=== PATIENT | female | born 1940 | race Caucasian/White ===

== ENCOUNTER 2024-06-07 14:40 | Emergency (ER) | payer MEDICARE, SELFPAY ==
[2024-06-07 14:51] VITALS: BP 113/72; PULSE 66; TEMP 36.8; O2SAT 98; BMI 25.2
--- NOTE | 2024-06-07 14:56 | CT_ITS ---
The [address] [address] Patient Name: DEMARCUS FINN MRN: [id number] date: 1940 Sex: F Assigned Patient Location: ER Current Patient Location: Accession/Order Number: [id number] Exam Date: 06/07/2024 16:32 Report Date: 06/07/2024 18:15 At the request of: CHINA MATTA Procedure: CT pelvis wo con EXAM: CT pelvis wo con REASON FOR EXAM: Female, 83 years, Fall. TECHNIQUE: Computed tomography of the pelvis is performed in the axial projection from the iliac crests to the pubic symphysis. Sagittal and coronal reconstructed images are performed. Dose reduction techniques were achieved by using automated exposure control and/or adjustment of mA and/or KVP according to patient size and/or use of iterative reconstruction technique. Study was performed without IV contrast. Study was performed without oral contrast. COMPARISON: Plain film, same date FINDINGS: Small bowel: The visualized small bowel is normal. Large bowel: There is extensive diverticulosis within the visualized colon. Appendix: The appendix is not visualized. No right lower quadrant inflammatory changes are seen to suggest acute appendicitis. Aorta: Extensive calcifications are seen within the distal abdominal aorta and iliac arteries. IVC: The IVC is normal. Retroperitoneum: Normal retroperitoneum. Bladder: The bladder is normal. Pelvic organs: The uterus is absent, consistent with hysterectomy. Abdominal wall: There are postoperative changes to the anterior abdominal wall. Osseous structures: There are degenerative changes within the visualized spine. The bones are demineralized. The SI joints are symmetric. No acute fracture is seen. CT/CT pelvis wo con IMPRESSION: Osteopenia, without acute fracture. Diverticulosis. Additional findings, as described above. Electronically authenticated by: OLEGARIO FREED Date: 06/07/2024 18:15
--- NOTE | 2024-06-07 14:56 | XR_ITS ---
The [address] [address] Patient Name: DEMARCUS FINN MRN: [id number] date: 1940 Sex: F Assigned Patient Location: ER Current Patient Location: ER Accession/Order Number: [id number] Exam Date: 06/07/2024 16:45 Report Date: 06/07/2024 18:07 At the request of: CHINA MATTA Procedure: XR tibia fibula LT 2V EXAM: XR tibia fibula LT 2V, XR femur LT 2V HISTORY: Pain in leg COMPARISON: CT pelvis, same date TECHNIQUE: Frontal and lateral views of the left femur, frontal and lateral views of the left tibia and fibula are performed. FINDINGS: The bones are demineralized. There is no acute fracture. There is chondrocalcinosis at the knee. Atherosclerotic vascular calcifications are seen. XR/XR tibia fibula LT 2V IMPRESSION: Osteopenia, no acute bony abnormality. Electronically authenticated by: OLEGARIO FREED Date: 06/07/2024 18:07
--- NOTE | 2024-06-07 14:56 | XR_ITS ---
The [address] [address] Patient Name: DEMARCUS FINN MRN: [id number] date: 1940 Sex: F Assigned Patient Location: ER Current Patient Location: ER Accession/Order Number: [id number] Exam Date: 06/07/2024 16:45 Report Date: 06/07/2024 18:07 At the request of: CHINA MATTA Procedure: XR femur LT 2V EXAM: XR tibia fibula LT 2V, XR femur LT 2V HISTORY: Pain in leg COMPARISON: CT pelvis, same date TECHNIQUE: Frontal and lateral views of the left femur, frontal and lateral views of the left tibia and fibula are performed. FINDINGS: The bones are demineralized. There is no acute fracture. There is chondrocalcinosis at the knee. Atherosclerotic vascular calcifications are seen. XR/XR femur LT 2V IMPRESSION: Osteopenia, no acute bony abnormality. Electronically authenticated by: OLEGARIO FREED Date: 06/07/2024 18:07
--- NOTE | 2024-06-07 14:57 | ED_ITS ---
HPI HPI - General Adult General Chief complaint: Extremity Problem, Nontraumatic Stated complaint: LOWER EXTREMITY INJURY Time Seen by Provider: 06/07/24 14:49 Source: patient and family Mode of arrival: Wheelchair Limitations: no limitations History of Present Illness HPI narrative: Patient is an 83-year-old female with a history of stroke and chronic weakness to the left lower extremity who presents to the ER for pain in the left hip that began today. She complains of severe pain over the left lateral hip, she was able to ambulate with her cane and walker around the home today, she states she cannot put any pressure on the left leg. She is adamant she has not had any falls or injuries. No medications taken prior to arrival. She is anticoagulated for her previous history of CVA. She denies any numbness of the left leg but has pain down the entire left leg, worst in the left hip. She has a history of degenerative disc disease of the lumbar spine. She states she canceled her massage appointment today due to an increase in pain and difficulty with ambulating, her massage therapist evaluated her and believes she has a hip dislocation. Related Data Home Medications ?Medication ?Instructions ?Recorded ?Confirmed allopurinol 100 mg tablet 100 mg PO DAILY 06/07/24 06/07/24 atorvastatin 80 mg tablet 80 mg PO DAILY 06/07/24 06/07/24 carvedilol 6.25 mg tablet 6.25 mg PO BID 06/07/24 06/07/24 dapagliflozin propanediol 10 mg 10 mg PO DAILY 06/07/24 06/07/24 tablet ezetimibe 10 mg tablet 10 mg PO DAILY 06/07/24 06/07/24 furosemide 40 mg tablet 40 mg PO DAILY 06/07/24 06/07/24 gabapentin 100 mg capsule 200 mg PO BEDTIME 06/07/24 06/07/24 isosorbide mononitrate 60 mg 60 mg PO DAILY 06/07/24 06/07/24 tablet,extended release 24 hr lisinopril 20 mg tablet 20 mg PO DAILY 06/07/24 06/07/24 pantoprazole 40 mg tablet,delayed 40 mg PO DAILY 06/07/24 06/07/24 release rivaroxaban 15 mg tablet (Xarelto) 15 mg PO Q24H 06/07/24 06/07/24 Previous Rx's ?Medication ?Instructions ?Recorded hydrocodone 5 mg-acetaminophen 325 1 tab PO Q6H PRN pain 2 days #8 06/07/24 mg tablet tabs prednisone 20 mg tablet See Rx Instructions .Route 06/07/24 .COMPLEX #6 tabs Allergies Allergy/AdvReac Type Severity Reaction Status Date / Time No Known Drug Allergies Allergy Verified 06/07/24 14:51 Opioid HPI Opioid Management Most Recent Opioid Data: Last Pain Scale 1 06/07/24 15:57 Last MAR Pain Assessment 06/07/24 15:57 Review of Systems ROS Constitutional Denies: fever or chills Ears, nose, mouth, and throat Denies: throat pain or nasal congestion Respiratory Denies: shortness of breath Gastrointestinal Denies: abdominal pain, nausea or vomiting Musculoskeletal Reports: back pain and extremity pain; Denies: neck pain Integumentary/Breast Denies: rash Neurological Denies: headache Hematologic/Lymphatic Denies: easy bruising or easy bleeding Exam Narrative Exam Narrative: Gen.: Awake, alert, in no distress Head: Normocephalic, atraumatic ENT: Moist mucous membranes Respiratory: No respiratory distress Extremities: Normal dorsiflexion, painful plantarflexion of the left foot. Diffuse mild tenderness of the left tibia, left knee and left thigh. Healing abrasion noted to the left lateral thigh. Moderate tenderness of the left lateral hip with no obvious deformity. No shortening or rotation noted of the left lower extremity. 2+ left DP pulse. Psych: Normal mood and affect Neuro: No focal neuro deficit Skin: Warm, dry, intact Constitutional Vital Signs, click to edit/add: Last Vital Signs Temp 98.2 F 06/07/24 14:51 Pulse 66 06/07/24 14:51 Resp 18 06/07/24 14:51 BP 113/72 06/07/24 14:51 Pulse Ox 98 06/07/24 14:51 O2 Del Method Room Air 06/07/24 14:51 Course Vital Signs Vital signs: Vital Signs Temperature 98.2 F 06/07/24 14:51 Pulse Rate 66 06/07/24 14:51 Respiratory Rate 18 06/07/24 14:51 Blood Pressure 113/72 06/07/24 14:51 Pulse Oximetry 98 06/07/24 14:51 Oxygen Delivery Method Room Air 06/07/24 14:51 Temperature 98.2 F 06/07/24 14:51 Pulse Rate 66 06/07/24 14:51 Respiratory Rate 18 06/07/24 14:51 Blood Pressure 113/72 06/07/24 14:51 Pulse Oximetry 98 06/07/24 14:51 Oxygen Delivery Method Room Air 06/07/24 14:51 Medical Decision Making MDM Narrative Medical decision making narrative: Medicated with Percocet and Solu-Medrol with improvement, vital signs are stable and she has no focal neurodeficits. CT of the pelvis as well as x-rays of the femur and tib-fib are unremarkable. Patient tolerated ambulating in the ER with a walker with no difficulty and prefers to be discharged home. She is given a course of analgesics and steroid taper for home. She is anticoagulated so we will avoid NSAIDs. Follow-up PCP and return to the ER if symptoms change or worsen SUPERVISED APC VISIT, PHYSICIAN ATTESTATION: Based on the medical record the care appears appropriate. ? Medical Records Medical records reviewed: Yes I reviewed the patient's medical records Lab Data Lab results reviewed: Yes I reviewed the patient's lab results Labs: Lab Results 06/07/24 06/07/24 Range/Units 15:20 15:54 WBC 7.5 (4.0-11.0) 10^3/uL RBC 4.25 (4.20-5.40) 10^6/uL Hgb 11.9 L (12.0-16.0) g/dL Hct 39.1 (36.0-48.0) % MCV 92.0 (81.0-99.0) fL MCH 28.0 (26.7-34.0) pg MCHC 30.4 (29.9-35.2) g/dL RDW 15.4 H (11.0-15.0) % Plt Count 293 (150-450) 10^3/uL MPV 10.8 (9.5-13.5) fL Neut % (Auto) 66.9 (43.0-75.0) % Lymph % (Auto) 18.6 L (20.5-60.0) % [place] % (Auto) 9.6 (1.7-12.0) % Eos % (Auto) 3.9 (0.9-7.0) % Baso % (Auto) 0.9 (0.2-2.0) % Neut # (Auto) 5.0 (1.4-6.5) 10^3/uL Lymph # (Auto) 1.4 (1.2-3.8) 10^3/uL [place] # (Auto) 0.7 (0.3-0.8) 10^3/uL Eos # (Auto) 0.3 (0.0-0.7) 10^3/uL Baso # (Auto) 0.1 (0.0-0.1) 10^3/uL Abs Immat Gran (auto) 0.01 (0.00-0.03) 10^3/uL Imm/Tot Granulo (auto) 0.1 (0.0-0.5) % ESR 64 H (<=30) mm/hr Sodium 137 (136-145) mmol/L Potassium 4.5 (3.5-5.1) mmol/L Chloride 102 (98-107) mmol/L Carbon Dioxide 28.3 (21.0-32.0) mmol/L Anion Gap 11.2 BUN 45.0 H (7.0-18.0) mg/dL Creatinine 1.57 H (0.55-1.02) mg/dL Est GFR ( Amer) 38 L (>=60) Est GFR (Non-Af Amer) 31 L (>=60) BUN/Creatinine Ratio 28.7 Glucose 107 H (74-106) mg/dL Calcium 9.6 (8.5-10.1) mg/dL C-Reactive Protein <0.50 (<=0.50) mg/dL Imaging Data CT scan - pelvis: Attestation: I have reviewed the pertinent imaging results. Radiologist's impression: ITS Impressions Femur X-Ray 06/07/24 14:56 IMPRESSION: Osteopenia, no acute bony abnormality. Electronically authenticated by: OLEGARIO FREED Date: 06/07/2024 18:[address] 06/07/24 14:56 IMPRESSION: Osteopenia, without acute fracture. Diverticulosis. Additional findings, as described above. Electronically authenticated by: OLEGARIO FREED Date: 06/07/2024 18:15 Tibia/Fibula X-Ray 06/07/24 14:56 IMPRESSION: Osteopenia, no acute bony abnormality. Electronically authenticated by: OLEGARIO FREED Date: 06/07/2024 18:07 Discharge Plan Discharge Stand Alone Forms: Portal Instructions Chief Complaint: Extremity Problem, Nontraumatic Clinical Impression: Acute pain of left hip Patient Disposition: Home, Self-Care Time of Disposition Decision: 18:34 Condition: Good Prescriptions / Home Meds: New hydrocodone-acetaminophen 5-325 mg tablet 1 tab PO Q6H PRN (Reason: pain) 2 Days Qty: 8 0RF Rx Instructions: DX: M25.552 prednisone 20 mg tablet See Rx Instructions .ROUTE .COMPLEX Qty: 6 0RF Rx Instructions: 40 mg orally daily for 2 days, then 20 mg orally daily for 2 days No Action allopurinol 100 mg tablet 100 mg PO DAILY atorvastatin 80 mg tablet 80 mg PO DAILY carvedilol 6.25 mg tablet 6.25 mg PO BID dapagliflozin propanediol 10 mg tablet 10 mg PO DAILY ezetimibe 10 mg tablet 10 mg PO DAILY furosemide 40 mg tablet 40 mg PO DAILY isosorbide mononitrate 60 mg tablet extended release 24 hr 60 mg PO DAILY lisinopril 20 mg tablet 20 mg PO DAILY pantoprazole 40 mg tablet,delayed release (DR/EC) 40 mg PO DAILY Xarelto 15 mg tablet 15 mg PO Q24H gabapentin 100 mg capsule 200 mg PO BEDTIME Print Language: Khmer Instructions: Hip Pain (ED) Referrals: RADHIKA LOVETT [Primary Care Provider] - 1 week
[2024-06-07 15:29] LABS: Basophils Absolute Auto 0.1 10^3/uL (0.0-0.1); Basophils Percent Auto 0.9 % (0.2-2.0); Eosinophils Absolute Auto 0.3 10^3/uL (0.0-0.7); Eosinophils Percent Auto 3.9 % (0.9-7.0); Hematocrit 39.1 % (36.0-48.0); Hemoglobin 11.9 g/dL (12.0-16.0); Immature Granulocytes Abs Auto 0.01 10^3/uL (0.00-0.03); Immature Granulocytes Pct Auto 0.1 % (0.0-0.5); Lymphocytes Absolute Auto 1.4 10^3/uL (1.2-3.8); Lymphocytes Percent Auto 18.6 % (20.5-60.0); Mean Corpuscular HGB Conc 30.4 g/dL (29.9-35.2); Mean Platelet Volume 10.8 fL (9.5-13.5); Monocytes Absolute Auto 0.7 10^3/uL (0.3-0.8); Monocytes Percent Auto 9.6 % (1.7-12.0); Neutrophils Percent Auto 66.9 % (43.0-75.0); Platelet Count 293 10^3/uL (150-450); Red Blood Count 4.25 10^6/uL (4.20-5.40); Red Cell Distribution Width 15.4 % (11.0-15.0); White Blood Count 7.5 10^3/uL (4.0-11.0)
[2024-06-07 15:55] LABS: Erythrocyte Sedimentation Rate 64 mm/hr (<=30)
[2024-06-07] MEDS: OXYCODONE HCL/ACETAMINOPHEN 5MG/325MG 1 TAB PO (15:57)
[2024-06-07] MEDS: METHYLPREDNISOLONE SOD SUCC PF 125 MG/2 ML VIAL IVP (15:57)
[2024-06-07 16:30] LABS: Anion Gap 11.2; BUN Creatinine Ratio 28.7; C Reactive Protein <0.50 mg/dL (<=0.50); Calcium 9.6 mg/dL (8.5-10.1); Carbon Dioxide 28.3 mmol/L (21.0-32.0); Chloride 102 mmol/L (98-107); Estimated GFR (African America 38 (>=60); Estimated GFR (Non-African Ame 31 (>=60); Glucose 107 mg/dL (74-106); Potassium 4.5 mmol/L (3.5-5.1); Sodium 137 mmol/L (136-145)
[2024-06-07 18:52] VITALS: BP 132/72; PULSE 61; O2SAT 94
== END 2024-06-07 18:55 | disposition home or self-care (01) ==
PROVIDERS: Physician Assistant; Emergency Provider Emergency Medicine; PCP Internal Medicine
DX: M25.552 Pain in left hip (principal); M51.36 Other intervertebral disc degeneration, lumbar region; Z86.73 Personal history of transient ischemic attack (TIA), and cerebral infarction without residual deficits; Z79.01 Long term (current) use of anticoagulants
CPT/HCPCS: 36415; 72192; 73552; 73590; 80048; 85025; 85652; 86140; 96374; 99285; J2919

== ENCOUNTER 2025-07-23 14:40 | Inpatient (IN) | payer MEDICARE, SELFPAY ==
[2025-07-23] VITALS (25 sets, daily range): BP systolic 89–120; BP diastolic 44–80; PULSE 66–99; TEMP 36.9; O2SAT 90–100; BMI 25.2; BMI 26.8
--- OUTSIDE RECORDS SUMMARY | 2025-07-23 14:45 | XMS_ITS | Encounter Summary ---
Author Organization [employer] [facility] Address [id number] [address] [place] [address] Care Team Providers Care Mechanic/Welder Name Role Phone Bakari Tovar DO Primary Care Provider [phone] Reason for Visit * Reason Comments Med Refill Encounter Details Date Type Department Care Team (Late Contact Info) Description 10/05/2022 Refill [facility] - Family Medicine [address] [place] [address] Bakari Tovar DO [address] [place] [address] Post herpetic neuralgia Social History Tobacco Use Types Packs/Day Years Used Date Smoking Tobacco: Never Smokeless Tobacco: Never Alcohol Use Standard Drinks/Week Comments No 0 (1 standard drink = 0.6 oz pur e alcohol) PHQ-2 Answer Date Recorded PHQ-2 Score 3 11/30/2018 Childcare Answer Date Recorded Childcare Unknown 05/11/2019 Employment Answer Date Recorded Employment Unknown 05/11/2019 Purpose - Life Answer Date Recorded Purpose and direction in life Unknown Comments No Sex and Gender Information Value Date Recorded Sex Assigned at Not on file Legal Sex Female 11:54 AM EDT Gender Identity Not on file Sexual Orientation Not on file COVID-19 Exposure Response Date Recorded In the last month, have you been in contact with someone who was confirmed or suspected to have Coronavirus / COVID-19? No / Unsure 10/06/2022 12:27 PM EST documented as of this encounter Plan of Treatment Upcoming Encounters Date Type Department Care Team (Late st Contact Info) Description 09/18/2025 11:00 AM EDT Office Visit [facility] Card[facility] [address] [place] [address] Brook Thao, SKIVER HAND-TICKET SALES SUPERVISOR [address] [place] [phone] Emani Davison, PA-C [address] [place] [address] 10/30/2025 10:00 AM EST Office Visit [facility] - Heart Failure Clinic [address] [place] [address] Boyd Beck MD [address] [place] [address] 04/03/2026 1:30 PM EDT Appointment [facility] - Vascular [address] [place] [address] Ciarra Colon, DO [address] [place] [address] 04/09/2026 2:00 PM EDT Office Visit [facility] [place] [address] Ciarra Colon, DO [address] [place] [address] documented as of this encounter Goals Goal Patient Goal Type Associated Problems Recent Progress Patient-Stated? Author safe discharge to home General Yes Alexandria Solis, RN Note: Evaluation of progress towards goal: safe transition from hospital to home with family/friend support. documented as of this encounter Visit Diagnoses Diagnosis Post herpetic neuralgia Herpes zoster with other nervous system complications documented in this encounter Additional Health Concerns Assessment Noted Time PHQ-9 Depression Total Score: 3 01/06/20 18 1:00 PM EST documented as of this encounter Care Teams Mechanic/Welder Relationship Specialty Start Date End Date Bakari Tovar DO [address] [place] [address] PCP - General Internal Medicine 12/01/24 documented as of this encounter
--- OUTSIDE RECORDS SUMMARY | 2025-07-23 14:45 | XMS_ITS | Encounter Summary ---
Author Organization [place] [facility] Address [id number] [address] [place] [address] Care Team Providers Care Dural Mechanic Name Role Phone CarmenBakari archer Elia MALAGON Primary Care Provider [phone] Reason for Visit * Reason Onset Date Comments Med Refill 10/06/2022 Encounter Details Date Type Department Care Team (Late st Contact Info) Description 10/06/2022 Refill [facility] Internal Medicine - Family Medicine [address] [place] [phone] Kiki Fernandez MA Hyperuricemia (Primary Dx); Acute on chronic diastolic congestive heart failure (CMS-HCC); Atherosclerosis of [place] coronary artery of [place] heart with stable angina pectoris ([facility]-HCC); Mixed hyperlipidemia; Gastroesophageal reflux disease, unspecified whether esophagitis present Social History Tobacco Use Types Packs/Day Years [...] PM EST documented as of this encounter Miscellaneous Notes * Telephone Encounter - Kiki Fernandez MA - 10/06/2022 11:55 AM EST Patient states she has been out of all of these since Thursday. documented in this encounter Plan of Treatment Upcoming Encounters Date Type Department Care Team (Late st Contact Info) Description 09/18/2025 11:00 AM EDT Office Visit [facility] Cardiology [address] [place] [address] Brook Thao, HEEL CURVER-ELECTRONIC WARFARE TECHNICIAN [address] [place] [phone] Emani Davison, PA-C [address] [place] [address] 10/30/2025 10:00 AM EST Office Visit [facility] - Heart Failure Clinic [address] [place] [address] Boyd Beck MD [address] [place] [address] 04/03/2026 1:30 PM EDT Appointment [facility] - Vascular [address] [place] [address] Ciarra Colon, DO [address] [place] [address] 04/09/2026 2:00 PM EDT Office Visit [facility] [address] [place] [address] Ciarra Colon, DO [address] [place] [address] documented as of this encounter Goals Goal Patient Goal Type Associated Problems Recent Progress Patient-Stated? Author safe discharge to home General Yes Alexandria Solis, RN Note: Evaluation of progress towards goal: safe transition from hospital to home with family/friend support. documented as of this encounter Visit Diagnoses Diagnosis Hyperuricemia- Primary Other abnormal blood chemistry Acute on chronic diastolic congestive heart failure ([facility]) Atherosclerosis of [place] coronary artery of [place] heart with stable angina pectoris Mixed hyperlipidemia Gastroesophageal reflux disease, unspecified whether esophagitis present documented in this encounter Additional Health Concerns Assessment Noted Time PHQ-9 Depression Total Score: 3 01/06/20 18 1:00 PM EST documented as of this encounter Care Teams Dural Mechanic Relationship Specialty Start Date End Date Bakari Tovar DO [address] [place] [id number] PCP - General Internal Medicine 12/01/24 documented as of this encounter
--- OUTSIDE RECORDS SUMMARY | 2025-07-23 14:45 | XMS_ITS | Encounter Summary ---
Author Organization [facility] Sys [facility] Address [id number] [address] [place] [address] Care Team Providers Care Psychology Physician Name Role Phone Bakari Tovar Primary Care Provider [phone] Encounter Details Date Type Department Care Team (Late st Contact Info) Description 05/04/2025 Orders Only [facility] Heart Failure Clinic [address] [phone] Boyd Beck MD [address] [place], [place] [id number] Social History Tobacco Use Types Packs/Day Years Used Date Smoking Tobacco: Never Smokeless Tobacco: Never Alcohol Use Standard Drinks/Week Comments No 0 (1 standard drink = 0.6 oz pur e alcohol) PHQ-2 Answer Date Recorded Total Score 0 04/17/2025 Childcare Answer Date Recorded Childcare Unknown 05/11/2019 Employment Answer Date Recorded Employment Unknown 05/11/2019 Hunger Screening Answer Date Recorded Within the past 12 months we worried whether our food would run out before we got money to buy more. Never True 04/17/2025 Within the past 12 months th e food we bought just didn't last and we didn't have money to get more. Never True 04/17/2025 Purpose - Life Answer Date Recorded Purpose and direction in life Unknown Comments No Sex and Gender Information Value Date Recorded Sex Assigned at Not on file Legal Sex Female 11:54 AM EDT Gender Identity Not on file Sexual Orientation Not on file documented as of this encounter Plan of Treatment Upcoming Encounters Date Type Department Care Team (Late st Contact Info) Description 09/18/2025 11:00 AM EDT Office Visit [facility] Cardiology [address] [place] [address] Brook Thao, COUNTY SUPERVISOR-CLOTH DYEING RANGE TENDER [address] [place] [address] Emani Davison, PA-C [address] [place] [address] 10/30/2025 10:00 AM EST Office Visit [facility] - Heart Failure Clinic [address] [facility] [place] [address] Boyd Beck MD [address] [place], [place] [phone] 04/03/2026 1:30 PM EDT Appointment [facility] - Vascular [address] [place] [phone] Ciarra Colon, DO [address] [place] [address] 04/09/2026 2:00 PM EDT Office Visit [facility] [address] [place] [address] Ciarra Colon, DO [address] [place] [address] documented as of this encounter Goals Goal Patient Goal Type Associated Problems Recent Progress Patient-Stated? Author safe discharge to home General Yes Alexandria Solis, RN Note: Evaluation of progress towards goal: safe transition from hospital to home with family/friend support. documented as of this encounter Procedures Procedure Name Priority Date/Time Associated Diagnosis Comments UNLISTED GENETIC TEST Routine 04/29/2025 documented in this encounter Results * Unlisted Genetic Test (04/29/2025) us Boyd Beck MD LAB BLOOD ORDERABLES Edited Res ult - Final MANUALLY TRANSCRIBED RESULTS documented in this encounter Visit Diagnoses Not on filedocumented in this encounter Additional Health Concerns Assessment Noted Time PHQ-9 Depression Total Score: 0 04/17/20 1:52 PM EDT A Body Mass Index follow-up plan has been documented for the patient 04/25/2025 2:57 PM EDT documented as of this encounter Care Teams Psychology Physician Relationship Specialty Start Date End Date Bakari Tovar DO [address] [place] [address] PCP - General Internal Medicine 12/01/24 documented as of this encounter
--- OUTSIDE RECORDS SUMMARY | 2025-07-23 14:45 | XMS_ITS | Encounter Summary ---
Author Organization [employer] [facility] tem Address [facility]-[id number] [address] [place] [address] Care Team Providers Care Harbor Engineer Name Role Phone Bakari Tovar DO Primary Care Provider [phone] Encounter Details Date Type Department Care Team (Late st Contact Info) Description 01/01/2023 Telephone [facility] - Family Medicine [address] [place] [address] Bakari Tovar DO [address] [place] [address] Social History Tobacco Use Types Packs/Day Years Used Date Smoking Tobacco: Never Smokeless Tobacco: Never Alcohol Use Standard Drinks/Week Comments No 0 (1 standard drink = 0.6 oz pur e alcohol) PHQ-2 Answer Date Recorded Total Score 0 12/29/2022 Childcare Answer Date Recorded Childcare Unknown 05/11/2019 [...] have Coronavirus / COVID-19? No / Unsure 12/29/2022 1:14 PM EST documented as of this encounter Miscellaneous Notes * Telephone Encounter - Bethany Piña - 01/01/2023 10:10 AM EST Moncho from home health called and was wondering if it would be okay to start ascencion with home health starting on Thursday? They just wanted to make sure it was okay with you first. Moncho can be reached at [phone] * Telephone Encounter - Ivonne Cantor MA - 01/01/2023 10:10 AM EST Moncho called back and ssaid they are actually going out tomorrow, they had some cancellations. * Telephone Encounter - Mary Sebastian CMA - 01/01/2023 10:10 AM EST Moncho Called today and Patient refused Home Health told him she does not qualify for Home Health due to she is not home bound because she drives everywhere and is going to pay for the tens unit documented in this encounter Plan of Treatment Upcoming Encounters Date Type Department Care Team (Late st Contact Info) Description 09/18/2025 11:00 AM EDT Office Visit [facility] Cardiology [address] [place] [address] Brook Thao, OFFSET PRESS OPERATOR HELPER-TENNIS BALL COVER CEMENTER [address] [place] [address] Emani Davison, PA-C [address] [place] [address] 10/30/2025 10:00 AM EST Office Visit [facility] [address] [place] [address] Boyd Beck MD [address] [place] [address] 04/03/2026 1:30 PM EDT Appointment [facility] - Vascular [address] [place] [address] Ciarra Colon, DO [address] [place] [address] 04/09/2026 2:00 PM EDT Office Visit [facility] [place] [address] [place] [address] Ciarra Colon, DO [address] [place] [address] documented as of this encounter Goals Goal Patient Goal Type Associated Problems Recent Progress Patient-Stated? Author safe discharge to home General Yes Alexandria Solis, RN Note: Evaluation of progress towards goal: safe transition from hospital to home with family/friend support. documented as of this encounter Visit Diagnoses Not on filedocumented in this encounter Additional Health Concerns Assessment Noted Time PHQ-9 Depression Total Score: 0 12/29/19 23 1:45 PM EST documented as of this encounter Care Teams Harbor Engineer Relationship Specialty Start Date End Date Bakari Tovar DO [address] [place] [address] PCP - General Internal Medicine 12/01/24 documented as of this encounter
--- OUTSIDE RECORDS SUMMARY | 2025-07-23 14:45 | XMS_ITS | Encounter Summary ---
Author Organization [employer] tem Address [facility][id number] [address] [place] [address] Care Team Providers Care Edge Baster Name Role Phone Bakari Tovar DO Primary Care Provider [phone] Reason for Visit * Reason Comments Med Refill Encounter Details Date Type Department Care Team (Late st Contact Info) Description 02/26/2023 Refill [facility] Internal Medicine - Family Medicine [address] [place] [address] Bakari Tovar DO [address] [place] [address] Post herpetic neuralgia Social History Tobacco Use [...] have Coronavirus / COVID-19? No / Unsure 02/20/2023 9:01 AM EDT documented as of this encounter Plan of Treatment Upcoming Encounters Date Type Department Care Team (Late st Contact Info) Description 09/18/2025 11:00 AM EDT Office Visit [facility] Cardiology [address] [place] [address] Brook Thao, FLOORING HELPER-CIRCLE SAW OPERATOR [address] [place] [address] Emani Davison, PA-C [address] [place] [address] 10/30/2025 10:00 AM EST Office Visit [facility] [address] [place] [address] Boyd Beck MD [address] [place], [place] [address] 04/03/2026 1:30 PM EDT Appointment [facility] - Vascular [address] [place] [address] Ciarra Colon, DO [address] [place] [address] 04/09/2026 2:00 PM EDT Office Visit [facility] [place] [address] Ciarra Colon, DO [address] [place] [address] documented as of this encounter Goals Goal [...] documented as of this encounter Care Teams Edge Baster Relationship Specialty Start Date End Date Bakari Tovar DO [address] [place] [address] PCP - General Internal Medicine 12/01/24 documented as of this encounter
--- OUTSIDE RECORDS SUMMARY | 2025-07-23 14:45 | XMS_ITS | Encounter Summary ---
Author Organization [facility] Address [facility][id number] [address] [place] [address] Care Team Providers Care Pet Trainer Name Role Phone Bakari Tovar DO Primary Care Provider [phone] Encounter Details Date Type Department Care Team (Late st Contact Info) Description 12/22/2022 Orders Only [facility] Internal Medicine - Family Medicine [address] [place] [address] Bakari Tovar DO [address] [place] [address] Type 2 diabetes mellitus without complication, without long-term current use of insulin ([facility]) (Primary Dx); Mixed hyperlipidemia; Hyperuricemia Social History Tobacco Use Types Packs/Day Years [...] have Coronavirus / COVID-19? No / Unsure 12/24/2022 11:56 AM EST documented as of this encounter Plan of Treatment Upcoming Encounters Date Type Department Care Team (Late st Contact Info) Description 09/18/2025 11:00 AM EDT Office Visit [facility] Cardiology [address] [place] [address] Brook Thao, IT SECURITY ARCHITECT-GRAND JURY DEPUTY SHERIFF [address] [place] [address] Emani Davison, PA-C [address] [place], [place] [address] 10/30/2025 10:00 AM EST Office Visit [facility] - Heart Failure Clinic [address] [place] [address] Boyd Beck MD [address] [place] [address] 04/03/2026 1:30 PM EDT Appointment [facility] - Vascular [address] [place] [address] Ciarra Colon, DO [address] [place] [address] 04/09/2026 2:00 PM EDT Office Visit [address] [address] Ciarra Colon, DO [address] [place] [address] documented as of this encounter Goals Goal Patient Goal Type Associated Problems Recent Progress Patient-Stated? Author safe discharge to home General Yes Alexandria Solis, RN Note: Evaluation of progress towards goal: safe transition from hospital to home with family/friend support. documented as of this encounter Results * Uric acid (12/24/2022 12:02 PM EST) Uric Acid 6.2 2.6 - 7.2 mg/dL 12/24/2022 3:15 PM [facility] Blood (PLASMA) 12/24/2022 12 :02 PM EST 12/24/2022 12:03 PM EST Bakari Tovar DO LAB BLOOD ORDERABLES Final Resul t [facility] [address] [facility] [place] [address] * (ABNORMAL) Lipid profile (12/24/2022 12:02 PM EST) Cholesterol 109(L) 150 - 200 mg/dL 12/24/2022 3:15 PM [facility] Triglycerides 110 27 - 150 mg/dL 12/24/2022 3:15 PM [facility] HDL Cholesterol 40 >39 mg/dL 3:15 PM [facility] Comment: HDL <40 mg/dL - High Risk HDL > or = 40mg/dL- Desirable HDL >60 mg/dL - Negative Risk VLDL 22 0 - 30 mg/dL 12/24/2022 3:15 PM [facility] LDL (calc) 47 <130 mg/dL 12/24/2022 3:15 PM [facility] Comment: LDL <100 mg/dL - Desirable LDL >160 mg/dL - High Risk Cholesterol:HDL Ratio 2.7 1.0 - 5.0 12/24/2022 3:15 PM [facility] PLASMA 12/24/2022 12:0 2 PM EST 12/24/2022 12:03 PM EST Bakari Tovar DO LAB BLOOD ORDERABLES Final Resul t [facility] [address] [facility] [place] [address] * (ABNORMAL) Comprehensive metabolic panel (12/24/2022 12:02 PM EST) Sodium 139 134 - 146 mmol/L 12/24/2022 3:15 PM [facility] Potassium, Bld 4.3 3.5 - 5.0 mmol/L 12/24/2022 3:15 PM [facility] Chloride 103 98 - 109 mmol/L 12/24/2022 3:15 PM [facility] CO2 25 22 - 32 mmol/L 12/24/2022 3:15 PM [facility] Anion gap 11 5 - 15 mmol/L 12/24/2022 3:15 PM [facility] BUN 63(H) 5 - 27 mg/dL 12/24/2022 3:15 PM [facility] Creatinine 1.68(H) 0.40 - 1.00 mg/dL 12/24/2022 3:15 PM [facility] Comment:METHOD TRACEABLE TO IDMS STANDARD Glucose 105(H) 65 - 99 mg/dL 12/24/2022 3:15 PM [facility] Calcium 9.6 8.5 - 10.5 mg/dL 12/24/2022 3:15 PM [facility] Total Protein 7.1 6.0 - 8.0 g/dL 12/24/2022 3:15 PM [facility] Albumin 4.3 3.2 - 5.3 g/dL 12/24/2022 3:15 PM [facility] Alkaline Phosphatase 79 39 - 130 U/L 12/24/2022 3:15 PM [facility] AST 12 0 - 41 U/L 12/24/2022 3:15 PM EST [facility] ALT 15 0 - 31 U/L 12/24/2022 3:15 PM EST [facility] Total bilirubin 0.4 0.3 - 1.2 mg/dL 12/24/2022 3:15 PM EST [facility] eGFR (CKD-EPI)non-rac e dependent 30(L) >59 ml/min/1.7 3sq.m 12/24/2022 3:15 PM EST [facility] Comment: Reported eGFR is based on the CKD-EPI 2020 equation that does not use a race coefficient. PLASMA 12/24/2022 12:0 2 PM EST 12/24/2022 12:03 PM EST Bakari Tovar DO LAB BLOOD ORDERABLES Final Resul t Performing Organization Address City/[facility]/ZIP Co de Phone Number [facility] [address] [facility] [place] [address] * Hemoglobin A1c (12/24/2022 12:02 PM EST) Hemoglobin A1C 6.1 4.4 - 6.4 % 12/24/2022 3:21 PM EST [facility] Average glucose 128 mg/dL 3:21 PM EST [facility] PLASMA 12/24/2022 12:0 2 PM EST 12/24/2022 12:03 PM EST Bakari Tovar DO LAB BLOOD ORDERABLES Final Resul t [facility] documented in this encounter Visit Diagnoses Diagnosis Type 2 diabetes mellitus without complication, without long-term current use of insulin ([facility])- Primary Mixed hyperlipidemia Hyperuricemia Other abnormal blood chemistry documented in this encounter Additional Health Concerns Assessment Noted Time PHQ-9 Depression Total Score: 3 01/06/20 18 1:00 PM EST documented as of this encounter Care Teams Pet Trainer Relationship Specialty Start Date End Date Bakari Tovar DO [address] [place] [address] PCP - General Internal Medicine 12/01/24 documented as of this encounter
--- OUTSIDE RECORDS SUMMARY | 2025-07-23 14:45 | XMS_ITS | Encounter Summary ---
Author Organization [employer] tem Address [facility]-[id number] [address] [place] [address] Care Team Providers Care Steam Pan Sponger Name Role Phone Bakari Tovar DO Primary Care Provider [phone] Reason for Visit * Reason Onset Date Comments Med Refill 09/15/2023 Encounter Details Date Type Department Care Team (Late st Contact Info) Description 09/15/2023 Refill [facility] Internal Medicine - Family Medicine [address] [place] [address] Bakari Tovar DO [address] [place] [address] Acute on chronic diastolic congestive heart failure ([facility]) Social History Tobacco Use Types Packs/Day Years Used Date Smoking Tobacco: Never Smokeless Tobacco: Never Alcohol Use Standard Drinks/Week Comments No 0 (1 standard drink = 0.6 oz pur e alcohol) PHQ-2 Answer Date Recorded Total Score 0 09/08/2023 Childcare Answer Date Recorded Childcare Unknown 05/11/2019 Employment Answer Date Recorded Employment Unknown 05/11/2019 Purpose - Life Answer Date Recorded Purpose and direction in life Unknown Comments No Sex and Gender Information Value Date Recorded Sex Assigned at Not on file Legal Sex Female 11:54 AM EDT Gender Identity Not on file Sexual Orientation Not on file documented as of this encounter Miscellaneous Notes * Telephone Encounter - Bakari Tovar DO - 09/15/2023 3:48 PM EDT Duplicate request documented in this encounter Plan of Treatment Upcoming Encounters Date Type Department Care Team (Late st Contact Info) Description 09/18/2025 11:00 AM EDT Office Visit [facility] Cardiology [address] [facility] [address] [place] [address] Brook Thao, [place] CUSTOMS AND BORDER OFFICER-DIRECTOR OF MUSIC [address] [place] [address] Emani Davison, PA-C [address] [place], [place] [address] 10/30/2025 10:00 AM EST [facility] [address] [place] [address] Boyd Beck MD [address] [place] [address] 04/03/2026 1:30 PM EDT Appointment [facility] - Vascular [address] [place] [address] Ciarra Colon, DO [address] [place] [address] 04/09/2026 2:00 PM EDT Office Visit [address] [address] Ciarra Colon DO [address] [place] [address] documented as of this encounter Goals Goal Patient Goal Type Associated Problems Recent Progress Patient-Stated? Author safe discharge to home General Yes Alexandria Solis, RN Note: Evaluation of progress towards goal: safe transition from hospital to home with family/friend support. documented as of this encounter Visit Diagnoses Diagnosis Acute on chronic diastolic congestive heart failure (CMS-HCC) documented in this encounter Additional Health Concerns Assessment Noted Time PHQ-9 Depression Total Score: 0 09/08/20 23 2:08 PM EDT documented as of this encounter Care Teams Steam Pan Sponger Relationship Specialty Start Date End Date Bakari Tovar DO [address] [place] [address] PCP - General Internal Medicine 12/01/24 documented as of this encounter
--- OUTSIDE RECORDS SUMMARY | 2025-07-23 14:45 | XMS_ITS | Encounter Summary ---
Author Organization [facility] tem Address [facility]-[id number] [address] [place] [address] Care Team Providers Care Residence Hall Director Name Role Phone Bakari Tovar Primary Care Provider [phone] Encounter Details Date Type Department Care Team (Late st Contact Info) Description 04/08/2023 Telephone [facility] Internal Medicine - Family Medicine [address] [place] [address] Christal Douglas CMA Social History Tobacco Use Types Packs/Day Years Used Date Smoking Tobacco: Never Smokeless Tobacco: Never Alcohol Use Standard Drinks/Week Comments No 0 (1 standard drink = 0.6 oz pur e alcohol) PHQ-2 Answer Date Recorded Total Score 0 03/31/2023 Childcare Answer Date Recorded Childcare Unknown 05/11/2019 [...] encounter Miscellaneous Notes * Telephone Encounter - Christal Douglas CMA - 04/08/2023 2:16 PM EDT Patient needs an order put in for her FIT test. She picked up the kit but there was no order to go with it. documented in this encounter Plan of Treatment Upcoming Encounters Date Type Department Care Team (Late st Contact Info) Description 09/18/2025 11:00 AM EDT Office Visit [facility] Physicians Cardiology [address] [place] [address] Brook Thao, CONSULAR OFFICER-PRODUCTION SUPPORT SUPERVISOR [address] [place] [address] Emani Davison, PA-C [address] [place] [address] 10/30/2025 10:00 AM EST Office Visit [facility] - Heart Failure Clinic [address] [place] [address] Boyd Beck MD [address] [place], [place] [address] 04/03/2026 1:30 PM EDT Appointment [facility] - Vascular [address] [place] [address] Ciarra Colon, DO [address] [place] [address] 04/09/2026 2:00 PM EDT Office Visit [facility] [place] [address] [facility] [place] [address] Ciarra Colon, DO [address] [place] [address] documented as of this encounter Goals Goal [...] Noted Time PHQ-9 Depression Total Score: 0 03/31/20 10:01 AM EDT documented as of this encounter Care Teams Residence Hall Director Relationship Specialty Start Date End Date Bakari oTvar DO [address] [place] [id number] PCP - General Internal Medicine 12/01/24 documented as of this encounter
--- OUTSIDE RECORDS SUMMARY | 2025-07-23 14:45 | XMS_ITS | Encounter Summary ---
Author Organization [facility] [employer] [facility] tem Address [facility][id number] [address] [place] [address] Care Team Providers Care Kaiako Kohanga Reo Name Role Phone Bakari Tovar DO Primary Care Provider [phone] Encounter Details Date Type Department Care Team (Late st Contact Info) Description 10/05/2022 Orders Only [facility] Internal Medicine - Family Medicine [address] [place] [address] Bakari Tovar DO [address] [place] [address] Social History Tobacco Use Types Packs/Day Years [...] Description 09/18/2025 11:00 AM EDT Office Visit [facility] Cardiology [address] [place] [address] Brook Thao, STRAW HAT BRIM CUTTER OPERATOR-MEDICAL CLAIMS ASSISTANT [address] [place] [address] Emani Davison, PA-C [address] [place] [address] 10/30/2025 10:00 AM EST Office Visit [facility] - Heart Failure Clinic [address] [place] [address] Boyd Beck MD [address] [place], [place] [address] 04/03/2026 1:30 PM EDT Appointment [facility] - Vascular [address] [place] [address] Ciarra Colon, DO [address] [place] [address] 04/09/2026 2:00 PM EDT Office Visit [facility] [place] [address] [place] [address] Ciarra Colon, DO [address] [place] [address] documented as of this encounter Goals Goal [...] documented as of this encounter Care Teams Kaiako Kohanga Reo Relationship Specialty Start Date End Date Bakari Tovar DO [address] [place] [address] PCP - General Internal Medicine 12/01/24 documented as of this encounter
--- OUTSIDE RECORDS SUMMARY | 2025-07-23 14:45 | XMS_ITS | Encounter Summary ---
Author Organization [employer] Address [facility]-[id number] [address] [place] [address] Care Team Providers Care Aircraft Restorer Name Role Phone Bakari Tovar DO Primary Care Provider [phone] Reason for Visit * Reason Comments Med Refill Encounter Details Date Type Department Care Team (Late st Contact Info) Description 08/29/2022 Refill [facility] - Family Medicine [address] [place] [address] Bakari Tovar DO [address] [place] [address] Post herpetic neuralgia Social History Tobacco Use [...] have Coronavirus / COVID-19? No / Unsure 08/06/2022 12:32 PM EDT documented as of this encounter Plan of Treatment Upcoming Encounters Date Type Department Care Team (Late st Contact Info) Description 09/18/2025 11:00 AM EDT Office Visit [facility]icians Cardiology [address] [place] [address] Brook Thao, DIRECTOR CHEMISTRY-PRESS SET UP PERSON [address] [place] [address] Emani Davison, PA-C [address] [place] [address] 10/30/2025 10:00 AM EST Office Visit [facility] - Heart Failure Clinic [address] [place] [address] Boyd Beck MD [address] [place], [place] [address] 04/03/2026 1:30 PM EDT Appointment [facility] - Vascular [address] [place] [address] Ciarra Colon, DO [address] [place] [address] 04/09/2026 2:00 PM EDT Office Visit [facility] [place] [address] Ciarra Colon, DO [address] [place] [address] documented as of this encounter Goals Goal [...] documented as of this encounter Care Teams Aircraft Restorer Relationship Specialty Start Date End Date Bakari Tovar DO [address] [place] [address] PCP - General Internal Medicine 12/01/24 documented as of this encounter
--- OUTSIDE RECORDS SUMMARY | 2025-07-23 14:45 | XMS_ITS | Encounter Summary ---
Author Organization [employer] Address [facility]-[id number] [address] [place] [address] Care Team Providers Care Typesetter Apprentice Name Role Phone Bakari Tovar DO Primary Care Provider [phone] Reason for Visit * Reason Onset Date Comments Med Refill 03/23/2023 Encounter Details Date Type Department Care Team (Late Contact Info) Description 03/23/2023 Refill [facility] - Family Medicine [address] [place] [address] Bakari Tovar DO [address] [place] [address] COPD, moderate (CMS-HCC) (Primary Dx) Social History Tobacco Use Types Packs/Day Years [...] Description 09/18/2025 11:00 AM EDT Office Visit [facility] [address] [place] [address] Brook Thao, LENS COATER-AIR BRAKE OPERATOR [address] [place] [address] Emani Davison, PA-C [address] [place] [address] 10/30/2025 10:00 AM EST Office Visit [facility] - Heart Failure Clinic [address] [facility] [place] [address] Boyd Beck MD [address] [place], [place] [phone] 04/03/2026 1:30 PM EDT Appointment [facility] - Vascular [address] [place] [address] Ciarra Colon, DO [address] [place] [address] 04/09/2026 2:00 PM EDT Office Visit [facility] [place] [address] [place] [address] Ciarra Colon, DO [address] [place] [address] documented as of this encounter Goals Goal Patient Goal Type Associated Problems Recent Progress Patient-Stated? Author safe discharge to home General Yes Alexandria Solis, RN Note: Evaluation of progress towards goal: safe transition from hospital to home with family/friend support. documented as of this encounter Visit Diagnoses Diagnosis COPD, moderate (CMS-HCC)- Primary documented in this encounter Additional Health Concerns Assessment Noted Time PHQ-9 Depression Total Score: 0 12/29/19 23 1:45 PM EST documented as of this encounter Care Teams Typesetter Apprentice Relationship Specialty Start Date End Date Bakari Tovar DO [address] [place] [address] PCP - General Internal Medicine 12/01/24 documented as of this encounter
--- OUTSIDE RECORDS SUMMARY | 2025-07-23 14:45 | XMS_ITS | Encounter Summary ---
Author Organization [employer] Sys tem Address [id number] [address] [place] [address] Care Team Providers Care Automatic Cigar Wrapper Tender Name Role Phone Bakari Tovar Primary Care Provider [phone] Reason for Visit * Reason Comments Med Refill Encounter Details Date Type Department Care Team (Late Contact Info) Description 02/16/2023 Refill [facility] - Family Medicine [address] [place] [address] Juanita Brown, FINISHED YARN EXAMINER-ELECTRONIC INTEGRATED SYSTEMS MECHANIC [address] [place], [place] [phone] Social History Tobacco Use Types Packs/Day Years [...] Encounters Date Type Department Care Team (Late Contact Info) Description 09/18/2025 11:00 AM EDT Office Visit [facility] Cardiology [address] [place] [address] [place] Hina, FINISHED YARN EXAMINER-CHURN OPERATOR [address] [place] [address] Emani Davison, PA-C [address] [place] [address] 10/30/2025 10:00 AM EST Office Visit [facility] - Heart Failure Clinic [address] [place] [address] Boyd Beck MD [address] [place], [place] [address] 04/03/2026 1:30 PM EDT Appointment [facility] - Vascular [address] [place] [address] Ciarra Colon, DO [address] [place] [address], [place] [address] 04/09/2026 2:00 PM EDT Office Visit [facility] [address] [place] [address] Ciarra Colon, DO [address] [place] [address] documented as of this encounter Goals Goal [...] documented as of this encounter Care Teams Automatic Cigar Wrapper Tender Relationship Specialty Start Date End Date Bakari Tovar DO [address] [place] [address] PCP - General Internal Medicine 12/01/24 documented as of this encounter
--- OUTSIDE RECORDS SUMMARY | 2025-07-23 14:45 | XMS_ITS | Encounter Summary ---
Author Organization [employer] s tem Address [facility] [id number] [address] [place] [address] Care Team Providers Care Rubber Moulding Machine Operator Name Role Phone Bakari Tovar DO Primary Care Provider [phone] Reason for Visit * Reason Comments Med Refill Encounter Details Date Type Department Care Team (Late Contact Info) Description 11/12/2022 Refill [facility] Internal Medicine - Family Medicine [address] [place] [address] Bakari Tovar DO [address] [place] [address] Social History Tobacco Use Types Packs/Day Years [...] Cardiology [address] [place] [address] Brook Thao Hina, BEADING SAWYER-TELEPHONIC CASE MANAGER [address] [place] [address] Emani Davison, PA-C [address] [place] [address] 10/30/2025 10:00 AM EST Office Visit [facility] - Heart [facility] [address] [place] [address] Boyd Beck MD [address] [place], [place] [address] 04/03/2026 1:30 PM EDT Appointment [facility] - Vascular [address] [place] [address] Ciarra Colon, DO [address] [place] [address] 04/09/2026 2:00 PM EDT Office Visit [address] [place] [address] Ciarra Colon, DO [address] [place] [address] documented as of this encounter Goals Goal [...] documented as of this encounter Care Teams Rubber Moulding Machine Operator Relationship Specialty Start Date End Date Bakari Tovar DO [address] [place] [address] PCP - General Internal Medicine 12/01/24 documented as of this encounter
--- OUTSIDE RECORDS SUMMARY | 2025-07-23 14:45 | XMS_ITS | Encounter Summary ---
Author Organization [facility] tem Address [id number] [address] [place] [address] Care Team Providers Care Database Architect Name Role Phone Bakari Tovar DO Primary Care Provider [phone] Encounter Details Date Type Department Care Team (Late Contact Info) Description 09/13/2023 Orders Only [facility] Internal Medicine - Family Medicine [address] [place] [address] Bakari Tovar DO [address] [place] [address] Social History Tobacco Use Types Packs/Day Years [...] Cardiology [address] [place] [address] [place] Hina, BANK MANAGER-PRODUCE MANAGER [address] [place] [address] Emani Davison, PA-C [address] [place] [address] 10/30/2025 10:00 AM EST Office Visit [facility] - Heart Failure Clinic [address] [place] [address] Boyd Beck MD [address] [place], [place] [address] 04/03/2026 1:30 PM EDT Appointment [facility] - Vascular [address] [place] [address] Ciarra Colon, DO [address] [employer] [address] [place] [address] 04/09/2026 2:00 PM EDT Office Visit [facility] [address] [place] [address] Ciarra Colon, DO [address] [employer] [address] [place] [address] documented as of this encounter Goals Goal Patient Goal Type Associated Problems Recent Progress Patient-Stated? Author safe discharge to home General Yes Alexandria Solis, CAPRICE Note: Evaluation of progress towards goal: safe transition from hospital to home with family/friend support. documented as of this encounter Visit Diagnoses Not on filedocumented in this encounter Additional Health Concerns Assessment Noted Time PHQ-9 Depression Total Score: 0 09/08/20 23 2:08 PM EDT documented as of this encounter Care Teams Database Architect Relationship Specialty Start Date End Date Bakari Tovar DO [address] [place] [address] PCP - General Internal Medicine 12/01/24 documented as of this encounter
--- OUTSIDE RECORDS SUMMARY | 2025-07-23 14:45 | XMS_ITS | Encounter Summary ---
Author Organization [facility] tem Address [facility]-[id number] [address] [place] [address] Care Team Providers Care Insurance Agents Supervisor Name Role Phone Bakari Tovar DO Primary Care Provider [phone] Encounter Details Date Type Department Care Team (Late st Contact Info) Description 10/24/2022 Orders Only [facility] Internal Medicine - Family Medicine [address] [place] [address] Bakari Tovar DO [address] [place] [address] Social History Tobacco Use Types Packs/Day Years [...] 11:00 AM EDT Office Visit [facility] Cardiology [address] [place] [address] Brook Thao, RUBBER STAMP ASSEMBLER-WOOLING MACHINE OPERATOR [address] [place] [address] Emani Davison, PA-C [address] [place] [address] 10/30/2025 10:00 AM EST Office Visit [facility] - Heart Failure Clinic [address] [place] [address] Boyd Beck MD [address] [place], [place] [address] 04/03/2026 1:30 PM EDT Appointment [facility] - Vascular [address] [place] [address] Ciarra Colon, DO [address] [employer] [address] [place] [address] 04/09/2026 2:00 PM EDT Office Visit [facility] Vascular [place] [address] [facility] [place] [address] Ciarra Colon, DO [address] [employer] [address] [place] [address] documented as of this encounter Goals Goal [...] documented as of this encounter Care Teams Insurance Agents Supervisor Relationship Specialty Start Date End Date Bakari Tovar DO [address] [place] [address] PCP - General Internal Medicine 12/01/24 documented as of this encounter
--- OUTSIDE RECORDS SUMMARY | 2025-07-23 14:45 | XMS_ITS | Encounter Summary ---
Author Organization [employer] tem Address [facility]-[id number] [address] [place] [address] Care Team Providers Care Lockstitch Waistband Setter Name Role Phone Bakari Tovar DO Primary Care Provider [phone] Reason for Visit * Reason Comments Med Refill Encounter Details Date Type Department Care Team (Late Contact Info) Description 10/24/2022 Refill [facility] Internal Medicine - Family Medicine [address] [place] [address] Bakari Tovar DO [address] [place] [address] Post herpetic neuralgia Social History Tobacco Use [...] 09/18/2025 11:00 AM EDT Office Visit [facility] Cardiology [address] [place] [address] Brook Thao, NEW PATIENT ESCORT-HEAT TREATING OPERATOR [address] [place] [address] Emani Davison, PA-C [address] [place] [address] 10/30/2025 10:00 AM EST Office Visit [facility] - Heart Failure Clinic [address] [place] [address] Boyd Beck MD [address] [place] [address] 04/03/2026 1:30 PM EDT Appointment [facility] - Vascular [address] [place] [address] Ciarra Colon, DO [address] [employer] [address] [place] [address] 04/09/2026 2:00 PM EDT Office Visit [facility] [place] [address] Ciarra Colon, DO [address] [employer] [address] [place] [address] documented as of this encounter Goals Goal [...] documented as of this encounter Care Teams Lockstitch Waistband Setter Relationship Specialty Start Date End Date Bakari Tovar DO [address] [place] [address] PCP - General Internal Medicine 12/01/24 documented as of this encounter
--- OUTSIDE RECORDS SUMMARY | 2025-07-23 14:45 | XMS_ITS | Encounter Summary ---
Author Organization [employer] tem Address [facility] [id number] [address] 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 I verified with pt that this is true. documented in this encounter Plan of Treatment Upcoming Encounters Date Type Department Care Team (Late st Contact Info) Description 09/18/2025 11:00 AM EDT Office Visit [facility] Cardiology [address] [facility] [address] [place] [address] Brook Thao, DATA MANAGEMENT ANALYST-TECHNICIAN SUBM[employer]INE CABLE EQUIPMENT [address] [place] [address] Emani Davison, PA-C [address] [place] [address] 10/30/2025 10:00 AM EST Office Visit [facility] - Heart Failure Clinic [address] [place] [address] Boyd Beck MD [address] [place] [address] 04/03/2026 1:30 PM EDT Appointment [facility] - Vascular [address] [place] [address] Ciarra Colon DO [address] [facility] [address] [place] [address] 04/09/2026 2:00 PM EDT Office Visit [facility] Vascular [place] [address] [place] [address] Ciarra Colon DO [address] [facility] [address] [place] [address] documented as of this encounter Goals Goal Patient Goal Type Associated Problems Recent Progress Patient-Stated? Author safe discharge to home General Yes Alexandria Solis, RN Note: Evaluation of progress towards goal: safe transition from hospital to home with family/friend support. 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 Acute on chronic diastolic congestive heart failure ([facility]-HCC) Mixed hyperlipidemia COPD, moderate ([facility]) Post herpetic neuralgia Herpes zoster with other nervous system complications Gastroesophageal reflux disease, unspecified whether esophagitis present Paroxysmal atrial fibrillation ([facility]) Atrial fibrillation Other chest pain documented in this encounter Additional Health Concerns Assessment Noted Time PHQ-9 Depression Total Score: 0 04/17/20 1:52 PM EDT A Body Mass Index follow-up plan has been documented for the patient 04/25/2025 2:57 PM EDT documented as of this encounter Care Teams Speeder Operator Relationship Specialty Start Date End Date Bakari Tovar DO [address] [place] [address] PCP - General Internal Medicine 12/01/24 documented as of this encounter
--- OUTSIDE RECORDS SUMMARY | 2025-07-23 14:45 | XMS_ITS | Encounter Summary ---
Author Organization [facility] tem Address [facility]-[id number] [address] [place] [address] Care Team Providers Care Remelt Worker Name Role Phone Bakari Tovar DO Primary Care Provider [phone] Encounter Details Date Type Department Care Team (Late Contact Info) Description 04/08/2023 Orders Only [facility] Internal Medicine - Family Medicine [address] [place] [address] Bakari Tovar DO [address] [place] [address] Special screening for malignant neoplasm of colon (Primary Dx) Social History Tobacco Use Types [...] Cardiology [address] [place] [address] Brook Thao Hina, QUANTITATIVE CONSULTANT-VEHICLE DETAILER [address] [place] [address] Emani Davison, PADeborahC [address] [place] [address] 10/30/2025 10:00 AM EST Office Visit [facility] - Heart Failure Clinic [address] [place] [address] Boyd Beck MD [address] [place] [address] 04/03/2026 1:30 PM EDT Appointment [facility] - Vascular [address] [place] [address] Ciarra Colno, DO [address] [employer] [address] [place] [address] 04/09/2026 2:00 PM EDT Office Visit [place] [address] [place] [address] Ciarra Colon, DO [address] [employer] [address] [place] [address] documented as of this encounter Goals Goal Patient Goal Type Associated Problems Recent Progress Patient-Stated? Author safe discharge to home General Yes Alexandria Solis, RN Note: Evaluation of progress towards goal: safe transition from hospital to home with family/friend support. documented as of this encounter Visit Diagnoses Diagnosis Special screening for malignant neoplasm of colon- Primary Special screening for malignant neoplasms, colon documented in this encounter Additional Health Concerns Assessment Noted Time PHQ-9 Depression Total Score: 0 03/31/20 23 10:01 AM EDT documented as of this encounter Care Teams Remelt Worker Relationship Specialty Start Date End Date Bakari Tovra DO [address] [place] [address] PCP - General Internal Medicine 12/01/24 documented as of this encounter
--- OUTSIDE RECORDS SUMMARY | 2025-07-23 14:45 | XMS_ITS | Encounter Summary ---
Author Organization [facility] tem Address [facility] [place]-[id number] [address] [place] [address] Care Team Providers Care Under Trimmer Name Role Phone Bakari Tovar DO Primary Care Provider [phone] Encounter Details Date Type Department Care Team (Late st Contact Info) Description 02/26/2023 Orders Only [facility] Internal Medicine - Family Medicine [address] [place] [address] Bakari Tovar DO [address] [place] [address] Social History Tobacco Use Types Packs/Day Years [...] 09/18/2025 11:00 AM EDT Office Visit [facility]icians Cardiology [address] [place] [address] Brook Thao, FLIGHT ENGINEER MANAGER-BUSINESS SERVICES SALES AGENT [address] [place] [address] Emani Davison, PA-C [address] [place] [address] 10/30/2025 10:00 AM EST Office Visit [facility] - Heart Failure Clinic [address] [place] [address] Boyd Beck MD [address] [place], [place] [address] 04/03/2026 1:30 PM EDT Appointment [facility] - Vascular [address] [place] [address] Ciarra Colon, DO [address] [employer] [address] [place] [address] 04/09/2026 2:00 PM EDT Office Visit [facility] [place] [address] [facility] [place] [address] Ciarra Colon, DO [address] [employer] [address] [place] [address] documented as of this encounter Goals Goal [...] documented as of this encounter Care Teams Under Trimmer Relationship Specialty Start Date End Date Bakari Tovar DO [address] [place] [phone] PCP - General Internal Medicine 12/01/24 documented as of this encounter
--- OUTSIDE RECORDS SUMMARY | 2025-07-23 14:45 | XMS_ITS | Encounter Summary ---
Author Organization [facility] tem Address [facility][id number] [address] [place] [address] Care Team Providers Care Medical Records Administrator Name Role Phone Bakari Tovar DO Primary Care Provider [phone] Encounter Details Date Type Department Care Team (Late Contact Info) Description 06/19/2023 Orders Only [facility] Internal Medicine - Family Medicine [address] [place] [address] Bakari Tovar DO [address] [place] [address] Social History Tobacco Use Types Packs/Day Years [...] Cardiology [address] [place] [address] [place] Hina, ACADEMIC DEPARTMENT CHAIR-BASE DRAW OPERATOR [address] [place] [address] Emani Davison, PA-C [address] [place] [address] 10/30/2025 10:00 AM EST Office Visit [facility] - Heart Failure Clinic [address] [place] [address] Boyd Beck MD [address] [place], [place] [address] 04/03/2026 1:30 PM EDT Appointment [facility] - Vascular [address] [place] [address] Ciarra Colon, DO [address] [employer] [address] [place] [address] 04/09/2026 2:00 PM EDT Office Visit [facility] [address] [place] [address] Ciarra Colon, DO [address] [employer] [address] [place] [address] documented as of this encounter Goals Goal [...] documented as of this encounter Care Teams Medical Records Administrator Relationship Specialty Start Date End Date Bakari Tovar DO [address] [place] [address] PCP - General Internal Medicine 12/01/24 documented as of this encounter
--- OUTSIDE RECORDS SUMMARY | 2025-07-23 14:45 | XMS_ITS | Encounter Summary ---
Author Organization [employer] s tem Address [facility] [place][id number] [address] [place] [address] Care Team Providers Care Date Night Caregiver Name Role Phone Bakari Tovar DO Primary Care Provider [phone] Reason for Visit * Reason Onset Date Comments Labs Only 12/22/2022 Encounter Details Date Type Department Care Team (Late st Contact Info) Description 12/22/2022 Telephone [facility] Internal [facility] - Family Medicine [address] [place] [address] Bakari Tovar DO [address] [place] [address] Labs Only Social History Tobacco Use Types Packs/Day Years [...] AM EST documented as of this encounter Miscellaneous Notes * Telephone Encounter - Bethany Piña - 12/22/2022 3:02 PM EST Patient is coming in for a DM recheck and would like orders sent [facility] * Telephone Encounter - Bakari Tovar DO - 12/22/2022 3:02 PM EST Orders sent documented in this encounter Plan of Treatment Upcoming Encounters Date Type Department Care Team (Late st Contact Info) Description 09/18/2025 11:00 AM EDT Office Visit [facility] Physicians Cardiology [address] [place] [address] Brook Thao, AGENCY OPERATOR-BUCKET HOOKER [address] [place] [address] Emani Davison, PA-C [address] [place] [address] 10/30/2025 10:00 AM EST Office Visit [facility] - Heart Failure Clinic [address] [place] [address] Boyd Beck MD [address] [place] [address] 04/03/2026 1:30 PM EDT Appointment [facility] - Vascular [address] [place] [address] Ciarra Colon DO [address] [facility] [address] [place] [address] 04/09/2026 2:00 PM EDT Office Visit [facility] Vascular [place] [address] [place] [address] Ciarra Colon DO [address] [facility] [address] [place] [address] documented as of this encounter Goals Goal [...] documented as of this encounter Care Teams Date Night Caregiver Relationship Specialty Start Date End Date Bakari Tovar DO [address] [place] [address] PCP - General Internal Medicine 12/01/24 documented as of this encounter
--- OUTSIDE RECORDS SUMMARY | 2025-07-23 14:46 | XMS_ITS | Encounter Summary ---
Author Organization [employer] tem Address [facility] [place]-[id number] [address] [place] [address] Care Team Providers Care Embedded Hardware Engineer Name Role Phone Bakari Tovar DO Primary Care Provider Reason for Visit * Reason Comments Med Refill Encounter Details Date Type Department Care Team (Late Contact Info) Description 2023 Refill [facility] Medicine - Family Medicine [address] [place] [address] Bakari Tovar DO [address] [place] [address] Social History Tobacco Use Types Packs/Day Years [...] Cardiology [address] [place] [address] Brook Thao Hina, LOKIE ENGINEER-WREATH INSPECTOR [address] [place] [address] Emani Davison, PA-C [address] [place] [address] 10/30/2025 10:00 AM EST Office Visit [facility] - Heart Failure Clinic [address] [place] [address] Boyd Beck MD [address] [place], [place] [address] 04/03/2026 1:30 PM EDT Appointment [facility] - Vascular [address] [place] [address] Ciarra Colon, DO [address] [employer] [address] [place] [address] 04/09/2026 2:00 PM EDT Office Visit [place] [address] [place] [address] Ciarra Colon, DO [address] [employer] [address] [place] [address] documented as of this encounter Goals Goal [...] documented as of this encounter Care Teams Embedded Hardware Engineer Relationship Specialty Start Date End Date Bakari Tovar DO [address] [place] [address] PCP - General Internal Medicine 12/01/24 documented as of this encounter
--- OUTSIDE RECORDS SUMMARY | 2025-07-23 14:46 | XMS_ITS | Encounter Summary ---
Author Organization [employer] tem Address [id number] [address] [place] [address] Care Team Providers Care Wallet Assembler Name Role Phone Bakari Tovar DO Primary Care Provider [phone] Reason for Visit * Reason Comments Med Refill Encounter Details Date Type Department Care Team (Late Contact Info) Description 11/06/2023 Refill [facility] Internal [facility] - Family Medicine [address] [place] [address] Bakari Tovar DO [address] [place] [address] Social History Tobacco Use Types Packs/Day Years Used Date Smoking Tobacco: Never Smokeless Tobacco: Never Alcohol Use Standard Drinks/Week Comments No 0 (1 standard drink = 0.6 oz pur e alcohol) PHQ-2 Answer Date Recorded Total Score 0 10/09/2023 Childcare Answer Date Recorded Childcare Unknown 05/11/2019 Employment Answer Date Recorded Employment Unknown 05/11/2019 Hunger Screening Answer Date Recorded Within the past 12 months we worried whether our food would run out before we got money to buy more. Never True 10/09/2023 Within the past 12 months th e food we bought just didn't last and we didn't have money to get more. Never True 10/09/2023 Purpose - Life Answer Date Recorded Purpose and direction in life Unknown Comments No Sex and Gender Information Value Date Recorded Sex Assigned at Not on file Legal Sex Female 11:54 AM EDT Gender Identity Not on file Sexual Orientation Not on file documented as of this encounter Miscellaneous Notes * Telephone Encounter - Bethany Piña - 11/06/2023 12:20 AM EST Needs appt * Telephone Encounter - Bethany Piña - 11/06/2023 12:20 AM EST Called patient and she was just here and also does not take this medication documented in this encounter Plan of Treatment Upcoming Encounters Date Type Department Care Team (Late st Contact Info) Description 09/18/2025 11:00 AM EDT Office Visit [facility] Card[facility] [address] [facility] [address] [place] [address] Brook Thao, DIRECTOR OF ASSISTED LIVING-NURSE'S AIDES TEACHER [address] [place] [address] Emani Davison, PA-C [address] [place] [address] 10/30/2025 10:00 AM EST Office Visit [facility] [address] [place] [address] Boyd Beck MD [address] [place] [address] 04/03/2026 1:30 PM EDT Appointment [facility] - Vascular [address] [place] [address] Ciarra Colon, [address] [facility] [address] [place] [address] 04/09/2026 2:00 PM EDT [facility] [place] [address] [place] [address] Ciarra Colon DO [address] [facility] [address] [place] [address] documented as of this encounter Goals Goal [...] Noted Time PHQ-9 Depression Total Score: 0 10/09/20 23 10:43 AM EST documented as of this encounter Care Teams Wallet Assembler Relationship Specialty Start Date End Date Bakari Tovar DO [address] [place] [address] PCP - General Internal Medicine 12/01/24 documented as of this encounter
--- OUTSIDE RECORDS SUMMARY | 2025-07-23 14:46 | XMS_ITS | Encounter Summary ---
Author Organization [facility] tem Address [facility][id number] [address] [place] [address] Care Team Providers Care Wwe Wrestler Name Role Phone Bakari Tovar DO Primary Care Provider [phone] Encounter Details Date Type Department Care Team (Late st Contact Info) Description 08/08/2022 Orders Only [facility] Internal [facility] - Family Medicine [address] [place] [address] Bakari Tovar DO [address] [place] [address] Acute on chronic diastolic congestive heart failure ([facility]) (Primary Dx) Social History Tobacco Use Types [...] Description 09/18/2025 11:00 AM EDT Office Visit [facility] Cardiology [address] [place] [address] Brook Thao, GRINDING MACHINE OPERATOR-BAR EXAMINER [address] [place] [address] Emani Davison, PA-C [address] [place] [address] 10/30/2025 10:00 AM EST [facility] [address] [place] [address] Boyd Beck MD [address] [place], [place] [id number] 04/03/2026 1:30 PM EDT Appointment [facility] [address] [place] [address] Ciarra Colon, DO [address] [place] [address] 04/09/2026 2:00 PM EDT Office Visit [facility] [address] [place] [address] Ciarra Colon, DO [address] [place] [address] documented as of this encounter Goals Goal Patient Goal Type Associated Problems Recent Progress Patient-Stated? Author safe discharge to home General Yes Alexandria Solis, RN Note: Evaluation of progress towards goal: safe transition from hospital to home with family/friend support. documented as of this encounter Visit Diagnoses Diagnosis Acute on chronic diastolic congestive heart failure (CMS-HCC)- Primary documented in this encounter Additional Health Concerns Assessment Noted Time PHQ-9 Depression Total Score: 3 01/06/20 18 1:00 PM EST documented as of this encounter Care Teams Wwe Wrestler Relationship Specialty Start Date End Date Bakari Tovar DO [address] [place] [address] PCP - General Internal Medicine 12/01/24 documented as of this encounter
--- OUTSIDE RECORDS SUMMARY | 2025-07-23 14:46 | XMS_ITS | Encounter Summary ---
Author Organization [facility] tem Address [facility]-[id number] [address] [place] [address] Care Team Providers Care Escrow Secretary Name Role Phone Bakari Tovar Primary Care Provider [phone] Encounter Details Date Type Department Care Team (Late Contact Info) Description 06/10/2024 Orders Only [facility] Internal [facility] - Family Medicine [address] [place] [address] External, Scanning Provider Social History Tobacco Use Types Packs/Day Years Used Date Smoking Tobacco: Never Smokeless Tobacco: Never Alcohol Use Standard Drinks/Week Comments No 0 (1 standard drink = 0.6 oz pur e alcohol) PHQ-2 Answer Date Recorded Total Score 0 06/14/2024 Childcare Answer Date Recorded Childcare Unknown 05/11/2019 Employment Answer Date Recorded Employment Unknown 05/11/2019 Hunger Screening Answer Date Recorded Within the past 12 months we worried whether our food would run out before we got money to buy more. Never True 06/14/2024 Within the past 12 months th e food we bought just didn't last and we didn't have money to get more. Never True 06/14/2024 Purpose - Life Answer Date Recorded Purpose [...] Description 09/18/2025 11:00 AM EDT Office Visit [facility] Card[facility] [address] [place] [address] Brook Thao, MACERATOR OPERATOR-WATERSHED COORDINATOR [address] [place] [address] Emani Davison, PA-C [address] [place] [address] 10/30/2025 10:00 AM EST Office Visit [facility] [address] [place] [address] Boyd Beck MD [address] [place] [address] 04/03/2026 1:30 PM EDT Appointment [facility] - Vascular [address] [place] [address] Ciarra Colon, DO [address] [place] [address] 04/09/2026 2:00 PM EDT Office Visit [facility] [address] [place] [address] Ciarra Colon, DO [address] [place] [address] documented as of this encounter Goals Goal Patient Goal Type Associated Problems Recent Progress Patient-Stated? Author safe discharge to home General Yes Alexandria Solis, RN Note: Evaluation of progress towards goal: safe transition from hospital to home with family/friend support. documented as of this encounter Procedures Procedure Name Priority Date/Time Associated Diagnosis Comments CT PELVIS WO CONT Routine 06/07/2024 11: 17 AM EDT XR TIBIA FIBULA LT MIN 2 VWS Routine 06/07/2024 11:11 AM EDT XR FEMUR LT 2+ VIEWS Routine 06/07/2024 11:09 AM EDT documented in this encounter Results * CT pelvis without contrast (06/07/2024 11:17 AM EDT) Anatomical Region Laterality Modality MSK, Pelvis, Body Covera, MSK Covera N/A Computed Tomography us Scanning Provider External IMG CT ORDERABLES Fin al Result * X-ray tibia fibula left minimum 2 views (06/07/2024 11:11 AM EDT) Anatomical Region Laterality Modality Lower Extremities, MSK, Lower Leg Left Computed Radiography us Scanning Provider External IMG DIAGNOSTIC IMAGIN G ORDERABLES Final Result * X-ray femur left 2+ views (06/07/2024 11:09 AM EDT) Anatomical Region Laterality Modality Lower Extremities, MSK, Femur Left Co mputed Radiography us Scanning Provider External IMG DIAGNOSTIC IMAGIN G ORDERABLES Final Result documented in this encounter Visit Diagnoses Not on filedocumented in this encounter Additional Health Concerns Assessment Noted Time PHQ-9 Depression Total Score: 0 01/18/20 24 1:07 PM EST A Body Mass Index follow-up plan has been documented for the patient 01/18/2024 5:40 PM EST documented as of this encounter Care Teams Escrow Secretary Relationship Specialty Start Date End Date Bakari Tovar DO [address] [place] [address] PCP - General Internal Medicine 12/01/24 documented as of this encounter
--- OUTSIDE RECORDS SUMMARY | 2025-07-23 14:46 | XMS_ITS | Encounter Summary ---
Author Organization [employer] [facility] tem Address [id number] [address] [place] [address] Care Team Providers Care Building Mechanic Name Role Phone CarmenBakari archer Primary Care Provider [phone] Encounter Details Date Type Department Care Team (Late st Contact Info) Description 11/28/2024 Telephone [facility] - Family Medicine [address] [place] [address] Mary Bingham CMA Social History Tobacco Use Types Packs/Day Years Used Date Smoking Tobacco: Never Smokeless Tobacco: Never Alcohol Use Standard Drinks/Week Comments No 0 (1 standard drink = 0.6 oz pur e alcohol) PHQ-2 Answer Date Recorded Total Score 0 11/24/2024 Childcare Answer Date Recorded Childcare Unknown 05/11/2019 Employment Answer Date Recorded Employment Unknown 05/11/2019 Hunger Screening Answer Date Recorded Within the past 12 months we worried whether our food would run out before we got money to buy more. Never True 11/24/2024 Within the past 12 months th e food we bought just didn't last and we didn't have money to get more. Never True 11/24/2024 Purpose - Life Answer Date Recorded Purpose and direction in life Unknown Comments No Sex and Gender Information Value Date Recorded Sex Assigned at Not on file Legal Sex Female 11:54 AM EDT Gender Identity Not on file Sexual Orientation Not on file documented as of this encounter Miscellaneous Notes * Telephone Encounter - Mary Bingham CMA - 11/28/2024 9:38 AM EST ----- Message from GISSELLE Rowe sent at 11/28/2024 9:08 AM EST ----- Reviewed. Inform patient uric acid (gout lab) is normal ranges. documented in this encounter Plan of Treatment Upcoming Encounters Date Type Department Care Team (Late st Contact Info) Description 09/18/2025 11:00 AM EDT Office Visit [facility] Card[facility] [address] [facility] [address] [place] [address] Brook Thao, HANNAH-SAFE AND VAULT MECHANIC [address] [place] [address] Emani Davison, PA-C [address] [place] [address] 10/30/2025 10:00 AM EST Office Visit [facility] [address] [place] [address] Boyd Beck MD [address] [place] [address] 04/03/2026 1:30 PM EDT Appointment [facility] - V[facility] [address] [place] [address] Ciarra Colon, DO [address] [place] [address] 04/09/2026 2:00 PM EDT Office Visit [facility] [address] [place] [address] Ciarra Colon, DO [address] [place] [address] documented as of this encounter Goals Goal [...] Noted Time PHQ-9 Depression Total Score: 0 11/24/20 12:58 PM EST A Body Mass Index follow-up plan has been documented for the patient 11/28/2024 4:56 PM EST documented as of this encounter Care Teams Building Mechanic Relationship Specialty Start Date End Date Bakari Tovar DO [address] [place] [address] PCP - General Internal Medicine 12/01/24 documented as of this encounter
--- OUTSIDE RECORDS SUMMARY | 2025-07-23 14:46 | XMS_ITS | Clinical Summary ---
Author Organization [employer] tem Address [id number] [address] [place] [address] Care Team Providers Care Manager Data Center Name Role Phone CarmenBakari archer Primary Care Provider [phone] Allergies Active Allergy Reactions Criticality Noted Date Comments Amlodipine Swelling 07/08/2018 Medications ONE DAILY MULTIVITAMIN ORAL Take by mouth in the morning. Active acetaminophen (TYLENOL) 500 mg tablet Take 1 tablet (500 mg total) by mouth every 6 (six) hours as needed for pain or headaches. Takes 1-2 tabs PRN Active allopurinoL (ZYLOPRIM) 100 mg tabletIndications: Hyperuricemia Take 1 tablet (100 mg total) by mouth in the morning. 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 90 tablet 1 04/26/20 25 Active carvediloL (COREG) 6.25 mg tabletIndications: Acute on chronic diastolic congestive heart failure (CMS-HCC) Take 1 tablet (6.25 mg total) by mouth in the morning and 1 tablet (6.25 mg total) in the evening. Take with meals. 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 90 tablet 3 04/26/20 25 Active dapagliflozin propanediol (FARXIGA) 10 mg tabletIndications: Acute on chronic diastolic congestive heart failure ([facility]) Take 1 tablet (10 mg total) by mouth in the morning. 90 tablet 1 04/26/20 25 Active ezetimibe (ZETIA) 10 mg tabletIndications: Mixed hyperlipidemia Take 1 tablet (10 mg total) by mouth in the morning. 90 tablet 1 04/26/20 25 Active fluticasone-umecli din-vilanter (TRELEGY ELLIPTA) 100-62.5-25 mcg blister with deviceIndications: COPD, moderate ([facility]) Inhale 1 puff in the morning. 180 each 1 04/26/20 25 Active furosemide (LASIX) 40 mg tabletIndications: Acute on chronic diastolic congestive heart failure ([facility]) Take 1 tablet (40 mg total) by mouth daily. 90 tablet 1 04/26/20 25 Active gabapentin (NEURONTIN) 100 mg capsuleIndications :Post herpetic neuralgia Take 1 capsule (100 mg total) by mouth in the morning and 1 capsule (100 mg total) before bedtime. 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 90 tablet 1 04/26/20 25 Active pantoprazole (PROTONIX) 40 mg EC tabletIndications: Gastroesophageal reflux disease, unspecified whether esophagitis present Take 1 tablet (40 mg total) by mouth in the morning. 90 tablet 1 04/26/20 25 Active rivaroxaban (XARELTO) 15 mg tabletIndications: Paroxysmal atrial fibrillation ([facility]) Take 1 tablet (15 mg total) by mouth in the morning. TAKE 1 TABLET (15 MG TOTAL) BY MOUTH IN THE MORNING. 90 tablet 1 04/26/20 25 Active lisinopriL (PRINIVIL,ZESTRIL) 10 mg tabletIndications: Acute on chronic diastolic congestive heart failure ([facility]) Take 1 tablet (10 mg total) by mouth in the morning. 90 tablet 3 05/30/20 25 Active nitroglycerin (NITROSTAT) 0.4 MG SL tabletIndications: Other chest pain Take 1 tablet (0.4 mg total) by mouth every 5 (five) minutes as needed for chest pain. PLACE 1 TABLET UNDER THE TONGUE EVERY 5 MINUTES NEEDED FOR CHEST PAIN 25 tablet 1 06/30/20 25 Active nitroglycerin (NITROSTAT) 0.4 MG SL tabletIndications: Other chest pain PLACE 1 TABLET UNDER THE TONGUE EVERY 5 MINUTES NEEDED FOR CHEST PAIN. 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 03/25/2018 GERD (gastroesophageal reflux disease) 8 Occipital stroke 01/06/2018 Left subclavian artery occlusion 01/06/2018 Stenosis of right vertebral artery 01/06/2018 Essential hypertension 01/06/2018 Mixed hyperlipidemia 01/06/2018 Obstructive sleep apnea syndrome 02/08/2016 Resolved Problems Problem Noted Date Diagnosed Date Resolved Date Chronic renal disease, stage IV 01/18/2024 04/17/2025 Embolism and thrombosis of other arteries 03/31/2023 06/14/2024 Acute renal failure superimp osed on stage 3b chronic kidney disease 07/11/2022 08/29/2022 Obesity (BMI 30-39.9) 03/18/20212021 Stage 3 chronic kidney disease 03/15/2019 01/18/2024 Atherosclerosis of shawnee co ronary artery of shawnee heart with unstable angina pectoris 03/25/2018 10/12/2018 Unstable angina 03/25/2018 04/23/2018 Overview (03/25/2018): Added automatically from request for surgery [id number] Brain mass 11/06/2017 08/29/2022 Encounters Date Type Department Care Team Description 06/28/2025 Refill [facility] - Family Medicine [address] [place] [phone] Kay Echevarria, DICTAPHONE MECHANIC-MINE PROMOTOR Other chest pain 05/30/2025 Refill [facility] [address] [place] [phone] Misty Good, CAPRICE Med Refill 05/04/2025 Orders Only [facility] [address] [address] Boyd Beck MD 05/02/2025 Telephone [facility] [address] [place] [address] Annmarie Parks CMA 04/27/2025 2:41 PM EDT - 04/27/2025 11:59 PM EDT Hospital Encounter [facility] [address] [facility] [place] [address] Boyd Beck MD Discharge Disposition: Still a Patient 04/27/2025 2:30 PM EDT - 04/27/2025 2:40 PM EDT Hospital Encounter [facility] [address] [place] [address] Boyd Beck MD Discharge Disposition: Still a Patient 04/27/2025 11:01 AM EDT - 04/27/2025 2:29 PM EDT Hospital Encounter [facility] [address] [facility] [place] [address] Boyd Beck MD Chronic diastolic congestive heart failure (CMS-HCC); Persistent atrial fibrillation (CMS-HCC); Nonrheumatic tricuspid valve regurgitation; Pulmonary hypertension (CMS-HCC) Discharge Disposition: Still a Patient 04/27/2025 Travel 04/25/2025 Refill [facility] [address] [place] [address] Mary Bingham CMA Hyperuricemia; 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); Post herpetic neuralgia; Gastroesophageal reflux disease, unspecified whether esophagitis present; Paroxysmal atrial fibrillation ([facility] Other chest pain from Last 3 Months Immunizations Immunization Administration Dates Next Due COVID-19, mRNA, LNP-S, PF, 3 0mcg/0.3mL Dose 09/13/2021,01/22/2021,01/16/2021,01/01,12/24/2020 Influenza High Dose Preserva tive Free IM 09/04/2019,10/02/2015 Influenza Vaccine, Quadrival ent, Adjuvanted 10/09/2023,10/21/2021 Influenza, High-dose, Quadrivalent 09/04/2022, Influenza, Injectable, Mdck, Preservative Free, Quad 12/15/2018 Influenza, Injectable, Quadrivalent 09/13/2021 Influenza, Injectable, quadr ivalent (PF) 11/09/2017 Influenza, Intradermal (Pf) 09/13/2020 Influenza, Trivalent, Adjuvanted 11/24/2024 Pneumococcal Conjugate 13-Valent 11/09/2017,08/31 Pneumococcal Polysaccharide 02/12/2016 RSV, recombinant, protein thorne bunit RSVpreF, adjuvant reconstituted, 0.5 mL, PF 10/20/2023 Tdap 02/11/2016 Zoster Vaccine Recombinant 09/04/2019 Family History Medical History Relation Name Comments Stroke Brother Heart disease Father No Known Problems Mother Heart disease Sister Heart attack Son Heart disease Son Stroke Son Relation Name Status Comments Brother Alive Father Mother Sister Alive Son Social History Tobacco Use Types Packs/Day Years Used Date Smoking Tobacco: Never Smokeless Tobacco: Never Tobacco Cessation:Counseling Given: Not Answered Alcohol Use Standard Drinks/Week Comments No 0 [...] on file Sexual Orientation Not on file Last Filed Vital Signs Vital Sign Reading Time Taken Comments Blood Pressure 102/50 04/17/2025 1:53 PM EDT Pulse 56 04/10/2025 10:27 AM EDT Temperature 36.2 C (97.1 F) 04/17/2025 1:53 PM EDT Respiratory Rate 20 04/17/2025 1:53 PM EDT Oxygen Saturation 98% 04/10/2025 10:27 AM EDT Inhaled Oxygen Concentration - - Weight 64.2 kg (141 lb 9.6 oz) 04/17/2025 1:53 P M EDT Height 157.5 cm (5' 2.01 ) 04/17/2025 1:53 PM ED T Body Mass Index 25.89 04/17/2025 1:53 PM EDT Plan of Treatment Upcoming Encounters Date Type Department Care Team (Late st Contact Info) Description 09/18/2025 11:00 AM EDT Office Visit [facility] [address] [place] [phone] Brook Thao, DICTAPHONE MECHANIC-MINE PROMOTOR [address] [place] [address] Emani Davison, PADeborahC [address] [place] [address] 10/30/2025 10:00 AM EST Office Visit [facility] - [facility] Failure Clinic [address] [place] [phone] Boyd Beck MD [address] [place], [place] [phone] 04/03/2026 1:[address] [facility] - Vascular [address] [place] [address] Ciarra Colon, DO [address] [place] [address] 04/09/2026 2:00 PM EDT Office Visit [facility] [address] [place] [address] Ciarra Colon, DO [address] [place] [address] Health Maintenance Due Date Last Done Comments Medicare Annual Wellness Visit 1940 Zoster (Shingles) Vaccine (2 of 2) 10/30/2019 09/04/2019 Fall Risk Screening 11/24/2025 11/24/2024 DTaP,Tdap and Td Vaccines (2 - Td or Tdap) 02/10/2026 02/11/2016 Depression Screening 04/17/2026 04/17/2025 Tobacco Screening 04/17/2026 04/17/2025 COVID-19 Vaccine Discontinued 09/04/2022, , 09/13/2021, Additional history exists Influenza Vaccine Discontinued 11/24/2024, , 09/04/2022, Additional history exists Goals Goal Patient Goal Type Associated Problems Recent Progress Patient-Stated? Author safe discharge to home General Yes Alexandria Solis, RN Note: Evaluation of progress towards goal: safe transition from hospital to home with family/friend support. Medical Devices Implanted Type Area Event Mgr Device Identifier Shelf Expiration Date Model / Serial / Lot Declan 23.5 Christ Rpl [id number] - [id number] - [id number] Implanted:Qty : 1 on 07/08/2018 by Lisa Bliss MD at [facility] Lens Left: Eye [employer] 11/07/2022 [id number]. [id number] / [id number] / NA Lens Iol Ultrasert 24.0d - [id number] - [id number] Implanted:Qty : 1 on 08/05/2018 [facility] Right: Eye [employer] 02/27/2021 [id number] 24.0 / [id number] / NA Guillermo Xience Alpine 3.00x18 Rx Rpl [id number] - [id number] Implanted:Qty : 1 on 03/31/2018 by Austin Vyas MD at [facility] Stent N/A: Heart [employer]ER[employer] [id number] 01/11/2021 [id number] / / [id number] Guill[employer] Alpine 3.00x12 Rx Rpl [id number] - [id number] Implanted:Qty : 1 on 03/31/2018 by Austin Vyas MD at [facility] Stent N/A: Heart [employer] [id number] 06/23/2020 [id number] / / [id number] Guillermo [employer] Alpine 3.50x12 Rx Rpl [id number] - [id number] Implanted:Qty : 1 on 03/31/2018 by Austin Vyas MD at [facility] Stent N/A: Heart [employer] [id number] 10/28/2020 [id number] 2 / / [id number] Procedures Procedure Name Priority Date/Time Associated Diagnosis Comments UNLISTED GENETIC TEST Routine 04/29/2025 NM AMYLOIDOSIS CARDIAC PLANAR SPECT/CT Routine 04/27/2025 3:32 PM EDT Chronic diastolic congestive heart failure (CMS-HCC) Persistent atrial fibrillation (CMS-HCC) Nonrheumatic tricuspid valve regurgitation Pulmonary hypertension (CMS-HCC) from Last 3 Months Results * Unlisted Genetic Test (04/29/2025) us Boyd Beck MD LAB BLOOD ORDERABLES Edited Res ult - Final MANUALLY TRANSCRIBED RESULTS * NM amyloidosis cardiac planar spect/CT (04/27/2025 3:32 PM EDT) Anatomical Region Laterality Modality Nuc Med N/A Nuclear Medicine 04/28/2025 8:56 AM EDT Narrative 04/28/2025 9:37 AM EDT NM AMYLOIDOSIS CARDIAC PLANAR SPECT/CT HISTORY: Chronic diastolic congestive heart failure, persistent atrial fibrillation, nontraumatic tricuspid valve regurgitation, pulmonary hypertension COMPARISON: None. TECHNIQUE: TECHNIQUE: Tc-99m PYP imaging with SPECT for cardiac amyloidosis. Static and SPECT images obtained 3 hours after the uneventful intravenous administration of 22.5 mCi Tc-99m HDP. CT was performed for attenuation correction. All CT scans at this facility use dose modulation, iterative reconstruction, and/or weight based dosing when appropriate to reduce radiation dose to as low as reasonably achievable. Maximum intensity projection and/or 3D reformatted images were constructed under concurrent physician supervision on an independent workstation for better characterization of findings. FINDINGS: Physiologic activity is noted within the cardiac chambers, osseous structures, and urinary tract. At three hours, the semiquantitative visual comparison to rib uptake is 1 (myocardial uptake less than rib uptake). Other: * Moderate sized hiatal hernia. * Multivessel heavy coronary calcification, mostly in the LAD and RCA. * Juxtafissural nodularity in the right upper lobe appears unchanged since 2021, favor pleural/parenchymal scar (series 1 image 26). * Cholelithiasis within a nondistended gallbladder, no pericholecystic fluid or gallbladder wall thickening. * Hypoattenuating left renal lesion likely reflects renal cyst requires no additional imaging follow-up. * Partially imaged large bowel diverticular disease without visualized inflammation. IMPRESSION: * Scintigraphic findings not suggestive of ATTR amyloidosis. * Moderate-sized hiatal hernia. Approved by Resident: Jayson Case MD on 04/28/2025 8:56 AM Kiki Royal MD have personally reviewed the image(s) and agree with and/or edited the report Finalized by Kiki Lizama MD on 04/28/2025 9:37 AM Procedure Note Kiki Lizama MD - 04/28/2025 NM AMYLOIDOSIS CARDIAC PLANAR SPECT/CT HISTORY: Chronic diastolic congestive heart failure, persistent atrialfibrillation, nontraumatic tricuspid valve regurgitation, pulmonaryhypertension COMPARISON: None. TECHNIQUE: TECHNIQUE: Tc-99m PYP imaging with SPECT for cardiacamyloidosis. Static and SPECT images obtained 3 hours after theuneventful intravenous administration of 22.5 mCi Tc-99m HDP. CT wasperformed for attenuation correction. All CT scans at this facility usedose modulation, iterative reconstruction, and/or weight based dosing when appropriate to reduceradiation dose to as low as reasonably achievable. Maximum intensityprojection and/or 3D reformatted images were constructed under concurrentphysician supervision on an independent workstation for bettercharacterization of findings. FINDINGS: Physiologic activity is noted within the cardiac chambers, osseousstructures, and urinary tract. At three hours, the semiquantitative visual comparison to rib uptake is 1(myocardial uptake less than rib uptake). Other: * Moderate sized hiatal hernia. * Multivessel heavy coronary calcification, mostly in the LAD and RCA. * Juxtafissural nodularity in the right upper lobe appears unchangedsince 2021, favor pleural/parenchymal scar (series 1 image 26). * Cholelithiasis within a nondistended gallbladder, no pericholecysticfluid or gallbladder wall thickening. * Hypoattenuating left renal lesion likely reflects renal cyst requiresno additional imaging follow-up. * Partially imaged large bowel diverticular disease without visualizedinflammation. IMPRESSION: * Scintigraphic findings not suggestive of ATTR amyloidosis. * Moderate-sized hiatal hernia. Approved by Resident: Jayson Case MD on 04/28/2025 8:56AM I, Kiki Lizama MD have personally reviewed the image(s) and agree withand/or edited the report Finalized by Kiki Lizama MD on 04/28/2025 9:37 AM Boyd Beck MD [facility] ORDERABLES Final Result from Last 3 Months Insurance ANTHEM MEDICARE Advance Directives Documents on File Type Date Recorded Patient Program Engagement Director Expl anation Durable Power of Estate And Trust Tax Principal * Full Code (Latest Code Status on File) Date Activated Date Inactivated Comments 07/11/2022 5:21 PM 07/14/2022 5:54 PM * Full Code Date Activated Date Inactivated Comments 11/06/2017 8:29 PM 11/11/2017 11:09 PM Care Teams Manager Data Center Relationship Specialty Start Date End Date Bakari Tovar DO [address] [place] [address] PCP - General Internal Medicine 12/01/24
--- OUTSIDE RECORDS SUMMARY | 2025-07-23 14:46 | XMS_ITS | Encounter Summary ---
Author Organization [employer] [facility] tem Address [id number] [address] [place] [address] Care Team Providers Care Online Merchant Name Role Phone Bakari Tovar Primary Care Provider [phone] Encounter Details Date Type Department Care Team (Late st Contact Info) Description 01/05/2024 Telephone [facility] - Family Medicine [address] [place] [address] Mary Sebastian CMA Social History Tobacco Use Types Packs/Day [...] Miscellaneous Notes * Telephone Encounter - Mary Sebastian CMA - 01/05/2024 1:16 PM EST Patient would like to have her lab work sent to [facility] * Telephone Encounter - EUGENE Bey - 01/05/2024 1:16 PM EST I sent them in, just be sure she doesn't get them done before the of the month or it will be too soon for the A1c - Juanita * Telephone Encounter - Mary Sebastian CMA - 01/05/2024 1:16 PM EST Patient informed documented in this encounter Plan of Treatment Upcoming Encounters Date Type Department Care Team (Late st Contact Info) Description 09/18/2025 11:00 AM EDT Office Visit [facility] Cardiology [address] [place] [address] Brook Thao, CARDIOLOGY NURSE PRACTITIONER-METHODS ENGINEER [address] [place] [address] Emani Davison, PA-C [address] [place] [address] 10/30/2025 10:00 AM EST Office Visit [facility] - [facility] [address] [place] [address] Boyd Beck MD [address] [place], [place] [address] 04/03/2026 1:30 PM EDT Appointment [facility] - Vascular [address] [place] [address] Ciarra Colon, DO [address] [facility] [address] [place] [address] 04/09/2026 2:00 PM EDT Office Visit [facility] [place] [address] [place] [address] Ciarra Colon, DO [address] [facility] [address] [place] [address] documented as of this encounter Goals Goal [...] documented as of this encounter Care Teams Online Merchant Relationship Specialty Start Date End Date Bakari Tovar DO [address] [place] [address] PCP - General Internal Medicine 12/01/24 documented as of this encounter
--- OUTSIDE RECORDS SUMMARY | 2025-07-23 14:46 | XMS_ITS | Encounter Summary ---
Author Organization [employer] tem Address [id number] [address] [place] [address] Care Team Providers Care Chip Bin Conveyor Tender Name Role Phone Bakari Tovar DO Primary Care Provider [phone] Reason for Visit * Reason Comments Med Refill Encounter Details Date Type Department Care Team (Late Contact Info) Description 09/17/2022 Refill [facility] - Family Medicine [address] [place] [address] Bakari Tovar DO [address] [place] [address] Social History Tobacco Use Types Packs/Day Years [...] Cardiology [address] [place] [address] Brook Thao Hina, BLASTER HELPER-BELT TENDER [address] [place] [phone] Emani Davison, PA-C [address] [place] [address] 10/30/2025 10:00 AM EST Office Visit [facility] Failure [facility] [address] [place] [address] Boyd Beck MD [address] [place], [place] [phone] 04/03/2026 1:30 PM EDT Appointment [facility] - Vascular [address] [place] [address] Ciarra Colon, DO [email or web address] [place] [address] 04/09/2026 2:00 PM EDT Office Visit [address] [place] [address] Ciarra Colon, DO [email or web address] [place] [address] documented as of this encounter Goals Goal [...] documented as of this encounter Care Teams Chip Bin Conveyor Tender Relationship Specialty Start Date End Date Bakari Tovar DO [address] [place] [address] PCP - General Internal Medicine 12/01/24 documented as of this encounter
--- OUTSIDE RECORDS SUMMARY | 2025-07-23 14:46 | XMS_ITS | Encounter Summary ---
Author Organization [facility] [employer] [facility] tem Address [id number] [address] [place] [address] Care Team Providers Care Muck Miner Blasting Name Role Phone Bakari Tovar DO Primary Care Provider [phone] Encounter Details Date Type Department Care Team (Late st Contact Info) Description 08/18/2022 Orders Only [facility] - Family Medicine [address] [place] [address] Bakari Tovar DO [address] [place] [address] Social History Tobacco Use Types Packs/Day Years [...] Description 09/18/2025 11:00 AM EDT Office Visit [facility] Cardiology [address] [place] [address] Brook Thao, HEEL SANDER RUBBER-CHEF BROILER OR FRY [address] [place] [address] Emani Davison, PA-C [address] [place] [address] 10/30/2025 10:00 AM EST Office Visit [facility] [address] [facility] [place] [address] Boyd Beck MD [address] [place], [place] [address] 04/03/2026 1:30 PM EDT Appointment [facility] - Vascular [address] [place] [address] Ciarra Colon, DO [address] [place] [address] 04/09/2026 2:00 PM EDT Office Visit [facility] [place] [address] [facility] [place] [address] Ciarra Colon, DO [address] [place] [address] documented as of this encounter Goals Goal [...] documented as of this encounter Care Teams Muck Miner Blasting Relationship Specialty Start Date End Date Bakari Tovar DO [address] [place] [place] [phone] PCP - General Internal Medicine 12/01/24 documented as of this encounter
--- OUTSIDE RECORDS SUMMARY | 2025-07-23 14:46 | XMS_ITS | Encounter Summary ---
Author Organization [employer] Sys tem Address [facility]-[id number] [address] [place] [address] Care Team Providers Care Employment Agency Manager Name Role Phone Bakari Tovar Primary Care Provider [phone] Reason for Visit * Reason Onset Date Comments Med Refill 03/30/2018 Encounter Details Date Type Department Care Team (Late Contact Info) Description 03/30/2018 Refill [facility] [address] [place] [address] Misty Good RN Med Refill Social History Tobacco Use Types Packs/Day Years Used Date Smoking Tobacco: Never Smokeless Tobacco: Never Alcohol Use Standard Drinks/Week Comments No 0 (1 standard drink = 0.6 oz pur e alcohol) Comments Unknown Sex and Gender Information Value Date Recorded Sex Assigned at Not on file Legal Sex Female 11:54 AM EDT Gender Identity Not on file Sexual Orientation Not on file documented as of this encounter Plan of Treatment Upcoming Encounters Date Type Department Care Team (Late Contact Info) Description 09/18/2025 11:00 AM EDT Office Visit [facility] [address] [place] [address] Brook Thao, PANTRY GOODS MAKER-[employer] [address] [place] [address] Emani Davison, PA-C [address] [place] [address] 10/30/2025 10:00 AM EST Office Visit [facility] [address] [place] [address] Boyd Beck MD [address] [place] [address] 04/03/2026 1:30 PM EDT Appointment [facility] - Vascular [address] [place] [place] [address] Ciarra Colon, DO [address] [employer] [address] [place] [address] 04/09/2026 2:00 PM EDT Office Visit [facility] [place] [address] Ciarra Colon, DO [address] [place] [address] documented as of this encounter Visit Diagnoses Not on filedocumented in this encounter Additional Health Concerns Infection Onset Date Last Indicated Resolved Time Enteric Rule-Out 06/04/2022 06/07/2022 06/07/2022 7:15 PM EDT Assessment Noted Time PHQ-9 Depression Total Score: 3 01/06/20 18 1:00 PM EST documented as of this encounter Care Teams Employment Agency Manager Relationship Specialty Start Date End Date Bakari Tovar DO [address] [place] [address] PCP - General Internal Medicine 12/01/24 documented as of this encounter
--- OUTSIDE RECORDS SUMMARY | 2025-07-23 14:46 | XMS_ITS | Encounter Summary ---
Author Organization [facility] [facility] tem Address [facility]-[id number] [address] [place] [address] Care Team Providers Care Can Inspector Name Role Phone Bakari Tovar DO Primary Care Provider [phone] Encounter Details Date Type Department Care Team (Late st Contact Info) Description 08/12/2022 [facility]phone [facility] - Family Medicine [address] [place] [address] Bakari Tovar DO [address] [place] [address] Social History Tobacco Use Types Packs/Day Years [...] PM EDT documented as of this encounter Miscellaneous Notes * Telephone Encounter - Jennifer Chin - 08/12/2022 2:33 PM EDT Patient called requesting pharmacy change to [facility], request completed documented in this encounter Plan of Treatment Upcoming Encounters Date Type Department Care Team (Late st Contact Info) Description 09/18/2025 11:00 AM EDT Office Visit [facility] Cardiology [address] [facility] 1 [place] [address] Brook Thao, BUSINESS RISK CONSULTANT-SQUIRREL MAN [address] [place] [phone] Emani Davison, PA-C [address] [place], [place] [address] 10/30/2025 10:00 AM EST Office Visit [facility] - Heart Failure Clinic [address] [place] [address] Boyd Beck MD [address] [place] [address] 04/03/2026 1:[address] [facility] - Vascular [address] [place] [address] Ciarra Colon, DO [address] [email or web address] [address] [place] [address] 04/09/2026 2:00 PM EDT Office Visit [facility] [place] [address] Ciarra Colon, DO [address] [email or web address] [address] [place] [address] documented as of this encounter Goals Goal Patient Goal Type Associated Problems Recent Progress Patient-Stated? Author safe discharge to home General Yes [place], [place], RN Note: Evaluation of progress towards goal: safe transition from hospital to home with family/friend support. documented as of this encounter Visit Diagnoses Not on filedocumented in this encounter Additional Health Concerns Assessment Noted Time PHQ-9 Depression Total Score: 3 01/06/20 18 1:00 PM EST documented as of this encounter Care Teams Can Inspector Relationship Specialty Start Date End Date Bakari Tovar DO [address] [place] [address] PCP - General Internal Medicine 12/01/24 documented as of this encounter
--- OUTSIDE RECORDS SUMMARY | 2025-07-23 14:46 | XMS_ITS | Encounter Summary ---
Author Organization [facility] Address [id number] [address] [place] [address] Care Team Providers Care Oil Filters Inspector Name Role Phone Bakari Tovar Primary Care Provider [phone] Encounter Details Date Type Department Care Team (Late st Contact Info) Description 06/23/2018 Refill [facility] [address] [place] [address] Larisa Aviles, CAPRICE Social History Tobacco Use Types Packs/Day Years Used Date Smoking Tobacco: Never Smokeless Tobacco: Never Alcohol Use Standard Drinks/Week Comments No 0 (1 standard drink = 0.6 oz pur e alcohol) Comments No Sex and Gender Information Value Date Recorded Sex Assigned at Not on file Legal Sex Female 11:54 AM EDT Gender Identity Not on file Sexual Orientation Not on file documented as of this encounter Miscellaneous Notes * Telephone Encounter - Larisa Aviles RN - 06/23/2018 10:35 AM EDT Pt called in and states her SBP 150-160's she was at Dr Lion's office and her SBP 160.He wanted her to call and see if we need to make any changes in her meds? thx slm Larisa Aviles RN 06/23/18 1046 * Telephone Encounter - Sherwin Sanchez DO - 06/23/2018 10:35 AM EDT Add lisinopril 10 mgs and check bmp and bp in 1 week * Telephone Encounter - Misty Good RN - 06/23/2018 10:35 AM EDT Pt notified to start Lisinopril and get labs in one week. She states she has transportation issues and checks her bp daily at home. Pt will call with bp readings in about one week. Misty Good RN 06/29/18 1139 documented in this encounter Plan of Treatment Upcoming Encounters Date Type Department Care Team (Late st Contact Info) Description 09/18/2025 11:00 AM EDT Office Visit [facility] Cardiology [address] [place] [address] Brook Thao, SLITTER SERVICE AND SETTER-SCHOOL HEALTH AIDE [address] [place] [address] Emani Davison, PA-C [address] [place] [address] 10/30/2025 10:00 AM EST Office Visit [facility] - Heart Failure Clinic [address] [place] [address] Boyd Beck MD [address] [place] [address] 04/03/2026 1:30 PM EDT Appointment [facility] - Vascular [address] [place] [address] Ciarra Colon DO [address] [facility] [address] [place] [address] 04/09/2026 2:00 PM EDT Office Visit [facility] [place] [address] Ciarra Colon, [address] [facility] [address] [place] [address] documented as of this encounter Results * (ABNORMAL) BMP (07/13/2018 10:49 AM EDT) Sodium 142 134 - 146 mmol/L 07/13/2018 4:19 PM EDT [facility] Potassium, Bld 4.3 3.5 - 5.0 mmol/L 07/13/2018 4:19 PM EDT [facility] Chloride 103 98 - 109 mmol/L 07/13/2018 4:19 PM EDT [facility] CO2 28 22 - 32 mmol/L 07/13/2018 4:19 PM EDT [facility] Anion gap 11 4 - 12 mmol/L 07/13/2018 4:19 PM EDT [facility] Comment: ANION GAP CALCULATION DOES NOT INCLUDE K, NORMAL RANGES REFLECT THIS CHANGE BUN 31(H) 5 - 27 mg/dL 07/13/2018 4:19 PM EDT [facility] Creatinine 1.40(H) 0.40 - 1.00 mg/dL 07/13/2018 4:19 PM EDT [facility] Comment:METHOD TRACEABLE TO IDMS STANDARD Glucose 108(H) 65 - 99 mg/dL 07/13/2018 4:19 PM EDT [facility] Calcium 9.8 8.5 - 10.5 mg/dL 07/13/2018 4:19 PM EDT [facility] GFR MDRD Non Af Amer 36(L) >59 ml/min/1.7 3sq.m 07/13/2018 4:19 PM EDT [facility] GFR MDRD Af Amer 44(L) >59 ml/min/1.7 3sq.m 07/13/2018 4:19 PM EDT [facility] 07/13/2018 10:4 9 AM EDT 07/13/2018 10:50 AM EDT us Cecilia Purcell PATTERNATOR BLOOD ORDERABLES Final Res ult [facility] [address] [place] [address], documented in this encounter Visit Diagnoses Diagnosis Essential hypertension, benign- Primary documented in this encounter Additional Health Concerns Infection Onset Date Last Indicated Resolved Time Enteric Rule-Out 06/04/2022 06/07/2022 06/07/2022 7:15 PM EDT Assessment Noted Time PHQ-9 Depression Total Score: 3 01/06/20 18 1:00 PM EST documented as of this encounter Care Teams Oil Filters Inspector Relationship Specialty Start Date End Date Bakari Tovar DO [address] [place] [address] PCP - General Internal Medicine 12/01/24 documented as of this encounter
--- OUTSIDE RECORDS SUMMARY | 2025-07-23 14:46 | XMS_ITS | Encounter Summary ---
Author Organization [employer] Sys tem Address [facility]-[id number] [address] [place] [address] Care Team Providers Care Bellman Driver Name Role Phone Carmengianni Bakari Elia MALAGON Primary Care Provider [phone] Reason for Visit * Reason Onset Date Comments Med Refill 08/18/2022 Encounter Details Date Type Department Care Team (Late st Contact Info) Description 08/18/2022 Refill [facility] Internal Medicine - Family Medicine [address] [facility] [place] [address] Christal Douglas CMA Post herpetic neuralgia (Primary Dx) Social History Tobacco Use Types [...] Telephone Encounter - Christal Douglas CMA - 08/18/2022 10:41 AM EDT Patient said you told her that she could increase the Gabapentin so she is out. documented in this encounter Plan of Treatment Upcoming Encounters Date Type Department Care Team (Late st Contact Info) Description 09/18/2025 11:00 AM EDT Office Visit [facility] Card[facility] [address] [facility] 1 [place] [address] Brook Thao, TOWN CLERK-TANNERY WORKER [address] [place] [address] Emani Davison, PA-C [address] [place] [address] 10/30/2025 10:00 AM EST Office Visit [facility] - Heart Failure Clinic [address] [place] [address] Boyd Beck MD [address] [place] [address] 04/03/2026 1:30 PM EDT Appointment [facility] - Vascular [address] [place] [address] Ciarra Colon, DO [address] [employer] [address] [place] [address] 04/09/2026 2:00 PM EDT Office Visit [facility] [place] [address] Ciarra Colon, DO [address] [employer] [address] [place] [address] documented as of this encounter Goals Goal Patient Goal Type Associated Problems Recent Progress Patient-Stated? Author safe discharge to home General Yes [place] Solis, RN Note: Evaluation of progress towards goal: safe transition from hospital to home with family/friend support. documented as of this encounter Visit Diagnoses Diagnosis Post herpetic neuralgia- Primary Herpes zoster with other nervous system complications documented in this encounter Additional Health Concerns Assessment Noted Time PHQ-9 Depression Total Score: 3 01/06/20 18 1:00 PM EST documented as of this encounter Care Teams Bellman Driver Relationship Specialty Start Date End Date Bakari Tovar DO [address] [place] [address] PCP - General Internal Medicine 12/01/24 documented as of this encounter
--- OUTSIDE RECORDS SUMMARY | 2025-07-23 14:46 | XMS_ITS | Encounter Summary ---
Author Organization [facility] Sys tem Address [id number] [address] [place] [address] Care Team Providers Care Relay Man Name Role Phone Bakari Tovar Primary Care Provider [phone] Encounter Details Date Type Department Care Team (Late st Contact Info) Description 05/02/2024 Orders Only [facility] Internal Medicine - Family Medicine [address] [place] [address] Juanita Brown, AUTO ACCESSORIES INSTALLER-FOOD PRODUCTION SUPERVISOR [address] [facility] [address] [place], [place] [address] Social History Tobacco Use Types Packs/Day Years Used Date Smoking Tobacco: Never Smokeless Tobacco: Never Alcohol Use Standard Drinks/Week Comments No 0 (1 standard drink = 0.6 oz pur e alcohol) PHQ-2 Answer Date Recorded Total Score 0 01/18/2024 Childcare Answer Date Recorded Childcare Unknown 05/11/2019 Employment Answer Date Recorded Employment Unknown 05/11/2019 Hunger Screening Answer Date Recorded Within the past 12 months we worried whether our food would run out before we got money to buy more. Never True 03/28/2024 Within the past 12 months th e food we bought just didn't last and we didn't have money to get more. Never True 03/28/2024 Purpose - Life Answer Date Recorded Purpose [...] Description 09/18/2025 11:00 AM EDT Office Visit [facility] Cardiology [address] [place] [address] Brook Thao, AUTO ACCESSORIES INSTALLER-GARMENT SEWER HAND [address] [place] [address] Emani Davison, PA-C [address] [place] [address] 10/30/2025 10:00 AM EST Office Visit [facility] - Heart Failure Clinic [address] [place] [address] Boyd Beck MD [address] [place], [place] [address] 04/03/2026 1:30 PM EDT Appointment [facility] - Vascular [address] [place] [address] Ciarra Colon, DO [address] [employer] [address] [place] [address] 04/09/2026 2:00 PM EDT Office Visit [facility] [place] [address] Ciarra Colon, DO [address] [employer] [address] [place] [address] documented as of this encounter Goals Goal [...] documented as of this encounter Care Teams Relay Man Relationship Specialty Start Date End Date Bakari Tovar DO [address] [place] [address] PCP - General Internal Medicine 12/01/24 documented as of this encounter
--- OUTSIDE RECORDS SUMMARY | 2025-07-23 14:46 | XMS_ITS | Encounter Summary ---
Author Organization [employer] Sys tem Address [facility]-[id number] [address] [place] [address] Care Team Providers Care Equine Vet Name Role Phone Bakari Tovar DO Primary Care Provider [phone] Reason for Visit * Reason Comments Med Refill Encounter Details Date Type Department Care Team (Late Contact Info) Description 11/06/2023 Refill [facility] Internal Medicine - Family Medicine [address] [place] [address] Bakari Tovar DO [address] [place] [address] Social History Tobacco Use Types Packs/Day Years [...] Telephone Encounter - Bethany Piña - 11/06/2023 12:51 PM EST Patient was just here please send in documented in this encounter Plan of Treatment Upcoming Encounters Date Type Department Care Team (Late st Contact Info) Description 09/18/2025 11:00 AM EDT Office Visit [facility] Card[facility] [address] [place] [address] Brook Thao, HOOP DRIVING MACHINE OPERATOR HELPER-BROACHING MACHINE SET UP OPERATOR [address] [place] [address] Emani Davison, PA-C [address] [place] [address] 10/30/2025 10:00 AM EST Office Visit [facility] - Heart Failure Clinic [address] [place] [address] Boyd Beck MD [address] [place] [address] 04/03/2026 1:30 PM EDT Appointment [facility] - Vascular [address] [place] [address] Ciarra Colon, DO [address] [employer] [address] [place] [address] 04/09/2026 2:00 PM EDT Office Visit [place] [address] [place] [address] Ciarra Colon, DO [address] [employer] [address] [place] [address] documented as of this encounter Goals Goal [...] documented as of this encounter Care Teams Equine Vet Relationship Specialty Start Date End Date Bakari Tovar DO [address] [place] [address] PCP - General Internal Medicine 12/01/24 documented as of this encounter
--- OUTSIDE RECORDS SUMMARY | 2025-07-23 14:46 | XMS_ITS | Encounter Summary ---
Author Organization [employer] [facility] tem Address [id number] [address] [place] [address] Care Team Providers Care Commissioned Police Officer Name Role Phone CarmenBakari archer Elia MALAGON Primary Care Provider [phone] Encounter Details Date Type Department Care Team (Late st Contact Info) Description 09/08/2022 [facility]phone [facility] - Family Medicine [address] [place] [address] Kiki Fernandez MA Social History Tobacco Use Types Packs/Day Years [...] Telephone Encounter - Kiki Fernandez MA - 09/08/2022 4:22 PM EDT Patient called wanting to know about getting portable oxygen, as the tank she has now she says she's unable to carry. Do we need to schedule an appt for her? * Telephone Encounter - Bakari Tovar DO - 09/08/2022 4:22 PM EDT She needs to call her Oxygen supplier, and they will get the correct paperwork to me to sign * Telephone Encounter - Kiki Fernandez MA - 09/08/2022 4:22 PM EDT Patient notified and understands. She will be calling her oxygen supplier. documented in this encounter Plan of Treatment Upcoming Encounters Date Type Department Care Team (Late st Contact Info) Description 09/18/2025 11:00 AM EDT Office Visit [facility] Cardiology [address] [place] [address] Brook Thao, PENETRATION TESTER-MANAGER DATA WAREHOUSE [address] [place] [address] Emani Davison, PA-C [address] [place] [address] 10/30/2025 10:00 AM EST Office Visit [facility] - Heart Failure Clinic [address] [facility] [place] [address] Boyd Beck MD [address] [place], [place] [address] 04/03/2026 1:30 PM EDT Appointment [facility] - Vascular [address] [facility] [place] [address] Ciarra Colon, DO [address] [facility] [address] [place] [address] 04/09/2026 2:00 PM EDT Office Visit [facility] [place] [address] [place] [address] Ciarra Colon DO [address] [place] [address] [place] [address] documented as of this encounter Goals Goal [...] documented as of this encounter Care Teams Commissioned Police Officer Relationship Specialty Start Date End Date Bakari Tovar DO [address] [place] [address] PCP - General Internal Medicine 12/01/24 documented as of this encounter
--- OUTSIDE RECORDS SUMMARY | 2025-07-23 14:46 | XMS_ITS | Encounter Summary ---
Author Organization [employer] Sys tem Address [id number] [address] [place] [address] Care Team Providers Care Aeronautical Products Sales Engineer Name Role Phone CarmenBakari archer Elia MALAGON Primary Care Provider [phone] Reason for Visit * Reason Comments Med Refill Encounter Details Date Type Department Care Team (Late st Contact Info) Description 12/12/2023 Refill [facility] Internal Medicine - Family Medicine [address] [place] [address] Tal Chin DO [address] [facility] [place] [address] Post herpetic neuralgia Social History Tobacco Use [...] Description 09/18/2025 11:00 AM EDT Office Visit [facility] Cardiology [address] [place] [address] Brook Thao, THREE KNIFE TRIMMER-A P SUPERVISOR [address] [place] [address] Emani Davison, PA-C [address] [place] [address] 10/30/2025 10:00 AM EST Office Visit [facility] - Heart Failure Clinic [address] [place] [address] Boyd Beck MD [address] [place] [address] 04/03/2026 1:30 PM EDT Appointment [facility] - Vascular [address] [place] [address] Ciarra Colon, DO [address] [employer] [address] [place] [address] 04/09/2026 2:00 PM EDT Office Visit [facility] [address] [place] [address] Ciarra Colon, DO [address] [place] [address] documented as of this encounter Goals Goal [...] documented as of this encounter Care Teams Aeronautical Products Sales Engineer Relationship Specialty Start Date End Date Bakari Tovar DO [address] [place] [phone] PCP - General Internal Medicine 12/01/24 documented as of this encounter
--- OUTSIDE RECORDS SUMMARY | 2025-07-23 14:46 | XMS_ITS | Encounter Summary ---
Author Organization [employer] Sys tem Address [id number] [address] [place] [address] Care Team Providers Care Community Health Director Name Role Phone Bakari Tovar DO Primary Care Provider [phone] Reason for Visit * Reason Comments Med Refill Encounter Details Date Type Department Care Team (Late st Contact Info) Description 12/14/2023 Refill [facility] Internal Medicine - Family Medicine [address] [place] [address] Bakari Tovar DO [address] [place] [address] Acute on chronic diastolic congestive heart failure ([facility]) Social History Tobacco Use Types Packs/Day Years [...] Telephone Encounter - Bakari Tovar DO - 12/14/2023 12:04 PM EST Duplicate documented in this encounter Plan of Treatment Upcoming Encounters Date Type Department Care Team (Late st Contact Info) Description 09/18/2025 11:00 AM EDT Office Visit [facility] Cardiology [address] [facility] 1 [place] [address] Brook Thao, ARTS ADMINISTRATOR OR MANAGER-YARD CALLER [address] [place] [address] Emani Davison, PA-C [address] [place] [address] 10/30/2025 10:00 AM EST Office Visit [facility] - Heart Failure Clinic [address] [place] [address] Boyd Beck MD [address] [place] [address] 04/03/2026 1:30 PM EDT Appointment [facility] - Vascular [address] [place] [address] Ciarra Colon, DO [address] [employer] [address] [place] [address] 04/09/2026 2:00 PM EDT Office Visit [facility] [address] Ciarra Colon, DO [address] [employer] [address] [place] [address] documented as of this encounter Goals Goal [...] documented as of this encounter Care Teams Community Health Director Relationship Specialty Start Date End Date Bakari Tovar DO [address] [place] [address] PCP - General Internal Medicine 12/01/24 documented as of this encounter
--- OUTSIDE RECORDS SUMMARY | 2025-07-23 14:46 | XMS_ITS | Encounter Summary ---
Author Organization [facility] tem Address [id number] [address] [place] [address] Care Team Providers Care Catalyst Plant Supervisor Name Role Phone Bakari Tovar DO Primary Care Provider [phone] Encounter Details Date Type Department Care Team (Late st Contact Info) Description 12/13/2023 Orders Only [facility] Internal Medicine - Family Medicine [address] [place] [address] Bakari Tovar DO [address] [place] [address] Social History Tobacco Use Types Packs/Day Years [...] Description 09/18/2025 11:00 AM EDT Office Visit [facility] [address] [place] [address] Brook Thao, RF MICROWAVE ENGINEER-PASTEURIZER [address] [place] [id number] Emani Davison, PA-C [address] [place] [address] 10/30/2025 10:00 AM EST Office Visit [facility] - Heart Failure Clinic [address] [place] [address] Boyd Beck MD [address] [place] [address] 04/03/2026 1:30 PM EDT Appointment [facility] - Vascular [address] [place] [phone] Ciarra Colon, DO [address] [place] [address] 04/09/2026 2:00 PM EDT Office Visit [facility] [address] [place] [address] Ciarra Colon, DO [address] [place] [address] documented as of this encounter Goals Goal [...] documented as of this encounter Care Teams Catalyst Plant Supervisor Relationship Specialty Start Date End Date Bakari Tovar DO [address] [place] [address] PCP - General Internal Medicine 12/01/24 documented as of this encounter
--- NOTE | 2025-07-23 15:00 | XR_ITS ---
The [address] [address] Patient Name: DEMARCUS FINN MRN: [id number] date: 1940 Sex: F Assigned Patient Location: ER Current Patient Location: ER Accession/Order Number: [id number] Exam Date: 07/23/2025 16:32 Report Date: 07/23/2025 16:46 At the request of: ELIECER SARABIA DO Procedure: XR chest 1V XR chest 1V 07/23/2025 4:39 PM SIGNS AND SYMPTOMS: Nausea, vomiting, diarrhea, weakness PROTOCOL: Frontal radiograph of the chest COMPARISON: None FINDINGS: The trachea is midline. Atherosclerotic changes are present in the thoracic aorta. There is cardiomegaly. Hazy airspace opacities are present in the left mid and lower chest suspicious for pneumonia. The bony thorax is intact. XR/XR chest 1V IMPRESSION: Hazy airspace opacities are present in the left mid and lower chest suspicious for pneumonia. There is cardiomegaly. Impression dictated by: Sherwin Jones M.D. 07/23/2025 4:46 PM Dictation Location: [place] [address] Electronically authenticated by: [id number] Y Date: 07/23/2025 16:46
--- NOTE | 2025-07-23 15:01 | ECG_ITS ---
The [facility] Test Date: 2025-07-23 Pat Name: DEMARCUS FINN Department: Room: - Gender: Female Product Development Intern: : 1940 Requested By: [id number] Order Number: [id number] Reading MD: VLAD MCGOVERN Measurements Intervals [place] Rate: 91 P: -01351 AR: -15079 QRS: 201 QRSD: 142 T: 49 QT: 412 QTc: 461 Interpretive Statements 06312 Atrial fibrillation with aberrant conduction, or ventricular premature complexes 2450 Right bundle branch block 3114 Cannot rule out anterior myocardial infarction, age undetermined 7300 Indeterminate axis 9150 abnormal ECG No previous ECG available for comparison Electronically Signed On 07-24-2025 12:24:15 EDT by VLAD MCGOVERN
--- NOTE | 2025-07-23 15:02 | CT_ITS ---
The [address] [address] Patient Name: DEMARCUS FINN MRN: [id number] date: 1940 Sex: F Assigned Patient Location: ER Current Patient Location: ER Accession/Order Number: [id number] Exam Date: 07/23/2025 16:35 Report Date: 07/23/2025 17:23 At the request of: ELIECER SARABIA DO Procedure: CT abdomen pelvis w con CT abdomen pelvis w con 07/23/2025 4:45 PM SIGNS AND SYMPTOMS: Nausea, vomiting, diarrhea, weakness TECHNIQUE: Multidetector ct axial images of the abdomen and pelvis were obtained with IV contrast. Multiplanar reformats were performed and reviewed to further define anatomy and possible pathology. CT was performed with one or more of the following dose reduction techniques: Automated exposure control, adjustment of the mA and/or kV according to patient size, or use of iterative reconstruction technique. COMPARISON: None. FINDINGS: Lower Chest: There is cardiomegaly. Atherosclerotic changes are present in the thoracic aorta and coronary arteries. Airspace opacities are noted in the left lower lobe concerning for pneumonia. There is a hiatal hernia with gastric fundus in the lower mediastinum. ABDOMEN: Liver: Within normal limits. Bile Ducts: Normal caliber. Gallbladder: Stones layer dependently in the gallbladder lumen. Pancreas: Within normal limits. Spleen: Calcified granulomas are present in the spleen. Adrenals: There is a 2.3 cm left adrenal nodule which is of uncertain etiology. Kidneys: Simple cysts are noted in the renal cortices. There is renal cortical atrophy right greater than left. Pelvis: Reproductive Organs: No pelvic masses. Ureters: Within normal limits. Bladder: Within normal limits. Bowel: Uncomplicated colonic diverticula are noted. There is no evidence of bowel obstruction. Mesenteric Lymph Nodes: No enlarged mesenteric lymph nodes. Peritoneum: No ascites or free air, no fluid collection. Vessels: Atherosclerotic changes are noted in the abdominal aorta and its branches. Retroperitoneum: Within normal limits. Abdominal Wall: Within normal limits. Bones: Degenerative changes are noted in the thoracolumbar spine, hips, and sacroiliac joints. CT/CT abdomen pelvis w con IMPRESSION: Airspace opacities are present in the left lower lobe suspicious for pneumonia. No bowel obstruction or obstructive uropathy. Uncomplicated colonic diverticula are noted. Tiny stones dependently layering within the gallbladder lumen. There is a hiatal hernia with gastric fundus in the lower mediastinum. Additional chronic appearing findings are noted as above. Impression dictated by: Sherwin Jones M.D. 07/23/2025 5:23 PM Dictation Location: [place] [address] Electronically authenticated by: [id number] Y Date: 07/23/2025 17:23
[2025-07-23] MEDS: 0.9 % SODIUM CHLORIDE 1,000 ML 1000 ML IV (15:32)
[2025-07-23] MEDS: FAMOTIDINE/PF 20 MG/2 ML VIAL IV (15:32)
[2025-07-23 15:52] LABS: Hematocrit 33.7 % (36.0-48.0); Hemoglobin 10.2 g/dL (12.0-16.0); Mean Corpuscular HGB Conc 30.3 g/dL (29.9-35.2); Mean Corpuscular Hemoglobin 25.8 pg (26.7-34.0); Mean Corpuscular Volume 85.3 fL (81.0-99.0); Platelet Count 260 10^3/uL (150-450); Red Blood Count 3.95 10^6/uL (4.20-5.40); White Blood Count 13.2 10^3/uL (4.0-11.0)
[2025-07-23 15:53] LABS: Glucose Urine UA >=1000 mg/dL (NEGATIVE)
[2025-07-23 16:11] LABS: Band Neutrophils Absolute 0.1 10^3/uL (0.0-0.3); Basophils Abs Manual 0.00 10^3/uL (0.00-0.10); Basophils Percent Manual 0.0 % (0.2-2.0); Eosinophils Absolute Manual 0.00 10^3/uL (0.00-0.70); Eosinophils Percent Manual 0.0 % (0.9-7.0); Lymphocytes Absolute Manual 0.79 10^3/uL (1.20-3.80); Lymphocytes Percent Manual 6.0 % (20.5-60.0); Monocytes Absolute Manual 0.92 10^3/uL (0.30-0.80); Monocytes Percent Manual 7.0 % (1.7-12.0); Segmented Neut Absolute Manual 11.35 10^3/uL (1.4-6.5); Segmented Neutrophils % Manual 86.0 (43.0-75.0)
[2025-07-23 16:13] LABS: Cast Seen? NONE SEEN #/LPF (NONE SEEN); Crystals Seen? None Seen #/HPF (None Seen); Urine Culture Indicated NO
[2025-07-23 16:15] LABS: Lipase 37.0 U/L (16.0-77.0)
[2025-07-23 16:17] LABS: Alanine Aminotransferase 19 U/L (14-59); Albumin Globulin Ratio 1.1; Albumin Level 3.9 g/dL (3.4-5.0); Alkaline Phosphatase 98 U/L (46-116); Anion Gap 13.9; Aspartate Amino Transferase 11 U/L (15-37); Blood Urea Nitrogen 74.0 mg/dL (7.0-18.0); Calcium 9.2 mg/dL (8.5-10.1); Carbon Dioxide 25.6 mmol/L (21.0-32.0); Chloride 105 mmol/L (98-107); Estimated GFR (African America 42 (>=60 mL/min/1.73m^2); Estimated GFR (Non-African Ame 35 (>=60 mL/min/1.73m^2); Globulin 3.6 g/dL; Glucose 110 mg/dL (74-106); Magnesium 2.0 mg/dL (1.8-2.4); Potassium 4.5 mmol/L (3.5-5.1); Sodium 140 mmol/L (136-145); Total Protein 7.5 g/dL (6.4-8.2)
[2025-07-23 16:19] LABS: Lactate/Lactic Acid 2.4 mmol/L (0.4-2.0); NT Pro B Type Natriuretic Pept 2141.0 pg/mL (<=1800.0)
--- NOTE | 2025-07-23 16:28 | CT_ITS ---
The [address] [address] Patient Name: DEMARCUS FINN MRN: [id number] date: 1940 Sex: F Assigned Patient Location: ER Current Patient Location: ER Accession/Order Number: [id number] Exam Date: 07/23/2025 16:35 Report Date: 07/23/2025 17:18 At the request of: ELIECER SARABIA DO Procedure: CT head/brain wo con CT head/brain wo con 07/23/2025 4:45 PM SIGNS AND SYMPTOMS: Confusion, nausea and vomiting, weakness TECHNIQUE:Multi-detector CT axial slices of the brain were obtained without IV contrast. CT was performed with one or more of the following dose reduction techniques: Automated exposure control, adjustment of the mA and/or kV according to patient size, or use of iterative reconstruction technique. COMPARISON: None. FINDINGS: There is no shift of the midline structures, acute intracranial bleeding, mass effects, or evidence of acute ischemia. There is age-related cortical atrophy. There is periventricular hypoattenuation. There is a remote lacunar infarct in the right deep hilario nuclei. Atherosclerotic changes are noted in the intracranial segments of the internal carotid arteries. Remote lacunar infarcts are noted in the cerebellar hemispheres. The ventricular system is normal in size. The brainstem is within normal limits. The visualized intraorbital contents, the visualized paranasal sinuses, and the infratemporal soft tissues show no acute abnormality. The osseous structures in the skull base and the calvarium show no abnormality. CT/CT head/brain wo con IMPRESSION: No acute intracranial pathology. Chronic findings are noted as above. Impression dictated by: Sherwin Jones M.D. 07/23/2025 5:18 PM Dictation Location: [place] [address] Electronically authenticated by: [id number] Y Date: 07/23/2025 17:18
[2025-07-23] MEDS: 0.9 % SODIUM CHLORIDE 500 ML 1000 ML IV (18:02)
--- NOTE | 2025-07-23 18:13 | ED.GENADUL1 ---
HPI HPI - General Adult General Chief complaint: Nausea/Vomiting/Diarrhea Stated complaint: Nausea/Vomiting/Diarrhea Time Seen by Provider: 07/23/25 14:44 Source: patient Mode of arrival: Wheelchair History of Present Illness HPI narrative: Patient is an 84-year-old female presenting to the emergency department with a 2-day history of cough, shortness of breath, nausea/vomiting/diarrhea. Patient states she has a history of COPD, is on 4 L nasal cannula at home. She states that she has been feeling very ill over the last 2 days. She denies fevers or chills. She denies any significant chest pain. Her friend is at the bedside who knows her well. She states that she seems quite out of it and not at her baseline. She has been concerned as the patient has been coughing for the last 2 days as well. Related Data Home Medications ?Medication ?Instructions ?Recorded ?Confirmed allopurinol 100 mg tablet 100 mg PO DAILY 06/07/24 07/23/25 atorvastatin 80 mg tablet 80 mg PO DAILY 06/07/24 07/23/25 carvedilol 6.25 mg tablet 6.25 mg PO BID 06/07/24 07/23/25 dapagliflozin propanediol 10 mg 10 mg PO DAILY 06/07/24 06/07/24 tablet ezetimibe 10 mg tablet 10 mg PO DAILY 06/07/24 07/23/25 furosemide 40 mg tablet 40 mg PO DAILY 06/07/24 07/23/25 gabapentin 100 mg capsule 200 mg PO BEDTIME 06/07/24 07/23/25 isosorbide mononitrate 60 mg 60 mg PO DAILY 06/07/24 07/23/25 tablet,extended release 24 hr lisinopril 20 mg tablet 20 mg PO DAILY 06/07/24 07/23/25 pantoprazole 40 mg tablet,delayed 40 mg PO DAILY 06/07/24 07/23/25 release rivaroxaban 15 mg tablet (Xarelto) 15 mg PO Q24H 06/07/24 07/23/25 Allergies Allergy/AdvReac Type Severity Reaction Status Date / Time No Known Drug Allergies Allergy Verified 07/23/25 14:57 Opioid HPI Opioid Management Most Recent Opioid Data: Last Pain Scale 1 06/07/24, 15:57 Review of Systems ROS Status of ROS 10 or more systems reviewed and unremarkable except as noted in history and below PFSH PFSH Social History Little interest or pleasure in doing things: not at all Feeling down, depressed, or hopeless: not at all Exam Narrative Exam Narrative: CONSTITUTIONAL: Patient appears ill/lethargic, she answers questions appropriately, though she is slow to speak. She follows commands appropriately SKIN: Warm and mildly diaphoretic. EYES: PERRLA, no scleral icterus or conjunctival pallor EARS, NOSE, THROAT: Dry mucous membranes. RESPIRATORY: Crackles noted throughout the lung millan, worse in the left base. CARDIOVASCULAR: Normal rate and regular rhythm. There is no S3, S4, murmur, rub. GASTROINTESTINAL: Generalized tenderness to palpation without focality. No rebound tenderness or guarding. Hyperactive bowel sounds MUSCULOSKELETAL: There was no lower extremity edema, erythema, or tenderness. NEUROLOGIC: Oriented x 3. Sensation intact to light touch in the bilateral upper/lower extremities. Equal strength in all extremities. Facies were symmetrical. Constitutional Vital Signs, click to edit/add: Last Vital Signs Temp 98.5 F 07/23/25 14:59 Pulse 95 H 07/23/25 17:40 Resp 25 H 07/23/25 17:40 BP 89/57 07/23/25 17:31 Pulse Ox 91 L 07/23/25 17:40 O2 Del Method Nasal Cannula 07/23/25 16:51 O2 Flow Rate 4 07/23/25 16:51 Course Vital Signs Vital signs: Vital Signs Pulse Rate 95 H 07/23/25 14:54 Respiratory Rate 22 H 07/23/25 14:54 Temperature 98.5 F 07/23/25 14:59 Pulse Rate 95 H 07/23/25 17:40 Respiratory Rate 25 H 07/23/25 17:40 Blood Pressure 89/57 07/23/25 17:31 Pulse Oximetry 91 L 07/23/25 17:40 Oxygen Delivery Method Nasal Cannula 07/23/25 16:51 Oxygen Delivery Flow Rate 4 07/23/25 16:51 Medical Decision Making MDM Narrative Medical decision making narrative: Patient is an 84-year-old female presenting to the emergency department from home for 2-day history of nausea, vomiting, cough, and shortness of breath. She has a history of COPD on 4 L nasal cannula. Vital signs on arrival are significant for mild hypotension and tachypnea. She is afebrile. She is saturating 92% on her home oxygen requirements of 4 L nasal cannula. Physical examination as noted above My differential diagnosis is broad and includes, but is not limited to, pneumonia, bowel obstruction, ACS, intracranial hemorrhage, CHF, UTI, or other electrolyte/metabolic derangement. IV was established and laboratory studies were obtained. She was given 1.5 L bolus of normal saline for rehydration, IV famotidine, and 4 mg IV Zofran. Laboratory studies were significant for mild leukocytosis and lactic acidosis of 2.4, concerning for infection. No evidence of acute renal injury. No significant electrolyte or metabolic derangements. Urinalysis was negative. Troponin not elevated. BNP mildly elevated, but within normal limits for her age. CT head independently reviewed/interpreted by myself demonstrated no acute intracranial pathology or hemorrhage. Chest x-ray independently reviewed/interpreted by myself and reviewed by radiology demonstrated hazy airspace opacities are present in the left mid and lower chest suspicious for pneumonia. CT abdomen/pelvis demonstrated airspace opacities at left lower lobe suspicious for pneumonia. No bowel obstruction or obstructive uropathy. Diverticulosis. 12 Lead EKG: Irregularly irregular rhythm with wide QRS complexes. Occasional PVCs normal axis. No ST segment elevations. Final impression: Atrial fibrillation with aberrant conduction. No evidence of acute myocardial ischemia. At this time, I do believe the patient warrants admission to the hospital for treatment of community-acquired pneumonia. Blood cultures were obtained and she was empirically treated with IV ceftriaxone and IV doxycycline. I discussed the patient with Dr. Harkins who accepted the patient to his service. FINAL IMPRESSION: #Acute community-acquired pneumonia #Acute lactic acidosis DISPOSITION: Admitted to the hospital CONDITION: Fair Medical Records Medical records reviewed: Yes I reviewed the patient's medical records Lab Data Lab results reviewed: Yes I reviewed the patient's lab results Labs: Lab Results 07/23/25 07/23/25 Range/Units 15:25 15:45 WBC 13.2 H (4.0-11.0) 10^3/uL RBC 3.95 L (4.20-5.40) 10^6/uL Hgb 10.2 L (12.0-16.0) g/dL Hct 33.7 L (36.0-48.0) % MCV 85.3 (81.0-99.0) fL MCH 25.8 L (26.7-34.0) pg MCHC 30.3 (29.9-35.2) g/dL RDW 17.0 H (11.0-15.0) % Plt Count 260 (150-450) 10^3/uL MPV 10.4 (9.5-13.5) fL Seg Neuts % (Manual) 86.0 H (43.0-75.0) Band Neutrophils % 1.0 (0-5) % Lymphocytes % (Manual) 6.0 L (20.5-60.0) % Monocytes % (Manual) 7.0 (1.7-12.0) % Eosinophils % (Manual) 0.0 L (0.9-7.0) % Basophils % (Manual) 0.0 L (0.2-2.0) % Neutrophils # (Manual) 11.35 H (1.4-6.5) 10^3/uL Band Neutrophils # 0.1 (0.0-0.3) 10^3/uL Lymphocytes # (Manual) 0.79 L (1.20-3.80) 10^3/uL Monocytes # (Manual) 0.92 H (0.30-0.80) 10^3/uL Eosinophils # (Manual) 0.00 (0.00-0.70) 10^3/uL Basophils # (Manual) 0.00 (0.00-0.10) 10^3/uL Sodium 140 (136-145) mmol/L Potassium 4.5 (3.5-5.1) mmol/L Chloride 105 (98-107) mmol/L Carbon Dioxide 25.6 (21.0-32.0) mmol/L Anion Gap 13.9 BUN 74.0 H (7.0-18.0) mg/dL Creatinine 1.44 H (0.55-1.02) mg/dL Est GFR ( Amer) 42 L (>=60 mL/min/1.73m^2) Est GFR (Non-Af Amer) 35 L (>=60 mL/min/1.73m^2) BUN/Creatinine Ratio 51.4 Glucose 110 H (74-106) mg/dL Lactate 2.4 H* (0.4-2.0) mmol/L Calcium 9.2 (8.5-10.1) mg/dL Magnesium 2.0 (1.8-2.4) mg/dL Total Bilirubin 0.5 (0.2-1.0) mg/dL AST 11 L (15-37) U/L ALT 19 (14-59) U/L Alkaline Phosphatase 98 (46-116) U/L Troponin I High Sens 28.1 (4.0-51.3) pg/mL NT-Pro-B Natriuret Pep 2141.0 H* (<=1800.0) pg/mL Total Protein 7.5 (6.4-8.2) g/dL Albumin 3.9 (3.4-5.0) g/dL Globulin 3.6 g/dL Albumin/Globulin Ratio 1.1 Lipase 37.0 (16.0-77.0) U/L Urine Color Lt. yellow (YELLOW) Urine Clarity Clear (CLEAR) Urine pH 5.5 (5.0-9.0) Ur Specific [place] <=1.005 A (1.005-1.025) Urine Protein Negative (NEG/TRACE) mg/dL Urine Glucose (UA) >=1000 A (NEGATIVE) mg/dL Urine Ketones Negative (NEGATIVE) mg/dL Urine Occult Blood Negative (NEGATIVE) Urine Nitrite Negative (NEGATIVE) Urine Bilirubin Negative (NEGATIVE) Urine Urobilinogen 0.2 (0.2-1.0) EU/dL Ur Leukocyte Esterase Negative (NEGATIVE) Urine RBC None seen (0-2) #/HPF Urine WBC None seen (NONE SEEN) #/HPF Ur Squamous Epith Cells Few A (NONE/RARE) #/LPF Urine Crystals None seen (None Seen) #/HPF Urine Bacteria Trace A (NONE SEEN) #/HPF Urine Casts None seen (NONE SEEN) #/LPF Urine Mucus None seen (NONE SEEN) Ur Culture Indicated? No Imaging Data CT scan - abdomen: Attestation: I personally reviewed and interpreted this imaging study as follows: Radiologist's impression: ITS Impressions Chest X-Ray 07/23/25 15:00 IMPRESSION: Hazy airspace opacities are present in the left mid and lower chest suspicious for pneumonia. There is cardiomegaly. Impression dictated by: Sherwin Jones M.D. 07/23/2025 4:46 PM Dictation Location: [id number] Electronically authenticated by: [id number] Y Date: 07/23/2025 16:46 Abdomen/Pelvis CT 07/23/25 15:02 IMPRESSION: Airspace opacities are present in the left lower lobe suspicious for pneumonia. No bowel obstruction or obstructive uropathy. Uncomplicated colonic diverticula are noted. Tiny stones dependently layering within the gallbladder lumen. There is a hiatal hernia with gastric fundus in the lower mediastinum. Additional chronic appearing findings are noted as above. Impression dictated by: Sherwin Jones M.D. 07/23/2025 5:23 PM Dictation Location: [place] Electronically authenticated by: [id number] Y Date: 07/23/2025 17:[address] 07/23/25 16:28 IMPRESSION: No acute intracranial pathology. Chronic findings are noted as above. Impression dictated by: Sherwin Jones M.D. 07/23/2025 5:18 PM Dictation Location: [place] Electronically authenticated by: [id number] Y Date: 07/23/2025 17:18 ECG Data Attestation: I personally reviewed and interpreted this ECG as follows: Discharge Plan Discharge Chief Complaint: Nausea/Vomiting/Diarrhea Clinical Impression: CAP (community acquired pneumonia) Qualifiers: Laterality: left Lung location: lower lobe of lung Qualified Code(s): J18.9 - Pneumonia, unspecified organism Patient Disposition: Admitted As Inpatient Time of Disposition Decision: 17:46 Condition: Fair
[2025-07-23] MEDS: RIVAROXABAN 10 MG TABLET 15 MG PO (20:30)
[2025-07-23] MEDS: DEXAMETHASONE SOD PHOS 10 MG/ML VIAL IV (20:50)
[2025-07-23] MEDS: AZITHROMYCIN 500 MG in 0.9 % SODIUM CHLORIDE 250 ML 250 MG IV (20:50)
[2025-07-23] MEDS: DOXYCYCLINE HYCLATE 100 MG in 0.9 % SODIUM CHLORIDE 100 ML IV (20:50)
[2025-07-23] MEDS: GABAPENTIN 100 MG CAPSULE 200 MG PO (21:26)
[2025-07-23 23:05] LABS: Lactate/Lactic Acid 2.1 mmol/L (0.4-2.0)
[2025-07-24] VITALS (22 sets, daily range): BP systolic 104–143; BP diastolic 51–83; PULSE 62–79; TEMP 36.4–36.9; O2SAT 94–97
[2025-07-24 06:11] LABS: Hematocrit 31.4 % (36.0-48.0); Hemoglobin 9.5 g/dL (12.0-16.0); Mean Corpuscular HGB Conc 30.3 g/dL (29.9-35.2); Mean Corpuscular Hemoglobin 26.1 pg (26.7-34.0); Mean Corpuscular Volume 86.3 fL (81.0-99.0); Platelet Count 207 10^3/uL (150-450); Red Blood Count 3.64 10^6/uL (4.20-5.40); White Blood Count 18.4 10^3/uL (4.0-11.0)
[2025-07-24 06:26] LABS: Alanine Aminotransferase 33 U/L (14-59); Albumin Globulin Ratio 0.9; Albumin Level 3.2 g/dL (3.4-5.0); Alkaline Phosphatase 90 U/L (46-116); Anion Gap 13.1; Aspartate Amino Transferase 19 U/L (15-37); Blood Urea Nitrogen 58.0 mg/dL (7.0-18.0); Calcium 9.1 mg/dL (8.5-10.1); Carbon Dioxide 24.0 mmol/L (21.0-32.0); Chloride 110 mmol/L (98-107); Estimated GFR (African America 45 (>=60 mL/min/1.73m^2); Estimated GFR (Non-African Ame 37 (>=60 mL/min/1.73m^2); Globulin 3.6 g/dL; Glucose 166 mg/dL (74-106); Potassium 5.1 mmol/L (3.5-5.1); Sodium 142 mmol/L (136-145); Total Protein 6.8 g/dL (6.4-8.2)
[2025-07-24 06:48] LABS: Lactate/Lactic Acid 1.9 mmol/L (0.4-2.0)
[2025-07-24 07:06] LABS: SARS-CoV-2 Ag NEGATIVE (NEGATIVE)
[2025-07-24] MEDS: ATORVASTATIN CALCIUM 40 MG TABLET 80 MG PO (08:19)
[2025-07-24] MEDS: CARVEDILOL 6.25 MG TABLET 3.125 MG PO (08:20)
[2025-07-24] MEDS: ALLOPURINOL 100 MG TABLET PO (08:20)
[2025-07-24] MEDS: PANTOPRAZOLE SODIUM 40 MG TABLET.DR PO (08:20)
[2025-07-24] MEDS: ISOSORBIDE MONONITRATE 60 MG TAB.ER.24H PO (08:20)
--- NOTE | 2025-07-24 08:30 | PM.HP ---
HPI H&P: HPI History of Present Illness Chief complaint: CAP Narrative: Mrs. Morris is an 84-year-old female with a known diagnosis of COPD, coronary artery disease and atrial fibrillation. Patient came in with cough, congestion, shortness of breath, abdominal cramps not feeling well overall. Patient was found to have evidence of sepsis and a large left-sided pneumonia. Patient has a chronic hypoxic respiratory failure on oxygen. 3 to 4 L. No chest pain. No vomiting. Nausea sensation. No hematemesis or melena. Opioid HPI Opioid Management Most Recent Pain and Opioid Data: Last Pain Scale 1 06/07/24, 15:57 Last Pain Assessment 07/23/25, 19:00 Last ORT Total Score 0 07/23/25, 18:29 Last ORT Risk Category Low Risk 07/23/25, 18:29 Review of Systems ROS Status of ROS 10 or more systems reviewed and unremarkable except as noted in history and below PFS PFS Medical History (Updated 07/24/25 @ 08:33 by Daniel Harkins MD) Arthritis ?M19.90 - Unspecified osteoarthritis, unspecified site (ICD-10) Spinal stenosis ?M48.00 - Spinal stenosis, site unspecified (ICD-10) Surgical History (Updated 07/23/25 @ 18:47 by Ele Pickens) H/O: hysterectomy ?Z90.710 - Acquired absence of both cervix and uterus (ICD-10) Social History Highest level of school completed/degree received: high school graduate Little interest or pleasure in doing things: not at all Feeling down, depressed, or hopeless: not at all Do you think of yourself as: straight/heterosexual Gender Identity: female Meds Home Medications and Allergies Home Medications ?Medication ?Instructions ?Recorded ?Confirmed ?Type allopurinol 100 mg tablet 100 mg PO DAILY 06/07/24 07/23/25 History atorvastatin 80 mg tablet 80 mg PO DAILY 06/07/24 07/23/25 History carvedilol 6.25 mg tablet 6.25 mg PO BID 06/07/24 07/23/25 History dapagliflozin propanediol 10 mg 10 mg PO DAILY 06/07/24 07/23/25 History tablet ezetimibe 10 mg tablet 10 mg PO DAILY 06/07/24 07/23/25 History furosemide 40 mg tablet 40 mg PO DAILY 06/07/24 07/23/25 History gabapentin 100 mg capsule 100 mg PO BID 06/07/24 07/24/25 History isosorbide mononitrate 60 mg 60 mg PO DAILY 06/07/24 07/23/25 History tablet,extended release 24 hr pantoprazole 40 mg tablet,delayed 40 mg PO DAILY 06/07/24 07/23/25 History release rivaroxaban 15 mg tablet (Xarelto) 15 mg PO Q24H 06/07/24 07/23/25 History clopidogrel 75 mg tablet 75 mg PO DAILY 07/24/25 07/24/25 History fluticasone fur. 100 mcg-umeclid 1 inh inhalation Q24H 07/24/25 07/24/25 History 62.5 mcg-vilant 25 mcg inhalat.powder (Trelegy Ellipta) lisinopril 10 mg tablet 10 mg PO DAILY 07/24/25 07/24/25 History nitroglycerin 0.4 mg sublingual 0.4 mg sublingual Q5M PRN chest 07/24/25 07/24/25 History tablet pain Allergies Allergy/AdvReac Type Severity Reaction Status Date / Time No Known Drug Allergies Allergy Verified 07/23/25 14:57 Exam Narrative Exam Narrative: [pt is awake and alert. oriented to place, time and person, mild tachypnea at rest and with minimal exertion such as changing position in bed. HEENT: [place] conjunctiva and NL buccal mucosa Neck: Supple, no tenderness Endocrine: No Thyromegaly. Vascular: No JVD or carotid bruit. Lymphatic: No cervical lymphadenopathy. Chest: Coarse rhonchi in the left upper and middle lobe Heart IRRR, no extra sound or murmur. Abd: Soft, no tenderness, no rebound and no rigidity. Increase abd girth therefore clinically I could not exclude the possibility of intra abd mass or organomegaly. LE: No cyanosis or clubbing, no varices or edema. Neuro: A A O. Nl speech, comprehension and attention. Nl and symetrical motor and tone examination through out. []] Constitutional Vital Signs, click to edit/add: Last Vital Signs Temp 97.6 F 07/24/25 04:00 Pulse 76 07/24/25 08:00 Resp 18 07/24/25 04:00 BP 104/51 07/24/25 04:00 Pulse Ox 97 07/24/25 04:55 O2 Del Method Nasal Cannula 07/24/25 04:55 O2 Flow Rate 3 07/24/25 04:55 Results Labs Labs: Short CBC 07/23/25 07/24/25 Range/Units 15:45 05:40 WBC 13.2 H 18.4 H (4.0-11.0) 10^3/uL Hgb 10.2 L 9.5 L (12.0-16.0) g/dL Hct 33.7 L 31.4 L (36.0-48.0) % Plt Count 260 207 (150-450) 10^3/uL BMP 07/23/25 07/24/25 15:45 05:40 Sodium 140 142 Potassium 4.5 5.1 Chloride 105 110 H Carbon Dioxide 25.6 24.0 BUN 74.0 H 58.0 H Creatinine 1.44 H 1.36 H Glucose 110 H 166 H Calcium 9.2 9.1 Liver Function 07/23/25 07/24/25 Range/Units 15:45 05:40 Total Bilirubin 0.5 0.4 (0.2-1.0) mg/dL AST 11 L 19 (15-37) U/L ALT 19 33 (14-59) U/L Alkaline Phosphatase 98 90 (46-116) U/L Albumin 3.9 3.2 L (3.4-5.0) g/dL Urine 07/23/25 Range/Units 15:25 Urine Color Lt. yellow (YELLOW) Urine Clarity Clear (CLEAR) Urine pH 5.5 (5.0-9.0) Ur Specific [place] <=1.005 A (1.005-1.025) Urine Protein Negative (NEG/TRACE) mg/dL Urine Glucose (UA) >=1000 A (NEGATIVE) mg/dL Assessment and Plan Assessment and Plan (1) Sepsis: (2) A-fib: (3) Chronic hypoxic respiratory failure: (4) COPD (chronic obstructive pulmonary disease): Plan Sepsis with septic present on admission manifested by leukocytosis, elevated lactic acid, hypotension and evidence of infection. Large left-sided pneumonia, suspect community-acquired Chronic hypoxic respiratory failure on 4 L Acute COPD exacerbation. I had accepted to admit patient to the medical floor Oxygen supplementation I started patient on intravenous ceftriaxone and Zithromax I started patient on Solu-Medrol. Albuterol, Atrovent 3 times daily. CAT scan of the chest to take a better look at the lung parenchyma and rule out underlying malignancy Chronic A-fib. Rate is controlled Continue Xarelto. Continue Coreg. CAD. Previous multiple stents as reported by patient. She said she had 7 stents No active angina or chest pain. Continue Plavix and beta-albertina CKD stage III near baseline. Avoid nephrotoxic drugs Monitor electrolytes and kidney function. Chronic medical conditions not listed above, incidental findings seen on labs and imaging. These would need to be addressed. Could be addressed when time and condition are appropriate. Could be addressed in the outpatient setting by PCP collaboration with other needed outpatient providers.
[2025-07-24] MEDS: CLOPIDOGREL BISULFATE 75 MG TABLET PO (08:49)
[2025-07-24] MEDS: METHYLPREDNISOLONE SOD SUCC PF 40 MG/ML VIAL IVP ×2 (08:49→20:17)
--- NOTE | 2025-07-24 08:50 | CM.NOTE ---
Rounds made with Dr. Harkins, discussed with pt reason for admission and plan of care. Pt will need IV antibiotics, no discharge today. PT and OT will evaluate pt for discharge planning.
--- NOTE | 2025-07-24 10:35 | CT_ITS ---
The [address] [address] Patient Name: DEMARCUS FINN MRN: [id number] date: 1940 Sex: F Assigned Patient Location: [place] Current Patient Location: Accession/Order Number: [id number] Exam Date: 07/24/2025 10:27 Report Date: 07/24/2025 12:16 At the request of: MICHEAL LÓPEZ MD Procedure: CT chest wo con CT CHEST WITHOUT CONTRAST CLINICAL DATA: Cough and shortness of breath. Follow-up abnormal chest x-ray COMPARISON: Chest x-ray and abdominal CT 07/23/2025 Spiral images were obtained through the chest without contrast. Images were reviewed using both narrow and wide window settings. This CT exam was performed using one or more following dose reduction techniques: Automated exposure control, adjustment of the mA and/or kV according to patient size, or use of iterative reconstruction technique. The heart is mildly prominent. No pericardial effusion is seen. There is coronary artery disease. No aortic aneurysm is visualized. There is atherosclerotic plaque at the aorta and proximal great vessels. There are a few scattered mediastinal lymph nodes with short axis dimension in the precarinal region up to 11 mm. There are calcified right hilar granulomas. There is a partially imaged left supraclavicular lymph node on the first images. A moderate size hiatal hernia is seen. There is slight dextroscoliotic curvature as well as degenerative changes at the spine. There is some respiratory motion. Minor apical scarring is noted on the left. There are patchy nodular airspace opacities within the left upper lobe as well as left lower lobe where there are some additional areas of consolidation. On the right, there is a small airspace opacity within the middle lobe at the junction of the major and minor fissures. There is no pleural effusion or pneumothorax. Limited cuts through the upper abdomen show calcified splenic granulomas. There are left renal cysts. There is a partially imaged left adrenal nodule measuring just over 2 cm in size. These were also seen on the recent abdominal CT. CT/CT chest wo con IMPRESSION: NONSPECIFIC LYMPH NODES. MILD CARDIOMEGALY. HIATAL HERNIA. GRANULOMATOUS CHANGES. MULTIFOCAL LEFT AND RIGHT MIDDLE LOBE PARENCHYMAL CHANGES, DESCRIBED. PNEUMONIA IS FAVORED HOWEVER CLINICAL CORRELATION AND FOLLOW-UP TO RESOLUTION WILL BE NEEDED TO EXCLUDE OTHER POSSIBLE ETIOLOGIES. Impression dictated by: Jelly Hernandez M.D. 07/24/2025 12:16 PM Dictation Location: [place] [address] Electronically authenticated by: [id number] Y Date: 07/24/2025 12:16
[2025-07-24 12:47] LABS: A. calcoaceticus-baumannii Cpx NOT DETECTED (NOT DETECTE); Bacteroides fragilis NOT DETECTED (NOT DETECTE); Candida auris NOT DETECTED (NOT DETECTE); Candida glabrata NOT DETECTED (NOT DETECTE); Enterobacterales NOT DETECTED (NOT DETECTE); Enterococcus faecalis NOT DETECTED (NOT DETECTE); Enterococcus faecium NOT DETECTED (NOT DETECTE); Klebsiella aerogenes NOT DETECTED (NOT DETECTE); Klebsiella pneumoniae group NOT DETECTED (NOT DETECTE); Proteus spp. NOT DETECTED (NOT DETECTE); Salmonella spp. NOT DETECTED (NOT DETECTE); Serratia marcescens NOT DETECTED (NOT DETECTE); Staphylococcus epidermidis NOT DETECTED (NOT DETECTE); Staphylococcus lugdunensis NOT DETECTED (NOT DETECTE); Stenotrophomonas maltophilia NOT DETECTED (NOT DETECTE); Streptococcus pyogenes NOT DETECTED (NOT DETECTE); Streptococcus spp. NOT DETECTED (NOT DETECTE)
[2025-07-24 14:01] LABS: Source BLOOD
[2025-07-24 14:04] LABS: Staphylococcus spp. DETECTED (NOT DETECTE)
--- NOTE | 2025-07-24 15:16 | SWNOTE1 ---
CHERI met with pt to discuss dc needs. Pt lives at home alone, with her 2 cats. Pt has a friend who checks on her and is staying with her cats right now. Pt also has a son that checks in with her as well, but he is on a cruise right now. Pt has a tri level home. Pt a has a ramp in to the home. She has an electric lift chair that she uses to go up and down between one of the levels and she puts her laundry on it etc. She has hand rails to assist with the other level. She stated she takes her time to go up and down the other level. She also has a cane and walker as well. Pt also wears home oxygen from [facility] and thinks it is 4 liters. She voiced she does not always wear it. SW to check with [facility]. CHERI also spoke with her about recommendations of home health. She voiced she used to have it, but it has been awhile. Pt is agreeable to have HH services come in. CHERI to send referral. At this time no other concerns. Pt voiced she does well at home usually. She stated her son did set her up with meals on wheels as well.
--- NOTE | 2025-07-24 15:22 | SWNOTE1 ---
Important Message from [employer] reviewed and discussed with patient. Pt. verbalized understanding and signed the form. Original given to patient and copy placed in patient?s chart.
--- NOTE | 2025-07-24 16:18 | SWNOTE1 ---
SW received a call from [facility] and they are able to accept. SW notified nurse and will let pt know.
[2025-07-24] MEDS: 0.9 % SODIUM CHLORIDE 250 ML 10 ML IV (17:04)
--- NOTE | 2025-07-24 19:38 | CA_ITS ---
Patient Name: DEMARCUS FINN MR#: [id number] : 1940 Exam Date: 07/24/2025 Ordering Doctor: MICHEAL LÓPEZ ECHOCARDIOGRAM REPORT PROCEDURE: CA ECHO DOPPLER COMPLETE INDICATIONS: Assess Function, pneumonia, COPD, cardiac stents, atrial fibrillation COMPARISON: None. DESCRIPTION: COMPLETE ECHOCARDIOGRAM Real-time transthoracic echocardiography with 2D, M-mode, spectral and color flow Doppler performed. QUALITY: Technical quality was good. LEFT VENTRICLE: Normal chamber size. Borderline left ventricular hypertrophy. D-shaped septum consistent with right ventricular pressure and/or volume overload. LV EF: Global ventricular systolic function is normal; visually estimated ejection fraction 60 to 65%. No significant wall motion abnormalities. DIASTOLIC: Not adequately assessed due to heart rhythm. ATRIAL SEPTUM: Inadequately seen. LEFT ATRIUM: Severe dilatation. RIGHT ATRIUM: Severe dilatation. RIGHT VENTRICLE: Right ventricle appears enlarged with reduced systolic function. TRICUSPID VALVE: Normal mobility and thickness. No stenosis with moderate regurgitation. Doppler studies reveal severely (>60) elevated right sided pressures. RVSP 61 mmHg MITRAL VALVE: Mildly thickened with normal mobility. No evidence of mitral valve stenosis. There is no mitral annular calcification. Moderate mitral regurgitation. AORTIC VALVE: Normal trileaflet appearance. Mildly calcified aortic valve with diminished mobility. Doppler velocity suggest no significant aortic valve stenosis. Mild aortic regurgitation. AORTIC ROOT: Normal diameter and appearance. Ascending aorta is normal in size. PULMONIC VALVE: Normal thickness and mobility. No stenosis. Trivial regurgitation. PERICARDIUM: No evidence of pericardial effusion. IVC: IVC is dilated (2.5 cm), does not collapse. CONCLUSION: 1. Global left ventricular systolic function is normal; visually estimated ejection fraction is 60 to 65% 2. D-shaped septum consistent with right ventricular pressure and/or volume overload 3. The right ventricle is enlarged with reduced systolic function 4. Severe biatrial dilatation 5. Normal left ventricular hypertrophy 6. Unable to assess diastolic function 7. Moderate tricuspid regurgitation 8. Severely elevated right ventricular systolic pressure; RVSP 61 mmHg 9. Moderate mitral regurgitation 10. Mild aortic valve regurgitation Adult Echocardiography Procedure Report Left Ventricle LVEDD (3.7 - 5.6 cm): 4.69 cm LVESD (2.2 - 4.0 cm): 3.17 cm LVIVS thickness (0.6 - 1.2 cm): 1.10 cm LVPW thickness (0.5 - 1.0 cm): 0.99 cm LVOT Max Gradient: 2.49 mm[Hg], 2.49 mm[Hg] LVOT Area (cm2): 0.79 m/s Peak Velocity (LVOT): 0.79 m/s, 0.79 m/s Mean Velocity (LVOT): 0.54 m/s LVOT Diameter 2.12 cm Left Ventricular Ejection Fraction: 77.58 % Left Atrium LA Volume Index (2D A2C): 74.08 ml/m2 Left Atrium Systolic Dimension: 4.49 cm Mitral Valve Mitral Valve E-Wave Peak Velocity: 1.05 m/s Right Ventricle Aorta AO Root Diam: 3.00 cm Ascending Ao Diam: 2.72 cm Aortic Valve AoV Area (Peak Yefri): 1.72 cm2, 1.76 cm2, 1.68 cm2 AoV Area (VTI): 1.74 cm2, 1.80 cm2, 1.69 cm2 Peak Velocity(Antegrade Flow): 1.58 m/s, 1.66 m/s Peak Gradient(Antegrade Flow): 10.02 mm[Hg], 11.08 mm[Hg] Mean Velocity(Antegrade Flow): 1.11 m/s, 1.12 m/s Mean Gradient(Antegrade Flow): 5.73 mm[Hg], 5.92 mm[Hg] Velocity Time Integral: 37.73 cm, 40.18 cm Tricuspid Valve Peak Velocity (Regurgitant Flow): 3.34 m/s, 3.28 m/s, 3.53 m/s Pulmonic Valve Peak Velocity: 0.97 m/s Peak Gradient: 4.00 mm[Hg], 3.58 mm[Hg] Right Atrium Right Atrium Systolic Pressure: 104.43 ml, 104.43 ml Dictated by: Rachele Rodrigez M.D. on 07/24/2025 at 11:59 Approved by: Rachele Rodrigez M.D. on 07/24/2025 at 12:04
[2025-07-24] MEDS: GABAPENTIN 100 MG CAPSULE PO (20:17)
[2025-07-24] MEDS: RIVAROXABAN 10 MG TABLET 15 MG PO (20:17)
[2025-07-24] MEDS: CARVEDILOL 3.125 MG TABLET PO (20:17)
[2025-07-24] MEDS: AZITHROMYCIN 500 MG in 0.9 % SODIUM CHLORIDE 250 ML 200 MG IV (20:18)
[2025-07-25] VITALS (15 sets, daily range): BP systolic 134–153; BP diastolic 69–78; PULSE 62–82; TEMP 36.7–36.9; O2SAT 96–98
[2025-07-25] MEDS: ACETAMINOPHEN 325 MG TABLET 650 MG PO
[2025-07-25] MEDS: ALLOPURINOL 100 MG TABLET PO (08:43)
[2025-07-25] MEDS: ATORVASTATIN CALCIUM 40 MG TABLET 80 MG PO (08:43)
[2025-07-25] MEDS: PANTOPRAZOLE SODIUM 40 MG TABLET.DR PO (08:43)
[2025-07-25] MEDS: CARVEDILOL 3.125 MG TABLET PO ×2 (08:43→21:12)
[2025-07-25] MEDS: ISOSORBIDE MONONITRATE 60 MG TAB.ER.24H PO (08:43)
[2025-07-25] MEDS: CLOPIDOGREL BISULFATE 75 MG TABLET PO (08:43)
[2025-07-25] MEDS: METHYLPREDNISOLONE SOD SUCC PF 40 MG/ML VIAL IVP ×2 (08:43→21:49)
[2025-07-25] MEDS: GABAPENTIN 100 MG CAPSULE PO ×2 (08:43→21:12)
--- NOTE | 2025-07-25 09:01 | SWNOTE1 ---
SW did call [facility] on 07/24/25 and spoke to Christie. Pt has a prescription for home oxygen from 2021 and it is for 2 liters nasal canule continuous.
--- NOTE | 2025-07-25 09:30 | CM.NOTE ---
Rounds made with Dr. Harkins, discussed with pt plan of care. Pt continues to require oxygen. No discharge today. Continue IV antibiotics.
--- NOTE | 2025-07-25 11:24 | PM.PN ---
Progress Note: Subjective Subjective Interval history: Patient is feeling better today. Less pain and discomfort. Less cough and congestion Exam Narrative Exam Narrative: [pt is awake and alert. oriented to place, time and person, mild tachypnea at rest and with minimal exertion such as changing position in bed. HEENT: [place] conjunctiva and NL buccal mucosa Neck: Supple, no tenderness Endocrine: No Thyromegaly. Vascular: No JVD or carotid bruit. Lymphatic: No cervical lymphadenopathy. Chest: Coarse rhonchi in the left upper and middle lobe also some in the lower lobe Heart IRRR, no extra sound or murmur. Abd: Soft, no tenderness, no rebound and no rigidity. Increase abd girth therefore clinically I could not exclude the possibility of intra abd mass or organomegaly. LE: No cyanosis or clubbing, no varices or edema. Neuro: A A O. Nl speech, comprehension and attention. Nl and symetrical motor and tone examination through out. []] Constitutional Vital Signs, click to edit/add: Last Vital Signs Temp 98.1 F 07/25/25 08:30 Pulse 64 07/25/25 09:58 Resp 20 07/25/25 08:30 BP 143/69 H 07/25/25 08:30 Pulse Ox 98 07/25/25 08:30 O2 Del Method Nasal Cannula 07/25/25 08:30 O2 Flow Rate 2 07/25/25 08:30 Progress Note: A&P Assessment and Plan (1) Sepsis: (2) A-fib: (3) Chronic hypoxic respiratory failure: (4) COPD (chronic obstructive pulmonary disease): Plan Sepsis with septic present on admission manifested by leukocytosis, elevated lactic acid, hypotension and evidence of infection. Large left-sided pneumonia, suspect community-acquired. CAT scan showed extensive left upper, middle and lower lobe infiltration. Chronic hypoxic respiratory failure on 4 L Acute COPD exacerbation. Positive for blood culture for staph. 1 out of 2. Suspect contamination. I had accepted to admit patient to the medical floor Oxygen supplementation I started patient on intravenous ceftriaxone and Zithromax I started patient on Solu-Medrol. Albuterol, Atrovent 3 times daily. Monitor CRP level Repeat CT imaging of the chest in 6 to 8 weeks. Show complete resolution of the abnormalities otherwise patient to have viral additional diagnostic and/or therapeutic relation to Y magnesium Transient episode of SVT. Resolved spontaneously Continue beta-albertina. Continue anticoagulation. Patient had multiple stents in the past. No chest pain. No active angina. Echocardiogram does not show cardiomyopathy therefore low risk of ventricular dysrhythmia. Chronic A-fib. Rate is controlled Continue Xarelto. Continue Coreg. CAD. Previous multiple stents as reported by patient. She said she had 7 stents No active angina or chest pain. Continue Plavix and beta-albertina CKD stage III near baseline. Avoid nephrotoxic drugs Monitor electrolytes and kidney function. Chronic medical conditions not listed above, incidental findings seen on labs and imaging. These would need to be addressed. Could be addressed when time and condition are appropriate. Could be addressed in the outpatient setting by PCP collaboration with other needed outpatient providers.
--- NOTE | 2025-07-25 12:06 | SWNOTE1 ---
Pt is not discharging today. SW faxed progress note and PT/OT note from today to [facility].
[2025-07-25] MEDS: 0.9 % SODIUM CHLORIDE 250 ML 10 ML IV (21:04)
[2025-07-25] MEDS: AZITHROMYCIN 500 MG in 0.9 % SODIUM CHLORIDE 250 ML 250 MG IV (21:06)
[2025-07-25] MEDS: RIVAROXABAN 10 MG TABLET 15 MG PO (21:12)
[2025-07-26] VITALS (19 sets, daily range): BP systolic 127–206; BP diastolic 74–97; PULSE 56–83; TEMP 36.4–36.6; O2SAT 2–99
[2025-07-26] MEDS: MORPHINE SULFATE 2 MG/ML SYRINGE 1 MG IV (05:44)
[2025-07-26] MEDS: LISINOPRIL 10 MG TABLET PO ×2 (05:45→08:16)
[2025-07-26 06:16] LABS: Hematocrit 30.3 % (36.0-48.0); Hemoglobin 9.2 g/dL (12.0-16.0); Mean Corpuscular HGB Conc 30.4 g/dL (29.9-35.2); Mean Corpuscular Hemoglobin 25.9 pg (26.7-34.0); Mean Corpuscular Volume 85.4 fL (81.0-99.0); Platelet Count 193 10^3/uL (150-450); Red Blood Count 3.55 10^6/uL (4.20-5.40); White Blood Count 13.0 10^3/uL (4.0-11.0)
[2025-07-26 06:53] LABS: Anion Gap 13.1; Blood Urea Nitrogen 61.0 mg/dL (7.0-18.0); Calcium 9.1 mg/dL (8.5-10.1); Carbon Dioxide 24.3 mmol/L (21.0-32.0); Chloride 105 mmol/L (98-107); Estimated GFR (African America 46 (>=60 mL/min/1.73m^2); Estimated GFR (Non-African Ame 38 (>=60 mL/min/1.73m^2); Glucose 193 mg/dL (74-106); Potassium 5.4 mmol/L (3.5-5.1); Sodium 137 mmol/L (136-145)
[2025-07-26] MEDS: ATORVASTATIN CALCIUM 40 MG TABLET 80 MG PO (08:16)
[2025-07-26] MEDS: CLOPIDOGREL BISULFATE 75 MG TABLET PO (08:16)
[2025-07-26] MEDS: ISOSORBIDE MONONITRATE 60 MG TAB.ER.24H PO (08:16)
[2025-07-26] MEDS: GABAPENTIN 100 MG CAPSULE PO ×2 (08:16→21:36)
[2025-07-26] MEDS: METHYLPREDNISOLONE SOD SUCC PF 40 MG/ML VIAL IVP (08:16)
[2025-07-26] MEDS: CARVEDILOL 3.125 MG TABLET PO ×2 (08:16→21:36)
[2025-07-26] MEDS: PANTOPRAZOLE SODIUM 40 MG TABLET.DR PO (08:16)
[2025-07-26] MEDS: ALLOPURINOL 100 MG TABLET PO (08:16)
--- NOTE | 2025-07-26 08:59 | P.PN_ITS ---
Progress Note: Subjective Subjective Interval history: Patient is feeling better today. Less pain and discomfort. Less cough and congestion Exam Narrative Exam Narrative: [pt is awake and alert. oriented to place, time and person, resolution of her tachypnea compared to admission state. HEENT: [place] conjunctiva and NL buccal mucosa Neck: Supple, no tenderness Endocrine: No Thyromegaly. Vascular: No JVD or carotid bruit. Lymphatic: No cervical lymphadenopathy. Chest: Coarse rhonchi in the left upper and middle lobe also some in the lower lobe. Less prominent than previously seen. Heart IRRR, no extra sound or murmur. Abd: Soft, no tenderness, no rebound and no rigidity. Increase abd girth therefore clinically I could not exclude the possibility of intra abd mass or organomegaly. LE: No cyanosis or clubbing, no varices or edema. Neuro: A A O. Nl speech, comprehension and attention. Nl and symetrical motor and tone examination through out. []] Constitutional Vital Signs, click to edit/add: Last Vital Signs Temp 97.5 F L 07/26/25 08:20 Pulse 64 07/26/25 08:20 Resp 16 07/26/25 08:20 BP 179/75 H 07/26/25 08:20 Pulse Ox 98 07/26/25 08:20 O2 Del Method Nasal Cannula 07/26/25 08:20 O2 Flow Rate 2 07/26/25 08:20 Progress Note: Objective Labs Labs: Short CBC 07/26/25 Range/Units 06:10 WBC 13.0 H (4.0-11.0) 10^3/uL Hgb 9.2 L (12.0-16.0) g/dL Hct 30.3 L (36.0-48.0) % Plt Count 193 (150-450) 10^3/uL BMP 07/26/25 06:31 Sodium 137 Potassium 5.4 H Chloride 105 Carbon Dioxide 24.3 BUN 61.0 H Creatinine 1.33 H Glucose 193 H Calcium 9.1 Progress Note: A&P Assessment and Plan (1) Sepsis: (2) A-fib: (3) Chronic hypoxic respiratory failure: (4) COPD (chronic obstructive pulmonary disease): Plan Sepsis with septic present on admission manifested by leukocytosis, elevated lactic acid, hypotension and evidence of infection. Large left-sided pneumonia, suspect community-acquired. Large multilobar left- sided pneumonia, right middle lobe pneumonia. Chronic hypoxic respiratory failure on 4 L Acute COPD exacerbation. Positive for blood culture for staph. 1 out of 2. Suspect contamination. Oxygen supplementation Continue intravenous ceftriaxone and Zithromax Continue Solu-Medrol. I reduced frequency Albuterol, Atrovent 3 times daily. Monitor CRP level. CRP is trending down Repeat CT imaging of the chest in 6 to 8 weeks. Show complete resolution of the abnormalities otherwise patient to have viral additional diagnostic and/or therapeutic relation to Y magnesium Transient episode of SVT. Resolved spontaneously Continue beta-albertina. Continue anticoagulation. Patient had multiple stents in the past. No chest pain. No active angina. Echocardiogram does not show cardiomyopathy therefore low risk of ventricular dysrhythmia. Chronic A-fib. Rate is controlled Continue Xarelto. Continue Coreg. CAD. Previous multiple stents as reported by patient. She said she had 7 stents No active angina or chest pain. Continue Plavix and beta-albertina CKD stage III near baseline. Avoid nephrotoxic drugs Monitor electrolytes and kidney function. Kidney function is stable Chronic medical conditions not listed above, incidental findings seen on labs an d imaging. These would need to be addressed. Could be addressed when time and condition are appropriate. Could be addressed in the outpatient setting by PCP collaboration with other needed outpatient providers.
--- NOTE | 2025-07-26 09:38 | PT.DAILY ---
Physical Therapy Daily Note PT Daily Note/Assess Start: 07/25/25 09:26 Freq: Status: Active Protocol: Document 07/26/25 09:33 [id number] (Rec: 07/26/25 09:38 ENEDELIA [id number]) Physical Therapy Daily Note/Assessment Time In/Time Out Time In 09:07 Time Out 09:19 Pain In Pain N/A Pain Out Pain N/A Subjective Subjective Pt just finishing with OT upon arrival. Agrees to PT at this time. Was given Morphine last night for sciatic pain - has helped but is getting muscle spasms in R side low back with activity this morning. Therapeutic Exercise Time Therapeutic Exercise 5 Minutes (minutes) Therapeutic Exercise 0 Units Therapeutic Exercise Treatment Therapeutic Exercise ROM/Strengthening ex instructed as follows. Seated LAQ, Treatment marches and AP 10x ea. HR and marches in standing at RW 10x ea - difficult with R side weight bearing - gets muscle spasms and needs to sit. Therapeutic Activity Time Therapeutic Activity 5 Minutes (minutes) Therapeutic Activity 1 Units Therapeutic Activity Treatment Chair Transfer Contact Guard Assist Ability Therapeutic Activity Sit>stands 5x with increased time to complete. Static Comments standing at RW while brushing hair - 1 UE support on RW CGA. Total Physical Therapy Time Total Therapy 10 Minutes Total Physical 1 Therapy Units Summary Daily Note Summary Increased discomfort with R weight bearing with standing ex. Putting her R side low back into muscle spams, which limit session. Pt gets relief from sitting in recliner with feet elevated. CAll light is within reach and needs met.
--- NOTE | 2025-07-26 13:21 | SWNOTE1 ---
No discharge today, CHERI faxed updated PT/OT and physician note to [facility].
--- NOTE | 2025-07-26 15:27 | SWNOTE1 ---
SW attempted to speak with pt in regards to portable oxygen, but pt was sitting in the chair and snoring. SW to speak with her tomorrow.
[2025-07-26] MEDS: AZITHROMYCIN 500 MG in 0.9 % SODIUM CHLORIDE 250 ML 250 MG IV (21:36)
[2025-07-26] MEDS: RIVAROXABAN 10 MG TABLET 15 MG PO (21:45)
[2025-07-27] VITALS (20 sets, daily range): BP systolic 134–171; BP diastolic 74–87; PULSE 51–85; TEMP 36.4–36.7; O2SAT 86–99
[2025-07-27] MEDS: OXYCODONE HCL 5 MG TABLET PO (05:18)
[2025-07-27] MEDS: ISOSORBIDE MONONITRATE 60 MG TAB.ER.24H PO (09:30)
[2025-07-27] MEDS: ATORVASTATIN CALCIUM 40 MG TABLET 80 MG PO (09:30)
--- NOTE | 2025-07-27 09:30 | CM.NOTE ---
Rounds made with Dr. Harkins, discussed plan of care with pt. Pt will have walk test today for discharge planning and will speak with company regarding portability.
[2025-07-27] MEDS: CARVEDILOL 3.125 MG TABLET PO ×2 (09:31→20:54)
[2025-07-27] MEDS: PANTOPRAZOLE SODIUM 40 MG TABLET.DR PO (09:31)
[2025-07-27] MEDS: GABAPENTIN 100 MG CAPSULE PO ×2 (09:31→20:54)
[2025-07-27] MEDS: CLOPIDOGREL BISULFATE 75 MG TABLET PO (09:31)
[2025-07-27] MEDS: LISINOPRIL 10 MG TABLET PO (09:31)
[2025-07-27] MEDS: METHYLPREDNISOLONE SOD SUCC PF 40 MG/ML VIAL IVP (09:31)
[2025-07-27] MEDS: ALLOPURINOL 100 MG TABLET PO (09:31)
--- NOTE | 2025-07-27 12:05 | SWNOTE1 ---
CHERI spoke to Francesca at [facility]. She looked in all the orders to see what pt's home oxygen set up is. In 2021 she was set up to have home fill concentrator. She confirmed that pt does not have portability. They will need new walk test, prescription, and physician notes explaining need for portability. CHERI updated case management and nurse.
--- NOTE | 2025-07-27 15:00 | P.PN_ITS ---
Progress Note: Subjective Subjective Interval history: Patient is feeling much better today. Less pain and discomfort. Less cough and congestion Exam Narrative Exam Narrative: [pt is awake and alert. oriented to place, time and person, resolution of her tachypnea compared to admission state. HEENT: [place] conjunctiva and NL buccal mucosa Neck: Supple, no tenderness Endocrine: No Thyromegaly. Vascular: No JVD or carotid bruit. Lymphatic: No cervical lymphadenopathy. Chest: Coarse rhonchi in the left upper and middle lobe also some in the lower lobe. Much less less prominent than previously seen. Heart IRRR, no extra sound or murmur. Abd: Soft, no tenderness, no rebound and no rigidity. Increase abd girth therefore clinically I could not exclude the possibility of intra abd mass or organomegaly. LE: No cyanosis or clubbing, no varices or edema. Neuro: A A O. Nl speech, comprehension and attention. Nl and symetrical motor an d tone examination through out. []] Constitutional Vital Signs, click to edit/add: Last Vital Signs Temp 97.6 F 07/27/25 09:36 Pulse 63 07/27/25 14:00 Resp 18 07/27/25 09:36 BP 134/83 07/27/25 09:36 Pulse Ox 99 07/27/25 11:15 O2 Del Method Nasal Cannula 07/27/25 11:15 O2 Flow Rate 2 07/27/25 11:15 Progress Note: A&P Assessment and Plan (1) Sepsis: (2) A-fib: (3) Chronic hypoxic respiratory failure: (4) COPD (chronic obstructive pulmonary disease): Plan Sepsis with septic present on admission manifested by leukocytosis, elevated lactic acid, hypotension and evidence of infection. Large left-sided pneumonia, suspect community-acquired. Large multilobar left- sided pneumonia, right middle lobe pneumonia. Chronic hypoxic respiratory failure on 4 L Acute COPD exacerbation. Positive for blood culture for staph. 1 out of 2. Suspect contamination. Oxygen supplementation Continue intravenous ceftriaxone and Zithromax Continue Solu-Medrol. I reduced frequency Albuterol, Atrovent 3 times daily. Monitor CRP level. CRP is trending down Repeat CT imaging of the chest in 6 to 8 weeks. Show complete resolution of the abnormalities otherwise patient to have viral additional diagnostic and/or therapeutic relation to Y magnesium Transient episode of SVT. Resolved spontaneously Continue beta-albertina. Continue anticoagulation. Patient had multiple stents in the past. No chest pain. No active angina. Echocardiogram does not show cardiomyopathy therefore low risk of ventricular dysrhythmia. Chronic A-fib. Rate is controlled Continue Xarelto. Continue Coreg. CAD. Previous multiple stents as reported by patient. She said she had 7 stents No active angina or chest pain. Continue Plavix and beta-albertina CKD stage III near baseline. Avoid nephrotoxic drugs Monitor electrolytes and kidney function. Kidney function is stable Chronic medical conditions not listed above, incidental findings seen on labs and imaging. These would need to be addressed. Could be addressed when time and condition are appropriate. Could be addressed in the outpatient setting by PCP collaboration with other needed outpatient providers. Continue current treatment and therapeutic potential discharge tomorrow.
--- NOTE | 2025-07-27 16:15 | SWNOTE1 ---
SW did fax over walk test and prescription to [facility]. SW did fax over physician progress note as well.
--- NOTE | 2025-07-27 16:35 | SWNOTE1 ---
CHERI spoke to [facility] and advised of no discharge today.
[2025-07-27] MEDS: RIVAROXABAN 10 MG TABLET 15 MG PO (20:54)
[2025-07-27] MEDS: AZITHROMYCIN 500 MG in 0.9 % SODIUM CHLORIDE 250 ML 200 MG IV (20:54)
[2025-07-27] MEDS: ACETAMINOPHEN 325 MG TABLET 650 MG PO (20:56)
[2025-07-28] VITALS (9 sets, daily range): BP systolic 149–168; BP diastolic 68–70; PULSE 51–71; TEMP 36.8; O2SAT 94–98
[2025-07-28] MEDS: OXYCODONE HCL 5 MG TABLET PO (03:04)
--- NOTE | 2025-07-28 09:20 | CM.NOTE ---
Rounds made with Dr. Harkins, pt will discharge to home today with [facility] and pt set up with home oxygen and will be able to get portability with oxygen.
[2025-07-28] MEDS: CARVEDILOL 3.125 MG TABLET PO (09:40)
[2025-07-28] MEDS: METHYLPREDNISOLONE SOD SUCC PF 40 MG/ML VIAL IVP (09:40)
[2025-07-28] MEDS: ALLOPURINOL 100 MG TABLET PO (09:40)
[2025-07-28] MEDS: LISINOPRIL 10 MG TABLET PO (09:41)
[2025-07-28] MEDS: ISOSORBIDE MONONITRATE 60 MG TAB.ER.24H PO (09:41)
[2025-07-28] MEDS: CLOPIDOGREL BISULFATE 75 MG TABLET PO (09:41)
[2025-07-28] MEDS: ATORVASTATIN CALCIUM 40 MG TABLET 80 MG PO (09:41)
[2025-07-28] MEDS: GABAPENTIN 100 MG CAPSULE PO (09:41)
[2025-07-28] MEDS: PANTOPRAZOLE SODIUM 40 MG TABLET.DR PO (09:41)
--- NOTE | 2025-07-28 10:40 | CM.NOTE ---
Case Management asked to call pt's son to answer questions. CM called and spoke with son (Alec), questioning if pt would have anyone coming in home at discharge. Discussed with son that she will have home health services through [facility] and answered questions regarding home oxygen and portability. Son given CM name and number to call if he would have any further questions.
--- NOTE | 2025-07-28 10:42 | SWNOTE1 ---
CHREI called and spoke to Christie at [facility]. They did receive the walk test, prescription, and physician note from yesterday. She is working on getting prior authorization, per pt's insurance guidelines. CHERI did let Christie know that physician did sign walk test this morning. CHERI to send over signed walk test. Christie voiced she will get to insurance. Christie stated that the physician will need to document need for continuous oxygen/portability. CHERI will send over dc summary once completed. CHERI faxed over signed walk test to [facility].
--- NOTE | 2025-07-28 10:48 | PT.DAILY ---
Physical Therapy Daily Note PT Daily Note/Assess Start: 07/25/25 09:26 Freq: Status: Active Protocol: Document 07/28/25 10:44 ENEDELIA (Rec: 07/28/25 10:48 ENEDELIA [id number]) Physical Therapy Daily Note/Assessment Time In/Time Out Time In 10:05 Time Out 10:19 Pain In Pain N/A Pain Out Pain N/A Subjective Subjective Pt sitting in recliner upon arrival. Agrees to PT. Planned dc today. On 2L O2 throughout session. Therapeutic Exercise Time Therapeutic Exercise 4 Minutes (minutes) Therapeutic Exercise 0 Units Therapeutic Exercise Treatment Therapeutic Exercise Seated bilat LE strengthening ex complete in recliner Treatment on this date. No increased R LE pain with ex today. Therapeutic Activity Time Therapeutic Activity 7 Minutes (minutes) Therapeutic Activity 1 Units Therapeutic Activity Treatment Chair Transfer Standby Assistance Ability Therapeutic Activity Sit>stand SBA. Pt amb with RW 180' SBA with assist for Comments O2 tank. Antalgia noticed with decreased stance phase on R LE. Pt reports R LE isn't too painful but LBP has flared up since being in hospital and being sedentary. pt returned to recliner upon completion with call light within reach and needs met. Total Physical Therapy Time Total Therapy 11 Minutes Total Physical 1 Therapy Units Summary Daily Note Summary Improving gait endurance and tolerance. Increased LBP today. Would benefit from HHC upon dc to improve strength and endurance to return to PLOF.
--- NOTE | 2025-07-28 11:58 | P.DS_ITS ---
DS: Providers Provider Date of admission: 07/23/25 18:18 Primary care physician: RADHIKA TOVAR Consults: 07/24/25 Occupational Therapy Eval and Treat Routine Reason for consultation: weakness Physical Therapy Eval and Treat Routine Reason for consultation: weakness DS: Diagnosis Discharge Diagnosis (1) Sepsis: (2) A-fib: (3) Chronic hypoxic respiratory failure: (4) COPD (chronic obstructive pulmonary disease): Plan As listed above, below and others that are not listed DS: Summary Hospital Course Hospital Course: Mrs. Morris is an 84-year-old female who came in with shortness of breath and was found to have the following: Sepsis with septic present on admission manifested by leukocytosis, elevated lactic acid, hypotension and evidence of infection. Large left-sided pneumonia, suspect community-acquired. Large multilobar left- sided pneumonia, right middle lobe pneumonia. Chronic hypoxic respiratory failure on 4 L Acute COPD exacerbation. Oxygen supplementation Continue intravenous ceftriaxone and Zithromax Continue Solu-Medrol. I reduced frequency Albuterol, Atrovent 3 times daily. Monitor CRP level. CRP is trending down Patient had made significant improvement over the last 48 hours. She is back to her baseline state. Her oxygen requirement now is about 2 L which is lower than her home oxygen requirement. Patient is requesting to be discharged home today. She is not willing to stay any longer for additional testing, monitoring or treatment. Her son is coming from [place] today and she would like to go home and see him. Repeat CT imaging of the chest in 6 to 8 weeks to ensure complete resolution of abnormalities seen otherwise patient may need to have additional follow-up, diagnostic and therapeutic intervention and probably referral to see solvent plant treater or to be arranged by PCP. I notified the patient about this. She promised to ask her PCP to order this for her. Acute on chronic hypoxic respiratory failure. Oxygen requirement is back to baseline. Patient has oxygen at home but needs portable oxygen so she can take it with her to see her outpatient doctors and medical team and also to take care of her basic needs such as doing grocery go to the bank. We will order portable oxygen machine for her. Bacteremia. 1 out of 2 blood cultures positive for Staphylococcus Warneri Repeat blood culture is negative. Could be contaminated. Regardless, the patient will be discharged home on oral antibiotic. Staph is methicillin sensitive Transient episode of SVT. Resolved spontaneously Continue beta-albertina. Continue anticoagulation. Patient had multiple stents in the past. No chest pain. No active angina. Echocardiogram does not show cardiomyopathy therefore low risk of ventricular dysrhythmia. Chronic A-fib. Rate is controlled Continue Xarelto. Continue Coreg. CAD. Previous multiple stents as reported by patient. She said she had 7 stents No active angina or chest pain. Continue Plavix and beta-albertina CKD stage III near baseline. Avoid nephrotoxic drugs Monitor electrolytes and kidney function. Kidney function is stable Chronic medical conditions not listed above, incidental findings seen on labs and imaging. These would need to be addressed. Could be addressed when time and condition are appropriate. Could be addressed in the outpatient setting by PCP collaboration with other needed outpatient providers. Patient has multiple complex medical issues as listed above and others that are not listed. All appear to be stable. Patient is feeling great and requesting to be discharged home today. She is not willing to stay any longer for additional monitoring, testing or treatment. She feels great. At this time, I do not have any clear or strong clinical justification to extend inpatient hospitalization against her will and desire to be discharged home today. Patient however will require close and frequent monitoring as well as additional work-up, investigation and therapeutic intervention that could take place from this point on post discharge. That is to prevent relapse, decompensation, rehospitalization and other medical implications. I instructed patient to ask her primary care doctor to obtain [facility] record entirely to address abnormalities seen on labs and imaging that I have and have not addressed during this hospitalization, follow-up on pending blood work, imaging and pathology is if available and to follow-up on needed medical care in the outpatient setting. Time Spent with Patient Time attestation: Total time spent providing and/or coordinating discharge services: Time spent: greater than 30 minutes Exam Constitutional Vital Signs, click to edit/add: Last Vital Signs Temp 98.3 F 07/28/25 08:00 Pulse 71 07/28/25 11:50 Resp 18 07/28/25 08:00 BP 149/68 H 07/28/25 08:00 Pulse Ox 94 L 07/28/25 11:30 O2 Del Method Nasal Cannula 07/28/25 11:30 O2 Flow Rate 2 07/28/25 11:30 DS: Data Data Completed and Pending Labs on day of discharge: Preliminary micro results at discharge 07/25/25 12:01 Blood Culture Result 2 - Preliminary Blood NO GROWTH AT 36-48 HOURS. FINAL TO FOLLOW. 07/25/25 11:55 Blood Culture Result 1 - Preliminary Blood NO GROWTH AT 36-48 HOURS. FINAL TO FOLLOW. 07/23/25 17:56 Blood Culture Result 2 - Preliminary Blood NO GROWTH AT 36-48 HOURS. FINAL TO FOLLOW. Discharge Plan Discharge Disposition: Home Health Service Condition: Fair Discharge Medications: New amoxicillin-pot clavulanate 500-125 mg tablet 1 tab PO BID Qty: 20 0RF prednisone 20 mg tablet 20 mg PO DAILY 5 Days Qty: 5 0RF albuterol sulfate 90 mcg/actuation aerosol powdr breath activated 2 inh inhalation Q6H PRN (Reason: shortness of breath or wheezing) Qty: 1 2RF Continued allopurinol 100 mg tablet 100 mg PO DAILY atorvastatin 80 mg tablet 80 mg PO DAILY dapagliflozin propanediol 10 mg tablet 10 mg PO DAILY ezetimibe 10 mg tablet 10 mg PO DAILY furosemide 40 mg tablet 40 mg PO DAILY isosorbide mononitrate 60 mg tablet extended release 24 hr 60 mg PO DAILY pantoprazole 40 mg tablet,delayed release (DR/EC) 40 mg PO DAILY Xarelto 15 mg tablet 15 mg PO Q24H gabapentin 100 mg capsule 100 mg PO BID clopidogrel 75 mg tablet 75 mg PO DAILY Trelegy Ellipta 100-62.5-25 mcg blister with device 1 inh INHALATION Q24H lisinopril 10 mg tablet 10 mg PO DAILY nitroglycerin 0.4 mg tablet, sublingual 0.4 mg sublingual Q5M PRN (Reason: chest pain) Changed carvedilol 6.25 mg tablet 3.125 mg PO BID Qty: 0 0RF Print Language: Haitian Patient Instructions: Pneumonia (DC) Activity Restrictions/Additional Instructions: I may not have addressed or treated all of your medical illnesses or the abnormal blood work or imaging studies during this hospitalization. Please ask your primary care provider to obtain [facility] records entirely to follow up on all of the abnormal physical, laboratory, and imaging findings that I have not addressed. Please return back to the emergency room or seek medical attention if your symptoms worsen or return. I would recommend that you get another CAT scan of the chest in 2 months to ensure complete resolution of abnormality seen on current CAT scan. Please ask your primary care doctor to arrange for this to be done in September. Discharging you from [facility] does not mean that your medical care ends here and now. You may still need additional monitoring, work up, investigation, and treatment plan to be handled from this point on by out patient providers including your primary care provider and specialists. For any medication question, please contact your retail pharmacist or your primary care provider. Thank you. Forms: Portal Instructions Follow Up Appointments: Dr Tovar Jul @12:30 phone # [phone]
--- NOTE | 2025-07-28 12:25 | SWNOTE1 ---
CHERI faxed discharge summary to [facility] with face to face documentation for portability for home oxygen. CHERI faxed dc summary, CRF, dc med list to [facility].
--- NOTE | 2025-07-28 13:31 | SWNOTE1 ---
CHERI received a call from Daniela at [facility]. They have attempted to call Dr. Tovar office for past 1-2 days, but nobody has called them back. They are now closed. Daniela voiced that the nurse nurse practitioner this weekend lives in the area of the patient, but can't follow unless Dr. Tovar agrees to follow at home. CHERI called Dr. Tovar office and spoke to Yari, she is the nurse practitionercall center coordinator at this time. CHERI updated her that pt will need to be seen, but Dr. Tovar has not agreed to follow as [facility] has not received call back. CHERI provided Yari with phone number and [facility] number. Yari attempted to call Dr. Tovar cell phone, no answer and she left a message. She will call back if he returns the call.
--- NOTE | 2025-07-28 13:34 | SWNOTE1 ---
CHERI received a call from Christie at [facility]. The insurance is requesting a script to be same date as the physician note. Prescription updated with todays date and sent to [facility].
--- NOTE | 2025-07-28 13:56 | PC.NURSE ---
08/04 @ 10:15am with Dr. Craven [phone] *patient did not want Dr. Tovar and asked for Dr. Craven appt.
--- NOTE | 2025-07-28 13:58 | SWNOTE1 ---
SW received call from Daniela, intake at [facility]. She stated she received a call from Dr. Tovar directly. She stated Dr. Tovar voiced that pt is non-compliant and she will likely not show up at her follow up scheduled next week. Dr. Tovar and [facility] decided that if she shows up at her follow up appointment next week, he will follow for HH. If she does not show up, he will not follow. CHERI to let pt know.
--- NOTE | 2025-07-28 14:03 | SWNOTE1 ---
CHERI checked to see when follow up appointment with PCP was scheduled for. She is now scheduled with Dr. Craven on August 04, she will be a new patient with Dr. Craven. CHEIR called Daniela to let her know of this. She voiced they will not see her until she has a new pt follow up appointment with Dr. Craven, they will then reach out and confirm with Dr. Craven. CHERI attempted to call [facility] in regards to portability, no answer. CHERI stopped in pt's room and spoke with pt and son. CHERI let them both know that HH will not be in until she follows up with Dr. Craven. CHERI also let them know about portability and that we are waiting for [employer] to get approval from insurance. They both voiced understanding.
--- NOTE | 2025-07-28 14:39 | SWNOTE1 ---
CHERI called and spoke with Christie at [facility] and she received the updated script with correct date and she sent to her team. She voiced it looks good and they will contact the patient.
--- NOTE | 2025-08-02 14:00 | CM.DCFOLLOWU ---
1st attempt 08/02/25, pt's phone disconnected, attempted pt's son, no answer
--- NOTE | 2025-08-04 10:45 | CM.DCFOLLOWU ---
2nd attempt (pt's son) 08/04/25, no answer
== END 2025-07-28 14:09 | disposition home health service (06) | DRG 871 ==
LOC: ER 18:00 → MS 18:24
PROVIDERS: Admitting Provider Internal Medicine; Emergency Provider Student in an Organized Health Care Education/Training Program; PCP Internal Medicine; Visit Provider Internal Medicine
DX: A41.9 Sepsis, unspecified organism (principal); J18.9 Pneumonia, unspecified organism; J96.21 Acute and chronic respiratory failure with hypoxia; J44.0 Chronic obstructive pulmonary disease with (acute) lower respiratory infection; J44.1 Chronic obstructive pulmonary disease with (acute) exacerbation; I48.20 Chronic atrial fibrillation, unspecified; I47.10 Supraventricular tachycardia, unspecified; Z99.81 Dependence on supplemental oxygen; I25.10 Atherosclerotic heart disease of native coronary artery without angina pectoris; M48.00 Spinal stenosis, site unspecified; M19.90 Unspecified osteoarthritis, unspecified site; Z90.710 Acquired absence of both cervix and uterus; Z79.01 Long term (current) use of anticoagulants; Z79.02 Long term (current) use of antithrombotics/antiplatelets; N18.30 Chronic kidney disease, stage 3 unspecified; Z95.5 Presence of coronary angioplasty implant and graft
CPT/HCPCS: 36415; 70450; 71045; 71250; 74177; 80048; 80053; 81001; 83605; 83690; 83735; 83880; 84484; 85007; 85027; 86140; 87040; 87070; 87077; 87150; 87186; 87420; 87804; 87811; 93005; 93306; 94761; 96361; 96365; 96375; 97110; 97161; 97165; 97530; 97535; 99285; J0456; J0696; J1100; J2270; J2405; J2919; J3490; Q9967

== ENCOUNTER 2025-09-11 10:00 | Outpatient (OUT) | payer MEDICARE, SELFPAY ==
--- OUTSIDE RECORDS SUMMARY | 2025-08-04 06:15 | XMS_ITS ---
Author Organization The [facility] in [place] Address [address] [place] [address] Care Team Providers Care Boiler Technician Name Role Phone Bean Craven Primary Care Provider REASON FOR VISIT [employer]ORS--NO meds, [facility] D/C--07/28 Pneumonia Encounters Encounter Location Date Provider Diagnosis [address] [address] 08/04/2025 Bean Craven Plan Of Treatment Next Appt Details Provider Name:Bean Craven, 10:45:00 AM, [address] [place], [address], Progress Notes * Dominique FINN KDOB:[birth year] (84 yo F)Acc No.[id number]:08/04/2025 UNLOCKED PROGRESS NOTE New Patient Patient: Panda WOODette Hina Provider: Renetta Craven [facility] Dank :1940 A ge:84 Y S ex:Female Date:08/04/2025 Address:[address], [id number] Subjective: * Chief Complaints: * 1 . [employer]ORS--NO meds, [facility] D/C--07/28 Pneumonia. * Medical History: Objective: * Vitals: Assessment: Plan: * Treatment: * * Electronic signature of Bean Craven MD, [id number] on 09/12/2025 at 01:31 PM EDT Sign off status: Pending Visit Status: N /S N/C (No Show/No Charge) * Provider: Renetta Craven ([facility])MD Date: 0 08/04/2025 Generated for Jose De Jesus ortega/Sai/Bre on: 1 01:31 PM EDT
--- OUTSIDE RECORDS SUMMARY | 2025-08-29 07:15 | XMS_ITS ---
Author Organization The [facility] in [place] Address [address] [place] [address] Care Team Providers Care Railway Traction Line Worker Name Role Phone Bean Craven Primary Care Provider REASON FOR VISIT 6 minute walk test Procedures Procedure Date Ordered Date Performed Result Body Sit e Six minute walk 08/29/2025 N/A Encounters Encounter Location Date Provider Diagnosis [facility] [address] [place] [address] 08/29/2025 Bean Craven COPD (chronic obstructive pulmonary disease) J44.9 Assessments Encounter Date Diagnosis (ICD Code) Assessment Notes Treatment Notes Treatment Clinical Notes Section Notes 08/29/2025 COPD (chronic obstructive pulmonary disease) (ICD-10 - J44.9) Plan Of Treatment Pending Test Test Name Order Date Six minute walk 08/29/2025 Next Appt Details Provider Name:Bean Craven, 10:45:00 AM, [address] [place], [address], Progress Notes * Dominique MORRIS KDOB:[birth year] (84 yo F)Acc No.[id number]:08/29/2025 Patient: Hina CALVILLO Dominique Santamaria :1940 A ge:84 Y S ex:Female Address:[address] [place], [address] Subjective: * Chief Complaints: * 6 minute walk test * Medical History: * Surgical History: * Hospitalization/Major Diagno stic Procedure: * Medications: Objective: * Vitals: * Physical Examination: Assessment: * Assessment: 1. C OPD (chronic obstructive pulmonary disease) - J44.9 (Primary) Plan: * Treatment: * Procedure Codes: * true * Date: Generated for Jose De Jesus ortega/Sai/Bre on: 01:31 PM EDT
--- OUTSIDE RECORDS SUMMARY | 2025-09-11 06:45 | XMS_ITS ---
Author Organization The [facility] in [place] Address [address] [place] [address] Care Team Providers Care High [employer] Learning Support Teacher Name Role Phone Bean Craven Primary Care Provider Allergies No Known Allergies REASON FOR VISIT Presents to office with caregiver for 1 month follow up Medications Medication SIG (Take, Route, Frequency, Duration) Notes Start Date End Date Status Pantoprazole Sodium 40 MG 1 tablet 1/2 t o 1 hour before morning meal Orally Once a day Active Oxygen - POC to use continuou s throughout the day. Chronic Hypoxic Respiratory failure; Duration: 365 days 08/11/2025 Active Lisinopril 20 MG 1 tablet Orally Once a day Active Oxygen - daily - Dx - Oxygen dependant COPD - 2 L; Duration: 1 days 08/10/2025 Active Nitroglycerin 0.4 MG 1 tablet under the tongue and allow to dissolve as needed. Take every 5 minutes up to 3 times if chest pain persists Sublingual Three times a day; Duration: 30 days Active Isosorbide Mononitrate ER 60 MG 1 tablet in the morning Orally Once a day Active Farxiga 10 MG 1 tablet Orally Once a day Active Ezetimibe 10 MG 1 tablet Orally Once a day Active Gabapentin 100 MG 1 capsule at bedtime Orally Once a day Active Furosemide 40 MG 1 tablet Orally Once a day Active Clopidogrel Bisulfate 75 MG 1 tablet Ora lly Once a day Active Carvedilol 3.125 MG 1 tablet with food O rally Twice a day; Duration: 90 days Active Atorvastatin Calcium 80 MG 1 tablet Oral ly Once a day Active Allopurinol 100 MG 1 tablet Orally Once a day Active Albuterol Sulfate HFA 108 (90 Base) MCG/ACT 1 puff as needed Inhalation every 4 hrs Active Trelegy Ellipta 100-62.5-25 MCG/ACT 1 puff Inhalation Once a day Active Acetaminophen 500 MG 2 tablet as needed Orally every 6 hrs Active Xarelto 15 MG 1 tablet with food O rally Once a day Active Social History Tobacco Use: Social History Observation Description Date Details (start date - stop date) Never Smoker NA - NA Tobacco Control (Standard) Question Answer Notes Tobacco use: Nonsmoker AUDIT-C (Standard) Question Answer Notes Did you have a drink containing alcohol in the p ast year? 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 Problem Chronic kidney disease stage 3B (disorder) (637824047) Chronic kidney disease, stage 3b (N18.32) Active confirmed Vital Signs Weight 143.6 lbs 09/11/2025 Height 62 in 09/11/2025 Blood pressure systolic 108 mm Hg 09/11/20 25 Blood pressure diastolic 66 mm Hg 025 BMI 26.26 kg/m2 09/11/2025 Encounters Encounter Location Date Provider Diagnosis [facility] [address] [place] [address] 09/11/2025 Bean Craven Chronic kidney disea se, stage 3b N18.32 ; Controlled diabetes mellitus with circulatory complication E11.59 and CHF (congestive heart failure) I50.9 Assessments Encounter Date Diagnosis (ICD Code) Assessment Notes Treatment Notes Treatment Clinical Notes Section Notes 09/11/2025 Chronic kidney disease, stage 3b (ICD-10 - N18.32) 09/11/2025 Controlled diabetes mellitus with circulatory complication (ICD-10 - E11.59) 09/11/2025 CHF (congestive heart failure) (ICD-10 - I50.9) double up the furosemide - for 3 days Plan Of Treatment Treatment Notes Assessment Notes CHF (congestive heart failure) double up the furosemide - for 3 days Next Appt Details Provider Name:Bean Craven, 10:45:00 AM, [address] [place], [address], Progress Notes * KAUBLE, Dominique KDOB:[birth year] (84 yo F)Acc No.[id number]:09/11/2025 UNLOCKED PROGRESS NOTE Progress Note Patient: Dominique WOOD Provider: Renetta Craven ([facility])MD :1940 A ge:84 Y S ex:Female Date:09/11/2025 Address:[facility] [address], [place] , [id number] Check In:10:59 AM ESTCheck O ut:11:51 AM EST Subjective: * Chief Complaints: * 1 . Presents to office with caregiver for 1 month follow up. * HPI: G eneral: COPD - stable A-fib - rate controled. * Medical History: A rthritis, COPD, Hypertension. * Surgical History: h ysterectomy , tonsillectomy . * Hospitalization/Major Diagno stic Procedure: s ee above . * Family History: F ather: , diagnosed with Heart Disease, Arthritis. M other: , diagnosed with Arthritis. B rother(s): alive. S ister(s): alive, diagnosed with Heart Disease. S on(s): alive, diagnosed with Heart Disease. D nicky(s): alive. 1 brother(s) , 1 sister(s) . 2 son(s) , 1 daughter(s) . . * Social History: T obacco Use: T obacco Control (Standard) T obacco use: N onsmoker D rug/Alcohol: A CARLOS-C (Standard) D id you have a drink containing alcohol in the past year? N o P oints 0 I nterpretation N egative * Medications: T aking Acetaminophen 500 MG Tablet 2 tablet as needed Orally every 6 hrs , Taking Albuterol Sulfate HFA 108 (90 Base) MCG/ACT Aerosol Solution 1 puff as needed Inhalation every 4 hrs , Taking Allopurinol 100 MG Tablet 1 tablet Orally Once a day , Taking Atorvastatin Calcium 80 MG Tablet 1 tablet Orally Once a day , Taking Carvedilol 3.125 MG Tablet 1 tablet with food Orally Twice a day , Taking Clopidogrel Bisulfate 75 MG Tablet 1 tablet Orally Once a day , Taking Ezetimibe 10 MG Tablet 1 tablet Orally Once a day , Taking Farxiga(Dapagliflozin Propanediol) 10 MG Tablet 1 tablet Orally Once a day , Taking Furosemide 40 MG Tablet 1 tablet Orally Once a day , Taking Gabapentin 100 MG Capsule 1 capsule at bedtime Orally Once a day , Taking Isosorbide Mononitrate ER 60 MG Tablet Extended Release 24 Hour 1 tablet in the morning Orally Once a day , Taking Lisinopril 20 MG Tablet 1 tablet Orally Once a day , Taking Nitroglycerin 0.4 MG Tablet Sublingual 1 tablet under the tongue and allow to dissolve as needed. Take every 5 minutes up to 3 times if chest pain persists Sublingual Three times a day , Taking Oxygen - - daily - Dx - Oxygen dependant COPD - 2 L , Taking Oxygen - - POC to use continuous throughout the day. Chronic Hypoxic Respiratory failure , Taking Pantoprazole Sodium 40 MG Tablet Delayed Release 1 tablet 1/2 to 1 hour before morning meal Orally Once a day , Taking Trelegy Ellipta(Fgjexwwomxy-Nupzchywg-Rjajqe) 100-62.5-25 MCG/ACT Aerosol Powder Breath Activated 1 puff Inhalation Once a day , Taking Xarelto(Rivaroxaban) 15 MG Tablet 1 tablet with food Orally Once a day , Medication List reviewed and reconciled with the patient * Allergies: N .K.D.A. Objective: * Vitals: W t:143.6lbs, Ht: 62 in, BP:108/66mm Hg, BMI:26.26Index, Ht-cm: 157.48 cm, Wt-k.14 kg. Assessment: * Assessment: 1. C hronic kidney disease, stage 3b - N18.32 (Primary) 2 . C ontrolled diabetes mellitus with circulatory complication - E11.59 3 . C HF (congestive heart failure) - I50.9 Plan: * Treatment: * Procedure Codes: 3 078F DIAST BP < 80 MM HG, 3074F SYST BP LT 130 MM HG * Preventive Medicine: Screenings/Counseling: B MN ACTION PLAN Above Normal BMI Follow-up D ietary management education, guidance, and counseling See treatment section of progress note for complete details of management plan. F ALL RISK SCREENING Fall Risk Assessment: N o falls in the past year * * Electronic signature of Bean Craven MD, [phone] on 09/12/2025 at 01:30 PM EDT Sign off status: Pending Visit Status: Chris RODRIGUEZ (Check Out) * Provider: Renetta Craven (TTC)MD Date: Generated for Jose De Jesus ortega/Sai/Bre on: 01:30 PM EDT History and Physical Notes * HPI (History of Present Illness) Category Sub-Category Detail Notes Category Not es General COPD - stable A-fib - rate controled
--- OUTSIDE RECORDS SUMMARY | 2025-09-11 07:42 | XMS_ITS ---
Author Organization The [facility] in [place] Address [address] [place] [address] Care Team Providers Care Butcher Head Name Role Phone Bean Craven Primary Care Provider [phone] REASON FOR VISIT hold for Echo Procedures Procedure Date Ordered Date Performed Result Body Sit e Echocardiogram 09/11/2025 N/A Encounters Encounter Location Date Provider Diagnosis [facility] [address] [place] [address] 09/11/2025 Bean Honeycuttsimona CHF (congestive hear t failure) I50.9 and Atrial fibrillation I48.91 Assessments Encounter Date Diagnosis (ICD Code) Assessment Notes Treatment Notes Treatment Clinical Notes Section Notes 09/11/2025 CHF (congestive heart failure) (ICD-10 - I50.9) 09/11/2025 Atrial fibrillation (ICD-10 - I48.91) Plan Of Treatment Pending Test Test Name Order Date Echocardiogram 09/11/2025 Next Appt Details Provider Name:Bean Craven, 10:45:00 AM, [address] [place], [address], Progress Notes * Dominique FINN KDOB:[birth year] (84 yo F)Acc No.[id number]:09/11/2025 Patient: Dominique WOOD :1940 A ge:84 Y S ex:Female Address:[address], [place], [address] Subjective: * Chief Complaints: * h old for Echo * Medical History: * Surgical History: * Hospitalization/Major Diagno stic Procedure: * Medications: Objective: * Vitals: * Physical Examination: Assessment: * Assessment: 1. C HF (congestive heart failure) - I50.9 (Primary) 2 . A trial fibrillation - I48.91 Plan: * Treatment: 2. A trial fibrillation P rocedure: Echocardiogram * Procedure Codes: * true * Date: Generated for Jose De Jesus ortega/Sai/Laurasmitting on: 01:31 PM EDT
--- OUTSIDE RECORDS SUMMARY | 2025-09-12 13:30 | XMS_ITS | Encounter Summary ---
Author Organization [employer] Address [facility] [address] 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 ([facility]); Mixed hyperlipidemia; Gastroesophageal reflux disease, unspecified [...] Description 09/18/2025 11:00 AM EDT Office Visit [facility] Physicians Cardiology [address] [place] [address] Brook Thao, ASBESTOS COVERER-AN/SSN 2 4 OPERATOR [address] [place] [address] Emani Davison, PA-C [address] [place] [address] 10/30/2025 10:00 AM EST Office Visit [facility] [address] [place] [address] Boyd Beck MD [address] [place] [address] 04/03/2026 1:30 PM EDT Appointment [facility] - Vascular [address] [place] [address] Cairra Colon, DO [address] [place] [address] 04/09/2026 2:00 PM EDT Office Visit [facility] [address] [place] [address] Ciarra Colon, DO [address] [place] [address] documented as of this encounter Goals Goal Patient Goal Type Associated Problems Recent Progress Patient-Stated? Author safe discharge to home General Yes Alexandria Solis, RN Note: Evaluation of progress towards goal: safe transition from hospital to home with family/friend support. 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
--- OUTSIDE RECORDS SUMMARY | 2025-09-12 13:30 | XMS_ITS | Encounter Summary ---
Author Organization [employer] Address [facility]-[id number] [address] [place] [address] Care Team Providers Care Passenger Service Manager Name Role Phone Jayden Craven MD Primary Care Provider [phone] Reason for Visit * Reason Onset Date Comments Med Refill 09/15/2023 Encounter Details Date Type Department Care Team (Late st Contact Info) Description 09/15/2023 Refill [facility] - Family Medicine [address] [place] [address] Bakari Tovar DO [address] [place] [address] Acute on chronic diastolic congestive heart failure ([facility]-H[facility]) Social History Tobacco Use Types Packs/Day Years [...] Description 09/18/2025 11:00 AM EDT Office Visit [facility] Physicians Cardiology [address] [facility] [address] [place] [address] Brook Thao, HAND QUILTER-LABEL OPERATOR [address] [place] [address] Emani Davison, PA-C [address] [place], [place] [phone] 10/30/2025 10:00 AM EST Office Visit [facility] - [facility] Failure [facility] [address] [place] [address] Boyd Beck MD [address] [place] [address] 04/03/2026 1:30 PM EDT Appointment [facility] - Vascular [address] [place] [address] Ciarra Colon, DO [address] [place] [address] 04/09/2026 2:00 PM EDT Office Visit [facility] [address] [place] [address] Ciarra Colon, DO [address] [place] [address] documented as of this encounter Goals Goal [...] documented as of this encounter Care Teams Passenger Service Manager Relationship Specialty Start Date End Date Jayden Craven MD [address] [place] [address] PCP - General Family Medicine 08/01/25 documented as of this encounter
--- OUTSIDE RECORDS SUMMARY | 2025-09-12 13:30 | XMS_ITS | Encounter Summary ---
Author Organization [facility] tem Address [id number] [address] [place] [address] Care Team Providers Care Harbor Department Manager Name Role Phone Jayden Craven MD Primary Care Provider [phone] Encounter Details Date Type Department Care Team (Late st Contact Info) Description 04/08/2023 Telephone [facility] - Family Medicine [address] [place] [address] Christal Douglas CMA Social History Tobacco Use [...] Office Visit [facility] Physicians Cardiology [address] [place] [address] Brook Thao, PORTABLE MACHINE SANDER-TOP CLOSER [address] [place] [address] Emani Davison, PA-C [address] [place] [address] 10/30/2025 10:00 AM EST Office Visit [facility] - Heart Failure Clinic [address] [place] [address] Boyd Beck MD [address] [place], [place] [address] 04/03/2026 1:30 PM EDT Appointment [facility] - Vascular [address] [place] [address] Ciarra Colon, DO [address] [place] [address] 04/09/2026 2:00 PM EDT Office Visit [facility] Vascular [place] [address] [facility] [address] Ciarra Colon, DO [address] [place] [address] documented as of this encounter Goals Goal [...] as of this encounter Care Teams Harbor Department Manager Relationship Specialty Start Date End Date Jayden Craven MD [address] [place] [address] PCP - General Family Medicine 08/01/25 documented as of this encounter
--- OUTSIDE RECORDS SUMMARY | 2025-09-12 13:30 | XMS_ITS | Encounter Summary ---
Author Organization [employer] Address [id number] [address] [place] [address] Care Team Providers Care Architectural Project Captain Name Role Phone Jayden Craven MD Primary Care Provider [phone] Reason for Visit * Reason Onset Date Comments Labs Only 12/22/2022 Encounter Details Date Type Department Care Team (Late st Contact Info) Description 12/22/2022 Telephone [facility] - Family Medicine [address] [place] [address] Bakari Tovar, [address] [place] [address] Labs Only Social History Tobacco Use Types [...] and would [facility] * Telephone Encounter - Bakari Tovar DO - 12/22/2022 3:02 PM EST Orders sent documented in this encounter Plan of Treatment Upcoming Encounters Date Type Department Care Team (Late st Contact Info) Description 09/18/2025 11:00 AM EDT Office Visit [facility] Physicians Cardiology [address] [place] [address] Brook Thao, REAL ESTATE DEVELOPER-PAYROLL LEAD [address] [place] [address] Emani Davison, PA-C [address] [place] [address] 10/30/2025 10:00 AM EST Office Visit [facility] - Heart Failure Clinic [address] [place] [address] Boyd Beck MD [address] [place] [address] 04/03/2026 1:30 PM EDT Appointment [facility] - Vascular [address] [place] [address] Ciarra Colon DO [address] [facility] [address] [place] [address] 04/09/2026 2:00 PM EDT Office Visit [facility] Vascular [place] [address] [place] [address] Ciarra Colon, DO [address] [facility] [address] [place] [address] documented as of this encounter Goals Goal [...] documented as of this encounter Care Teams Architectural Project Captain Relationship Specialty Start Date End Date Jayden Craven MD [address] [place] [address] PCP - General Family Medicine 08/01/25 documented as of this encounter
--- OUTSIDE RECORDS SUMMARY | 2025-09-12 13:30 | XMS_ITS | Encounter Summary ---
Author Organization [employer] Address [facility][id number] [address] [place] [address] Care Team Providers Care Medical Scientist Name Role Phone Jayden Craven MD Primary Care Provider [phone] Reason for Visit * Reason Comments Med Refill Encounter Details Date Type Department Care Team (Late st Contact Info) Description 11/12/2022 Refill [facility] - Family Medicine [address] [place] [address] Bakari Tovar, [address] [place] [address] Social History Tobacco Use Types Packs/Day Years [...] Cardiology [address] [place] [address] Brook Thao Hina, WELDING MACHINE TENDER-AUTOMOTIVE BRAKE TECHNICIAN [address] [place] [address] Emani Davison, PA-C [address] [place] [address] 10/30/2025 10:00 AM EST Office Visit [facility] - Heart Failure Clinic [address] [place] [address] Boyd Beck MD [address] [place], [place] [address] 04/03/2026 1:30 PM EDT Appointment [facility] - Vascular [address] [place] [address] Ciarra Colon, DO [address] [place] [address] 04/09/2026 2:00 PM EDT Office Visit [facility] [address] [place] [address] Ciarra Colon, DO [address] [place] [address] documented as of this encounter Goals Goal [...] as of this encounter Care Teams Medical Scientist Relationship Specialty Start Date End Date Jayden Craven MD [address] [place] [address] PCP - General Family Medicine 08/01/25 documented as of this encounter
--- OUTSIDE RECORDS SUMMARY | 2025-09-12 13:30 | XMS_ITS | Encounter Summary ---
Author Organization [employer] Address [facility][id number] [address] [place] [address] Care Team Providers Care Resaw Feeder Name Role Phone Jayden Craven MD Primary Care Provider [phone] Reason for Visit * Reason Comments Med Refill Encounter Details Date Type Department Care Team (Late st Contact Info) Description 02/26/2023 Refill [facility] - Family Medicine [address] [place] [address] Bakari Tovar, [address] [place] [address] Post herpetic neuralgia Social History Tobacco Use [...] 11:00 AM EDT Office Visit [facility] Physicians Cardiology [address] [place] [address] Brook Thao, WASHING MACHINE MECHANIC-LEAN CONSULTANT [address] [place] [address] Emani Davison, PA-C [address] [place] [address] 10/30/2025 10:00 AM EST Office Visit [facility] - Heart Failure Clinic [address] [place] [address] Boyd Beck MD [address] [place] [address] 04/03/2026 1:30 PM EDT Appointment [facility] - Vascular [address] [place] [address] Ciarra Colon, DO [address] [place] [address] 04/09/2026 2:00 PM EDT Office Visit [facility] [place] [address] [place] [address] Ciarra Colon, DO [address] [place] [address] documented as of this encounter Goals Goal [...] documented as of this encounter Care Teams Resaw Feeder Relationship Specialty Start Date End Date Jayden Craven MD [address] [place] [address] PCP - General Family Medicine 08/01/25 documented as of this encounter
--- OUTSIDE RECORDS SUMMARY | 2025-09-12 13:30 | XMS_ITS | Encounter Summary ---
Author Organization [facility] tem Address [facility][id number] [address] [place] [address] Care Team Providers Care Tail Puller Name Role Phone Jayden Craven MD Primary Care Provider [phone] Encounter Details Date Type Department Care Team (Late st Contact Info) Description 12/22/2022 Orders Only [facility] - Family Medicine [address] [place] [address] Bakari Tovar, [address] [place] [address] Type 2 diabetes mellitus without complication, without long-term current use of insulin ([facility]) (Primary Dx); Mixed hyperlipidemia; Hyperuricemia Social History [...] 11:00 AM EDT Office Visit [facility] Physicians Cardiology [address] [facility] [address] [place] [address] Brook Thao, ROENTGENOLOGIST-SANDSTONE INSPECTOR REPAIRER [address] [place] [address] Emani Davison, PA-C [address] [place], [place] [address] 10/30/2025 10:00 AM EST Office Visit [facility] - Heart Failure Clinic [address] [place] [address] Boyd Beck MD [address] [place] [address] 04/03/2026 1:30 PM EDT Appointment [facility] - Vascular [address] [place] [address] Ciarra Colon, DO [address] [place] [address] 04/09/2026 2:00 PM EDT Office Visit [address] [address] Ciarra Colon, DO [address] [place] [address] documented as of this encounter Goals Goal Patient Goal Type Associated Problems Recent Progress Patient-Stated? Author safe discharge to home General Yes Alexandria Solis, RN Note: Evaluation of progress towards goal: safe transition from hospital to home with family/friend support. documented as of this encounter Results * Uric acid (12/24/2022 12:02 PM EST) Uric Acid 6.2 2.6 - 7.2 mg/dL 12/24/2022 3:15 PM [facility] Blood (PLASMA) 12/24/2022 12 :02 PM EST 12/24/2022 12:03 PM EST Bakari Tovar DO LAB BLOOD ORDERABLES Final Resul t [facility] [address] [facility] [place] [address] * (ABNORMAL) Lipid profile (12/24/2022 12:02 PM EST) Cholesterol 109(L) 150 - 200 mg/dL 12/24/2022 3:15 PM [facility] Triglycerides 110 27 - 150 mg/dL 12/24/2022 3:15 PM [facility] HDL Cholesterol 40 >39 mg/dL 3:15 PM [facility] Comment: HDL <40 mg/dL - High Risk HDL > or = 40mg/dL- Desirable HDL >60 mg/dL - Negative Risk VLDL 22 0 - 30 mg/dL 12/24/2022 3:15 PM [facility] LDL (calc) 47 <130 mg/dL 12/24/2022 3:15 PM [facility] Comment: LDL <100 mg/dL - Desirable LDL >160 mg/dL - High Risk Cholesterol:HDL Ratio 2.7 1.0 - 5.0 12/24/2022 3:15 PM [facility] PLASMA 12/24/2022 12:0 2 PM EST 12/24/2022 12:03 PM EST Bakari Tovar DO LAB BLOOD ORDERABLES Final Resul t [facility] [address] [facility] [place] [address] * (ABNORMAL) Comprehensive metabolic panel (12/24/2022 12:02 PM EST) Sodium 139 134 - 146 mmol/L 12/24/2022 3:15 PM [facility] Potassium, Bld 4.3 3.5 - 5.0 mmol/L 12/24/2022 3:15 PM [facility] Chloride 103 98 - 109 mmol/L 12/24/2022 3:15 PM [facility] CO2 25 22 - 32 mmol/L 12/24/2022 3:15 PM [facility] Anion gap 11 5 - 15 mmol/L 12/24/2022 3:15 PM [facility] BUN 63(H) 5 - 27 mg/dL 12/24/2022 3:15 PM [facility] Creatinine 1.68(H) 0.40 - 1.00 mg/dL 12/24/2022 3:15 PM [facility] Comment:METHOD TRACEABLE TO IDMS STANDARD Glucose 105(H) 65 - 99 mg/dL 12/24/2022 3:15 PM [facility] Calcium 9.6 8.5 - 10.5 mg/dL 12/24/2022 3:15 PM [facility] Total Protein 7.1 6.0 - 8.0 g/dL 12/24/2022 3:15 PM [facility] Albumin 4.3 3.2 - 5.3 g/dL 12/24/2022 3:15 PM [facility] Alkaline Phosphatase 79 39 - 130 U/L 12/24/2022 3:15 PM [facility] AST 12 0 - 41 U/L 12/24/2022 3:15 PM EST [facility] ALT 15 0 - 31 U/L 12/24/2022 3:15 PM EST [facility] Total bilirubin 0.4 0.3 - 1.2 mg/dL 12/24/2022 3:15 PM EST [facility] eGFR (CKD-EPI)non-rac e dependent 30(L) >59 ml/min/1.7 3sq.m 12/24/2022 3:15 PM EST [facility] Comment: Reported eGFR is based on the CKD-EPI 2020 equation that does not use a race coefficient. PLASMA 12/24/2022 12:0 2 PM EST 12/24/2022 12:03 PM EST [facility] BLOOD ORDERABLES Final Resul t Performing Organization Address City/[facility]/ZIP Co de Phone Number [facility] [address] [facility] [place] [address] * Hemoglobin A1c (12/24/2022 12:02 PM EST) Hemoglobin A1C 6.1 4.4 - 6.4 % 12/24/2022 3:21 PM EST [facility] Average glucose 128 mg/dL 3:21 PM EST [facility] PLASMA 12/24/2022 12:0 2 PM EST 12/24/2022 12:03 PM EST Bakari [facility] LAB BLOOD ORDERABLES Final Resul t [facility] documented in this encounter Visit Diagnoses Diagnosis Type 2 diabetes mellitus without complication, without long-term current use of insulin ([facility])- Primary Mixed hyperlipidemia Hyperuricemia Other abnormal blood chemistry documented in this encounter Additional Health Concerns Assessment Noted Time PHQ-9 Depression Total Score: 3 01/06/20 18 1:00 PM EST documented as of this encounter Care Teams Tail Puller Relationship Specialty Start Date End Date Jayden Craven MD [address] [place] [address] PCP - General Family Medicine 08/01/25 documented as of this encounter
--- OUTSIDE RECORDS SUMMARY | 2025-09-12 13:30 | XMS_ITS | Encounter Summary ---
Author Organization [employer] Address [id number] [address] [place] [address] Care Team Providers Care Kitchen Clerk Name Role Phone Jayden Craven MD Primary Care Provider [phone] Reason for Visit * Reason Onset Date Comments Med Refill 03/23/2023 Encounter Details Date Type Department Care Team (Late Contact Info) Description 03/23/2023 Refill [facility] - Family Medicine [address] [place] [address] Bakari Tovar, [address] [place] [address] COPD, moderate (CMS-HCC) (Primary Dx) Social History [...] Cardiology [address] [place] [address] Brook Thao, EVALUATION SPECIALIST-IN FLIGHT TECHNICIAN [address] [place] [address] Emani Davison, PA-C [address] [place] [address] 10/30/2025 10:00 AM EST Office Visit [facility] - Heart Failure Clinic [address] [facility] [address] Boyd Beck MD [address] [place] [address] 04/03/2026 1:30 PM EDT Appointment [facility] - Vascular [address] [place] [facility] [address] Ciarra Colon, DO [address] [place] [address] 04/09/2026 2:00 PM EDT Office Visit [facility] Vascular [place] [address] [place] [address] Ciarra Colon, DO [address] [place] [address] documented as of this encounter Goals Goal [...] documented as of this encounter Care Teams Kitchen Clerk Relationship Specialty Start Date End Date Jayden Craven MD [address] [place] [address] PCP - General Family Medicine 08/01/25 documented as of this encounter
--- OUTSIDE RECORDS SUMMARY | 2025-09-12 13:30 | XMS_ITS | Encounter Summary ---
Author Organization [employer] [facility] tem Address [facility]-[id number] [address] [place] [address] Care Team Providers Care Centrifugal Casting Machine Tender Name Role Phone Jayden Craven MD Primary Care Provider [phone] Encounter Details Date Type Department Care Team (Late st Contact Info) Description 04/08/2023 Orders Only [facility] - Family Medicine [address] [place] [address] Bakari Tovar, [address] [place] [address] Special screening for malignant neoplasm of colon [...] Cardiology [address] [place] [address] Brook Thao Hina, SHOPPING INSPECTOR-TARIFF EXPERT [address] [place] [address] Emani Davison, PA-C [address] [place] [address] 10/30/2025 10:00 AM EST Office Visit [facility] - Heart Failure Clinic [address] [place] [address] Boyd Beck MD [address] [place] [address] 04/03/2026 1:30 PM EDT Appointment [facility] - Vascular [address] [place] [address] Ciarra Colon, DO [address] [place] [address] 04/09/2026 2:00 PM EDT Office Visit [facility] [address] [place] [address] Ciarra Colon, DO [address] [place] [address] documented as of this encounter Goals Goal [...] documented as of this encounter Care Teams Centrifugal Casting Machine Tender Relationship Specialty Start Date End Date Jayden Craven MD [address] [place] [address] PCP - General Family Medicine 08/01/25 documented as of this encounter
--- OUTSIDE RECORDS SUMMARY | 2025-09-12 13:30 | XMS_ITS | Encounter Summary ---
Author Organization [facility] tem Address [id number] [address] [place] [address] Care Team Providers Care Christian Counselor Name Role Phone Jayden Craven MD Primary Care Provider [phone] Encounter Details Date Type Department Care Team (Late st Contact Info) Description 02/26/2023 Orders Only [facility] - Family Medicine [address] [place] [address] Bakari Tovar, [address] [place] [address] Social History Tobacco Use Types Packs/Day Years [...] Cardiology [address] [place] [address] Brook Thao, SET UP MECHANIC AUTOMATIC LINE-CERTIFIED CORPORATE TRAVEL EXECUTIVE [address] [place] [address] Emani Davison, PA-C [address] [place] [address] 10/30/2025 10:00 AM EST Office Visit [facility] - Heart Failure Clinic [address] [place] [address] Body Beck MD [address] [place], [place] [address] 04/03/2026 1:30 PM EDT Appointment [facility] - Vascular [address] [place] [address] Ciarra Colon, DO [address] [place] [address] 04/09/2026 2:00 PM EDT Office Visit [facility] Vascular [place] [address] [place] [address] Ciarra Colon, DO [address] [place] [address] documented as of this encounter Goals Goal [...] documented as of this encounter Care Teams Christian Counselor Relationship Specialty Start Date End Date Jayden Craven MD [address] [place] [address] PCP - General Family Medicine 08/01/25 documented as of this encounter
--- OUTSIDE RECORDS SUMMARY | 2025-09-12 13:30 | XMS_ITS | Encounter Summary ---
Author Organization [employer] Address [id number] [address] [place] [address] Care Team Providers Care Urban Anthropologist Name Role Phone Jayden Craven MD Primary Care Provider [phone] Reason for Visit * Reason Comments Med Refill Encounter Details Date Type Department Care Team (Late st Contact Info) Description 10/24/2022 Refill [facility] - Family Medicine [address] [place] [address] Bakari Tovar, [address] [place] [address] Post herpetic neuralgia Social History Tobacco Use [...] Description 09/18/2025 11:00 AM EDT Office Visit [facility] Cardiology [address] [place] [address] Brook Thao, ASSIGNMENT DESK EDITOR-CARRY OUT CLERK [address] [place] [address] Emani Davison, PA-C [address] [place] [address] 10/30/2025 10:00 AM EST Office Visit [facility] [address] [place] [address] Boyd Beck MD [address] [place] [address] 04/03/2026 1:30 PM EDT Appointment [facility] - Vascular [address] [place] [address] Ciarra Colon, DO [address] [employer] [place] [address] 04/09/2026 2:00 PM EDT Office Visit [place] [address] [place] [address] Ciarra Colon, DO [address] [place] [address] documented as of this encounter Goals Goal [...] documented as of this encounter Care Teams Urban Anthropologist Relationship Specialty Start Date End Date Jayden Craven MD [address] [place] [address] PCP - General Family Medicine 08/01/25 documented as of this encounter
--- OUTSIDE RECORDS SUMMARY | 2025-09-12 13:30 | XMS_ITS | Encounter Summary ---
Author Organization [employer] Address [facility][id number] [address] [place] [address] Care Team Providers Care Terrazzo Finisher Helper Name Role Phone Jayden Craven MD Primary Care Provider [phone] Reason for Visit * Reason Comments Med Refill Encounter Details Date Type Department Care Team (Late Contact Info) Description 02/16/2023 Refill [facility] Internal [facility] - Family Medicine [address] [place] [address] Juanita Brown, SPINNING LATHE OPERATOR-EMBROIDERY PATTERNMAKER [address] [place], [place] [phone] Social History Tobacco Use Types Packs/Day Years [...] Cardiology [address] [place] [address] Deanna Thaoily Hina, SPINNING LATHE OPERATOR-EVENT MARKETING COORDINATOR [address] [place] [address] Emani Davison, PA-C [address] [place] [address] 10/30/2025 10:00 AM EST Office Visit [facility] - Heart Failure Clinic [address] [place] [address] Boyd Beck MD [address] [place], [place] [address] 04/03/2026 1:30 PM EDT Appointment [facility] - Vascular [address] [place] [address] Ciarra Colon, DO [address] [place] [address] 04/09/2026 2:00 PM EDT Office Visit [facility] [address] [place] [address] Ciarra Colon, DO [address] [facility] [address] [place] [address] documented as of this encounter Goals Goal [...] documented as of this encounter Care Teams Terrazzo Finisher Helper Relationship Specialty Start Date End Date Jayden Craven MD [address], [place] [address] PCP - General Family Medicine 08/01/25 documented as of this encounter
--- OUTSIDE RECORDS SUMMARY | 2025-09-12 13:30 | XMS_ITS | Encounter Summary ---
Author Organization [employer] [facility] tem Address [facility] [place]-[id number] [address] [place] [address] Care Team Providers Care Agriculture Manager Name Role Phone Jayden Craven MD Primary Care Provider [phone] Encounter Details Date Type Department Care Team (Late st Contact Info) Description 09/13/2023 Orders Only [facility] - Family Medicine [address] [place] [address] Bakari Tovar, DO [address] [place] [address] Social History Tobacco Use Types Packs/Day Years [...] Cardiology [address] [place] [address] [place] Hina, FISHER TROLL LINE-FRAUD PREVENTION ANALYST [address] [place] [address] Emani Davison, PA-C [address] [place] [address] 10/30/2025 10:00 AM EST Office Visit [facility] - Heart Failure Clinic [address] [place] [address] Boyd Beck MD [address] [place], [place] [address] 04/03/2026 1:30 PM EDT Appointment [facility] - Vascular [address] [place] [address] Ciarra Colon, DO [address] [employer] [address] [place] [address] 04/09/2026 2:00 PM EDT Office Visit [facility] [address] [place] [address] Ciarra Colon, DO [address] [employer] [place] [address] documented as of this encounter Goals Goal [...] documented as of this encounter Care Teams Agriculture Manager Relationship Specialty Start Date End Date Jayden Craven MD [address] [place] [address] PCP - General Family Medicine 08/01/25 documented as of this encounter
--- OUTSIDE RECORDS SUMMARY | 2025-09-12 13:30 | XMS_ITS | Encounter Summary ---
Author Organization [employer] Sys tem Address [facility] [place]-[id number] [address] [place] [address] Care Team Providers Care Bible Teacher Name Role Phone Jayden Craven MD Primary Care Provider [phone] Encounter Details Date Type Department Care Team (Late st Contact Info) Description 01/01/2023 Telephone [facility] - Family Medicine [address] [place] [address] Bakari Tovar, [address] [place] [address] Social History Tobacco Use Types Packs/Day Years [...] you first. [employer] can be reached at [phone] * Telephone Encounter - Ivonne Cantor MA [...] Description 09/18/2025 11:00 AM EDT Office Visit [facility] Cardiology [address] [place] [address] Brook Thao, TOP LIFT SCOURER-PNEUMATIC TOOL OPERATOR [address] [place] [address] Emani Davison, PA-C [address] [place] [address] 10/30/2025 10:00 AM EST Office Visit [facility] - Heart Failure Clinic [address] [place] [address] Boyd Beck MD [address] [place] [address] 04/03/2026 1:30 PM EDT Appointment [facility] - Vascular [address] [place] [address] Ciarra Colon, DO [address] [place] [address] 04/09/2026 2:00 PM EDT Office Visit [facility] V[facility] [place] [address] [place] [address] Ciarra Colon, DO [address] [place] [address] documented as of this encounter Goals Goal [...] documented as of this encounter Care Teams Bible Teacher Relationship Specialty Start Date End Date Jayden Craven MD [address] [place] [address] PCP - General Family Medicine 08/01/25 documented as of this encounter
--- OUTSIDE RECORDS SUMMARY | 2025-09-12 13:30 | XMS_ITS | Encounter Summary ---
Author Organization [facility] Sys tem Address [id number] [address] [place] [address] Care Team Providers Care Market Asset Protection Manager Name Role Phone Jayden Craven MD Primary Care Provider [phone] Encounter Details Date Type Department Care Team (Late st Contact Info) Description 05/04/2025 Orders Only [facility] Heart [facility] Clinic [address] [address] Boyd Beck MD [address] [place], [place] [address] Social History Tobacco Use Types Packs/Day Years [...] 11:00 AM EDT Office Visit [facility] Physicians Cardiology [address] [place] [address] Brook Thao, SAMPLE WORKER-IS MANAGER [address] [place] [address] Emani Davison, PADeborahC [address] [place] [address] 10/30/2025 10:00 AM EST Office Visit [facility] - Heart Failure Clinic [address] [place] [address] Boyd Beck MD [address] [place], [place] [address] 04/03/2026 1:30 PM EDT Appointment [facility] - Vascular [address] [place] [address] Ciarra Colon, DO [address] [employer] [address] [place] [address] 04/09/2026 2:00 PM EDT Office Visit [facility] [address] [place] [address] Ciarra Colon, DO [address] [place] [address] documented as of this encounter Goals Goal [...] documented as of this encounter Care Teams Market Asset Protection Manager Relationship Specialty Start Date End Date Jayden Craven MD [address] [place] [address] PCP - General Family Medicine 08/01/25 documented as of this encounter
--- OUTSIDE RECORDS SUMMARY | 2025-09-12 13:30 | XMS_ITS | Encounter Summary ---
Author Organization [employer] tem Address [id number] [address] [place] [address] Care Team Providers Care Edge Cutter Name Role Phone Jayden Craven MD Primary Care Provider [phone] Encounter Details Date Type Department Care Team (Late st Contact Info) Description 03/19/2021 Orders Only [facility] [address] [place] [address] External, Scanning Provider Social History Tobacco Use [...] have Coronavirus / COVID-19? No / Unsure 03/18/2021 11:01 AM EDT documented as of this encounter Plan of Treatment Upcoming Encounters Date Type Department Care Team (Late st Contact Info) Description 09/18/2025 11:00 AM EDT Office Visit [facility] [address] [place] [address] Deanna Thaoily Hina, ROOF SERVICE TECHNICIAN-SURVEY SUPERINTENDENT [address] [place] [address] Emani Davison, PADeborahC [address] [place] [address] 10/30/2025 10:00 AM EST [facility] [address] [place] [address] Boyd Beck MD [address] [place], [place] [address] 04/03/2026 1:30 PM EDT Appointment [facility] [address] [place] [address] Ciarra Colon, DO [address] [facility] [address] [place] [address] 04/09/2026 2:00 PM EDT Office Visit [facility] [place] [address] Ciarra Colon, DO [address] [facility] [address] [place] [address] documented as of this encounter Procedures Procedure Name Priority Date/Time Associated Diagnosis Comments LIPID PROFILE Routine 04/24/2020 documented in this encounter Results * Lipid profile (04/24/2020) External Cholesterol 128 MANUALLY TRANSCRIBED RESULTS External Hdl Cholesterol 46 MANUALLY TRANSCRIBED RESULTS External Ldl (Calc) 60 MANUALLY TRANSCRIBED RESULTS External Triglycerides 112 MANUALLY TRANSCRIBED RESULTS us Scanning Provider External LAB BLOOD ORDERABLES Edited Result - Final MANUALLY TRANSCRIBED RESULTS documented in this encounter Visit Diagnoses Not on filedocumented in this encounter Additional Health Concerns Infection Onset Date Last Indicated Resolved Time Enteric Rule-Out 06/04/2022 06/07/2022 06/07/2022 7:15 PM EDT Assessment Noted Time PHQ-9 Depression Total Score: 3 01/06/20 18 1:00 PM EST documented as of this encounter Care Teams Edge Cutter Relationship Specialty Start Date End Date Jayden Craven MD [address] [place] [address] PCP - General Family Medicine 08/01/25 documented as of this encounter
--- OUTSIDE RECORDS SUMMARY | 2025-09-12 13:30 | XMS_ITS | Encounter Summary ---
Author Organization [employer] Address [id number] [address] [place] [address] Care Team Providers Care Reinforced Steel Placing Supervisor Name Role Phone Jayden Craven MD Primary Care Provider [phone] Encounter Details Date Type Department Care Team (Late st Contact Info) Description 04/25/2025 Refill [facility] - Family Medicine [address] [place] [address] Mary Bingham CMA Hyperuricemia; Atherosclerosis of [place] coronary artery of [place] heart with stable angina pectoris; Acute on chronic diastolic congestive heart failure (CMS-HCC); Mixed hyperlipidemia; COPD, moderate (CMS-HCC); Post herpetic neuralgia; Gastroesophageal reflux disease, unspecified whether esophagitis present; Paroxysmal atrial fibrillation (CMS-HCC); Other chest pain Social History Tobacco Use [...] would like the following medication sent to [facility]. I verified with pt that this is true. documented in this encounter Plan of Treatment Upcoming Encounters Date Type Department Care Team (Late st Contact Info) Description 09/18/2025 11:00 AM EDT Office Visit [facility] Cardiology [address] [place] [address] Brook Thao, STRIPPING MACHINE OPERATOR-LICENSED PROSTHETIST [address] [place] [address] Emani Davison, PA-C [address] [place] [address] 10/30/2025 10:00 AM EST Office Visit [facility] - Heart Failure Clinic [address] [place] [address] Boyd Beck MD [address] [place] [address] 04/03/2026 1:30 PM EDT Appointment [facility] - Vascular [address] [place] [address] Ciarra Colon DO [address] [place] [address] 04/09/2026 2:00 PM EDT Office Visit [facility] Vascular [place] [address] [place] [address] Ciarra Colon, [address] [facility] [address] [place] [address] documented as of this encounter Goals Goal Patient Goal Type Associated Problems Recent Progress Patient-Stated? Author safe discharge to home General Yes Alexandria Solis, RN Note: Evaluation of progress towards goal: safe transition from hospital to home with family/friend support. documented as of this encounter Visit Diagnoses Diagnosis Hyperuricemia Other abnormal blood chemistry Atherosclerosis of [place] coronary artery of [place] heart with stable angina pectoris Acute on chronic diastolic congestive heart failure (CMS-HCC) Mixed hyperlipidemia COPD, moderate ([facility]) Post herpetic neuralgia Herpes zoster with other nervous system complications Gastroesophageal reflux disease, unspecified whether esophagitis present Paroxysmal atrial fibrillation ([facility]) Atrial fibrillation Other chest pain documented in this encounter Additional Health Concerns Assessment Noted Time PHQ-9 Depression Total Score: 0 04/17/20 1:52 PM EDT A Body Mass Index follow-up plan has been documented for the patient 04/25/2025 2:57 PM EDT documented as of this encounter Care Teams Reinforced Steel Placing Supervisor Relationship Specialty Start Date End Date Jayden Craven MD [address] [place] [address] PCP - General Family Medicine 08/01/25 documented as of this encounter
--- OUTSIDE RECORDS SUMMARY | 2025-09-12 13:30 | XMS_ITS | Encounter Summary ---
Author Organization [employer] [facility] tem Address [facility][id number] [address] [place] [address] Care Team Providers Care Gis Specialist Name Role Phone Jayden Craven MD Primary Care Provider [phone] Encounter Details Date Type Department Care Team (Late st Contact Info) Description 06/19/2023 Orders Only [facility] - Family Medicine [address] [place] [address] Bakari Tovar, DO [address] [place] [address] Social History Tobacco Use Types Packs/Day Years [...] Cardiology [address] [place] [address] [place] Hina, MEDICARE SALES REPRESENTATIVE-TABLE LEVER OPERATOR [address] [place] [address] Emani Davison, PA-C [address] [place] [address] 10/30/2025 10:00 AM EST Office Visit [facility] - Heart Failure Clinic [address] [place] [address] Boyd Beck MD [address] [place], [place] [address] 04/03/2026 1:[address] [facility] - Vascular [address] [place] [address] Ciarra Colon, DO [address] [employer] [address] [place] [address] 04/09/2026 2:00 PM EDT Office Visit [facility] [address] [place] [address] Ciarra Colon, DO [address] [employer] [address] [place] [address] documented as of this encounter Goals Goal [...] documented as of this encounter Care Teams Gis Specialist Relationship Specialty Start Date End Date Jayden Craven MD [address] [place] [address] PCP - General Family Medicine 08/01/25 documented as of this encounter
--- OUTSIDE RECORDS SUMMARY | 2025-09-12 13:31 | XMS_ITS | Encounter Summary ---
Author Organization [facility] [employer] [facility] tem Address [facility] [id number] [address] [place] [address] Care Team Providers Care Tearoom Hostess Name Role Phone Jayden Craven MD Primary Care Provider [phone] Encounter Details Date Type Department Care Team (Late st Contact Info) Description 08/18/2022 Orders Only [facility] - Family Medicine [address] [place] [address] Bakari Tovar, [address] [place] [address] Social History Tobacco Use Types Packs/Day Years [...] 11:00 AM EDT Office Visit [facility] Physicians Cardiology [address] [place] [address] Brook Thao, AUTOMOBILES SALESPERSON-COMMODITIES REQUIREMENTS ANALYST [address] [place] [address] Emani Davison, PA-C [address] [place] [address] 10/30/2025 10:00 AM EST Office Visit [facility] - Heart Failure Clinic [address] [place] [address] Boyd Beck MD [address] [place], [place] [address] 04/03/2026 1:30 PM EDT Appointment [facility] - Vascular [address] [place] [address] Ciarra Colon, DO [address] [place] [address] 04/09/2026 2:00 PM EDT Office Visit [facility] Vascular [place] [address] [facility] [place] [address] Ciarra Colon, DO [address] [place] [address] documented as of this encounter Goals Goal [...] documented as of this encounter Care Teams Tearoom Hostess Relationship Specialty Start Date End Date Jayden Craven MD [address] [place] [address] PCP - General Family Medicine 08/01/25 documented as of this encounter
--- OUTSIDE RECORDS SUMMARY | 2025-09-12 13:31 | XMS_ITS | Encounter Summary ---
Author Organization [facility] Sys tem Address [facility]-[id number] [address] [place] [address] Care Team Providers Care Store Hand Name Role Phone Jayden Craven MD Primary Care Provider [phone] Encounter Details Date Type Department Care Team (Late st Contact Info) Description 05/02/2024 Orders Only [facility] - Family Medicine [address] [place] [address] Juanita Brown, TRUCKER HAND-ACID FILLER [address] [facility] [address] [place], [place] [address] Social History Tobacco Use Types Packs/Day Years [...] 11:00 AM EDT Office Visit [facility] Cardiology [address] [place] [address] Brook Thao, TRUCKER HAND-TEACHER [facility] [address] [place] [address] Emani Davison, PA-C [address] [place] [address] 10/30/2025 10:00 AM EST [facility] [address] [place] [address] Boyd Beck MD [address] [place], [place] [address] 04/03/2026 1:30 PM EDT Appointment [facility] [address] [place] [address] Ciarra Colon, DO [address] [employer] [address] [place] [address] 04/09/2026 2:00 PM EDT Office Visit [facility] [place] [address] Ciarra Colon, DO [address] [employer] [address] [place] [address] documented as of this encounter Goals Goal [...] documented as of this encounter Care Teams Store Hand Relationship Specialty Start Date End Date Jayden Craven MD [address] [place] [address] PCP - General Family Medicine 08/01/25 documented as of this encounter
--- OUTSIDE RECORDS SUMMARY | 2025-09-12 13:31 | XMS_ITS | Encounter Summary ---
Author Organization [employer] Address [facility]-[id number] [address] [place] [address] Care Team Providers Care Turkish Line Attendant Name Role Phone Jayden Craven MD Primary Care Provider [phone] Reason for Visit * Reason Comments Med Refill Encounter Details Date Type Department Care Team (Late st Contact Info) Description 10/05/2022 Refill [facility] - Family Medicine [address] [place] [address] Bakari Tovar, [address] [place] [address] Post herpetic neuralgia Social History Tobacco Use [...] Cardiology [address] [place] [address] Brook Thao, RAILROAD FIRER-DISTANCE LEARNING TECHNICIAN [address] [place] [address] Emani Davison, PA-C [address] [place] [address] 10/30/2025 10:00 AM EST Office Visit [facility] - Heart Failure Clinic [address] [place] [address] Boyd Beck MD [address] [place] [address] 04/03/2026 1:30 PM EDT Appointment [facility] - Vascular [address] [place] [address] Ciarra Colon, DO [address] [employer] [address] [place] [address] 04/09/2026 2:00 PM EDT Office Visit [place] [place] [address] Ciarra Colon, DO [address] [place] [address] documented as of this encounter Goals Goal [...] documented as of this encounter Care Teams Turkish Line Attendant Relationship Specialty Start Date End Date Jayden Craven MD [address] [place] [address] PCP - General Family Medicine 08/01/25 documented as of this encounter
--- OUTSIDE RECORDS SUMMARY | 2025-09-12 13:31 | XMS_ITS | Encounter Summary ---
Author Organization [employer] Sys tem Address [facility] [place][id number] [address] [place] [address] Care Team Providers Care Grinder Operator Name Role Phone Jayden Craven MD Primary Care Provider [phone] Reason for Visit * Reason Comments Med Refill Encounter Details Date Type Department Care Team (Late st Contact Info) Description 11/06/2023 Refill [facility] - Family Medicine [address] [place] [address] Bakari Tovar, [address] [place] [address] Social History Tobacco Use Types Packs/Day Years [...] Needs appt * Telephone Encounter - Bethany Wang - 11/06/2023 12:20 AM EST Called patient and she was just here and also does not take this medication documented in this encounter Plan of Treatment Upcoming Encounters Date Type Department Care Team (Late st Contact Info) Description 09/18/2025 11:00 AM EDT Office Visit [facility] Cardiology [address] [facility] 1 [place] [address] Brook Thao, SPRINKLER FITTER HELPER-CREDIT OFFICER [address] [place] [address] Emani Davison, PA-C [address] [place] [address] 10/30/2025 10:00 AM EST Office Visit [facility] - Heart Failure Clinic [address] [place] [address] Boyd Beck MD [address] [place] [address] 04/03/2026 1:30 PM EDT Appointment [facility] - Vascular [address] [place] [address] Ciarra Colon, DO 2109 [facility] [address] [place] [address] 04/09/2026 2:00 PM EDT Office Visit [facility] Vascular [place] [address] [place] [address] Ciarra Colon, DO 2[address] [facility] [address] [place] [address] documented as of this encounter Goals Goal [...] documented as of this encounter Care Teams Grinder Operator Relationship Specialty Start Date End Date Jayden Craven MD [address] [place] [address] PCP - General Family Medicine 08/01/25 documented as of this encounter
--- OUTSIDE RECORDS SUMMARY | 2025-09-12 13:31 | XMS_ITS | Encounter Summary ---
Author Organization [facility] tem Address [id number] [address] [place] [address] Care Team Providers Care Mimeographer Name Role Phone Jayden Craven MD Primary Care Provider [phone] Encounter Details Date Type Department Care Team (Late st Contact Info) Description 10/24/2022 Orders Only [facility] - Family Medicine [address] [place] [address] Bakari Tovar, [address] [place] [address] Social History Tobacco Use Types Packs/Day Years [...] Cardiology [address] [place] [address] Brook Thao, FLYING SHEAR OPERATOR-HOT METAL CRANE OPERATOR [address] [place] [address] Emani Davison, PA-C [address] [place] [address] 10/30/2025 10:00 AM EST Office Visit [facility] - [facility] Failure Clinic [address] [facility] [place] [address] Boyd Beck MD [address], [place] [address] 04/03/2026 1:30 PM EDT Appointment [facility] - Vascular [address] [place] [address] Ciarra Colon, DO [address] [place] [address] 04/09/2026 2:00 PM EDT Office Visit [facility] [place] [address] [place] [address] Ciarra Colon, DO [address] [place] [address] documented as of this encounter Goals Goal [...] documented as of this encounter Care Teams Mimeographer Relationship Specialty Start Date End Date Jayden Craven MD [address] [place] [address] PCP - General Family Medicine 08/01/25 documented as of this encounter
--- OUTSIDE RECORDS SUMMARY | 2025-09-12 13:31 | XMS_ITS | Clinical Summary ---
Author Organization [employer] tem Address [id number] [address] [place] [address] Care Team Providers Care Professional Bondsman Name Role Phone Jayden Craven MD Primary Care Provider [phone] Allergies Active Allergy Reactions Criticality Noted Date Comments Amlodipine Swelling 07/08/2018 Medications ONE DAILY MULTIVITAMIN ORAL Take by mouth in the morning. Active acetaminophen (TYLENOL) 500 mg tablet Take 1 tablet (500 mg total) by mouth every 6 (six) hours as needed for pain or headaches. Takes 1-2 tabs PRN Active allopurinoL (ZYLOPRIM) 100 mg tabletIndications:H yperuricemia Take 1 tablet (100 mg total) by mouth in the morning. 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 90 tablet 1 5 Active carvediloL (COREG) 6.25 mg tabletIndications:A cute on chronic diastolic congestive heart failure (CMS-HCC) Take 1 tablet (6.25 mg total) by mouth in the morning and 1 tablet (6.25 mg total) in the evening. Take with meals. 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 90 tablet 3 5 Active dapagliflozin propanediol (FARXIGA) 10 mg tabletIndications:A cute on chronic diastolic congestive heart failure (CMS-HCC) Take 1 tablet (10 mg total) by mouth in the morning. 90 tablet 1 5 Active ezetimibe (ZETIA) 10 mg tabletIndications:M ixed hyperlipidemia Take 1 tablet (10 mg total) by mouth in the morning. 90 tablet 1 5 Active fluticasone-umeclid in-vilanter (TRELEGY ELLIPTA) 100-62.5-25 mcg blister with deviceIndications:C OPD, moderate (CMS-HCC) Inhale 1 puff in the morning. 180 each 1 5 Active furosemide (LASIX) 40 mg tabletIndications:A cute on chronic diastolic congestive heart failure ([facility]) Take 1 tablet (40 mg total) by mouth daily. 90 tablet 1 5 Active gabapentin (NEURONTIN) 100 mg capsuleIndications: Post herpetic neuralgia Take 1 capsule (100 mg total) by mouth in the morning and 1 capsule (100 mg total) before bedtime. 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 90 tablet 1 5 Active pantoprazole (PROTONIX) 40 mg EC tabletIndications:G astroesophageal reflux disease, unspecified whether esophagitis present Take 1 tablet (40 mg total) by mouth in the morning. 90 tablet 1 5 Active rivaroxaban (XARELTO) 15 mg tabletIndications:P aroxysmal atrial fibrillation (CMS-HCC) Take 1 tablet (15 mg total) by mouth in the morning. TAKE 1 TABLET (15 MG TOTAL) BY MOUTH IN THE MORNING. 90 tablet 1 5 Active lisinopriL (PRINIVIL,ZESTRIL) 10 mg tabletIndications:A cute on chronic diastolic congestive heart failure ([facility]) Take 1 tablet (10 mg total) by mouth in the morning. 90 tablet 3 5 Active nitroglycerin (NITROSTAT) 0.4 MG SL tabletIndications:O ther chest pain Take 1 tablet (0.4 mg total) by mouth every 5 (five) minutes as needed for chest pain. 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 07/11/2022 Bilateral carotid artery stenosis 02/24/2022 Seasonal allergic rhinitis 01/29/2022 Spinal stenosis of lumbar region 02/05/2021 Class 1 obesity in adult 07/02/2020 Type 2 diabetes mellitus wit h kidney complication, without long-term current use of insulin 04/24/2020 Persistent atrial fibrillation 10/07/2019 Hyperuricemia 10/05/2019 Atherosclerosis of [place] co ronary artery of [place] heart with stable angina pectoris 03/25/2018 GERD [...] chronic kidney disease 03/15/2019 01/18/2024 Atherosclerosis of [place] co ronary artery of [place] heart with unstable angina pectoris 03/25/2018 10/12/2018 Unstable angina 03/25/2018 04/23/2018 Overview (03/25/2018): Added automatically from request for surgery [id number] Brain mass 11/06/2017 08/29/2022 Encounters Date Type Department Care Team Description 09/01/2025 Refill [facility] - [facility] [address] [place] [address] Bakari Tovar DO Other chest pain 09/01/2025 Telephone [facility] [address] [place] [address] Tia Binghamtorey, [facility] 07/28/2025 Telephone [facility] [address] [place] [address] Faith Singh, CAPRICE orders needed approval 07/28/2025 Telephone [facility] - Family Medicine [address] [place] [address] Estella Eagle, [facility] 07/25/2025 Telephone [facility] - Family Medicine [address] [place] [address] Mary Bingham, [facility] 07/24/2025 Refill [facility] - Family Medicine [address] [place] [address] Christal Douglas, [facility] 06/28/2025 Refill [facility] - [facility] [address] [facility] [facility] [place] [address] Kay Echevarria, ENVIRONMENTAL HEALTH AND SAFETY LEADER-GREEN MEAT GRADER Other chest pain from Last 3 Months [...] Description 09/18/2025 11:00 AM EDT Office Visit [facility]icians Cardiology [address] [facility] [address] [place] [address] Brook Thao, ENVIRONMENTAL HEALTH AND SAFETY LEADER-GREEN MEAT GRADER [address] [place] [address] Emani Davison, PA-C [address] [place] [address] 10/30/2025 10:00 AM EST Office Visit [facility] - Heart Failure Clinic [address] [place] [address] Boyd Beck MD [address] [place] [address] 04/03/2026 1:30 PM EDT Appointment [facility] - Vascular [address] [place] [address] Ciarra Colon, DO [address] [employer] [address] [place] [address] 04/09/2026 2:00 PM EDT Office Visit [place] [address] [place] [address] Ciarra Colon, DO [address] [place] [address] Health Maintenance Due Date Last Done Comments [...] family/friend support. Medical Devices Implanted Type Area Collection Team Lead Device Identifier Shelf Expiration Date Model / Serial / Lot Declan 23.5 Christ Rpl 60749 - [id number] - [id number] Implanted:Qty : 1 on 07/08/2018 by Lisa Bliss MD at [facility] Lens Left: Eye [employer] 11/07/2022 [id number] / [id number] / NA Lens Iol Ultrasert 24.0d - [id number] - [id number] Implanted:Qty : 1 on 08/05/2018 by Lisa Bliss MD at [facility] Lens Right: Eye [employer] 02/27/2021 [id number] 24.0 / [id number] / NA Guillermo Xience Alpine 3.00x18 Rx Rpl [id number] - [id number] Implanted:Qty : 1 on 03/31/2018 by Austin Vyas MD at [facility] Stent N/A: Heart GERMAIN [id number] 01/11/2021 [id number] / / [id number] Guillermo Xience Alpine 3.00x12 Rx Rpl [id number] - [id number] Implanted:Qty : 1 on 03/31/2018 by Austin Vyas MD at [facility] Stent N/A: Heart GERMAIN [id number] 06/23/2020 [id number] 2 / / [id number] Guillermo Xience Alpine 3.50x12 Rx Rpl [id number] - [id number] Implanted:Qty : 1 on 03/31/2018 by Austin Vyas MD at [facility] Stent N/A: Heart GERMAIN [id number] 10/28/2020 [id number] Insurance FOR[facility]LY [facility] MEDICARE Advance Directives Documents on File Type Date Recorded Patient Manager Story Expl anation Durable Power of Electronic Plotting System Operator * Full Code (Latest Code Status on File) Date Activated Date Inactivated Comments 07/11/2022 5:21 PM 07/14/2022 5:54 PM * Full Code Date Activated Date Inactivated Comments 11/06/2017 8:29 PM 11/11/2017 11:09 PM Care Teams Professional Bondsman Relationship Specialty Start Date End Date Jayden Craven MD [address] [place] [address] PCP - General Family Medicine 08/01/25
--- OUTSIDE RECORDS SUMMARY | 2025-09-12 13:31 | XMS_ITS | Clinical Summary ---
Author Organization [facility] Address [address] [place] [address] Care Team Providers Care Take Out Waiter/Waitress Name Role Phone Unavailable Primary Care Provider Unavailabl e Social History Tobacco Use Types Packs/Day Years Used Date Smoking Tobacco: Never Assessed Comments Unknown Sex and Gender Information Value Date Recorded Sex Assigned at Not on file Legal Sex Female 12:01 AM EDT Gender Identity Not on file Sexual Orientation Not on file Plan of Treatment Upcoming Encounters Date Type Department Care Team (Late st Contact Info) Description 10/09/2025 10:20 AM EST Office Visit [facility] [address] [place] [address] Mahin Douglas MD [address] [place] [address] Health Maintenance Due Date Last Done Comments Medicare Annual Wellness (AWV) 1938 Depression Screening 1950 Fall Risk Screening 2003 Zoster Vaccines (2 of 2) 10/30/2019 09/04/2019 COVID-19 Vaccine ( season) 2025 09/04/2022, 10/21/2021, 09/13/2021, Additional history exists Influenza Vaccine (#1) 2025 , 10/09/2023, 09/04/2022, Additional history exists Adult Tetanus 02/10/2026 02/11/2016 Pneumococcal Vaccine: 50+ Years Completed 11/09/2017, 02/12/2016, 09/27/2013 HIB Vaccines Aged Out No longer eligi ble based on patient's age to complete this topic HPV Vaccines Aged Out No longer eligi ble based on patient's age to complete this topic IPV Vaccines Aged Out No longer eligi ble based on patient's age to complete this topic Meningococcal B Vaccine Aged Out No l onger eligible based on patient's age to complete this topic Meningococcal Vaccine Aged Out No joão robyn eligible based on patient's age to complete this topic Rotavirus Vaccines Aged Out No longer eligible based on patient's age to complete this topic Insurance [employer] MEDICARE ADVANTAGE
--- OUTSIDE RECORDS SUMMARY | 2025-09-12 13:31 | XMS_ITS | Encounter Summary ---
Author Organization [email or web address] tem Address [id number] [address] [place] [address] Care Team Providers Care Nursing Clerk Name Role Phone Jayden Craven MD Primary Care Provider [phone] Encounter Details Date Type Department Care Team (Late st Contact Info) Description 11/28/2024 Telephone [facility] - Family Medicine [address] [place] [address] Mary Bingham CMA Social History Tobacco Use [...] 11/28/2024 9:38 AM EST ----- Message from Kay Echevarria APRN-[place] sent at 11/28/2024 9:08 AM EST ----- Reviewed. Inform patient uric acid (gout lab) is normal ranges. documented in this encounter Plan of Treatment Upcoming Encounters Date Type Department Care Team (Late st Contact Info) Description 09/18/2025 11:00 AM EDT Office Visit [facility] Physicians Cardiology [address] [facility] [address] [place] [address] Brook Thao, HANNAH-SIGN HANGER SUPERVISOR [address] [place] [address] Emani Davison, PA-C [address] [place] [address] 10/30/2025 10:00 AM EST Office Visit [facility] - Heart Failure Clinic [address] [place] [address] Boyd Beck MD [address] [place] [address] 04/03/2026 1:30 PM EDT Appointment [facility] - Vascular [address] [place] [address] Ciarra Colon, DO [address] [place] [address] 04/09/2026 2:00 PM EDT Office Visit [place] [address] [place] [address] Ciarra Colon, DO [address] [place] [address] documented as of this encounter Goals Goal [...] documented as of this encounter Care Teams Nursing Clerk Relationship Specialty Start Date End Date Jayden Craven MD [address] [place] [address] PCP - General Family Medicine 08/01/25 documented as of this encounter
--- OUTSIDE RECORDS SUMMARY | 2025-09-12 13:31 | XMS_ITS | Encounter Summary ---
Author Organization [employer] tem Address [id number] [address] [place] [address] Care Team Providers Care Hand Endband Cutter Name Role Phone Jayden Craven MD Primary Care Provider [phone] Reason for Visit * Reason Comments Med Refill Encounter Details Date Type Department Care Team (Late st Contact Info) Description 12/12/2023 Refill [facility] - Family Medicine [address] [place] [address] Tal Chin, DO [address] [facility] [place] [address] Post herpetic neuralgia Social History Tobacco Use [...] Description 09/18/2025 11:00 AM EDT Office Visit [facility] Physicians Cardiology [address] [place] [address] Brook Thao, TRANSFORMER MECHANIC-NEWSPAPER JOURNALIST [address] [place] [address] Emani Davison, PA-C [address] [place] [address] 10/30/2025 10:00 AM EST Office Visit [facility] - Heart Failure Clinic [address] [place] [address] Boyd Beck MD [address] [place] [address] 04/03/2026 1:30 PM EDT Appointment [facility] - Vascular [address] [place] [address] Ciarra Colon, DO [address] [place] [address] 04/09/2026 2:00 PM EDT Office [address] [place] [address] Ciarra Colon, DO [address] [place] [address] documented as of this encounter Goals Goal [...] documented as of this encounter Care Teams Hand Endband Cutter Relationship Specialty Start Date End Date Jayden Craven MD [address] [place] [address] PCP - General Family Medicine 08/01/25 documented as of this encounter
--- OUTSIDE RECORDS SUMMARY | 2025-09-12 13:31 | XMS_ITS | Encounter Summary ---
Author Organization [facility] [employer] Sys tem Address [id number] [address] [place] [address] Care Team Providers Care Church Supervisor Name Role Phone Jayden Craven MD Primary Care Provider [phone] Encounter Details Date Type Department Care Team (Late Contact Info) Description 06/10/2024 Orders Only [facility] - Family Medicine [address] [place] [address] External, Scanning Provider Social History Tobacco Use [...] Office Visit [facility] [address] [place] [address] Brook Thao, SOLE LEATHER CUTTING MACHINE OPERATOR-CONE PICKER [address] [place] [address] Emani Davison, PA-C [address] [place] [address] 10/30/2025 10:00 AM EST Office Visit [facility] - Heart Failure Clinic [address] [place] [address] Boyd Beck MD [address] [place], [place] [address] 04/03/2026 1:30 PM EDT Appointment [facility] - Vascular [address] [place] [address] Ciarra Colon, DO [address] [employer] [place] [address] 04/09/2026 2:00 PM EDT Office Visit [facility] [address] [place] [address] Ciarra Colon, DO [address] [place] [address] documented as of this encounter Goals Goal [...] documented as of this encounter Care Teams Church Supervisor Relationship Specialty Start Date End Date Jayden Craven MD [address] [place] [address] PCP - General Family Medicine 08/01/25 documented as of this encounter
--- OUTSIDE RECORDS SUMMARY | 2025-09-12 13:31 | XMS_ITS | Encounter Summary ---
Author Organization [employer] tem Address [id number] [address] [place] [address] Care Team Providers Care Cloth Tester Name Role Phone Jayden Craven MD Primary Care Provider [phone] Encounter Details Date Type Department Care Team (Late st Contact Info) Description 07/25/2025 Telephone [facility] - Family Medicine [address] [place] [address] Mary Bingham CMA Social History [...] Telephone Encounter - Mary Bingham CMA - 07/25/2025 10:58 AM EDT [facility] called wondering if you will follow pt home health care? She is currently at [facility] Discharge date to be 1 or 2 days with Pnemonia/ Sepsis. Their phone number is [phone], Fax [phone]. [facility] called a third time. Stating it being the holiday weekend. They would like your Yes or no. * Telephone Encounter - Bakari Tovar DO - 07/25/2025 10:58 AM EDT Message noted. I spoke with [facility] by phone today. I will follow her if she shows up for her TCM appointment in several days. If she does not, I will not follow. documented in this encounter Plan of Treatment Upcoming Encounters Date Type Department Care Team (Late st Contact Info) Description 09/18/2025 11:00 AM EDT Office Visit [facility] Physicians Cardiology [address] [place] [address] Brook Thao, COUNTY ADVISER-TELESCOPE REPAIRER [address] [place] [address] Emani Davison, PA-C [address] [place] [address] 10/30/2025 10:00 AM EST Office Visit [facility] - Heart Failure Clinic [address] [place] [address] Boyd Beck MD [address] [place], [place] [address] 04/03/2026 1:30 PM EDT Appointment [facility] - Vascular [address] [place] [address] Ciarra Colon, DO [address] [place] [address] 04/09/2026 2:00 PM EDT Office Visit [facility] [place] [address] [place] [address] Ciarra Colon, DO [address] [facility] [address] [place] [address] documented as of this encounter Goals Goal [...] documented as of this encounter Care Teams Cloth Tester Relationship Specialty Start Date End Date Jayden Craven MD [address] [place] [address] PCP - General Family Medicine 08/01/25 documented as of this encounter
--- OUTSIDE RECORDS SUMMARY | 2025-09-12 13:31 | XMS_ITS | Encounter Summary ---
Author Organization [employer] [facility] tem Address [id number] [address] [place] [address] Care Team Providers Care Golf Caddy Name Role Phone Jayden Craven MD Primary Care Provider [phone] Encounter Details Date Type Department Care Team (Late Contact Info) Description 09/01/2025 [facility]phone [facility] Medicine [address] [place] [address] Mary Bingham CMA Social History [...] Description 09/18/2025 11:00 AM EDT Office Visit [facility] Physicians Cardiology [address] [place] [address] Brook Thao, COTTON BREEDER-MANAGER OF PLANNING [address] [place] [address] Emani Davison, PA-C [address] [place] [address] 10/30/2025 10:00 AM EST Office Visit [facility] - Heart Failure Clinic [address] [place] [place] [address] Boyd Beck MD [address] [place] [address] 04/03/2026 1:30 PM EDT Appointment [facility] - Vascular [address] [address] Ciarra Colon, DO [address] [place] [address] 04/09/2026 2:00 PM EDT Office Visit [facility] Vascular [place] [address] [place] [address] Ciarra Colon, DO [address] [place] [address] documented as of this encounter Goals Goal [...] Time PHQ-9 Depression Total Score: 0 04/17/20 25 1:52 PM EDT A Body Mass Index follow-up plan has been documented for the patient 04/25/2025 2:57 PM EDT documented as of this encounter Care Teams Golf Caddy Relationship Specialty Start Date End Date Jayden Craven MD [address] [place] [address] PCP - General Family Medicine 08/01/25 documented as of this encounter
--- OUTSIDE RECORDS SUMMARY | 2025-09-12 13:31 | XMS_ITS | Encounter Summary ---
Author Organization [employer] Sy tem Address [id number] [address] [place] [address] Care Team Providers Care Syrup Maker Cook Name Role Phone Jayden Craven MD Primary Care Provider [phone] Encounter Details Date Type Department Care Team (Late st Contact Info) Description 09/08/2022 [facility]phone [facility] - Family Medicine [address] [place] [address] Kiki Fernandez MA Social History Tobacco Use [...] Description 09/18/2025 11:00 AM EDT Office Visit [facility] Physicians Cardiology [address] [place] [address] Brook Thao, FURNITURE RENTAL CONSULTANT-CONTENT CURATOR [address] [place] [address] Emani Davison, PA-C [address] [place], [place] [address] 10/30/2025 10:00 AM EST Office Visit [facility] - Heart Failure Clinic [address] [place] [address] Boyd Beck MD [address] [place] [address] 04/03/2026 1:30 PM EDT Appointment [facility] - Vascular [address] [address] Ciarra Colon, DO [address] [facility] [address] [place] [address] 04/09/2026 2:00 PM EDT Office Visit [facility] [place] [address] [place] [address] Ciarra Colon, [address] [facility] [address] [place] [address] documented as of this encounter Goals Goal [...] documented as of this encounter Care Teams Syrup Maker Cook Relationship Specialty Start Date End Date Jayden Craven MD [address] [place] [address] PCP - General Family Medicine 08/01/25 documented as of this encounter
--- OUTSIDE RECORDS SUMMARY | 2025-09-12 13:31 | XMS_ITS | Encounter Summary ---
Author Organization [email or web address] Sys tem Address [facility][id number] [address] [place] [address] Care Team Providers Care U.[place]. Representative Name Role Phone Jayden Craven MD Primary Care Provider [phone] Reason for Visit * Reason Comments Med Refill Encounter Details Date Type Department Care Team (Late st Contact Info) Description 12/14/2023 Refill [facility] - Family Medicine [address] [place] [address] Bakari Tovar, [address] [place] [address] Acute on chronic diastolic congestive heart failure ([facility] [place]) Social History Tobacco Use Types Packs/Day Years [...] 11:00 AM EDT Office Visit [facility]icians Cardiology [address] [facility] [address] [place] [address] Brook Thao, SHEARING MACHINE FEEDER-RETRIMMER [address] [place] [address] Emani Davison, PA-C [address] [place] [address] 10/30/2025 10:00 AM EST Office Visit [facility] - Heart Failure Clinic [address] [place] [address] Boyd Beck MD [address] [place] [address] 04/03/2026 1:30 PM EDT Appointment [facility] - Vascular [address] [place] [address] Ciarra Colon, DO [address] [place] [address] 04/09/2026 2:00 PM EDT Office Visit [facility] [place] [address] Ciarra Colon, DO [address] [place] [address] documented as of this encounter Goals Goal [...] documented as of this encounter Care Teams U.S. Representative Relationship Specialty Start Date End Date Jayden Craven MD [address] [place] [address] PCP - General Family Medicine 08/01/25 documented as of this encounter
--- OUTSIDE RECORDS SUMMARY | 2025-09-12 13:31 | XMS_ITS | Encounter Summary ---
Author Organization [employer] Sys tem Address [facility][id number] [address] [place] [address] Care Team Providers Care Banking Assistant Name Role Phone Jayden Craven MD Primary Care Provider [phone] Encounter Details Date Type Department Care Team (Late st Contact Info) Description 08/12/2022 Telephone [facility] - Family Medicine [address] [place] [address] Bakari Tovar, [address] [place] [address] Social History Tobacco Use Types Packs/Day Years [...] EDT Patient called requesting pharmacy change to [facility], request completed documented in this encounter Plan of Treatment Upcoming Encounters Date Type Department Care Team (Late st Contact Info) Description 09/18/2025 11:00 AM EDT Office Visit [facility] Cardiology [address] [place] [address] Brook Thao, LEARNING SOLUTIONS SPECIALIST-PIZZA MAKER [address] [place] [address] Emani Davison, PA-C [address] [place], [place] [address] 10/30/2025 10:00 AM EST Office Visit [facility] - Heart Failure Clinic [address] [place] [address] Boyd Beck MD [address] [place] [address] 04/03/2026 1:30 PM EDT Appointment [facility] - Vascular [address] [place] [address] Ciarra Colon, DO [address] [place] [address] 04/09/2026 2:00 PM EDT Office Visit [facility] [place] [address] Ciarra Colon, DO [address] [place] [address] documented as of this encounter Goals Goal Patient Goal Type Associated Problems Recent Progress Patient-Stated? Author safe discharge to home General Yes Will, [place], RN Note: Evaluation of progress towards goal: safe transition from hospital to home with family/friend support. documented as of this encounter Visit Diagnoses Not on filedocumented in this encounter Additional Health Concerns Assessment Noted Time PHQ-9 Depression Total Score: 3 01/06/20 18 1:00 PM EST documented as of this encounter Care Teams Banking Assistant Relationship Specialty Start Date End Date Jayden Craven MD [address] [facility], [place] [address] PCP - General Family Medicine 08/01/25 documented as of this encounter
--- OUTSIDE RECORDS SUMMARY | 2025-09-12 13:31 | XMS_ITS | Encounter Summary ---
Author Organization [facility] [employer] [facility] Sys tem Address [id number] [address] [place] [address] Care Team Providers Care Refund Clerk Name Role Phone Jayden Craven MD Primary Care Provider [phone] Reason for Visit * Reason Onset Date Comments Med Refill 07/24/2025 Encounter Details Date Type Department Care Team ([facility] Contact Info) Description 07/24/2025 Refill [facility] - Family Medicine [address] [place] [address] Christal Douglas CMA Social History Tobacco Use [...] Upcoming Encounters Date Type Department Care Team ([facility] Contact Info) Description 09/18/2025 11:00 AM EDT Office Visit [facility] Cardiology [address] [place] [address] Brook Thao, RETAIL PROPERTY MANAGER-BUILDING INSULATION SUPERVISOR [address] [place] [address] Emani Davison, PA-C [address] [place] [address] 10/30/2025 10:00 AM EST Office Visit [facility] - Heart Failure Clinic [address] [place] [address] Boyd Beck MD [address] [place], [place] [address] 04/03/2026 1:30 PM EDT Appointment [facility] - Vascular [address] [place] [address] Ciarra Colon, DO [address] [place] [address] 04/09/2026 2:00 PM EDT Office Visit [facility] [place] [address] [place] [address] Ciarra Colon, DO [address] [place] [address] documented as of this encounter Goals Goal [...] documented as of this encounter Care Teams Refund Clerk Relationship Specialty Start Date End Date Jayden Craven MD [address] [place] [address] PCP - General Family Medicine 08/01/25 documented as of this encounter
--- OUTSIDE RECORDS SUMMARY | 2025-09-12 13:31 | XMS_ITS | Encounter Summary ---
Author Organization [employer] Sys tem Address [id number] [address] [place] [address] Care Team Providers Care Lead Case Manager Name Role Phone Jayden Craven MD Primary Care Provider [phone] Reason for Visit * Reason Comments Med Refill Encounter Details Date Type Department Care Team (Late st Contact Info) Description 08/29/2022 Refill [facility] - Family Medicine [address] [place] [address] Bakari Tovar, [address] [place] [address] Post herpetic neuralgia Social History Tobacco Use [...] Description 09/18/2025 11:00 AM EDT Office Visit [facility] Cardiology [address] [place] [address] Brook Thao, ENVIRONMENTAL TEST TECHNICIAN-FARM LABOR CONTRACTOR [address] [place] [address] Emani Davison, PA-C [address] [place] [address] 10/30/2025 10:00 AM EST Office Visit [facility] - Heart Failure Clinic [address] [place] [address] Boyd Beck MD [address] [place] [address] 04/03/2026 1:30 PM EDT Appointment [facility] - Vascular [address] [place] [address] Ciarra Colon, DO [address] [place] [address] 04/09/2026 2:00 PM EDT Office Visit [facility] [place] [address] Ciarra Colon, DO [address] [place] [address] documented as of this encounter Goals Goal [...] documented as of this encounter Care Teams Lead Case Manager Relationship Specialty Start Date End Date Jayden Craven MD [address] [place] [address] PCP - General Family Medicine 08/01/25 documented as of this encounter
--- OUTSIDE RECORDS SUMMARY | 2025-09-12 13:31 | XMS_ITS | Encounter Summary ---
Author Organization [employer] Sys tem Address [facility] [id number] [address] [place] [address] Care Team Providers Care Clinical Informatics Manager Name Role Phone Jayden Craven MD Primary Care Provider [phone] Encounter Details Date Type Department Care Team (Late st Contact Info) Description 07/28/2025 Telephone [facility] - Family Medicine [address] [place] [address] Estella Eagle CMA Social History Tobacco Use Types Packs/Day [...] encounter Miscellaneous Notes * Telephone Encounter - Estella Eagle CMA - 07/28/2025 11:41 AM EDT Pt is being discharged today, and [facility] is wondering if you will follow pt for homehealth care needs. They stated they have tried calling several times, but haven't gotten a response. Thank you. * Telephone Encounter - Bakari Tovar DO - 07/28/2025 11:41 AM EDT Message noted. I spoke with [facility] by phone today. If she keeps her TCM appointment with me in several days, I will follow her. If she does not keep her appointment, I will not follow her. documented in this encounter Plan of Treatment Upcoming Encounters Date Type Department Care Team (Late st Contact Info) Description 09/18/2025 11:00 AM EDT Office Visit [facility]icians Cardiology [address] [place] [address] Brook Thao, MECHANICAL ADJUSTER-ENTRY LEVEL MANAGEMENT [address] [place] [address] Emani Davison, PA-C [address] [place], [place] [address] 10/30/2025 10:00 AM EST Office Visit [facility] - Heart Failure Clinic [address] [place] [address] Boyd Beck MD [address] [place] [address] 04/03/2026 1:30 PM EDT Appointment [facility] - Vascular [address] [place] [address] Ciarra Colon DO [address] [facility] [address] [place] [address] 04/09/2026 2:00 PM EDT Office Visit [facility] [place] [address] [place] [address] Ciarra Colon, DO [address] [facility] [address] [place] [address] documented as of this encounter Goals Goal [...] documented as of this encounter Care Teams Clinical Informatics Manager Relationship Specialty Start Date End Date Jayden Cravne MD [address] [place] [address] PCP - General Family Medicine 08/01/25 documented as of this encounter
--- OUTSIDE RECORDS SUMMARY | 2025-09-12 13:31 | XMS_ITS | Encounter Summary ---
Author Organization [employer] Sys tem Address [id number] [address] [place] [address] Care Team Providers Care Rotary Drill Rig Operator Name Role Phone Jayden Craven MD Primary Care Provider [phone] Encounter Details Date Type Department Care Team (Late st Contact Info) Description 01/05/2024 Telephone [facility] - Family Medicine [address] [place] [place] [address] Mary Sebastian CMA Social History [...] to have her lab work sent to [facility] * Telephone Encounter - EUGENE Bey - [...] Description 09/18/2025 11:00 AM EDT Office Visit [facility] Physicians Cardiology [address] [place] [address] Brook Thao, INSURANCE CONSULTANT-DIESEL TECHNOLOGY INSTRUCTOR [address] [place] [address] Emani Davison, PA-C [address] [place] [address] 10/30/2025 10:00 AM EST Office Visit [facility] - Heart Failure Clinic [address] [place] [address] Boyd Beck MD [address] [place], [place] [address] 04/03/2026 1:30 PM EDT Appointment [facility] - Vascular [address] [place] [address] Ciarra Colon, DO [address] [place] [address] 04/09/2026 2:00 PM EDT Office Visit [facility] [place] [address] [place] [address] Ciarra Colon, DO [address] [facility] [address] [place] [address] documented as of this encounter Goals Goal [...] documented as of this encounter Care Teams Rotary Drill Rig Operator Relationship Specialty Start Date End Date Jayden Craven MD [address] [place] [address] PCP - General Family Medicine 08/01/25 documented as of this encounter
--- OUTSIDE RECORDS SUMMARY | 2025-09-12 13:31 | XMS_ITS | Encounter Summary ---
Author Organization [employer] Sys tem Address [facility] [id number] [address] [place] [address] Care Team Providers Care Outer Diameter Grinder Name Role Phone Jayden Craven MD Primary Care Provider [phone] Reason for Visit * Reason Comments Med Refill Encounter Details Date Type Department Care Team (Late st Contact Info) Description 11/06/2023 Refill [facility] - Family Medicine [address] [place] [address] Bakari Tovar, [address] [place] [address] Social History Tobacco Use Types Packs/Day Years [...] Description 09/18/2025 11:00 AM EDT Office Visit [facility]icians Cardiology [address] [place] [address] Brook Thao, INTEGRITY ASSESSOR-SATELLITE DISH INSTALLER [address] [place] [address] Emani Davison, PA-C [address] [place] [address] 10/30/2025 10:00 AM EST Office Visit [facility] - Heart Failure Clinic [address] [place] [address] Boyd Beck MD [address] [place] [address] 04/03/2026 1:30 PM EDT Appointment [facility] - Vascular [address] [place] [address] Ciarra Colon, DO [address] [place] [address] 04/09/2026 2:00 PM EDT Office Visit [facility] [address] [place] [address] Ciarra Colon, DO [address] [place] [address] documented as of this encounter Goals Goal [...] documented as of this encounter Care Teams Outer Diameter Grinder Relationship Specialty Start Date End Date Jayden Craven MD [address] [place] [address] PCP - General Family Medicine 08/01/25 documented as of this encounter
--- OUTSIDE RECORDS SUMMARY | 2025-09-12 13:31 | XMS_ITS | Encounter Summary ---
Author Organization [employer] Sys [employer] Address [id number] [address] [place] [address] Care Team Providers Care Senior Patrol Agent Name Role Phone Jayden Craven MD Primary Care Provider [phone] Reason for Visit * Reason Onset Date Comments Med Refill 08/18/2022 Encounter Details Date Type Department Care Team (Late st Contact Info) Description 08/18/2022 Refill [facility] - Family Medicine [address] [place] [address] Christal Douglas CMA Post herpetic neuralgia (Primary [...] Description 09/18/2025 11:00 AM EDT Office Visit [facility] Cardiology [address] [facility] [place] [address] Brook Thao, ROTATIONAL MOULDING OPERATOR-BUSINESS APPLICATIONS DEVELOPER [address] [place] [address] Emani Davison, PA-C [address] [place] [address] 10/30/2025 10:00 AM EST Office Visit [facility] - Heart Failure Clinic [address] [place] [address] Boyd Beck MD [address] [place] [address] 04/03/2026 1:30 PM EDT Appointment [facility] - Vascular [address] [place] [address] Ciarra Colon, DO [address] [place] [address] 04/09/2026 2:00 PM EDT Office Visit [facility] [address] [place] [address] Ciarra Colon, DO [address] [place] [address] documented as of this encounter Goals Goal [...] documented as of this encounter Care Teams Senior Patrol Agent Relationship Specialty Start Date End Date Jayden Craven MD [address] [place] [address] PCP - General Family Medicine 08/01/25 documented as of this encounter
--- OUTSIDE RECORDS SUMMARY | 2025-09-12 13:31 | XMS_ITS | Encounter Summary ---
Author Organization [facility] Address [facility] [place]-[id number] [address] [place] [address] Care Team Providers Care Sandwich Board Carrier Name Role Phone Jayden Craven MD Primary Care Provider [phone] Encounter Details Date Type Department Care Team (Late st Contact Info) Description 10/05/2022 Orders Only [facility] - Family Medicine [address] [place] [address] Bakari Tovar, [address] [place] [address] Social History Tobacco Use Types Packs/Day Years [...] Description 09/18/2025 11:00 AM EDT Office Visit [facility] Cardiology [address] [place] [address] Brook Thao, GEM STONE CUTTER-PICKING SUPERVISOR [address] [place] [address] Emani Davison, PA-C [address] [place] [address] 10/30/2025 10:00 AM EST Office Visit [facility] - Heart Failure Clinic [address] [place] [address] Boyd Beck MD [address] [place], [place] [address] 04/03/2026 1:30 PM EDT Appointment [facility] - Vascular [address] [place] [address] Ciarra Colon, DO [address] [place] [address] 04/09/2026 2:00 PM EDT Office Visit [facility] [place] [address] [place] [address] Ciarra Colon, DO [address] [place] [address] documented as of this encounter Goals Goal [...] documented as of this encounter Care Teams Sandwich Board Carrier Relationship Specialty Start Date End Date Jayden Craven MD [address] [place] [address] PCP - General Family Medicine 08/01/25 documented as of this encounter
--- OUTSIDE RECORDS SUMMARY | 2025-09-12 13:31 | XMS_ITS | Encounter Summary ---
Author Organization [employer] Sys tem Address [facility][id number] [address] [place] [address] Care Team Providers Care Account Assistant Name Role Phone Jayden Craven MD Primary Care Provider [phone] Reason for Visit * Reason Comments Med Refill Encounter Details Date Type Department Care Team (Late st Contact Info) Description 09/17/2022 Refill [facility] - Family Medicine [address] [place] [address] Bakari Tovar, [address] [place] [address] Social History Tobacco Use Types Packs/Day Years [...] Cardiology [address] [place] [address] Brook Thao Hina, LIBRARY CLERK TALKING BOOKS-REAL ESTATE ACCOUNTANT [address] [place] [address] Emani Davison, PA-C [address] [place] [address] 10/30/2025 10:00 AM EST Office Visit [facility] - Heart Failure Clinic [address] [place] [address] Boyd Beck MD [address] [place], [place] [address] 04/03/2026 1:30 PM EDT Appointment [facility] - Vascular [address] [place] [address] Ciarra Colon, DO [address] [place] [address] 04/09/2026 2:00 PM EDT Office Visit [facility] [address] [place] [address] Ciarra Colon, DO [address] [place] [address] documented as of this encounter Goals Goal [...] documented as of this encounter Care Teams Account Assistant Relationship Specialty Start Date End Date Jayden Craven MD [address] [place] [address] PCP - General Family Medicine 08/01/25 documented as of this encounter
--- OUTSIDE RECORDS SUMMARY | 2025-09-12 13:31 | XMS_ITS | Encounter Summary ---
Author Organization [employer] Sys tem Address [facility] [place]-[id number] [address] [place] [address] Care Team Providers Care Public Relations Coordinator Name Role Phone Jayden Craven MD Primary Care Provider [phone] Reason for Visit * Reason Comments Med Refill Encounter Details Date Type Department Care Team (Late st Contact Info) Description 2023 Refill [facility] - Family Medicine [address] [place] [address] Bakari Tovar, [address] [place] [address] Social History Tobacco Use Types Packs/Day Years [...] Cardiology [address] [place] [address] Brook Thao Hina, VAT PACKER-CAFE HELPER [address] [place] [address] Emani Davison, PA-C [address] [place] [address] 10/30/2025 10:00 AM EST Office Visit [facility] - Heart Failure Clinic [address] [place] [address] Boyd Beck MD [address] [place], [place] [address] 04/03/2026 1:30 PM EDT Appointment [facility] - Vascular [address] [place] [address] Ciarra Colon, DO [address] [place] [address] 04/09/2026 2:00 PM EDT Office Visit [place] [address] [place] [address] Ciarra Colon, DO [address] [place] [address] documented as of this encounter Goals Goal [...] documented as of this encounter Care Teams Public Relations Coordinator Relationship Specialty Start Date End Date Jayden Craven MD [address] [place] [address] PCP - General Family Medicine 08/01/25 documented as of this encounter
--- OUTSIDE RECORDS SUMMARY | 2025-09-12 13:31 | XMS_ITS | Encounter Summary ---
Author Organization [facility] tem Address [facility] [place]-[id number] [address] [place] [address] Care Team Providers Care Prosthetic Makeup Designer Name Role Phone Jayden Craven MD Primary Care Provider [phone] Encounter Details Date Type Department Care Team (Late st Contact Info) Description 08/08/2022 Orders Only [facility] - Family Medicine [address] [place] [address] Bakari Tovar, [address] [place] [address] Acute on chronic diastolic congestive heart failure ([facility]) (Primary Dx) Social History Tobacco Use Types [...] EDT Office Visit [facility] Cardiology [address] [place] [address] Brook Thao, AEROSPACE MANAGER-HAZARDOUS WASTE REMOVER [address] [place] [address] Emani Davison, PA-C [address] [place] [address] 10/30/2025 10:00 AM EST Office Visit [facility] - Heart Failure Clinic [address] [place] [address] Boyd Beck MD [address] [place], [place] [address] 04/03/2026 1:30 PM EDT Appointment [facility] - Vascular [address] [place] [address] Ciarra Colon, DO [address] [place] [address] 04/09/2026 2:00 PM EDT Office Visit [facility] [place] [address] Ciarra Colon, DO [address] [place] [address] documented as of this encounter Goals Goal [...] documented as of this encounter Care Teams Prosthetic Makeup Designer Relationship Specialty Start Date End Date Jayden Craven MD [address] [place] [address] PCP - General Family Medicine 08/01/25 documented as of this encounter
--- OUTSIDE RECORDS SUMMARY | 2025-09-12 13:31 | XMS_ITS | Encounter Summary ---
Author Organization [facility] Address [facility] [place]-[id number] [address] [place] [address] Care Team Providers Care Code Official Name Role Phone Jayden Craven MD Primary Care Provider [phone] Encounter Details Date Type Department Care Team (Late st Contact Info) Description 12/13/2023 Orders Only [facility] - Family Medicine [address] [place] [address] Bakari Tovar, [address] [place] [address] Social History Tobacco Use Types Packs/Day Years [...] [facility] Card[facility] [address] [place] [address] Brook Thao, BROADCAST DESIGNER-AUDITING SPECIALIST [address] [place] [phone] Emani Davison, PA-C [address] [place] [address] 10/30/2025 10:00 AM EST Office Visit [facility] - [facility] Failure [facility] [address] [place] [address] Boyd Beck MD [address] [place] [address] 04/03/2026 1:30 PM EDT Appointment [facility] - Vascular [address] [place] [address] Ciarra Colon, DO [address] [place] [address] 04/09/2026 2:00 PM EDT [facility] [address] [place] [address] Ciarra Colon, DO [address] [place] [address] documented as of this encounter Goals Goal [...] documented as of this encounter Care Teams Code Official Relationship Specialty Start Date End Date Jayden Craven MD [address] [place] [address] PCP - General Family Medicine 08/01/25 documented as of this encounter
--- OUTSIDE RECORDS SUMMARY | 2025-09-12 13:31 | XMS_ITS | Encounter Summary ---
Author Organization [employer] [facility] [employer] Address [facility] [id number] [address] [place] [address] Care Team Providers Care Exhibits Coordinator Name Role Phone Jayden Craven MD Primary Care Provider [phone] Reason for Visit * Reason Comments Med Change Request Encounter Details Date Type Department Care Team (Late Contact Info) Description 09/01/2025 Refill [facility] - Family Medicine [address] [place] [address] Bakari Tovar, [address] [place] [address] Other chest pain Social History Tobacco Use [...] 09/18/2025 11:00 AM EDT Office Visit [facility] Cardiology [address] [facility] [address] [place] [address] Brook Thao, HEAD OF SALES AND MARKETING-CESSPOOL CLEANER [address] [place] [phone] Emani Davison, PA-C [address] [place] [address] 10/30/2025 10:00 AM EST Office Visit [facility] [address] [place] [address] Boyd Beck MD [address] [place] [address] 04/03/2026 1:30 PM EDT Appointment [facility] - Vascular [address] [place] [address] Ciarra Colon, DO [address] [place] [address] 04/09/2026 2:00 PM EDT Office Visit [address] [address] Ciarra Colon, DO [address] [place] [address] documented as of this encounter Goals Goal Patient Goal Type Associated Problems Recent Progress Patient-Stated? Author safe discharge to home General Yes Alexandria Solis, RN Note: Evaluation of progress towards goal: safe transition from hospital to home with family/friend support. documented as of this encounter Visit Diagnoses Diagnosis Other chest pain documented in this encounter Additional Health Concerns Assessment Noted Time PHQ-9 Depression Total Score: 0 04/17/20 1:52 PM EDT A Body Mass Index follow-up plan has been documented for the patient 04/25/2025 2:57 PM EDT documented as of this encounter Care Teams Exhibits Coordinator Relationship Specialty Start Date End Date Jayden Craven MD [address] [place] [address] PCP - General Family Medicine 08/01/25 documented as of this encounter
--- OUTSIDE RECORDS SUMMARY | 2025-09-12 13:32 | XMS_ITS | Encounter Summary ---
Author Organization [employer] Address [facility] [id number] [address] [place] [address] Care Team Providers Care Security Operations Engineer Name Role Phone Jayden Craven MD Primary Care Provider [phone] Reason for Visit * Reason Onset Date Comments Med Refill 03/30/2018 Encounter Details Date Type Department Care Team ([facility] Contact Info) Description 03/30/2018 Refill [facility] [address] [place] [address] Misty Good, CAPRICE Med Refill Social History Tobacco Use Types [...] Cardiology [address] [place] [address] Brook Thao, EDGER SAW OPERATOR-JOINT CREASER [address] [place] [address] Emani Davison, PA-C [address] [place], [place] [phone] 10/30/2025 10:00 AM EST Office Visit [facility] - Heart Failure Clinic [address] [place] [address] Boyd Beck MD [address] [place] [address] 04/03/2026 1:30 PM EDT Appointment [facility] - Vascular [address] [place] [address] Ciarra Colon, DO [address] [place] [address] 04/09/2026 2:00 PM EDT Office Visit [facility] [address] [place] [address] Ciarra Colon, DO [address] [place] [address] documented as of this encounter Visit Diagnoses Not on filedocumented in this encounter Additional Health Concerns Infection Onset Date Last Indicated Resolved Time Enteric Rule-Out 06/04/2022 06/07/2022 06/07/2022 7:15 PM EDT Assessment Noted Time PHQ-9 Depression Total Score: 3 01/06/20 18 1:00 PM EST documented as of this encounter Care Teams Security Operations Engineer Relationship Specialty Start Date End Date Jayden Craven MD [address] [place] [address] PCP - General Family Medicine 08/01/25 documented as of this encounter
--- OUTSIDE RECORDS SUMMARY | 2025-09-12 13:32 | XMS_ITS | Encounter Summary ---
[facility] Address [id number] [address] [place] [address] Care Team Providers Care Sewage Disposal Engineer Name Role Phone Jayden Craven MD Primary Care Provider [phone] Encounter Details Date Type Department Care Team (Late st Contact Info) Description 06/23/2018 Refill [facility] [address] [place] [address] Larisa Aviles, CAPRICE Social History [...] 09/18/2025 11:00 AM EDT Office Visit [facility] Cardiology [address] [facility] [place] [address] Brook Thao, COILED TUBING OPERATOR-RAILROAD BRAKEMAN [address] [place] [phone] Emani Davison, PA-C [address] [place] [address] 10/30/2025 10:00 AM EST Office Visit [facility] - Heart Failure Clinic [address] [place] [address] Boyd Beck MD [address] [place] [address] 04/03/2026 1:30 PM EDT Appointment [facility] - Vascular [address] [place] [address] Ciarra Colon DO [address] [facility] [address] [place] [address] 04/09/2026 2:00 PM EDT Office Visit [facility] [address] [place] [address] Ciarra Colon, DO [address] [facility] [address] [place] [address] documented as of this encounter Results * (ABNORMAL) BMP (07/13/2018 10:49 AM EDT) Sodium 142 134 - 146 mmol/L 07/13/2018 4:19 PM EDT [facility] Potassium, Bld 4.3 3.5 - 5.0 mmol/L 07/13/2018 4:19 PM EDT [facility] Chloride 103 98 - 109 mmol/L 07/13/2018 4:19 PM EDT [facility] CO2 28 22 - 32 mmol/L 07/13/2018 4:19 PM EDT [facility] Anion gap 11 4 - 12 mmol/L 07/13/2018 4:19 PM EDT [facility] Comment: ANION GAP CALCULATION DOES NOT INCLUDE K, NORMAL RANGES REFLECT THIS CHANGE BUN 31(H) 5 - 27 mg/dL 07/13/2018 4:19 PM T [facility] Creatinine 1.40(H) 0.40 - 1.00 mg/dL 07/13/2018 4:19 PM EDT [facility] Comment:METHOD TRACEABLE TO IDMS STANDARD Glucose 108(H) 65 - 99 mg/dL 07/13/2018 4:19 PM EDT [facility] Calcium 9.8 8.5 - 10.5 mg/dL 07/13/2018 4:19 PM EDT [facility] GFR MDRD Non Af Amer 36(L) >59 ml/min/1.7 3sq.m 07/13/2018 4:19 PM EDT [facility] GFR MDRD Af Amer 44(L) >59 ml/min/1.7 3sq.m 07/13/2018 4:19 PM EDT [facility] 07/13/2018 10:4 9 AM EDT 07/13/2018 10:50 AM EDT us Cecilia Purcell FIELD INVESTIGATOR BLOOD ORDERABLES Final Res ult [facility] [address] [place] [address], documented in this encounter Visit Diagnoses Diagnosis Essential hypertension, benign- Primary documented in this encounter Additional Health Concerns Infection Onset Date Last Indicated Resolved Time Enteric Rule-Out 06/04/2022 06/07/2022 06/07/2022 7:15 PM EDT Assessment Noted Time PHQ-9 Depression Total Score: 3 01/06/20 18 1:00 PM EST documented as of this encounter Care Teams Sewage Disposal Engineer Relationship Specialty Start Date End Date Jayden Craven MD [address] [place] [address] PCP - General Family Medicine 08/01/25 documented as of this encounter
--- OUTSIDE RECORDS SUMMARY | 2025-09-12 13:32 | XMS_ITS | Patient Health Record ---
Author Organization [facility] [place] Address [address] [place] [address] Care Team Providers Care Legal Librarian Name Role Phone Bean Craven Primary Care Provider Allergies No Known Allergies Reason For Referral No Information Medications Medication SIG (Take, Route, Frequency, Duration) Notes Start Date End Date Status Carvedilol 3.125 MG 1 tablet with food O rally Twice a day; Duration: 90 days Active Atorvastatin Calcium 80 MG 1 tablet Oral ly Once a day Active Oxygen - POC to use continuou s throughout the day. Chronic Hypoxic Respiratory failure; Duration: 365 days 08/11/2025 Active Acetaminophen 500 MG 2 tablet as needed Orally every 6 hrs Active Lisinopril 20 MG 1 tablet Orally Once a day Active Isosorbide Mononitrate ER 60 MG 1 tablet in the morning Orally Once a day Active Allopurinol 100 MG 1 tablet Orally Once a day Active Oxygen - daily - Dx - Oxygen dependant COPD - 2 L; Duration: 1 days 08/10/2025 Active Albuterol Sulfate HFA 108 (90 Base) MCG/ACT 1 puff as needed Inhalation every 4 hrs Active Nitroglycerin 0.4 MG 1 tablet under the tongue and allow to dissolve as needed. Take every 5 minutes up to 3 times if chest pain persists Sublingual Three times a day; Duration: 30 days Active Farxiga 10 MG 1 tablet Orally Once a day Active Ezetimibe 10 MG 1 tablet Orally Once a day Active Xarelto 15 MG 1 tablet with food O rally Once a day Active Gabapentin 100 MG 1 capsule at bedtime Orally Once a day Active Furosemide 40 MG 1 tablet Orally Once a day Active Clopidogrel Bisulfate 75 MG 1 tablet Ora lly Once a day Active Trelegy Ellipta 100-62.5-25 MCG/ACT 1 puff Inhalation Once a day Active Pantoprazole Sodium 40 MG 1 tablet 1/2 t o 1 hour before morning meal Orally Once a day Active Social History Tobacco [...] Problem Status W/U Status Risk Notes Problem Atrial fibrillation (14337217) Atrial fibrillation (I48.91) Active confirmed Problem Hypertension (24183670) Hypertension (I10) Active confirmed Problem Congestive heart failure (05872322) CHF (congestive heart failure) (I50.9) Active confirmed Problem COPD - Chronic obstructive pulmonary disease (74489808) COPD (chronic obstructive pulmonary disease) (J44.9) Active confirmed Problem Pneumonia (740907867) Pneumonia (J18.9) Active confirmed Problem Neuropathy (053302152) Neuropathy (G62.9) Active confirmed Problem Peripheral circulatory disorder associated with diabetes mellitus (999304741) 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 Problem Chronic kidney disease stage 3B (disorder) (408623276) Chronic kidney disease, stage 3b (N18.32) Active confirmed Vital Signs Blood pressure diastolic 66 mm Hg 09/11/2025 Height 62 in 09/11/2025 Blood pressure systolic 108 mm Hg 09/11/2025 Weight 143.6 lbs 09/11/2025 BMI 26.26 kg/m2 09/11/2025 Procedures Procedure Date Ordered Date Performed Result Body Sit e Six minute walk 08/29/2025 N/A Echocardiogram 09/11/2025 N/A Encounters Encounter Location Date Provider Diagnosis [address] [address] 08/10/2025 Bean Merissa COPD (chronic obstructive pulmonary disease) J44.9 ; Pneumonia J18.9 ; CHF (congestive heart failure) I50.9 ; Atrial fibrillation I48.91 ; Hypertension I10 and Neuropathy G62.[address] [address] 09/11/2025 Bean Merissa Chronic kidney disea se, stage 3b N18.32 ; Controlled diabetes mellitus with circulatory complication E11.59 and CHF (congestive heart failure) I50.9 [facility] [address] [place] [address] 08/10/2025 Bean Merissa [facility] [address] [place] [address] 08/11/2025 Bean Craven COPD (chronic obstructive pulmonary disease) J44.9 [facility] [address] [facility] [place] [address] 08/11/2025 Bean Craven [facility] [address] [place] [place] [address] 08/29/2025 Bean Craven COPD (chronic obstructive pulmonary disease) J44.9 [facility] [address] [place] [address] 08/30/2025 Bean Craven Atrial fibrillation I48.91 [facility] [address] [place] [address] 09/04/2025 Bean Craven [facility] [address] [place] [facility] [place] [address] 09/11/2025 Bean Craven CHF (congestive hear t failure) I50.9 and Atrial fibrillation I48.91 [facility] [address] [place] [address] 09/11/2025 Bean Craven Assessments Encounter Date Diagnosis (ICD Code) Assessment Notes Treatment Notes Treatment Clinical Notes Section Notes 08/10/2025 COPD (chronic obstructive pulmonary disease) (ICD-10 - J44.9) needs home porotable oxygen tank due tto COPD - with oxygen dependancy 08/10/2025 Pneumonia (ICD-10 - J18.9) 09/11/2025 Controlled diabetes mellitus with circulatory complication (ICD-10 - E11.59) 09/11/2025 Chronic kidney disease, stage 3b (ICD-10 - N18.32) 08/11/2025 COPD (chronic obstructive pulmonary disease) (ICD-10 - J44.9) 08/29/2025 COPD (chronic obstructive pulmonary disease) (ICD-10 - J44.9) 08/30/2025 Atrial fibrillation (ICD-10 - I48.91) 09/11/2025 Atrial fibrillation (ICD-10 - I48.91) 09/11/2025 CHF (congestive heart failure) (ICD-10 - I50.9) 08/10/2025 CHF (congestive heart failure) (ICD-10 - I50.9) cont with current meds 09/11/2025 CHF (congestive heart failure) (ICD-10 - I50.9) double up the furosemide - for 3 days 08/10/2025 Atrial fibrillation (ICD-10 - I48.91) stabel heart rate 08/10/2025 Hypertension (ICD-10 - I10) 08/10/2025 Neuropathy (ICD-10 - G62.9) Plan Of Treatment Pending Test Test Name Order Date Six minute walk 08/29/2025 Echocardiogram 09/11/2025 Next Appt Details Provider Name:Bean Tejas Craven, 10:45:00 AM, [address] [place], [address], Insurance Providers Payer Name Payer Address Payer Phone Subscriber Number Group Number Insured Name Patient Relationship to Insured Coverage Start Date Coverage End Date [employer] ADV PLAN [address] [place] [address] [id number] Dominique Morris Self - patient is the insured Medical (General) History Medical History History ICD Code Arthritis COPD Hypertension Surgical History Surgery Date(Month/Year) tonsillectomy hysterectomy Hospitalization History Reason Date(Month/Year) see above
== END 2025-09-11 10:01 | disposition home or self-care (01) ==
LOC: CARD 09-12 13:27
PROVIDERS: PCP Internal Medicine; Visit Provider Family Medicine
DX: J44.9 Chronic obstructive pulmonary disease, unspecified (principal)
CPT/HCPCS: 94618

== ENCOUNTER 2025-09-22 19:08 | Inpatient (IN) | payer MEDICARE, SELFPAY ==
--- OUTSIDE RECORDS SUMMARY | 2025-08-04 06:15 | XMS_ITS ---
Author Organization The 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, [facility] D/C--07/28 Pneumonia Encounters Encounter Location Date Provider Diagnosis [address] [address] 08/04/2025 Bean Craven Plan Of Treatment Next Appt Details Provider Name:Bean Craven, 10:45:00 AM, [address] [place], [address], Progress Notes * Dominique MORRIS KDOB:[birth year] (84 yo F)Acc No.[id number]:08/04/2025 UNLOCKED PROGRESS NOTE New Patient Patient: Panda WOODsarwat Santamaria :?Jayden LazaroRomelia Craven ([facility]), MDDOB:1940???Age: 84 Y???Sex:FemaleDate:08/04/2025Phone:[phone]:[address], [place]-[id number] Subjective: * Chief Complaints: * 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 * Medical History: Objective: * Vitals: Assessment: Plan: * Treatment: * * Electronic signature of Bean Craven MD, [id number] on 09/25/2025 at 07:16 AM EDT Sign off status: PendingVisit Status:?N/S N/C (No Show/No Charge) * Provider: Renetta Craven ([facility])MD Date: 0 08/04/2025 Generated for Printing/Faxing/eTransmitting on:?09/25/2025 07:16 AM EDT
--- OUTSIDE RECORDS SUMMARY | 2025-08-04 06:15 | XMS_ITS ---
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, [facility] D/C--07/28 Pneumonia Encounters Encounter Location Date Provider Diagnosis [address] [address] 08/04/2025 Bean Craven Plan Of Treatment Next Appt Details Provider Name:Bean Craven, 10:45:00 AM, [address] [place], [address], Progress Notes * Dominique MORRIS KDOB:[birth year] (84 yo F)Acc No.[id number]:08/04/2025 UNLOCKED PROGRESS NOTE New Patient Patient: Panda WOODsarwat Santamaria :?Jayden LazaroRomelia Craven ([facility]), MDDOB:1940???Age: 84 Y???Sex:FemaleDate:08/04/2025Phone:[phone]:[address], [id number] Subjective: * Chief Complaints: * 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 * Medical History: Objective: * Vitals: Assessment: Plan: * Treatment: * * Electronic signature of Bean Craven MD, [id number] on 09/22/2025 at 07:17 PM EDT Sign off status: PendingVisit Status:?N/S N/C (No Show/No Charge) * Provider: Renetta Craven ([facility])MD Date: 0 08/04/2025 Generated for Printing/Faxing/eTransmitting on:?09/22/2025 07:17 PM EDT
--- OUTSIDE RECORDS SUMMARY | 2025-09-11 06:45 | XMS_ITS ---
Author Organization The [facility] in [place] Address [address] [place] [address] Care Team Providers Care Silo Painter Name Role Phone Bean Craven Primary Care Provider [phone] Allergies No Known Allergies REASON FOR VISIT Presents to office with caregiver for 1 month follow up Medications Medication SIG (Take, Route, Frequency, Duration) Notes Start Date End Date Status Pantoprazole Sodium 40 MG 1 tablet 1/2 t o 1 hour before morning meal Orally Once a day ActiveOxygen -POC to use continuous throughout the day. Chronic Hypoxic Respiratory failure; Duration: 365 days5ActiveLisinopril 20 MG1 tablet Orally Once a dayActiveOxygen -daily - Dx - Oxygen dependant COPD - 2 L; Duration: 1 days5ActiveNitroglycerin 0.4 MG1 tablet under the tongue and allow to dissolve as needed. Take every 5 minutes up to 3 times if chest pain persists Sublingual Three times a day; Duration: 30 daysActiveIsosorbide Mononitrate ER 60 MG1 tablet in the morning Orally Once a dayActiveFarxiga 10 MG 1 tablet Orally Once a dayActiveEzetimibe 10 MG1 tablet Orally Once a dayActive Gabapentin 100 MG1 capsule at bedtime Orally Once a dayActiveFurosemide 40 MG1 tablet Orally Once a dayActiveClopidogrel Bisulfate 75 MG1 tablet Orally Once a dayActiveCarvedilol 3.125 MG1 tablet with food Orally Twice a day; Duration: 90 daysActiveAtorvastatin Calcium 80 MG1 tablet Orally Once a dayActiveAllopurinol 100 MG1 tablet Orally Once a dayActiveAlbuterol Sulfate HFA 108 (90 Base) MCG/ACT1 puff as needed Inhalation every 4 hrsActiveTrelegy Ellipta 100-62.5-25 MCG/ACT1 puff Inhalation Once a dayActiveAcetaminophen 500 MG2 tablet as needed Orally every 6 hrsActiveXarelto 15 MG1 tablet with food Orally Once a dayActive Social History Tobacco Use: Social History Observation Description Date Details (start date - stop date) Never Smoker NA - NA Tobacco Control (Standard) Question Answer Notes Tobacco use: Nonsmoker AUDIT-C (Standard) Question Answer Notes Did you have a drink containing alcohol in the p ast year? 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) ActiveconfirmedProblemChronic kidney disease stage 3B (disorder) (232234866) Chronic kidney disease, stage 3b (N18.32)Activeconfirmed Vital Signs Weight 143.6 lbs 09/11/2025 Height 62 in 09/11/2025 Blood pressure systolic 108 mm Hg 09/11/20 25 Blood pressure diastolic 66 mm Hg 025 BMI 26.26 kg/m2 09/11/2025 Encounters Encounter Location Date Provider Diagnosis [facility] [address] [place] [address] 09/11/2025 Bean Craven Chronic kidney disea se, stage 3b N18.32 ; Controlled diabetes mellitus with circulatory complication E11.59 and CHF (congestive heart failure) I50.9 Assessments Encounter Date Diagnosis (ICD Code) Assessment Notes Treatment Notes Treatment Clinical Notes Section Notes 09/11/2025 Chronic kidney disease, stage 3b (ICD-10 - N18.32) 09/11/2025ontrolled diabetes mellitus with circulatory complication (ICD-10 - E11.59)09/11/2025HF (congestive heart failure) (ICD-10 - I50.9)double up the furosemide - for 3 days Plan Of Treatment Treatment Notes Assessment Notes CHF (congestive heart failure) double up the furosemide - for 3 days Next Appt Details Provider Name:Bean Lazaro Yinkasimona, 10:45:00 AM, [address] [place], [address], Progress Notes * Dominique FINN KDOB:[birth year] (84 yo F)Acc No.[id number]:09/11/2025 Progress Note Patient: Dominique WOOD :?Jayden Craven ([facility]), MDDOB:1940???Age: 84 Y???Sex:FemaleDate:09/11/2025Phone:[phone]:[address], [place], [place]Vdpko In:10:59 AM ESTCheck Out:11:51 AM EST Subjective: * Chief Complaints: * P resents to office with caregiver for 1 month follow up * HPI: ???General:? COPD - stable A-fib - rate controled. * Active Problem List J44.9 COPD (chronic obstru ctive pulmonary disease) Modified On:08/10/2025 Status:aoxdjmpcfC17.9Pneumonia Modified On:08/10/2025 Status:toeameyiyL16.9CHF (congestive heart failure) Modified On:08/10/2025 Status:oewlnxcrqS67.91Atrial fibrillation Modified On:08/10/2025 Status:altmfwxpjV63Bilyovzmfuvv Modified On:08/10/2025 Status:nvlubarfyR98.9Neuropathy Modified On:08/10/2025 Status:rviekfdgsU24.32Chronic kidney disease, stage 3b Modified On:09/11/2025 Status:jmrzctqtdP99.59Controlled diabetes mellitus with circulatory complication Modified On:09/11/2025 Status:confirmed * Medical History: * Surgical History: h ysterectomy tonsillectomy * Hospitalization/Major Diagno stic Procedure: s ee above * Family History: F ather: , diagnosed with Heart Disease, Arthritis. M other: , diagnosed with Arthritis. B rother(s): alive. S ister(s): alive, diagnosed with Heart Disease. S on(s): alive, diagnosed with Heart Disease. D nicky(s): alive. 1 brother(s) , 1 sister(s) . 2 son(s) , 1 daughter(s) . . * Social History: ???Tobacco Use:?Tobacco Control (Standard)?Tobacco use:?Nonsmoker ???Drug/Alcohol:?AUDIT-C (Standard)?Did you have a drink containing alcohol in the past year??No ?Points?0 ?Interpretation?Negative * Medications: T akingAcetaminophen 500 MG Tablet 2 tablet as needed Orally every 6 hrs Albuterol Sulfate HFA 108 (90 Base) MCG/ACT Aerosol Solution 1 puff as needed Inhalation every 4 hrs Allopurinol 100 MG Tablet 1 tablet Orally Once a day Atorvastatin Calcium 80 MG Tablet 1 tablet Orally Once a day Carvedilol 3.125 MG Tablet 1 tablet with food Orally Twice a day Clopidogrel Bisulfate 75 MG Tablet 1 tablet Orally Once a day Ezetimibe 10 MG Tablet 1 tablet Orally Once a day Farxiga(Dapagliflozin Propanediol) 10 MG Tablet 1 tablet Orally Once a day Furosemide 40 MG Tablet 1 tablet Orally Once a day Gabapentin 100 MG Capsule 1 capsule at bedtime Orally Once a day Isosorbide Mononitrate ER 60 MG Tablet Extended Release 24 Hour 1 tablet in the morning Orally Once a day Lisinopril 20 MG Tablet 1 tablet Orally Once a day Nitroglycerin 0.4 MG Tablet Sublingual 1 tablet under the tongue and allow to dissolve as needed. Take every 5 minutes up to 3 times if chest pain persists Sublingual Three times a day Oxygen - - daily - Dx - Oxygen dependant COPD - 2 L Oxygen - - POC to use continuous throughout the day. Chronic Hypoxic Respiratory failure Pantoprazole Sodium 40 MG Tablet Delayed Release 1 tablet 1/2 to 1 hour before morning meal Orally Once a day Trelegy Ellipta(Mceohtfjgsk-Fcamotmzk-Mhwsie) 100-62.5-25 MCG/ACT Aerosol Powder Breath Activated 1 puff Inhalation Once a day Xarelto(Rivaroxaban) 15 MG Tablet 1 tablet with food Orally Once a day Medication List reviewed and reconciled with the patientTaking Acetaminophen 500 MG Tablet 2 tablet as needed Orally every 6 hrs Taking Albuterol Sulfate HFA 108 (90 Base) MCG/ACT Aerosol Solution 1 puff as needed Inhalation every 4 hrs Taking Allopurinol 100 MG Tablet 1 tablet Orally Once a day Taking Atorvastatin Calcium 80 MG Tablet 1 tablet Orally Once a day Taking Carvedilol 3.125 MG Tablet 1 tablet with food Orally Twice a day Taking Clopidogrel Bisulfate 75 MG Tablet 1 tablet Orally Once a day Taking Ezetimibe 10 MG Tablet 1 tablet Orally Once a day Taking Farxiga(Dapagliflozin Propanediol) 10 MG Tablet 1 tablet Orally Once a day Taking Furosemide 40 MG Tablet 1 tablet Orally Once a day Taking Gabapentin 100 MG Capsule 1 capsule at bedtime Orally Once a day Taking Isosorbide Mononitrate ER 60 MG Tablet Extended Release 24 Hour 1 tablet in the morning Orally Once a day Taking Lisinopril 20 MG Tablet 1 tablet Orally Once a day Taking Nitroglycerin 0.4 MG Tablet Sublingual 1 tablet under the tongue and allow to dissolve as needed. Take every 5 minutes up to 3 times if chest pain persists Sublingual Three times a day Taking Oxygen - - daily - Dx - Oxygen dependant COPD - 2 L Taking Oxygen - - POC to use continuous throughout the day. Chronic Hypoxic Respiratory failure Taking Pantoprazole Sodium 40 MG Tablet Delayed Release 1 tablet 1/2 to 1 hour before morning meal Orally Once a day Taking Trelegy Ellipta(Saankihjxeq-Zsyxyxqtx-Tprkib) 100-62.5-25 MCG/ACT Aerosol Powder Breath Activated 1 puff Inhalation Once a day Taking Xarelto(Rivaroxaban) 15 MG Tablet 1 tablet with food Orally Once a day Medication List reviewed and reconciled with the patient * Allergies: N .K.D.A.no[Allergies Verified] Objective: * Vitals: W t:143.6lbs, Ht: 62 in, BP:108/66mm Hg, BMI:26.26Index, Ht-cm: 157.48 cm, Wt-k.14 kg. Assessment: * Assessment: 1.?Chronic kidney disease, stage 3b - N18.32 (Primary)???2.?Controlled diabetes mellitus with circulatory complication - E11.59???3.?CHF (congestive heart failure) - I50.9??? Plan: * Treatment: Notes: double up the furosemide - for 3 days?? * Procedure Codes: 3 078F DIAST BP < 80 MM [id number] SYST BP LT 130 MM HG * Preventive Medicine: ??Screenings/Counseling:?BMI ACTION PLAN?Above Normal BMI Follow-up?Dietary management education, guidance, and counseling See treatment section of progress note for complete details of management plan. ?FALL RISK SCREENING?Fall Risk Assessment:?No falls in the past year * * Sign off status: CompletedVisit Status:?CHK (Check Out) true * Provider: Renetta Craven ([facility])MD Date: 1 Generated for Printing/Faxing/eTransmitting on:?09/25/2025 07:16 AM EDT History and Physical Notes * HPI (History of Present Illness) CategorySub-CategoryDetailNotesCategory NotesGeneral COPD - stable A-fib - rate controled
--- OUTSIDE RECORDS SUMMARY | 2025-09-11 06:45 | XMS_ITS ---
Author Organization The [facility] in [place] Address [address] [place] [address] Care Team Providers Care Forwarder Operator Name Role Phone Bean Craven Primary Care Provider [phone] Allergies No Known Allergies REASON FOR [...] alcohol in the p ast year? 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 [address] [place] [address] 09/11/2025 Bean Craven Chronic kidney disea se, [...] Provider Name:Bean Craven, 10:45:00 AM, [address] [place], [address], Progress Notes * Dominique FINN KDOB:[birth year] (84 yo F)Acc No.[id number]:09/11/2025 Progress Note Patient: Dominique WOOD :?Jayden Craven ([facility]), MDDOB:1940???Age: 84 Y???Sex:FemaleDate:09/11/2025Phone:[phone]:[address], [place], [place]Uqrdb In:10:59 AM ESTCheck Out:11:51 AM EST Subjective: * Chief Complaints: * P resents to office with caregiver for 1 month follow up * HPI: ???General:? COPD - stable A-fib - rate controled. * Active Problem List J44.9 COPD (chronic obstru ctive pulmonary disease) Modified On:08/10/2025 Status:arsgjtqgiL81.9Pneumonia Modified On:08/10/2025 Status:zffdnscxnR32.9CHF (congestive heart failure) Modified On:08/10/2025 Status:esupyoncvF42.91Atrial fibrillation Modified On:08/10/2025 Status:oayewtpauI10Yaktbchzyaez Modified On:08/10/2025 Status:ogmljtihzA78.9Neuropathy Modified On:08/10/2025 Status:akpurswhlY73.32Chronic kidney disease, stage 3b Modified On:09/11/2025 Status:canvqrudyY90.59Controlled diabetes mellitus with circulatory complication Modified On:09/11/2025 [...] morning meal Orally Once a day Trelegy Ellipta(Yumrchxmvqs-Wlhoeevsl-Xmavbd) 100-62.5-25 MCG/ACT Aerosol Powder Breath Activated 1 [...] meal Orally Once a day Taking Trelegy Ellipta(Uxenbmbopiv-Qvrgjuobv-Qeaabk) 100-62.5-25 MCG/ACT Aerosol Powder Breath Activated 1 [...] 3 078F DIAST BP < 80 MM [id number] SYST BP LT 130 MM HG * Preventive Medicine: ??Screenings/Counseling:?BMI ACTION PLAN?Above Normal BMI Follow-up?Dietary management education, guidance, and counseling See treatment section of progress note for complete details of management plan. ?FALL RISK SCREENING?Fall Risk Assessment:?No falls in the past year * * Sign off status: CompletedVisit Status:?CHK (Check Out) true * Provider: Renetta Craven ([facility])MD Date: 1 Generated for Printing/Faxing/eTransmitting on:?09/22/2025 07:16 PM EDT History and Physical Notes * HPI (History of Present Illness) CategorySub-CategoryDetailNotesCategory NotesGeneral COPD - stable A-fib - rate controled
--- OUTSIDE RECORDS SUMMARY | 2025-09-11 07:42 | XMS_ITS ---
Author Organization The [facility] in [place] Address [address] [place] [address] Care Team Providers Care Plant Production Manager Name Role Phone Bean Craven Primary Care Provider [phone] REASON FOR VISIT hold for Echo Procedures Procedure Date Ordered Date Performed Result Body Sit e Echocardiogram 09/11/2025 N/A Encounters Encounter Location Date Provider Diagnosis [facility] [address] [place] [address] 09/11/2025 Bean Craven CHF (congestive hear t failure) I50.9 and Atrial fibrillation I48.91 Assessments Encounter Date Diagnosis (ICD Code) Assessment Notes Treatment Notes Treatment Clinical Notes Section Notes 09/11/2025 CHF (congestive heart failure) ( ICD-10 - I50.9) 09/11/2025trial fibrillation (ICD-10 - I48.91) Plan Of Treatment Pending Test Test Name Order Date Echocardiogram 09/11/2025 Next Appt Details Provider Name:Bean Lazaro Yinkasimona, 10:45:00 AM, [address] [place], [address], Progress Notes * Dominique FINN KDOB:[birth year] (84 yo F)Acc No.[id number]:09/11/2025 Patient:?Dominique FINN :1940???Age:84 Y???Sex:FemalePhone:[phone] Address:[address] [place], [address] Subjective: * Chief Complaints: * h old for Echo * Medical History: * Surgical History: * Hospitalization/Major Diagno stic Procedure: * Medications: Objective: * Vitals: * Physical Examination: ??? Assessment: * Assessment: 1.?CHF (congestive heart failure) - I50.9 (Primary)???2.?Atrial fibrillation - I48.91??? Plan: * Treatment: ?Procedure: Echocardiogram2.?Atrial fibrillation?Procedure: Echocardiogram * Procedure Codes: * true * Date:?Generated for Printing/Faxing/eTransmitting on:?09/25/2025 07:16 AM EDT
--- OUTSIDE RECORDS SUMMARY | 2025-09-11 07:42 | XMS_ITS ---
Author Organization [facility] in [place] Address [address] [place] [address] Care Team Providers Care Hydrochloric Manufacturing Supervisor Name Role Phone Bean Craven Primary Care Provider REASON FOR VISIT hold for Echo Procedures Procedure Date Ordered Date Performed Result Body Sit e Echocardiogram 09/11/2025 N/A Encounters Encounter Location Date Provider Diagnosis [facility] [address] [place] [address] 09/11/2025 Bean Craven CHF (congestive hear t [...] Name:Bean Lazaro Yinkasimona, 10:45:00 AM, [address] [place], [address], Progress Notes * Dominique FINN KDOB:[birth year] (84 yo F)Acc No.[id number]:09/11/2025 Patient:?Dominique FINN :1940???Age:84 Y???Sex:FemalePhone:[phone] Address:[address] [place], [address] Subjective: * Chief Complaints: * h old for Echo * Medical History: * Surgical History: * Hospitalization/Major Diagno stic Procedure: * Medications: Objective: * Vitals: * Physical Examination: ??? Assessment: * Assessment: 1.?CHF (congestive heart failure) - I50.9 (Primary)???2.?Atrial fibrillation - I48.91??? Plan: * Treatment: ?Procedure: Echocardiogram2.?Atrial fibrillation?Procedure: Echocardiogram * Procedure Codes: * true * Date:?Generated for Printing/Faxing/eTransmitting on:?09/22/2025 07:17 PM EDT
[2025-09-22] VITALS (26 sets, daily range): BP systolic 69–120; BP diastolic 41–80; PULSE 50–72; TEMP 35.3–36.3; O2SAT 88–97; BMI 26.3
--- OUTSIDE RECORDS SUMMARY | 2025-09-22 19:17 | XMS_ITS | Clinical Summary ---
Author Organization [employer] tem Address [id number] [address] [place] [address] Care Team Providers Care On Site Nurse Name Role Phone Jayden Craven MD Primary Care Provider [phone] Allergies Active AllergyReactionsCriticalityNoted TqpjTqmkzzdgJsaemjaveiRjnrvuvy24/09/2018 Medications MedicationSigDispense QuantityRefillsLast FilledStart DateEnd DateStatus ONE DAILY MULTIVITAMIN ORAL Take by mouth in the morning.Active acetaminophen (TYLENOL) 500 mg tablet Take 1 tablet (500 mg total) by mouth every 6 (six) hours as needed for pain or headaches. Takes 1-2 tabs PRNActive allopurinoL (ZYLOPRIM) 100 mg tablet Indications:HyperuricemiaTake 1 tablet (100 mg total) by mouth in the morning. 90 tablet 5Active atorvastatin (LIPITOR) 80 mg tablet Indications:Atherosclerosis of [place] coronary artery of [place] heart with stable angina pectorisTake 1 tablet (80 mg total) by mouth in the morning. 90 tablet 5Active carvediloL (COREG) 6.25 mg tablet Indications:Acute on chronic diastolic congestive heart failure (CMS-HCC)Take 1 tablet (6.25 mg total) by mouth in the morning and 1 tablet (6.25 mg total) in the evening. Take with meals. 180 tablet 5Active clopidogreL (PLAVIX) 75 mg tablet Indications:Atherosclerosis of [place] coronary artery of [place] heart with stable angina pectorisTake 1 tablet (75 mg total) by mouth in the morning. 90 tablet 5Active dapagliflozin propanediol (FARXIGA) 10 mg tablet Indications:Acute on chronic diastolic congestive heart failure ([facility])Take 1 tablet (10 mg total) by mouth in the morning. 90 tablet tive ezetimibe (ZETIA) 10 mg tablet Indications:Mixed hyperlipidemiaTake 1 tablet (10 mg total) by mouth in the morning. 90 tablet tive jttllmqvaxl-qnkutsjag-chnsgtdz (TRELEGY ELLIPTA) 100-62.5-25 mcg blister with device Indications:COPD, moderate ([facility])Inhale 1 puff in the morning. 180 each tive furosemide (LASIX) 40 mg tablet Indications:Acute on chronic diastolic congestive heart failure ([facility])Take 1 tablet (40 mg total) by mouth daily. 90 tablet tive gabapentin (NEURONTIN) 100 mg capsule Indications:Post herpetic neuralgiaTake 1 capsule (100 mg total) by mouth in the morning and 1 capsule (100 mg total) before bedtime. 180 capsule tive isosorbide mononitrate (IMDUR) 60 mg 24 hr tablet Indications:Atherosclerosis of [place] coronary artery of [place] heart with stable angina pectorisTake 1 tablet (60 mg total) by mouth daily. 90 tablet tive pantoprazole (PROTONIX) 40 mg EC tablet Indications:Gastroesophageal reflux disease, unspecified whether esophagitis presentTake 1 tablet (40 mg total) by mouth in the morning. 90 tablet 5Active rivaroxaban (XARELTO) 15 mg tablet Indications:Paroxysmal atrial fibrillation ([facility])Take 1 tablet (15 mg total) by mouth in the morning. TAKE 1 TABLET (15 MG TOTAL) BY MOUTH IN THE MORNING. 90 tablet 5Active lisinopriL (PRINIVIL,ZESTRIL) 10 mg tablet Indications:Acute on chronic diastolic congestive heart failure ([facility])Take 1 tablet (10 mg total) by mouth in the morning. 90 tablet 5Active nitroglycerin (NITROSTAT) 0.4 MG SL tablet Indications:Other chest painTake 1 tablet (0.4 mg total) by mouth every 5 (five) minutes as needed for chest pain. PLACE 1 TABLET UNDER THE TONGUE EVERY 5 MINUTES NEEDED FOR CHEST PAIN 25 tablet 5Active Active Problems ProblemNoted DateDiagnosed DateAcute on chronic diastolic congestive heart wfptlmx5507/11/2022losed fracture of nasal bone with routine rhgwxxu5407/11/2022 COPD, /12/2022ulmonary hypertension due to mitral valve disease 07/11/2022ilateral carotid artery cczkceoo59/28/2022easonal allergic rhinitis 01/29/2022pinal stenosis of lumbar pxjewm2802/05/2021lass 1 obesity in adult 07/02/2020Type 2 diabetes mellitus with kidney complication, without long-term current use of idyowoa4604/24/2020Persistent atrial mlkmiwtjdcsn53/08/2019 Uzttyysxazfkk89/06/2019Atherosclerosis of [place] coronary artery of [place] heart with stable angina jwqpfmfo52/26/2018GERD (gastroesophageal reflux disease) 03/24/2018Occipital mxeuov3001/06/2018Left subclavian artery txnrdibvf25/07/2018 Stenosis of right vertebral eldkjh5801/06/2018Essential qnndgyiuymyb48/07/2018 Mixed jqjtegzkkbdcuv46/07/2018Obstructive sleep apnea zjysvwij81/11/2016 Resolved Problems ProblemNoted DateDiagnosed DateResolved DateChronic renal disease, stage IV /Embolism and thrombosis of other ibauwhbu81/02/2023 06/14/2024cute renal failure superimposed on stage 3b chronic kidney disease /besity (BMI 30-39.9)/tage 3 chronic kidney rqnjjlm81therosclerosis of [place] coronary artery of [place] heart with unstable angina eaguvkef12Unstable angina Overview (03/25/2018): Added automatically from request for surgery [id number] Brain mass Encounters DateTypeDepartmentCare UkvhIbpwkcwzrdo61/03/2025Refill [facility] [address] [place] [address] Bakari Tovar, DO Other chest pain09/01/2025Telephone [facility] [address] [place] [address] Mary Bingham, [facility] 07/28/2025Telephone [facility] [address] [place] [address] Faith Singh, CAPRICE orders needed fhmnuoiy00/29/2025Telephone [facility] [address] [place] [address] Estelal Eagle, [facility] 07/25/2025Telephone [facility] [address] [place] [address] Mary Bingham, [facility] 07/24/2025Refill [facility] [address] [place] [address] Christal Douglas, [facility] 06/28/2025Refill [facility] [address] [place] [address] Kay Echevarria, [employer] Other chest painfrom Last 3 Months Immunizations ImmunizationAdministration DatesNext DueCOVID-19, mRNA, LNP-S, PF, 30mcg/0.3mL Dose09/13/2021,01/22/2021,01/16/2021,01/01/2021,12/24/2020Influenza High Dose Preservative Free IM09/04/2019,10/02/2015Influenza Vaccine, Quadrivalent, Eqyvknotfh69/10/2023,10/21/2021Influenza, High-dose, Hkkztbmmidgf75/06/2022, 08/19/2020Influenza, Injectable, Mdck, Preservative Free, Quad12/15/2018 Influenza, Injectable, Dmzlgsozgzid93/15/2021Influenza, Injectable, quadrivalent (PF)11/09/2017Influenza, Intradermal (Pf)09/13/2020Influenza, Trivalent, Covlcxseuj05/26/2024Pneumococcal Conjugate 13-Rifoai0611/09/2017,09/27/2013 Pneumococcal Khtgkpgnbefrzt03/15/2016RSV, recombinant, protein subunit RSVpreF, adjuvant reconstituted, 0.5 mL, PF10/20/2023Tdap02/11/2016Zoster Vaccine Ehxqijbukbh20/06/2019 Family History Medical HistoryRelationNameCommentsStrokeBrotherHeart diseaseFatherNo Known ProblemsMotherHeart diseaseSisterHeart attackSonHeart diseaseSonStrokeSon RelationNameStatusCommentsBrotherAliveFatherDeceasedMotherDeceasedSisterAliveSon Social History Tobacco UseTypesPacks/DayYears UsedDateSmoking Tobacco: NeverSmokeless Tobacco: Never Tobacco Cessation:Counseling Given: Not Answered Alcohol UseStandard Drinks/WeekCommentsNo0 (1 standard drink = 0.6 oz pure alcohol)PHQ-2AnswerDate RecordedTotal Xyklj1155ChildcareAnswerDate OtvtzrpiJspcjidhjIpcfxuz70/12/2019EmploymentAnswerDate RecordedEmploymentUnknown 05/11/2019Hunger ScreeningAnswerDate RecordedWithin the past 12 months we worried whether our food would run out before we got money to buy more.Never True04/17/2025Within the past 12 months the food we bought just didn't last and we didn't have money to get more.Never True04/17/2025Purpose - LifeAnswerDate RecordedPurpose and direction in knkpBngwghn67/11/2021CommentsNoSex and Gender InformationValueDate RecordedSex Assigned at BirthNot on fileLegal Sex Ktpbdw1007/05/2015 11:54 AM EDTGender IdentityNot on fileSexual OrientationNot on file Last Filed Vital Signs Vital SignReadingTime TakenCommentsBlood Fmhjivfo037/50004/17/2025 1:53 PM EDT Ostbn515304/10/2025 10:27 AM CFULlzsiqwoxqh59.2 ??C (97.1 ??F)04/17/2025 1:53 PM EDTRespiratory Ljug209404/17/2025 1:53 PM EDTOxygen Bnmzvqswlh51%04/10/2025 10:27 AM EDTInhaled Oxygen Concentration--Xvrlkt74.2 kg (141 lb 9.6 oz)04/17/2025 1:53 PM PDEPrydwq726.5 cm (5' 2.01 )04/17/2025 1:53 PM EDTBody Mass Index25.89 04/17/2025 1:53 PM EDT Plan of Treatment DateTypeDepartmentCare Team (Latest Contact Info)Wtfdryrbzrr79/01/2025 10:00 AM ESTOffice Visit [facility] [address] [place] [address] Boyd Beck MD [address] [place] [address] 04/03/2026 1:30 PM EDTAppointment [facility] [address] [place] [address] Ciarra Colon, DO [address] [employer] [facility] [address] [place] [address] 04/09/2026 2:00 PM EDTOffice Visit [address] [address] Ciarra Colon, DO [address] [employer] [facility] [address] [place] [address] Health MaintenanceDue DateLast DoneCommentsMedicare Annual Wellness Visit 1938Zoster (Shingles) Vaccine (2 of 2)Fall Risk Kypvazrxz354DTaP,Tdap and Td Vaccines (2 - Td or Tdap) Depression Lguraplpq27Tobacco Screening 5COVID-19 QkgmxngVbbrmfqvwdpn00/06/2022, 10/21/2021, 09/13/2021, Additional history existsInfluenza MwyguvdNuwovcmgkttt74/26/2024, 10/09/2023, 09/04/2022, Additional history exists Goals GoalPatient Goal TypeAssociated ProblemsRecent ProgressPatient-Stated?Author safe discharge to home Alexandria Gray RN Note: Evaluation of progress towards goal: safe transition from hospital to home with family/friend support. Medical Devices ImplantedTypeAreaManufacturerDevice IdentifierShelf Expiration DateModel / Serial / LotLen 23.5 Christ Rpl 05361 - [id number] - [id number] Implanted:Qty: 1 on 07/08/2018 by Lisa Bliss MD at [facility]: [id number] / [id number] / NALens Iol Ultrasert 24.0d - [id number] - [id number] Implanted:Qty: 1 on 08/05/2018 by Lisa Bliss MD at [facility]: [id number] 24.0 / [id number] / NADes Xience Alpine 3.00x18 Rx Rpl [id number] - [id number] Implanted:Qty: 1 on 03/31/2018 by Austin Vyas MD at [facility]/A: [id number] / / [id number] Xience Alpine 3.00x12 Rx Rpl [id number] - [id number] Implanted:Qty: 1 on 03/31/2018 by Austin Vyas MD at [facility]/A: [id number] / / [id number] Xience Alpine 3.50x12 Rx Rpl [id number] - [id number] Implanted:Qty: 1 [facility] 03/31/[facility]: [id number] / / [id number] Insurance Advance Directives TypeDate RecordedPatient RepresentativeExplanationDurable Power of Radar Signal Processing Engineer * Full Code (Latest Code Status on File) Date ActivatedDate InactivatedComments07/11/2022 5:21 PM07/14/2022 5:54 PM * Full Code Date ActivatedDate UoemjfcfwjwRxvvubbk19/8/2017 8:29 PM11/11/2017 11:09 PM Care Teams Team MemberRelationshipSpecialtyStart DateEnd Date Jayden Craven MD [address] [place] [address] PCP - GeneralFamily Medicine08/01/25
--- OUTSIDE RECORDS SUMMARY | 2025-09-22 19:17 | XMS_ITS | Clinical Summary ---
Author Organization [facility] Address [address] [place] [address] Care Team Providers Care Grease Buffer Name Role Phone Unavailable Primary Care Provider Unavailabl e Social History Tobacco UseTypesPacks/DayYears UsedDateSmoking Tobacco: Never Assessed CommentsUnknownSex and Gender InformationValueDate RecordedSex Assigned at Not on fileLegal EhyGsrzhy79/30/2022 12:01 AM EDTGender IdentityNot on file Sexual OrientationNot on file Plan of Treatment DateTypeDepartmentCare Team (Latest Contact Info)Drxmpdwnfup91/24/2025 11:40 AM ESTOffice Visit [facility] [place] [address] [place] [address] Mahin Douglsa MD [address] [place] [address] Health MaintenanceDue DateLast DoneCommentsMedicare Annual Wellness (AWV) 1938Depression Oravynfnd35/28/1950Fall Risk Echctjqvq84/28/2003Zoster Vaccines (2 of 2)COVID-19 Vaccine ( season) 510/04/2022, 10/21/2021, 09/13/2021, Additional history existsInfluenza Vaccine (#1)512/, 10/09/2023, 09/04/2022, Additional history existsAdult Xgnsagz48/Pneumococcal Vaccine: 50+ YearsCompleted 11/09/2017, 02/12/2016, 09/27/2013HIB VaccinesAged OutNo longer eligible based on patient's age to complete this topicHPV VaccinesAged OutNo longer eligible based on patient's age to complete this topicIPV VaccinesAged OutNo longer eligible based on patient's age to complete this topicMeningococcal B Vaccine Aged OutNo longer eligible based on patient's age to complete this topic Meningococcal VaccineAged OutNo longer eligible based on patient's age to complete this topicRotavirus VaccinesAged OutNo longer eligible based on patient's age to complete this topic Insurance
--- OUTSIDE RECORDS SUMMARY | 2025-09-22 19:18 | XMS_ITS | Patient Health Record ---
Author Organization [facility] [place] Address [address] [place] [address] Care Team Providers Care Mercury Washer Name Role Phone Bean Craven Primary Care Provider Allergies No Known Allergies Reason For Referral No Information Medications Medication SIG (Take, Route, Frequency, Duration) Notes Start Date End Date Status Carvedilol 3.125 MG 1 tablet with food Orally Tw ice a day; Duration: 90 days ActiveAtorvastatin Calcium 80 MG1 tablet Orally Once a dayActiveOxygen -POC to use continuous throughout the day. Chronic Hypoxic Respiratory failure; Duration: 365 days5ActiveAcetaminophen 500 MG2 tablet as needed Orally every 6 hrsActiveLisinopril 20 MG1 tablet Orally Once a dayActiveIsosorbide Mononitrate ER 60 MG1 tablet in the morning Orally Once a dayActiveAllopurinol 100 MG1 tablet Orally Once a dayActiveOxygen -daily - Dx - Oxygen dependant COPD - 2 L; Duration: 1 days5ActiveAlbuterol Sulfate HFA 108 (90 Base) MCG/ACT1 puff as needed Inhalation every 4 hrsActiveNitroglycerin 0.4 MG1 tablet under the tongue and allow to dissolve as needed. Take every 5 minutes up to 3 times if chest pain persists Sublingual Three times a day; Duration: 30 days ActiveFarxiga 10 MG1 tablet Orally Once a dayActiveEzetimibe 10 MG1 tablet Orally Once a dayActiveXarelto 15 MG1 tablet with food Orally Once a dayActive Gabapentin 100 MG1 capsule at bedtime Orally Once a dayActiveFurosemide 40 MG1 tablet Orally Once a dayActiveClopidogrel Bisulfate 75 MG1 tablet Orally Once a dayActiveTrelegy Ellipta 100-62.5-25 MCG/ACT1 puff Inhalation Once a dayActive Pantoprazole Sodium 40 MG1 tablet 1/2 to 1 hour before morning meal Orally Once a dayActive Social History Tobacco Use: Social History Observation Description Date Details (start date - stop date) Never Smoker NA - NA Tobacco Control (Standard) Question Answer Notes Tobacco use: Nonsmoker AUDIT-C (Standard) Question Answer Notes Did you have a drink containing alcohol in the p ast year? No Khenkh5RormvwkmcmiijcMudiisfr Problems Problem Type SNOMED Code ICD Code Onset Dates Problem Status W/U Status Risk Notes Problem Atrial fibrillation (30520905) Atrial fib rillation (I48.91) ActiveconfirmedProblemHypertension (36310531)Hypertension (I10)Activeconfirmed ProblemCongestive heart failure (55210819)CHF (congestive heart failure) (I50.9) ActiveconfirmedProblemCOPD - Chronic obstructive pulmonary disease (44076257) COPD (chronic obstructive pulmonary disease) (J44.9)ActiveconfirmedProblem Pneumonia (717524443)Pneumonia (J18.9)ActiveconfirmedProblemNeuropathy (625700966)Neuropathy (G62.9)ActiveconfirmedProblemPeripheral circulatory disorder associated with diabetes mellitus (918647914)Controlled diabetes mellitus with circulatory complication (E11.59)ActiveconfirmedProblemChronic kidney disease stage 3B (disorder) (021056953)Chronic kidney disease, stage 3b (N18.32)Activeconfirmed Vital Signs Blood pressure diastolic 66 mm Hg 09/11/2025 Ymgctz40 in09/11/2025lood pressure epdfthfw177 mm Hg09/11/20256578Nikryg332.6 lbs 09/11/2025BMI26.26 kg/m209/11/2025 Procedures Procedure Date Ordered Date Performed Result Body Sit e Six minute walk 08/29/2025 N/SBrrpsiovwnzzxv68/13/2025N/A Encounters Encounter Location Date Provider Diagnosis [facility] [address] [place] [address] 08/10/2025 Bean Craven COPD (chronic obstructive pulmonary disease) J44.9 ; Pneumonia J18.9 ; CHF (congestive heart failure) I50.9 ; Atrial fibrillation I48.91 ; Hypertension I10 and Neuropathy G62.9 [facility] [address] [place] [facility] [place] [address] 09/11/2025 Bean Craven Chronic kidney disea se, stage 3b N18.32 ; Controlled diabetes mellitus with circulatory complication E11.59 and CHF (congestive heart failure) I50.9 [facility] [address] [place] [facility] [place] [place] [address] 08/10/2025 Bean Honeycutty [facility] [place] [facility] [place] [place] [address] 08/11/2025Doug HoyCOPD (chronic obstructive pulmonary disease) J44.[facility] [place] [facility] [place] [address]/12/2025 [facility] [facility] [place] [address] 08/29/2025Doug HoyCOPD (chronic obstructive pulmonary disease) J44.9B[facility] [place] [address]/01/2025 Bean Winslowtrial fibrillation I48.91[facility] [place] [place] [address]/04/2025Doug HoyBHeart [facility] [place] [address]/Doug HoyCHF (congestive heart failure) I50.9 and Atrial fibrillation I48.91[facility] [place] [address]/Doug Hoy Assessments Encounter Date Diagnosis (ICD Code) Assessment Notes Treatment Notes Treatment Clinical Notes Section Notes 08/10/2025 COPD (chronic obstructive pulmon vero disease) (ICD-10 - J44.9) needs home porotable oxygen tank due tto COPD - with oxygen sgebxykyih46/11/2025 Pneumonia (ICD-10 - J18.9)5COPD (chronic obstructive pulmonary disease) (ICD-10 - J44.9)08/29/2025OPD (chronic obstructive pulmonary disease) (ICD-10 - J44.9)08/30/2025trial fibrillation (ICD-10 - I48.91)09/11/2025HF (congestive heart failure) (ICD-10 - I50.9)09/11/2025trial fibrillation (ICD-10 - I48.91) 09/11/2025hronic kidney disease, stage 3b (ICD-10 - N18.32)09/11/2025ontrolled diabetes mellitus with circulatory complication (ICD-10 - E11.59)09/11/2025 (congestive heart failure) (ICD-10 - I50.9)double up the furosemide - for 3 days 08/10/2025 (congestive heart failure) (ICD-10 - I50.9)cont with current meds 08/10/2025trial fibrillation (ICD-10 - I48.91)stabel heart rate08/10/2025 Hypertension (ICD-10 - I10)08/10/2025Neuropathy (ICD-10 - G62.9) Plan Of Treatment Pending Test Test Name Order Date Six minute walk 08/29/2025 Echocardiogram 09/11/2025 Next Appt Details Provider Name:Bean Lazaro Yinkasimona, 10:45:00 AM, [address] [place], [address], Insurance Providers Payer Name Payer Address Payer Phone Subscriber Number Group Number Insured Name Patient Relationship to Insured Coverage Start Date Coverage End Date ANTH MEDICARE ADV PLAN [address] [place] [address] [id number] Parvin Morriself - patient is the insured Medical (General) History Medical History History ICD Code Arthritis COPDHypertensionSurgical History Surgery Date(Month/Year) tonsillectomy hysterectomyHospitalization History Reason Date(Month/Year) see above
--- NOTE | 2025-09-22 19:23 | ED.DIZZY1 ---
HPI - Dizziness General Chief Complaint: Weakness Stated Complaint: POSSIBLE STROKE Time Seen by Provider: 09/22/25 19:16 Source: patient Mode of arrival: Wheelchair History of Present Illness HPI Narrative: dizziness. lives alone. Was cooking [place] soup. Became acutely ill. She is poor historian and is also frightened. she is not sure what happened. Became abruptly dizzy and felt like she may pass out. She remembers using her waker to go and sit in the chair. Does not know if she passed out while sitting in the chair. Did manage to call her friend around 6pm. Had mild chest pain and took NTG SL. Friend found her awake sitting in a chair. She told her friend that they should wait because her symptoms may past. Friend brought her to the ER. States patient able to walk to the car and friend held her while doing so. She complains of dizziness. Off balance. No headache or nausea. No focal weakness or dyspnea. Past history of A. Fib. Takes Xarelto Related Data Home Medications ?Medication ?Instructions ?Recorded ?Confirmed allopurinol 100 mg tablet 100 mg PO DAILY 06/07/24 07/23/25 atorvastatin 80 mg tablet 80 mg PO DAILY 06/07/24 07/23/25 dapagliflozin propanediol 10 mg 10 mg PO DAILY 06/07/24 07/23/25 tablet ezetimibe 10 mg tablet 10 mg PO DAILY 06/07/24 07/23/25 furosemide 40 mg tablet 40 mg PO DAILY 06/07/24 07/23/25 gabapentin 100 mg capsule 100 mg PO BID 06/07/24 07/24/25 isosorbide mononitrate 60 mg 60 mg PO DAILY 06/07/24 07/23/25 tablet,extended release 24 hr pantoprazole 40 mg tablet,delayed 40 mg PO DAILY 06/07/24 07/23/25 release rivaroxaban 15 mg tablet (Xarelto) 15 mg PO Q24H 06/07/24 07/23/25 clopidogrel 75 mg tablet 75 mg PO DAILY 07/24/25 07/24/25 fluticasone fur. 100 mcg-umeclid 1 inh inhalation Q24H 07/24/25 07/24/25 62.5 mcg-vilant 25 mcg inhalat.powder (Trelegy Ellipta) lisinopril 10 mg tablet 10 mg PO DAILY 07/24/25 07/24/25 nitroglycerin 0.4 mg sublingual 0.4 mg sublingual Q5M PRN chest 07/24/25 07/24/25 tablet pain Previous Rx's ?Medication ?Instructions ?Recorded albuterol sulfate 90 mcg/actuation 2 inh inhalation Q6H PRN shortness 07/28/25 breath activated powder inhaler of breath or wheezing #1 ea amoxicillin 500 mg-potassium 1 tab PO BID #20 tabs 07/28/25 clavulanate 125 mg tablet carvedilol 6.25 mg tablet 3.125 mg (1/2 x 6.25 mg) PO BID #0 07/28/25 tabs prednisone 20 mg tablet 20 mg PO DAILY 5 days #5 tabs 07/28/25 Allergies Allergy/AdvReac Type Severity Reaction Status Date / Time No Known Drug Allergies Allergy Verified 07/23/25 14:57 Review of Systems ROS Status of ROS 10 or more systems reviewed and unremarkable except as noted in history and below [facility] Medical History (Updated 09/22/25 @ 21:44 by Hussain Malloy MD) Arthritis ?M19.90 - Unspecified osteoarthritis, unspecified site (ICD-10) Spinal stenosis ?M48.00 - Spinal stenosis, site unspecified (ICD-10) Surgical History (Updated 07/23/25 @ 18:47 by Ele Pickens) H/O: hysterectomy ?Z90.710 - Acquired absence of both cervix and uterus (ICD-10) Social History Highest level of school completed/degree received: high school graduate Little interest or pleasure in doing things: not at all Feeling down, depressed, or hopeless: not at all Do you think of yourself as: straight/heterosexual Gender Identity: female Exam Constitutional Vital Signs, click to edit/add: Last Vital Signs Temp 95.5 F L 09/22/25 19:56 Pulse 62 09/22/25 21:30 Resp 14 09/22/25 21:30 BP 100/74 09/22/25 21:30 Pulse Ox 95 09/22/25 21:30 O2 Del Method Room Air 09/22/25 19:12 Common normals: average body habitus, oriented x3, healthy appearing and alert Orientation/consciousness: Yes other (anxious) [facility] Common normals: normocephalic and head/scalp atraumatic Eye Common normals: PERRL and EOMs intact bilaterally Respiratory Common normals: normal respiratory effort, no retractions, no use of accessory muscles and clear to auscultation bilaterally Cardio Common normals: regular rate, regular rhythm, S1 normal heart sound and S2 normal heart sound GI Common normals: Normal to inspection, nondistended, normoactive bowel sounds present, soft to palpation and non-tender Extremity Common normals: normal to inspection and full ROM Neuro Common normals: oriented x3, CN's II-XII intact bilaterally, moves all extremities and no focal motor deficits Psych Appearance: grossly normal Course Vital Signs Vital signs: Vital Signs Blood Pressure 116/80 09/22/25 08:33 Temperature 95.5 F L 09/22/25 19:56 Pulse Rate 62 09/22/25 21:30 Respiratory Rate 14 09/22/25 21:30 Blood Pressure 100/74 09/22/25 21:30 Pulse Oximetry 95 09/22/25 21:30 Oxygen Delivery Method Room Air 09/22/25 19:12 MDM - Dizziness MDM Narrative Medical decision making narrative: patient arrives from home. Acute onset of dizziness like she was going to pass out. Able to use her walker to sit down in a chair. Not sure how long she was sitting in the chair before she called her friend. Had mild chest pain and took NTG SL. Arrives via private car. on exam she is frightended because she is not sure what happened. denies headache. CT brain without acute findings. labs ordered to include Troponin. Solumedrol given initially with concern about vertigo. However patient found to be hypotensive and this is likely the cause of her dizziness . IV hydration ordered. labs return with evidence of dehydration. BUN 73 and creat 2.15. she does have CKD. BUN/crear 06/07 45/1.57 and 07/26 61/1.33. BP improved after IV hydration. patient is feeling better. Discussed with hospitalist and patient accepted for admission Lab Data Labs: Lab Results 09/22/25 09/22/25 09/22/25 Range/Units 19:14 19:45 20:00 WBC 8.5 (4.0-11.0) 10^3/uL RBC 4.31 (4.20-5.40) 10^6/uL Hgb 10.9 L (12.0-16.0) g/dL Hct 36.9 (36.0-48.0) % MCV 85.6 (81.0-99.0) fL MCH 25.3 L (26.7-34.0) pg MCHC 29.5 L (29.9-35.2) g/dL RDW 16.8 H (11.0-15.0) % Plt Count 336 (150-450) 10^3/uL MPV 10.4 (9.5-13.5) fL Neut % (Auto) 75.2 H (43.0-75.0) % Lymph % (Auto) 13.8 L (20.5-60.0) % [place] % (Auto) 7.8 (1.7-12.0) % Eos % (Auto) 2.0 (0.9-7.0) % Baso % (Auto) 0.7 (0.2-2.0) % Neut # (Auto) 6.4 (1.4-6.5) 10^3/uL Lymph # (Auto) 1.2 (1.2-3.8) 10^3/uL [place] # (Auto) 0.7 (0.3-0.8) 10^3/uL Eos # (Auto) 0.2 (0.0-0.7) 10^3/uL Baso # (Auto) 0.1 (0.0-0.1) 10^3/uL Abs Immat Gran (auto) 0.04 H (0.00-0.03) 10^3/uL Imm/Tot Granulo (auto) 0.5 (0.0-0.5) % Sodium 137 (136-145) mmol/L Potassium 4.6 (3.5-5.1) mmol/L Chloride 98 (98-107) mmol/L Carbon Dioxide 23.6 (21.0-32.0) mmol/L Anion Gap 20.0 BUN 73.0 H (7.0-18.0) mg/dL Creatinine 2.15 H (0.55-1.02) mg/dL Est GFR ( Amer) 26 L (>=60 mL/min/1.73m^2) Est GFR (Non-Af Amer) 22 L (>=60 mL/min/1.73m^2) BUN/Creatinine Ratio 34.0 Glucose 121 H (74-106) mg/dL Lactate 1.5 (0.4-2.0) mmol/L Calcium 9.3 (8.5-10.1) mg/dL Troponin I High Sens 31.7 (4.0-51.3) pg/mL Urine Color Yellow (YELLOW) Urine Clarity Clear (CLEAR) Urine pH 5.0 (5.0-9.0) Ur Specific [place] 1.010 (1.005-1.025) Urine Protein Negative (NEG/TRACE) mg/dL Urine Glucose (UA) 250 A (NEGATIVE) mg/dL Urine Ketones Negative (NEGATIVE) mg/dL Urine Occult Blood Negative (NEGATIVE) Urine Nitrite Negative (NEGATIVE) Urine Bilirubin Negative (NEGATIVE) Urine Urobilinogen 0.2 (0.2-1.0) EU/dL Ur Leukocyte Esterase Negative (NEGATIVE) Urine RBC 0-2 (0-2) #/HPF Urine WBC 0-2 A (NONE SEEN) #/HPF Ur Squamous Epith Cells Rare (NONE/RARE) #/LPF Urine Crystals None seen (None Seen) #/HPF Urine Bacteria Trace A (NONE SEEN) #/HPF Urine Casts Seen A (NONE SEEN) #/LPF Hyaline Casts Moderate Urine Mucus Trace A (NONE SEEN) Ur Culture Indicated? No POC Glucose 121 H (74-106) mg/dL Discharge Plan Discharge Chief Complaint: Weakness Clinical Impression: Hypotension, Acute renal failure, Dehydration Patient Disposition: Admitted as Observation
--- NOTE | 2025-09-22 19:24 | ECG_ITS ---
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 Measurements Intervals [place] Rate: 53 P: -22310 [place]: -70692 QRS: -27 QRSD: 139 T: 3 QT: 496 QTc: 479 Interpretive Statements 1210 Atrial fibrillation RIGHT BUNDLE BRANCH BLOCK 3114 Cannot rule out anterior myocardial infarction, age undetermined 7202 Moderate left axis deviation 9150 abnormal ECG Compared to ECG 07/23/2025 14:54:52 Left-axis deviation now present Aberrant conduction of supraventricular beat(s) no longer present Myocardial infarct finding still present Electronically Signed On 09-23-2025 7:00:36 EDT by MICAELA KIM M.D.
--- NOTE | 2025-09-22 19:24 | CT_ITS ---
The [address] [address] Patient Name: DEMARCUS FINN MRN: [id number] date: 1940 Sex: F Assigned Patient Location: ER Current Patient Location: ER Accession/Order Number: [id number] Exam Date: 09/22/2025 19:30 Report Date: 09/22/2025 20:04 At the request of: PREMA MALLOY MD Procedure: CT stroke head/brain wo con CT BRAIN /STROKE WITHOUT CONTRAST: CLINICAL HISTORY: dizziness COMPARISON: CT head 07/23/2025 TECHNIQUE: Contiguous axial unenhanced images were obtained through the brain. This CT exam was performed using one or more following dose reduction techniques: Automated exposure control, adjustment of the mA and/or kV according to patient size, or use of iterative reconstruction technique. FINDINGS: There is no evidence of midline shift, intra or extra-axial fluid collection, hemorrhage or CT evidence of acute large vascular distribution stroke. [id number]-it-[id number] chronic small vessel change. Evidence of remote lacunar strokes both basal ganglia, right posterior thalamus, and both cerebral hemispheres. Encephalomalacia right occipital lobe. Intracranial vascular calcifications.. Cataract surgery Mild paranasal sinus mucosal thickening. The surrounding soft tissues are normal. CT/CT stroke head/brain wo con IMPRESSION: NO ACUTE INTRACRANIAL ABNORMALITY. CHRONIC FINDINGS ABOVE. Discussed with Dr. Malloy over the phone 8:03 PM 09/22/2025 Impression dictated by: Glen Lane M.D. 09/22/2025 8:04 PM Dictation Location: [place] [address] Electronically authenticated by: [id number] Y Date: 09/22/2025 20:04
[2025-09-22 19:55] LABS: Hematocrit 36.9 % (36.0-48.0); Hemoglobin 10.9 g/dL (12.0-16.0); Immature Granulocytes Abs Auto 0.04 10^3/uL (0.00-0.03); Immature Granulocytes Pct Auto 0.5 % (0.0-0.5); Lymphocytes Absolute Auto 1.2 10^3/uL (1.2-3.8); Mean Corpuscular HGB Conc 29.5 g/dL (29.9-35.2); Mean Corpuscular Hemoglobin 25.3 pg (26.7-34.0); Mean Corpuscular Volume 85.6 fL (81.0-99.0); Platelet Count 336 10^3/uL (150-450); Red Blood Count 4.31 10^6/uL (4.20-5.40); White Blood Count 8.5 10^3/uL (4.0-11.0)
[2025-09-22] MEDS: METHYLPREDNISOLONE SOD SUCC PF 125 MG/2 ML VIAL IVP (20:04)
[2025-09-22] MEDS: 0.9 % SODIUM CHLORIDE 1,000 ML 999 ML IV (20:04)
[2025-09-22 20:14] LABS: Anion Gap 20.0; Blood Urea Nitrogen 73.0 mg/dL (7.0-18.0); Calcium 9.3 mg/dL (8.5-10.1); Carbon Dioxide 23.6 mmol/L (21.0-32.0); Chloride 98 mmol/L (98-107); Estimated GFR (African America 26 (>=60 mL/min/1.73m^2); Estimated GFR (Non-African Ame 22 (>=60 mL/min/1.73m^2); Glucose 121 mg/dL (74-106); Potassium 4.6 mmol/L (3.5-5.1); Sodium 137 mmol/L (136-145)
[2025-09-22 20:15] LABS: Lactate/Lactic Acid 1.5 mmol/L (0.4-2.0)
[2025-09-22 20:21] LABS: Glucose Urine UA 250 mg/dL (NEGATIVE)
[2025-09-22 20:29] LABS: Cast Seen? SEEN #/LPF (NONE SEEN); Crystals Seen? None Seen #/HPF (None Seen); Urine Culture Indicated NO
--- NOTE | 2025-09-22 20:37 | XR_ITS ---
The [place] [id number] Patient Name: DEMARCUS FINN MRN: [id number] date: 1940 Sex: F Assigned Patient Location: ER Current Patient Location: ER Accession/Order Number: [id number] Exam Date: 09/22/2025 21:00 Report Date: 09/22/2025 21:20 At the request of: PREMA PRASAD MD Procedure: XR chest 1V PA CHEST: CLINICAL HISTORY: hypotension COMPARISON: CT chest 07/24/2025 Enlarged cardiomediastinal mediastinal silhouette. Right lung is clear. Left upper lung is clear. Evaluation of the left lung base is obscured. No definite effusion or pneumothorax. XR/XR chest 1V IMPRESSION: Cardiomegaly. No definite airspace disease identified. Impression dictated by: Glen Lane M.D. 09/22/2025 9:20 PM Dictation Location: [place] [address] Electronically authenticated by: [id number] Y Date: 09/22/2025 21:20
[2025-09-22] MEDS: 0.9 % SODIUM CHLORIDE 1,000 ML 1000 ML IV (21:39)
[2025-09-23] VITALS (26 sets, daily range): BP systolic 95–143; BP diastolic 58–77; PULSE 18–98; TEMP 36.3–36.9; O2SAT 93–97
[2025-09-23] MEDS: RIVAROXABAN 10 MG TABLET 15 MG PO ×2 (00:52→22:06)
[2025-09-23] MEDS: 0.9 % SODIUM CHLORIDE 1,000 ML 75 ML IV (00:53)
--- NOTE | 2025-09-23 01:39 | PC.NURSE ---
Upon admission assessment patient stated she doesnt not want to be a full code. Patient stated I have a paper at home . Patient requested no intubation but yes to CPR. Patient educated that we would need a legal document stating so. Son said he would look at home for it.
[2025-09-23] MEDS: IPRATROPIUM/ALBUTEROL SULFATE 3 ML AMPUL.NEB IH ×4 (05:22→22:00)
[2025-09-23 06:39] LABS: Hematocrit 30.6 % (36.0-48.0); Hemoglobin 9.1 g/dL (12.0-16.0); Mean Corpuscular HGB Conc 29.7 g/dL (29.9-35.2); Mean Corpuscular Hemoglobin 25.4 pg (26.7-34.0); Mean Corpuscular Volume 85.5 fL (81.0-99.0); Platelet Count 294 10^3/uL (150-450); Red Blood Count 3.58 10^6/uL (4.20-5.40); White Blood Count 4.5 10^3/uL (4.0-11.0)
[2025-09-23 06:52] LABS: Alanine Aminotransferase 24 U/L (14-59); Albumin Globulin Ratio 1.1; Albumin Level 3.4 g/dL (3.4-5.0); Alkaline Phosphatase 86 U/L (46-116); Anion Gap 17.6; Aspartate Amino Transferase 30 U/L (15-37); Blood Urea Nitrogen 64.0 mg/dL (7.0-18.0); Calcium 8.9 mg/dL (8.5-10.1); Carbon Dioxide 22.2 mmol/L (21.0-32.0); Chloride 106 mmol/L (98-107); Estimated GFR (African America 37 (>=60 mL/min/1.73m^2); Estimated GFR (Non-African Ame 31 (>=60 mL/min/1.73m^2); Globulin 3.2 g/dL; Glucose 195 mg/dL (74-106); Potassium 4.8 mmol/L (3.5-5.1); Sodium 141 mmol/L (136-145); Total Protein 6.6 g/dL (6.4-8.2)
[2025-09-23 07:14] LABS: Basophils Abs Manual 0.04 10^3/uL (0.00-0.10); Basophils Percent Manual 1.0 % (0.2-2.0); Eosinophils Absolute Manual 0.04 10^3/uL (0.00-0.70); Eosinophils Percent Manual 1.0 % (0.9-7.0); Lymphocytes Absolute Manual 0.22 10^3/uL (1.20-3.80); Lymphocytes Percent Manual 5.0 % (20.5-60.0); Monocytes Absolute Manual 0.04 10^3/uL (0.30-0.80); Monocytes Percent Manual 1.0 % (1.7-12.0); Segmented Neut Absolute Manual 4.14 10^3/uL (1.4-6.5); Segmented Neutrophils % Manual 92.0 (43.0-75.0)
[2025-09-23] MEDS: CLOPIDOGREL BISULFATE 75 MG TABLET PO (08:35)
[2025-09-23] MEDS: ATORVASTATIN CALCIUM 40 MG TABLET 80 MG PO (08:35)
[2025-09-23] MEDS: ISOSORBIDE MONONITRATE 60 MG TAB.ER.24H PO (08:36)
[2025-09-23] MEDS: ALLOPURINOL 100 MG TABLET PO (08:36)
[2025-09-23] MEDS: CARVEDILOL 3.125 MG TABLET PO ×2 (08:36→22:06)
[2025-09-23] MEDS: PANTOPRAZOLE SODIUM 40 MG TABLET.DR PO (08:36)
[2025-09-23] MEDS: BUDESONIDE 0.5 MG/2 ML AMPULE NEB IH ×2 (10:52→22:00)
--- NOTE | 2025-09-23 12:04 | PM.IMHP1 ---
Internal Medicine - H&P: HPI History of Present Illness Chief complaint: near syncope, hypotension, acute renal failure Narrative: Dominique Morris is an 84-year-old female with a known diagnosis of COPD on 3-4 L baseline O2, coronary artery disease, atrial fibrillation, recent admission for L sided pneumonia, presented to [facility] ER from home with sudden onset dizziness, admitted for near syncope vs stroke. On assessment at bedside on the RNF, patient resting comfortably in bed, endorses ER history of standing while cooking soup and then became abruptly lightheaded and dizzy but did not lose consciousness, no chest pain, nausea, vomiting, no changes in vision, no focal deficits. Feels significantly improved from presentation and requesting discharge at this time as has visitors at home from out of town. Denies any blood in stool or urine, no dark bowel movements, no emesis. Feels back to usual health at present, eating without issue. In the ER, WBC 8.5, HGb 10.9, Plts 336, Na 137, K 4.6, BUN 73, Cr 2.15, HsTnI 31.7, U/A without evidence of infection, CT head w/o and CXR showed no acute findings. Review of Systems ROS Status of ROS 10 or more systems reviewed and unremarkable except as noted in history and below PFSH PFS Medical History (Updated 09/23/25 @ 12:23 by CHRISSY CHILEL MD) Arthritis ?M19.90 - Unspecified osteoarthritis, unspecified site (ICD-10) Spinal stenosis ?M48.00 - Spinal stenosis, site unspecified (ICD-10) Surgical History H/O: hysterectomy ?Z90.710 - Acquired absence of both cervix and uterus (ICD-10) Family History (Updated 09/23/25 @ 00:04 by Pooja Marmolejo RN) Father Family history of CHF (congestive heart failure) Other Family history of hypertension Social History (Updated 09/23/25 @ 00:05 by Pooja Marmolejo RN) Within the past year, how often did you have a drink containing alcohol: monthly or less Smoking status: Never smoker Non-prescribed substance use: denies use Highest level of school completed/degree received: high school graduate Are you now , , , , never or living with a partner: Little interest or pleasure in doing things: not at all Feeling down, depressed, or hopeless: not at all Feel stressed/tense/nervous/anxious/difficulty sleeping: not at all Do you think of yourself as: straight/heterosexual Gender Identity: female Meds Home Medications and Allergies Home Medications ?Medication ?Instructions ?Recorded ?Confirmed ?Type allopurinol 100 mg tablet 100 mg PO DAILY 06/07/24 09/22/25 History atorvastatin 80 mg tablet 80 mg PO DAILY 06/07/24 09/22/25 History dapagliflozin propanediol 10 mg 10 mg PO DAILY 06/07/24 09/22/25 History tablet ezetimibe 10 mg tablet 10 mg PO DAILY 06/07/24 09/22/25 History furosemide 40 mg tablet 40 mg PO DAILY 06/07/24 09/22/25 History gabapentin 100 mg capsule 100 mg PO BID 06/07/24 09/22/25 History isosorbide mononitrate 60 mg 60 mg PO DAILY 06/07/24 09/22/25 History tablet,extended release 24 hr pantoprazole 40 mg tablet,delayed 40 mg PO DAILY 06/07/24 09/22/25 History release rivaroxaban 15 mg tablet (Xarelto) 15 mg PO Q24H 06/07/24 09/22/25 History clopidogrel 75 mg tablet 75 mg PO DAILY 07/24/25 09/22/25 History fluticasone fur. 100 mcg-umeclid 1 inh inhalation Q24H 07/24/25 09/22/25 History 62.5 mcg-vilant 25 mcg inhalat.powder (Trelegy Ellipta) lisinopril 10 mg tablet 10 mg PO DAILY 07/24/25 09/22/25 History nitroglycerin 0.4 mg sublingual 0.4 mg sublingual Q5M PRN chest 07/24/25 09/22/25 History tablet pain albuterol sulfate 90 mcg/actuation 2 inh inhalation Q6H PRN shortness 07/28/25 09/22/25 Rx breath activated powder inhaler of breath or wheezing #1 ea carvedilol 3.125 mg tablet 3.125 mg PO BID 09/23/25 09/23/25 History Allergies Allergy/AdvReac Type Severity Reaction Status Date / Time No Known Drug Allergies Allergy Verified 07/23/25 14:57 Exam Narrative Exam Narrative: General: cooperative and tired appearing Orientation: alert, awake and oriented x3 Head: normal to inspection Neck: normal visual inspection Cardio: no JVD, regular rate, regular rhythm Chest palpation & inspection: normal inspection of the chest Resp Effort & Inspection: normal respiratory effort Abd: soft, non-tender, non-distended Extremities: Warm well perfused, no edema Constitutional Vital Signs, click to edit/add: Last Vital Signs Temp 97.5 F L 09/23/25 11:53 Pulse 18 L 09/23/25 11:53 Resp 18 09/23/25 11:53 BP 104/61 09/23/25 11:53 Pulse Ox 95 09/23/25 11:53 O2 Del Method Room Air 09/23/25 11:53 Internal Medicine - H&P: Reslt Labs Labs: Short CBC 09/22/25 09/23/25 Range/Units 19:45 05:43 WBC 8.5 4.5 (4.0-11.0) 10^3/uL Hgb 10.9 L 9.1 L (12.0-16.0) g/dL Hct 36.9 30.6 L (36.0-48.0) % Plt Count 336 294 (150-450) 10^3/uL BMP 09/22/25 09/23/25 19:45 05:43 Sodium 137 141 Potassium 4.6 4.8 Chloride 98 106 Carbon Dioxide 23.6 22.2 BUN 73.0 H 64.0 H Creatinine 2.15 H 1.59 H Glucose 121 H 195 H Calcium 9.3 8.9 Liver Function 09/23/25 Range/Units 05:43 Total Bilirubin 0.4 (0.2-1.0) mg/dL AST 30 (15-37) U/L ALT 24 (14-59) U/L Alkaline Phosphatase 86 (46-116) U/L Albumin 3.4 (3.4-5.0) g/dL Urine 09/22/25 Range/Units 20:00 Urine Color Yellow (YELLOW) Urine Clarity Clear (CLEAR) Urine pH 5.0 (5.0-9.0) Ur Specific [place] 1.010 (1.005-1.025) Urine Protein Negative (NEG/TRACE) mg/dL Urine Glucose (UA) 250 A (NEGATIVE) mg/dL Assessment and Plan Assessment and Plan (1) Dehydration: (2) Acute renal failure: Qualifiers: Acute renal failure type: unspecified Qualified Code(s): N17.9 - Acute kidney failure, unspecified (3) Hypotension: Qualifiers: Hypotension type: orthostatic hypotension Qualified Code(s): I95.1 - Orthostatic hypotension (4) COPD (chronic obstructive pulmonary disease): Qualifiers: COPD type: emphysema (5) A-fib: Qualifiers: Atrial fibrillation type: paroxysmal Qualified Code(s): I48.0 - Paroxysmal atrial fibrillation (6) Chronic hypoxic respiratory failure: (7) Anemia: Plan Dominique Morris is an 84-year-old female with a known diagnosis of COPD on 3-4 L baseline O2, coronary artery disease, atrial fibrillation, recent admission for L sided pneumonia, presented to [facility] ER from home with sudden onset dizziness, admitted for near syncope vs stroke. 1. Near syncope in the setting of suspected dehydration, LIZ on CKD and anemia - received 2 L IVF in ER and started on maintenance fluids - Cr appears to be improving to baseline of 1.3 - hold additional IVF, anemia likely dilutional given no reported s/s of bleeding, blood or dark stools - low concern for stroke given lack of focal deficits and already on clopidogrel and xarelto - repeat Hgb at 1700 - check orthostats - if Hgb stable will consider d/c home today, plan to hold antihypertensives (with exception of carvedilol) until follow up with PCP Diet: Cardiac Daily Labs: CBC, BMP Lines/Drains: PIV DVT ppx: xarelto Code status: Full Status: observation for now
[2025-09-23] MEDS: ACETAMINOPHEN 325 MG TABLET 650 MG PO (12:56)
[2025-09-23] MEDS: CALCIUM CARBONATE 500 MG (200MG ELEMENTAL) TAB CHEW PO (16:39)
[2025-09-23 17:04] LABS: Hemoglobin 8.5 g/dL (12.0-16.0)
[2025-09-24] VITALS (10 sets, daily range): BP systolic 118–131; BP diastolic 68–81; PULSE 18–90; TEMP 36.6–36.8; O2SAT 95–96
[2025-09-24] MEDS: ACETAMINOPHEN 325 MG TABLET 650 MG PO ×2 (00:10→09:02)
[2025-09-24] MEDS: IPRATROPIUM/ALBUTEROL SULFATE 3 ML AMPUL.NEB IH ×2 (04:08→10:26)
[2025-09-24] MEDS: DAPAGLIFLOZIN 5 MG TABLET 10 MG PO (09:02)
[2025-09-24] MEDS: PANTOPRAZOLE SODIUM 40 MG TABLET.DR PO (09:02)
[2025-09-24] MEDS: ISOSORBIDE MONONITRATE 60 MG TAB.ER.24H PO (09:02)
[2025-09-24] MEDS: ATORVASTATIN CALCIUM 40 MG TABLET 80 MG PO (09:02)
[2025-09-24] MEDS: ALLOPURINOL 100 MG TABLET PO (09:03)
[2025-09-24] MEDS: CLOPIDOGREL BISULFATE 75 MG TABLET PO (09:03)
[2025-09-24] MEDS: CARVEDILOL 3.125 MG TABLET PO (09:05)
[2025-09-24] MEDS: BUDESONIDE 0.5 MG/2 ML AMPULE NEB IH (10:26)
[2025-09-24 11:08] LABS: Hematocrit 30.3 % (36.0-48.0); Hemoglobin 9.0 g/dL (12.0-16.0); Immature Granulocytes Abs Auto 0.04 10^3/uL (0.00-0.03); Immature Granulocytes Pct Auto 0.3 % (0.0-0.5); Lymphocytes Absolute Auto 1.3 10^3/uL (1.2-3.8); Mean Corpuscular HGB Conc 29.7 g/dL (29.9-35.2); Mean Corpuscular Hemoglobin 25.4 pg (26.7-34.0); Mean Corpuscular Volume 85.6 fL (81.0-99.0); Platelet Count 287 10^3/uL (150-450); Red Blood Count 3.54 10^6/uL (4.20-5.40); White Blood Count 12.6 10^3/uL (4.0-11.0)
[2025-09-24 11:29] LABS: Anion Gap 14.5; Blood Urea Nitrogen 52.0 mg/dL (7.0-18.0); Calcium 8.9 mg/dL (8.5-10.1); Carbon Dioxide 21.6 mmol/L (21.0-32.0); Chloride 104 mmol/L (98-107); Estimated GFR (African America 45 (>=60 mL/min/1.73m^2); Estimated GFR (Non-African Ame 38 (>=60 mL/min/1.73m^2); Glucose 159 mg/dL (74-106); Potassium 4.1 mmol/L (3.5-5.1); Sodium 136 mmol/L (136-145)
[2025-09-24] MEDS: PNEUMOC 20-VAL CONJ-DIP CRM/PF 0.5 ML SYRINGE IM (11:34)
[2025-09-24] MEDS: FLU VACC TS2025-26(65YR UP)/PF 180 MCG/0.5 ML SYRINGE IM (11:37)
--- NOTE | 2025-09-24 12:48 | P.DS_ITS ---
DS: Providers Provider Date of admission: 09/22/25 23:15 Primary care physician: RADHIKA LOVETT Admitting clinician: CHRISSY CHILEL Attending physician on admission: Daniel Harkins Consults: 09/22/25 Consult to Dietitian Routine Reason for consultation: weight loss 09/22/25 22:29 Occupational Therapy Eval and Treat Routine Reason for consultation: Weakness Physical Therapy Eval and Treat Routine Reason for consultation: Weakness Attending physician on discharge: CHRISSY CHILEL Discharging clinician: CHRISSY CHILEL Anticipated date of discharge: 09/24/25 DS: Diagnosis Discharge Diagnosis (1) Dehydration: (2) Acute renal failure: Qualifiers: Acute renal failure type: unspecified Qualified Code(s): N17.9 - Acute kidney failure, unspecified (3) Hypotension: Qualifiers: Hypotension type: orthostatic hypotension Qualified Code(s): I95.1 - Orthostatic hypotension (4) COPD (chronic obstructive pulmonary disease): Qualifiers: COPD type: emphysema (5) A-fib: Qualifiers: Atrial fibrillation type: paroxysmal Qualified Code(s): I48.0 - Paroxysmal atrial fibrillation (6) Chronic hypoxic respiratory failure: (7) Anemia: DS: Summary Hospital Course Hospital Course: Dominique Morris is an 84-year-old female with a known diagnosis of COPD on 3-4 L baseline O2, coronary artery disease, atrial fibrillation, recent admission for L sided pneumonia, presented to [facility] from home with sudden onset dizziness, admitted for near syncope vs stroke. On assessment at bedside on the RNF on admission, patient resting comfortably in bed, endorses ER history of standing while cooking soup and then became abruptly lightheaded and dizzy but did not lose consciousness, no chest pain, nausea, vomiting, no changes in vision, no focal deficits. Feels significantly improved from presentation and requesting discharge at this time as has visitors at home from out of town. Denies any blood in stool or urine, no dark bowel movements, no emesis. Feels back to usual health at present, eating without issue. In the ER, WBC 8.5, HGb 10.9, Plts 336, Na 137, K 4.6, BUN 73, Cr 2.15, HsTnI 31.7, U/A without evidence of infection, CT head w/o and CXR showed no acute findings. Blood pressure improved with IV hydration and antihypertensives held with exception of carvedilol for rate control. Creatinine improved back to baseline around 1.3, discharged on 09/24/25 home in improved condition with instructions to continue holding lisinopril and imdur until follow up with PCP, lasix discontinued. Time Spent with Patient Time attestation: Total time spent providing and/or coordinating discharge services: Exam Narrative Exam Narrative: General: cooperative and tired appearing Orientation: alert, awake and oriented x3 Head: normal to inspection Neck: normal visual inspection Cardio: no JVD, regular rate, regular rhythm Chest palpation & inspection: normal inspection of the chest Resp Effort & Inspection: normal respiratory effort Abd: soft, non-tender, non-distended Extremities: Warm well perfused, no edema Constitutional Vital Signs, click to edit/add: Last Vital Signs Temp 97.8 F 09/24/25 08:00 Pulse 74 09/24/25 10:29 Resp 20 09/24/25 10:29 BP 118/68 09/24/25 08:00 Pulse Ox 95 09/24/25 10:29 O2 Del Method Room Air 09/24/25 10:29 DS: Data Data Completed and Pending Labs on day of discharge: Labs from last 24 hours 09/24/25 09/23/25 09/23/25 10:30 21:21 16:57 WBC 12.6 H RBC 3.54 L Hgb 9.0 L 8.5 L Hct 30.3 L MCV 85.6 MCH 25.4 L MCHC 29.7 L RDW 16.9 H Plt Count 287 MPV 10.7 Neut % (Auto) 82.0 H Lymph % (Auto) 10.0 L [place] % (Auto) 6.7 Eos % (Auto) 0.8 L Baso % (Auto) 0.2 Neut # (Auto) 10.3 H Lymph # (Auto) 1.3 [place] # (Auto) 0.8 Eos # (Auto) 0.1 Baso # (Auto) 0.0 Abs Immat Gran (auto) 0.04 H Imm/Tot Granulo (auto) 0.3 Sodium 136 Potassium 4.1 Chloride 104 Carbon Dioxide 21.6 Anion Gap 14.5 BUN 52.0 H Creatinine 1.34 H Est GFR ( Amer) 45 L Est GFR (Non-Af Amer) 38 L BUN/Creatinine Ratio 38.8 Glucose 159 H Calcium 8.9 POC Glucose 238 H Discharge Plan Discharge Disposition: Home, Self-Care Discharge Medications: Continued allopurinol 100 mg tablet 100 mg PO DAILY atorvastatin 80 mg tablet 80 mg PO DAILY dapagliflozin propanediol 10 mg tablet 10 mg PO DAILY ezetimibe 10 mg tablet 10 mg PO DAILY pantoprazole 40 mg tablet,delayed release (DR/EC) 40 mg PO DAILY Xarelto 15 mg tablet 15 mg PO Q24H gabapentin 100 mg capsule 100 mg PO BID clopidogrel 75 mg tablet 75 mg PO DAILY Trelegy Ellipta 100-62.5-25 mcg blister with device 1 inh INHALATION Q24H nitroglycerin 0.4 mg tablet, sublingual 0.4 mg sublingual Q5M PRN (Reason: chest pain) albuterol sulfate 90 mcg/actuation aerosol powdr breath activated 2 inh inhalation Q6H PRN (Reason: shortness of breath or wheezing) Qty: 1 2RF carvedilol 3.125 mg tablet 3.125 mg PO BID Held isosorbide mononitrate 60 mg tablet extended release 24 hr 60 mg PO DAILY Hold Instructions: Resume on 10/01/25. To be resumed by PCP lisinopril 10 mg tablet 10 mg PO DAILY Hold Instructions: Resume on 10/01/25. To be resumed by PCP Discontinued furosemide 40 mg tablet 40 mg PO DAILY Outpatient Diagnostics: Basic Metabolic Panel (ONCE) Timeframe: 20251001 Facility: [facility] - Location: Patient Own Location Ordered By: CHRISSY CHILEL Print Language: Botswanan Patient Instructions: Dehydration (DC), Acute Kidney Injury (DC) Activity Restrictions/Additional Instructions: - Changes have been made to your blood pressure medications: please hold on taking your Imdur and lisinopril until follow up with your primary care provider - Please be sure to take your reduced dose of carvedilol 3.125 mg bid, a new prescription has been sent to your pharmacy - Please follow up with your primary care provider within 1 week - If you experience chest pain, shortness of breath, or lightheadedness again please return to the ER Forms: Portal Instructions Follow Up Appointments: Please call and schedule a follow up appointment with your PCP to be seen in 1 week. Discharge Date/Time: 09/24/25 13:15
--- OUTSIDE RECORDS SUMMARY | 2025-09-25 07:17 | XMS_ITS | Clinical Summary ---
Author Organization [employer] tem Address [id number] [address] [place] [address] Care Team Providers Care Vegetable Inspector Name Role Phone Jayden Craven MD Primary Care Provider [phone] Allergies Active AllergyReactionsCriticalityNoted CivjXjcgcugfHnkpfyxepxKldxrpll30/09/2018 Medications MedicationSigDispense QuantityRefillsLast FilledStart DateEnd DateStatus ONE [...] atorvastatin (LIPITOR) 80 mg tablet Indications:Atherosclerosis of [place] coronary artery of [place] heart with stable angina pectorisTake 1 tablet (80 mg total) by mouth in the morning. 90 tablet 5Active carvediloL (COREG) 6.25 mg tablet Indications:Acute on chronic diastolic congestive heart failure (CMS-HCC)Take 1 tablet (6.25 mg total) by mouth in the morning and 1 tablet (6.25 mg total) in the evening. Take with meals. 180 tablet 5Active clopidogreL (PLAVIX) 75 mg tablet Indications:Atherosclerosis of [place] coronary artery of [place] heart with stable angina pectorisTake 1 tablet (75 mg total) by mouth in the morning. 90 tablet 5Active dapagliflozin propanediol (FARXIGA) 10 mg tablet Indications:Acute on chronic diastolic congestive heart failure ([facility]-HCC)Take 1 tablet (10 mg total) by mouth in the morning. 90 tablet tive ezetimibe (ZETIA) 10 mg tablet Indications:Mixed hyperlipidemiaTake 1 tablet (10 mg total) by mouth in the morning. 90 tablet tive dacgejosasc-mewuwcklu-gflyfqpx (TRELEGY ELLIPTA) 100-62.5-25 mcg blister with device Indications:COPD, moderate ([facility])Inhale 1 puff in the morning. 180 each tive furosemide (LASIX) 40 mg tablet Indications:Acute on chronic diastolic congestive heart failure ([facility])Take 1 tablet (40 mg total) by mouth daily. 90 tablet tive gabapentin (NEURONTIN) 100 mg capsule Indications:Post herpetic neuralgiaTake 1 capsule (100 mg total) by mouth in the morning and 1 capsule (100 mg total) before bedtime. 180 capsule tive isosorbide mononitrate (IMDUR) 60 mg 24 hr tablet Indications:Atherosclerosis of [place] coronary artery of [place] heart with stable angina pectorisTake 1 tablet (60 mg total) by mouth daily. 90 tablet tive pantoprazole (PROTONIX) 40 mg EC tablet Indications:Gastroesophageal reflux disease, unspecified whether esophagitis presentTake 1 tablet (40 mg total) by mouth in the morning. 90 tablet 5Active rivaroxaban (XARELTO) 15 mg tablet Indications:Paroxysmal atrial fibrillation ([facility])Take 1 tablet (15 mg total) by mouth in the morning. TAKE 1 TABLET (15 MG TOTAL) BY MOUTH IN THE MORNING. 90 tablet 5Active lisinopriL (PRINIVIL,ZESTRIL) 10 mg tablet Indications:Acute on chronic diastolic congestive heart failure ([facility])Take 1 tablet (10 mg total) by mouth [...] DateDiagnosed DateAcute on chronic diastolic congestive heart sfbbcxf4307/11/2022losed fracture of nasal bone with routine dzxlncx5307/11/2022 COPD, xtsulmgw35/12/2022ulmonary hypertension due to mitral valve disease 07/11/2022ilateral carotid artery ljqcpujl24/28/2022easonal allergic rhinitis 01/29/2022pinal stenosis of lumbar mpyvzj6802/05/2021lass 1 obesity in adult 07/02/2020Type 2 diabetes mellitus with kidney complication, without long-term current use of ghijvzi6204/24/2020Persistent atrial tmxuowtofhwh56/08/2019 Btyivlotiynfz18/06/2019Atherosclerosis of [place] coronary artery of [place] heart with stable angina hwpgteiz17/26/2018GERD (gastroesophageal reflux disease) 03/24/2018Occipital dotqmy7301/06/2018Left subclavian artery ryqrhpqvs57/07/2018 Stenosis of right vertebral esfhpm8401/06/2018Essential pvxapzcphyrq35/07/2018 Mixed reaencubjtinsr33/07/2018Obstructive sleep apnea /11/2016 Resolved Problems ProblemNoted DateDiagnosed DateResolved DateChronic renal disease, stage IV /Embolism and thrombosis of other /02/2023 06/14/2024cute renal failure superimposed on stage 3b chronic kidney disease /besity (BMI 30-39.9)/tage 3 chronic kidney ejwwulj03therosclerosis of [place] coronary artery of [place] heart with unstable angina xugiqdtq41Unstable angina Overview (03/25/2018): Added automatically from request for surgery [id number] Brain mass Encounters DateTypeDepartmentCare CpztEugxgoopuka23/03/2025Refill [facility] [address] [place] [address] Bakari Tovar, DO Other chest pain09/01/2025Telephone [facility] [address] [place] [address] Mary Bingham, [facility] 07/28/2025Telephone [facility] [address] [place] [place] [address] Faith Singh, CAPRICE orders needed aqjmjmyt47/29/2025Telephone [facility] [address] [place] [address] Estella Eagle, [facility] 07/25/2025Telephone [facility] [address] [place] [address] Mary Bingham, [facility] 07/24/2025Refill [facility] [address] [address] Christal Douglas, [facility] 06/28/2025Refill [facility] [address] [place] [address] Kay Echevarria, CARD SORTER-CLINIQUE COUNTER MANAGER Other chest painfrom Last 3 Months Immunizations ImmunizationAdministration DatesNext DueCOVID-19, mRNA, LNP-S, PF, 30mcg/0.3mL Dose09/13/2021,01/22/2021,01/16/2021,01/01/2021,12/24/2020Influenza High Dose Preservative Free IM09/04/2019,10/02/2015Influenza Vaccine, Quadrivalent, Ymvtymvmig60/10/2023,10/21/2021Influenza, High-dose, Yyeeoogljikr90/06/2022, 08/19/2020Influenza, Injectable, Mdck, Preservative Free, Quad12/15/2018 Influenza, Injectable, Gtculbopjcgu82/15/2021Influenza, Injectable, quadrivalent (PF)11/09/2017Influenza, Intradermal (Pf)09/13/2020Influenza, Trivalent, Fndjrumchp07/26/2024Pneumococcal Conjugate 13-Zoadtq0011/09/2017,09/27/2013 Pneumococcal Axrdpitmlniyfm73/15/2016RSV, recombinant, protein subunit RSVpreF, adjuvant reconstituted, 0.5 mL, PF10/20/2023Tdap02/11/2016Zoster Vaccine Ldmbbsvvpoe80/06/2019 Family History Medical HistoryRelationNameCommentsStrokeBrotherHeart diseaseFatherNo Known ProblemsMotherHeart diseaseSisterHeart attackSonHeart diseaseSonStrokeSon RelationNameStatusCommentsBrotherAliveFatherDeceasedMotherDeceasedSisterAliveSon Social History Tobacco UseTypesPacks/DayYears UsedDateSmoking Tobacco: NeverSmokeless Tobacco: Never Tobacco Cessation:Counseling Given: Not Answered Alcohol UseStandard Drinks/WeekCommentsNo0 (1 standard drink = 0.6 oz pure alcohol)PHQ-2AnswerDate RecordedTotal Rmgqa7835ChildcareAnswerDate AgemfxxjApyzfrmvcQgsusid06/12/2019EmploymentAnswerDate RecordedEmploymentUnknown 05/11/2019Hunger ScreeningAnswerDate RecordedWithin the past 12 months we worried whether our food would run out before we got money to buy more.Never True04/17/2025Within the past 12 months the food we bought just didn't last and we didn't have money to get more.Never True04/17/2025Purpose - LifeAnswerDate RecordedPurpose and direction in dayrVbrdiud67/11/2021CommentsNoSex and Gender InformationValueDate RecordedSex Assigned at BirthNot on fileLegal Sex Ojtcik8807/05/2015 11:54 AM EDTGender IdentityNot on fileSexual OrientationNot on file Last Filed Vital Signs Vital SignReadingTime TakenCommentsBlood Orqkeoye065/50004/17/2025 1:53 PM EDT Iuyak426704/10/2025 10:27 AM ADLBdkpyxcrkqx80.2 ??C (97.1 ??F)04/17/2025 1:53 PM EDTRespiratory Vhem802504/17/2025 1:53 PM EDTOxygen Tfctiqytmk50%04/10/2025 10:27 AM EDTInhaled Oxygen Concentration--Euisko12.2 kg (141 lb 9.6 oz)04/17/2025 1:53 PM IUPFnwiqv287.5 cm (5' 2.01 )04/17/2025 1:53 PM EDTBody Mass Index25.89 04/17/2025 1:53 PM EDT Plan of Treatment DateTypeDepartmentCare Team (Latest Contact Info)Odmugdzxppk17/01/2025 10:00 AM ESTOffice Visit [facility] [address] [place] [address] Boyd Beck MD [address] [place] [address] 04/03/2026 1:30 PM EDTAppointment [facility] [address] [place] [address] Ciarra Colon, DO [address] [facility] [address] [place] [address] 04/09/2026 2:00 PM EDTOffice Visit [address] [address] Ciarra Colon, DO [address] [facility] [address] [place] [address] Health MaintenanceDue DateLast DoneCommentsMedicare Annual Wellness Visit 1938Zoster (Shingles) Vaccine (2 of 2)Fall Risk Nypkklzvi074DTaP,Tdap and Td Vaccines (2 - Td or Tdap) Depression Iyyjqpaii54Tobacco Screening 5COVID-19 QwbnduwVvvxyuiivwyh21/06/2022, 10/21/2021, 09/13/2021, Additional history existsInfluenza RgtzsvrBxrnvbofuyqo23/26/2024, 10/09/2023, 09/04/2022, Additional history exists Goals GoalPatient Goal TypeAssociated ProblemsRecent ProgressPatient-Stated?Author safe discharge to home Alexandria Gray RN Note: Evaluation of progress towards goal: safe transition from hospital to home with family/friend support. Medical Devices ImplantedTypeAreaManufacturerDevice IdentifierShelf Expiration DateModel / Serial / LotLen 23.5 Christ Rpl 62724 - [id number] - [id number] Implanted:Qty: 1 on 07/08/2018 by Lisa Bliss MD at [facility]: [id number] / [id number] / NALens Iol Ultrasert 24.0d - [id number] - [id number] Implanted:Qty: 1 on 08/05/2018 by Lisa Bliss MD at [facility]: [id number] 24.0 / [id number] / NADes Xience Alpine 3.00x18 Rx Rpl [id number] - [id number] Implanted:Qty: 1 on 03/31/2018 by Austin Vyas MD at [facility]/A: [id number] / / [id number] Xience Alpine 3.00x12 Rx Rpl [id number] - [id number] Implanted:Qty: 1 on 03/31/2018 by Austin Vyas MD at [facility]/A: [id number] / / [id number] Xience Alpine 3.50x12 Rx Rpl [id number] - [id number] Implanted:Qty: 1 [facility] 03/31/[facility]: [id number] / / [id number] Insurance Advance Directives TypeDate RecordedPatient RepresentativeExplanationDurable Power of Signals Intelligence Analyst * Full Code (Latest Code Status on File) Date ActivatedDate InactivatedComments07/11/2022 5:21 PM07/14/2022 5:54 PM * Full Code Date ActivatedDate ThkmjssmuvaZxugkypf08/8/2017 8:29 PM11/11/2017 11:09 PM Care Teams Team MemberRelationshipSpecialtyStart DateEnd Date Jayden Craven MD [address] [place] [address] PCP - GeneralFamily Medicine08/01/25
--- OUTSIDE RECORDS SUMMARY | 2025-09-25 07:17 | XMS_ITS | Clinical Summary ---
Author Organization [facility] Address [address] [place] [address] Care Team Providers Care Forming Fixer Name Role Phone Unavailable Primary Care Provider Unavailabl e Social History Tobacco UseTypesPacks/DayYears UsedDateSmoking Tobacco: Never Assessed CommentsUnknownSex and Gender InformationValueDate RecordedSex Assigned at Not on fileLegal WbxHgsbof84/30/2022 12:01 AM EDTGender IdentityNot on file Sexual OrientationNot on file Plan of Treatment DateTypeDepartmentCare Team (Latest Contact Info)Jglntlddpwj44/24/2025 11:40 AM ESTOffice Visit [facility] [place] [address] [place] [address] Mahin Douglas MD [address] [place] [address] Health MaintenanceDue DateLast DoneCommentsMedicare Annual Wellness (AWV) 1938Depression Vpvjfxdbk95/28/1950Fall Risk Knzqracsw72/28/2003Zoster Vaccines (2 of 2)COVID-19 Vaccine ( season) 510/04/2022, 10/21/2021, 09/13/2021, Additional history existsInfluenza Vaccine (#1)512/, 10/09/2023, 09/04/2022, Additional history existsAdult Gnzigyv40/Pneumococcal Vaccine: 50+ YearsCompleted 11/09/2017, 02/12/2016, 09/27/2013HIB VaccinesAged [...]
--- OUTSIDE RECORDS SUMMARY | 2025-09-25 07:17 | XMS_ITS | Patient Health Record ---
Author Organization [facility] [place] Address [address] [place] [address] Care Team Providers Care Inventory Control Specialist Name Role Phone Bean Craven Primary Care Provider [phone] Allergies No Known Allergies Reason For Referral [...] alcohol in the p ast year? No Smnbwf3XtvxkaeqrgbgmkJpruopqx Problems Problem Type SNOMED Code ICD Code Onset Dates Problem Status W/U Status Risk Notes Problem Atrial fibrillation (20643797) Atrial fib rillation (I48.91) ActiveconfirmedProblemHypertension (00366130)Hypertension (I10)Activeconfirmed ProblemCongestive heart failure (28886458)CHF (congestive heart failure) (I50.9) ActiveconfirmedProblemCOPD - Chronic obstructive pulmonary disease (83985694) COPD (chronic obstructive pulmonary disease) (J44.9)ActiveconfirmedProblem Pneumonia (400857374)Pneumonia (J18.9)ActiveconfirmedProblemNeuropathy (507065795)Neuropathy (G62.9)ActiveconfirmedProblemPeripheral circulatory disorder associated with diabetes mellitus (512079495)Controlled diabetes mellitus with circulatory complication (E11.59)ActiveconfirmedProblemChronic kidney disease stage 3B (disorder) (808881423)Chronic kidney disease, stage 3b (N18.32)Activeconfirmed Vital Signs Blood pressure diastolic 66 mm Hg 09/11/2025 Cqimvh84 in09/11/2025lood pressure bzhaifzt441 mm Hg09/11/20256181Lkapmf408.6 lbs 09/11/2025BMI26.26 kg/m209/11/2025 Procedures Procedure Date Ordered Date Performed Result Body Sit e Six minute walk 08/29/2025 N/GTvbeicpchxenkd16/13/2025N/A Encounters Encounter Location Date Provider Diagnosis [facility] [address] [place] [address] 08/10/2025 Bean Craven COPD (chronic obstructive pulmonary disease) J44.9 ; Pneumonia J18.9 ; CHF (congestive heart failure) I50.9 ; Atrial fibrillation I48.91 ; Hypertension I10 and Neuropathy G62.9 [facility] [address] [facility] [place] [address] 09/11/2025 Bean Craven Chronic kidney disea se, stage 3b N18.32 ; Controlled diabetes mellitus with circulatory complication E11.59 and CHF (congestive heart failure) I50.9 [facility] [address] [facility] [place] [address] 08/10/2025 Bean Honeycutty [facility] [facility] [place] [address] 08/11/2025Doug HoyCOPD (chronic obstructive pulmonary disease) J44.9[facility] [facility] [place] [place] [address]/12/2025 [facility] [facility] [address] 08/29/2025Doug HoyCOPD (chronic obstructive pulmonary disease) J44.9[facility] [place] [address]/01/2025 Bean Winslowtrial fibrillation I48.91[facility] [place] [address]/04/2025Doug HoyBDenver [facility] [place] [address]/Doug HoyCHF (congestive heart failure) I50.9 and Atrial fibrillation I48.91[facility] [place] [address]/Doug Hoy Assessments Encounter Date Diagnosis (ICD Code) Assessment Notes Treatment Notes Treatment Clinical Notes Section Notes 08/10/2025 COPD (chronic obstructive pulmon vero disease) (ICD-10 - J44.9) needs home porotable oxygen tank due tto COPD - with oxygen lzuxxqffkd68/11/2025 Pneumonia (ICD-10 - J18.9)5COPD (chronic obstructive pulmonary [...] Name:Bean Lazaro Yinkasimona, 10:45:00 AM, [address] [place], [address], Insurance Providers Payer Name Payer Address Payer Phone Subscriber Number Group Number Insured Name Patient Relationship to Insured Coverage Start Date Coverage End Date ANTH MEDICARE ADV PLAN [address] [place] [address] [id number] Parvin Morriself - patient is the insured Medical (General) History Medical History History ICD Code Arthritis COPDHypertensionSurgical History Surgery Date(Month/Year) tonsillectomy hysterectomyHospitalization History Reason Date(Month/Year) see above
--- NOTE | 2025-09-25 13:25 | CM.DCFOLLOWU ---
Person spoke with:The patients deny Michael How are you feeling? She is still pretty tired How is your pain? No pain Did you understand your discharge instructions? Yes Do you have any questions about your discharge instructions? No Were you given any prescriptions at discharge? No Were you able to get your prescriptions filled? None given Do you understand how to take your medications as ordered? Yes Do you have any questions about your follow up appointment and do you plan to keep your follow up appointment? No they have not scheduled a follow up appt yet but will try and call tomorrow Is there anything else that you would like to discuss? No Questions/Comments/Concerns/Other:
--- NOTE | 2025-09-25 13:56 | PC.NURSE ---
follow up appt. on 09/27 @ 1:15pm with Dr. Craven
--- NOTE | 2025-09-26 13:05 | CM.NOTE ---
Order for f/u BMP faxed to lab, called pt to update that order has been sent to lab for f/u blood work.
--- NOTE | 2025-09-26 13:14 | CM.NOTE ---
Updated Dr. Craven that pt was scheduled for BMP for f/u on Oct 01.
== END 2025-09-24 13:15 | disposition home or self-care (01) | DRG 683 ==
LOC: ER 21:54 → MS 09-23 12:09
PROVIDERS: Student in an Organized Health Care Education/Training Program; Admitting Provider Internal Medicine; Emergency Provider Internal Medicine; PCP Internal Medicine; Visit Provider Internal Medicine
DX: N17.9 Acute kidney failure, unspecified (principal); J96.11 Chronic respiratory failure with hypoxia; E86.0 Dehydration; I95.1 Orthostatic hypotension; J43.9 Emphysema, unspecified; I48.0 Paroxysmal atrial fibrillation; Z99.81 Dependence on supplemental oxygen; D64.9 Anemia, unspecified; I25.10 Atherosclerotic heart disease of native coronary artery without angina pectoris; Z87.01 Personal history of pneumonia (recurrent); N18.9 Chronic kidney disease, unspecified; Z79.01 Long term (current) use of anticoagulants; Z79.899 Other long term (current) drug therapy; Z90.710 Acquired absence of both cervix and uterus; M19.90 Unspecified osteoarthritis, unspecified site; M48.00 Spinal stenosis, site unspecified
CPT/HCPCS: 36415; 70450; 71045; 80048; 80053; 81001; 82948; 83605; 84484; 85007; 85018; 85025; 85027; 90662; 90677; 93005; 94640; 96361; 96374; 97161; 99285; J2919

== ENCOUNTER 2025-09-27 14:08 | Outpatient (OUT) | payer MEDICARE, SELFPAY ==
--- OUTSIDE RECORDS SUMMARY | 2025-09-27 14:14 | XMS_ITS | Clinical Summary ---
Author Organization [facility] Address [address] [place] [address] Care Team Providers Care Assembler Trim Name Role Phone Unavailable Primary Care Provider Unavailabl e Social History Tobacco UseTypesPacks/DayYears UsedDateSmoking Tobacco: Never Assessed CommentsUnknownSex and Gender InformationValueDate RecordedSex Assigned at Not on fileLegal ThnXihptv30/30/2022 12:01 AM EDTGender IdentityNot on file Sexual OrientationNot on file Plan of Treatment DateTypeDepartmentCare Team (Latest Contact Info)Yrycvrsappc21/24/2025 11:40 AM ESTOffice Visit [facility] [place] [address] [place] [address] Mahin Douglas MD [address] [place] [address] Health MaintenanceDue DateLast DoneCommentsMedicare Annual Wellness (AWV) 1938Depression Dgfmjyvqt57/28/1950Fall Risk Nftqkellh74/28/2003Zoster Vaccines (2 of 2)COVID-19 Vaccine ( season) 510/04/2022, 10/21/2021, 09/13/2021, Additional history existsInfluenza Vaccine (#1)512/, 10/09/2023, 09/04/2022, Additional history existsAdult Hetimvf00/Pneumococcal Vaccine: 50+ YearsCompleted 11/09/2017, 02/12/2016, 09/27/2013HIB VaccinesAged [...]
[2025-09-27 14:52] LABS: Hematocrit 33.6 % (36.0-48.0); Hemoglobin 9.8 g/dL (12.0-16.0); Immature Granulocytes Abs Auto 0.01 10^3/uL (0.00-0.03); Immature Granulocytes Pct Auto 0.1 % (0.0-0.5); Lymphocytes Absolute Auto 1.4 10^3/uL (1.2-3.8); Mean Corpuscular HGB Conc 29.2 g/dL (29.9-35.2); Mean Corpuscular Hemoglobin 25.1 pg (26.7-34.0); Mean Corpuscular Volume 86.2 fL (81.0-99.0); Platelet Count 262 10^3/uL (150-450); Red Blood Count 3.90 10^6/uL (4.20-5.40); White Blood Count 7.6 10^3/uL (4.0-11.0)
[2025-09-27 15:26] LABS: Alanine Aminotransferase 35 U/L (14-59); Albumin Globulin Ratio 1.2; Albumin Level 3.7 g/dL (3.4-5.0); Alkaline Phosphatase 95 U/L (46-116); Anion Gap 12.1; Aspartate Amino Transferase 21 U/L (15-37); Blood Urea Nitrogen 40.0 mg/dL (7.0-18.0); Calcium 8.9 mg/dL (8.5-10.1); Carbon Dioxide 26.3 mmol/L (21.0-32.0); Chloride 103 mmol/L (98-107); Estimated GFR (African America 58 (>=60 mL/min/1.73m^2); Estimated GFR (Non-African Ame 47 (>=60 mL/min/1.73m^2); Free T3 2.09 pg/mL (2.18-3.98); Globulin 3.2 g/dL; Glucose 105 mg/dL (74-106); Potassium 4.4 mmol/L (3.5-5.1); Sodium 137 mmol/L (136-145); Thyroid Stimulating Hormone 0.926 uIU/mL (0.358-3.740); Total Protein 6.9 g/dL (6.4-8.2)
[2025-09-27 15:29] LABS: NT Pro B Type Natriuretic Pept 3173.0 pg/mL (<=1800.0)
== END 2025-09-27 14:09 | disposition home or self-care (01) ==
LOC: LAB 14:12
PROVIDERS: PCP Family Medicine; Visit Provider Family Medicine
DX: J44.9 Chronic obstructive pulmonary disease, unspecified (principal)
CPT/HCPCS: 36415; 80053; 83880; 84436; 84443; 84481; 85025